=== PATIENT | female | born 1960 | race Caucasian/White ===

== ENCOUNTER 2017-11-19 11:24 | Inpatient (IN) ==
[2017-11-19 13:49] LABS: Baso # (Auto) 0.1 th/mm3 (0.0-0.2); Baso % (Auto) 1.3 % (0.0-2.0); Eos # (Auto) 0.4 th/mm3 (0.0-0.4); Hemoglobin 14.4 gm/dL (11.6-15.3); Lymph # (Auto) 2.4 th/mm3 (1.0-4.8); Lymph % (Auto) 26.4 % (9.0-44.0); Mean Corpuscular HGB Conc 32.7 % (32.0-36.0); Mean Corpuscular Hemoglobin 27.7 pg (27.0-34.0); Mean Corpuscular Volume 84.7 fL (80.0-100.0); Mean Platelet Volume 9.5 fL (7.0-11.0); Mono # (Auto) 0.7 th/mm3 (0.0-0.9); Mono % (Auto) 7.4 % (0.0-8.0); Neut # (Auto) 5.5 th/mm3 (1.8-7.7); Neut % (Auto) 60.9 % (16.0-70.0); Platelet Count 293 th/mm3 (150-450); Red Cell Distribution Width 13.9 % (11.6-17.2); White Blood Count 9.1 th/mm3 (4.0-11.0)
--- NOTE | 2017-11-19 15:54 | ED ---
HPI General Chief Complaint: Psychiatric Symptoms Stated Complaint: Ady Sternal/HHPD Time Seen by Provider: 11/19/17 13:13 Source: patient Mode of arrival: ambulatory Limitations: no limitations History of Present Illness HPI Narrative: 56-year-old female presents to the emergency department under Rodriguez act. According to the Rodriguez act report she was making statements that she was crucified on the cross last night, verbally threatening staff last night , and threatening to run away. The report also states that she has been hallucinating. On my evaluation the patient is alert and oriented 4. When I ask her questions she is answering some of them with bizarre answers. I am able to redirect her and I feel like she is answering questions appropriately with redirection. She denies suicidal or homicidal ideations. Says that she feels like she is hallucinating. Denies illicit drug use, alcohol use. Reports tobacco use. Symptoms are moderate to severe in severity. No known aggravating or relieving factors. Onset unknown. Duration chronic. Allergies as listed on the chart. Primary CARE providers Dr. Wray. Says she goes to ask for psychiatry. Denies significant past medical history. Has no other medical complaints. Denies chest pain, shortness breath, abdominal pain, nausea, vomiting, change in urine or stool. No other modifying factors or associated signs and symptoms. Related Data Home Medications Medication Instructions Recorded Confirmed Cogentin 2 mg PO BID 11/19/17 11/19/17 Colace 100 mg PO HS 11/19/17 11/19/17 Invega 234 mg IM Q4W 11/19/17 11/19/17 Seroquel 400 mg PO HS 11/19/17 11/19/17 Vesicare 10 mg PO HS 11/19/17 11/19/17 atorvastatin 20 mg PO HS 11/19/17 11/19/17 buspirone 15 mg PO TID 11/19/17 11/19/17 fenofibrate 160 mg PO DAILY 11/19/17 11/19/17 levothyroxine 88 mcg PO DAILY 11/19/17 11/19/17 metoprolol succinate 25 mg PO BID 11/19/17 11/19/17 pantoprazole 20 mg PO DAILY 11/19/17 11/19/17 ranitidine HCl 150 mg PO BID 11/19/17 11/19/17 sertraline 100 mg PO DAILY 11/19/17 11/19/17 Allergies Allergy/AdvReac Type Severity Reaction Status Date / Time chocolate flavor Allergy Severe Unverified 11/14/16 18:44 cyclosporine Allergy Severe Rash Unverified 11/14/16 18:44 lemon Allergy Mild Unverified 11/14/16 18:44 orange Allergy Mild Unverified 11/14/16 18:44 penicillin G Allergy Unknown Unverified 11/14/16 18:44 Review of Systems ROS: all other systems reviewed are negative PMFSH Medical History Medical History Hypertriglyceridemia (Acute) Hypothyroidism (Acute) Right leg injury (Acute) Patient denies medical problems (Acute) Surgical history unknown (Acute) Surgical History Surgical History Hx of appendectomy (Acute) History of cholecystectomy (Acute) No history of previous surgery (Acute) Family History Family History Mother Hypertension Social History Social History Substance History: Unable to Obtain Smoking Status: Cognitive impairment How Often Do You Have a Drink Containing Alcohol: Unable to Obtain Recent Travel in [facility] within the Last 8 Weeks: No Recent Out of Country Travel within the Last 8 Weeks: No Immunization History Tetanus Immunization: Unsure Hx Influenza Vaccine This Season: No Exam Narrative Exam Narrative: GENERAL: Well-nourished, well-developed female patient , in no acute distress SKIN: Warm and dry. HEAD: Atraumatic. Normocephalic. EYES: Pupils equal and round. ENT: Mucosa pink and moist. NECK: Supple. Trachea midline. CARDIOVASCULAR: Regular rate and rhythm. No murmur appreciated. RESPIRATORY: No accessory muscle use. Clear to auscultation. Breath sounds equal bilaterally. GASTROINTESTINAL: Abdomen soft, non-tender, nondistended. Hepatic and splenic margins not palpable. Bowel sounds are active 4 quadrants. MUSCULOSKELETAL: No obvious deformities. No clubbing. No cyanosis. No edema. NEUROLOGICAL: Awake and alert. Oriented 4. No obvious cranial nerve deficits. Motor grossly within normal limits. Normal speech. Moves all extremities. 5/5 strength to all extremities. PSYCHIATRIC: Delusional thought processes. Possible hallucinations. Course Initial Documented Vital Signs Temperature 97.8 F 11/19/17 11:43 Pulse Rate 81 11/19/17 11:43 Respiratory Rate 18 11/19/17 11:43 Blood Pressure 140/85 11/19/17 11:43 Last Documented Vital Signs Temperature 98.3 F 11/22/17 17:16 Pulse Rate 97 H 11/22/17 17:16 Respiratory Rate 16 11/22/17 17:16 Blood Pressure 152/95 H 11/22/17 17:16 Pulse Oximetry 96 11/22/17 17:16 Medical Decision Making MDM Narrative Medical decision making narrative: Patient presents under a Rodriguez act. Physical examination and vital signs are essentially unremarkable. Patient has no medical complaints to report. Psych screen has been ordered. If the laboratory results are unremarkable, the patient will be medically cleared for psychiatric evaluation and disposition. Medical Screen Exam Complete: Yes Emergency Medical Condition: Yes Differential Diagnosis Differential Diagnosis: Bipolar disorder, siddharth, acute psychosis, medical clearance for psychiatric evaluation Lab Data Result diagrams: 11/19/17 11:51 11/22/17 13:34 Lab Results 11/19/17 11/19/17 11/19/17 Range/Units 11:51 17:30 17:30 WBC 9.1 (4.0-11.0) th/mm3 RBC 5.20 (4.00-5.30) mil/mm3 Hgb 14.4 (11.6-15.3) gm/dL Hct 44.0 (35.0-46.0) % MCV 84.7 (80.0-100.0) fL MCH 27.7 (27.0-34.0) pg MCHC 32.7 (32.0-36.0) % RDW 13.9 (11.6-17.2) % Plt Count 293 (150-450) th/mm3 MPV 9.5 (7.0-11.0) fL Neut % (Auto) 60.9 (16.0-70.0) % Lymph % (Auto) 26.4 (9.0-44.0) % Clark % (Auto) 7.4 (0.0-8.0) % Eos % (Auto) 4.0 (0.0-4.0) % Baso % (Auto) 1.3 (0.0-2.0) % Neut # (Auto) 5.5 (1.8-7.7) th/mm3 Lymph # (Auto) 2.4 (1.0-4.8) th/mm3 Clark # (Auto) 0.7 (0.0-0.9) th/mm3 Eos # (Auto) 0.4 (0.0-0.4) th/mm3 Baso # (Auto) 0.1 (0.0-0.2) th/mm3 WBC Differential . Differential Comment Auto diff final Sodium 139 (136-145) meq/L Potassium 3.9 (3.5-5.1) meq/L Chloride 105 (98-107) meq/L Carbon Dioxide 22.4 (21.0-32.0) meq/L Anion Gap 12 (5-15) meq/L BUN 19 H (7-18) mg/dL Creatinine 1.68 H (0.50-1.00) mg/dL Estimated GFR 32 L (>89) mL/min Random Glucose 102 (74-106) mg/dL Hemoglobin A1c (4.3-6.0) % Calcium 9.1 (8.5-10.1) mg/dL Total Bilirubin 0.3 (0.2-1.0) mg/dL AST 31 (15-37) U/L ALT 46 (10-53) U/L Alkaline Phosphatase 73 (45-117) U/L Total Protein 7.1 (6.4-8.2) g/dL Albumin 3.8 (3.4-5.0) g/dL Triglycerides (42-150) mg/dL Cholesterol (120-200) mg/dL LDL Cholesterol, Calc (0-99) mg/dL HDL Cholesterol (40.0-60.0) mg/dL Cholesterol/HDL Ratio Ratio TSH 0.691 (0.358-3.740) uIU/mL Urine Color (Yellw/Straw) Urine Clarity (Clear) Urine pH (5.0-8.5) Ur Specific Webster (1.002-1.035) Urine Protein (Neg-Trace) mg/dL Urine Glucose (UA) (Negative) mg/dL Urine Ketones (Negative) mg/dL Urine Occult Blood (Negative) Urine Nitrate (Negative) Urine Bilirubin (Negative) Urine Urobilinogen (Less than 2) mg/dL Ur Leukocyte Esterase (Negative) Urine RBC (0-3) /hpf Urine WBC (0-5) /hpf Urine WBC Clumps (None) Ur Squamous Epith Cells (0-5) /hpf Ur Transition Epith Cell (None) /hpf Urine Bacteria (None) /hpf Micro UA Comment Urine Culture Comments Urine Eosinophils (None Seen) /HPF Ur Random Creatinine (27-300) mg/dL Ur Random Sodium meq/L Salicylates 2.3 L (2.8-20.0) mg/dL Urine Opiates Screen (Neg) Acetaminophen Less than 2.0 L (10.0-30.0) mcg/mL Ur Barbiturates Screen (Neg) Ur Amphetamines Screen (Neg) U Benzodiazepines Scrn (Neg) Urine Cocaine Screen (Neg) U Cannabinoids Screen (Neg) Serum Alcohol Less than 3 (0-5) mg/dL 11/20/17 11/20/17 11/20/17 Range/Units 09:03 09:03 14:48 WBC (4.0-11.0) th/mm3 RBC (4.00-5.30) mil/mm3 Hgb (11.6-15.3) gm/dL Hct (35.0-46.0) % MCV (80.0-100.0) fL MCH (27.0-34.0) pg MCHC (32.0-36.0) % RDW (11.6-17.2) % Plt Count (150-450) th/mm3 MPV (7.0-11.0) fL Neut % (Auto) (16.0-70.0) % Lymph % (Auto) (9.0-44.0) % Clark % (Auto) (0.0-8.0) % Eos % (Auto) (0.0-4.0) % Baso % (Auto) (0.0-2.0) % Neut # (Auto) (1.8-7.7) th/mm3 Lymph # (Auto) (1.0-4.8) th/mm3 Clark # (Auto) (0.0-0.9) th/mm3 Eos # (Auto) (0.0-0.4) th/mm3 Baso # (Auto) (0.0-0.2) th/mm3 WBC Differential Differential Comment Sodium 139 (136-145) meq/L Potassium 4.0 (3.5-5.1) meq/L Chloride 106 (98-107) meq/L Carbon Dioxide 22.8 (21.0-32.0) meq/L Anion Gap 10 (5-15) meq/L BUN 19 H (7-18) mg/dL Creatinine 1.72 H (0.50-1.00) mg/dL Estimated GFR 31 L (>89) mL/min Random Glucose 128 H (74-106) mg/dL Hemoglobin A1c 5.8 (4.3-6.0) % Calcium 9.2 (8.5-10.1) mg/dL Total Bilirubin (0.2-1.0) mg/dL AST (15-37) U/L ALT (10-53) U/L Alkaline Phosphatase (45-117) U/L Total Protein (6.4-8.2) g/dL Albumin (3.4-5.0) g/dL Triglycerides 172 H (42-150) mg/dL Cholesterol 158 (120-200) mg/dL LDL Cholesterol, Calc 61 (0-99) mg/dL HDL Cholesterol 62.9 H (40.0-60.0) mg/dL Cholesterol/HDL Ratio 2.51 Ratio TSH (0.358-3.740) uIU/mL Urine Color (Yellw/Straw) Urine Clarity (Clear) Urine pH (5.0-8.5) Ur Specific Webster (1.002-1.035) Urine Protein (Neg-Trace) mg/dL Urine Glucose (UA) (Negative) mg/dL Urine Ketones (Negative) mg/dL Urine Occult Blood (Negative) Urine Nitrate (Negative) Urine Bilirubin (Negative) Urine Urobilinogen (Less than 2) mg/dL Ur Leukocyte Esterase (Negative) Urine RBC (0-3) /hpf Urine WBC (0-5) /hpf Urine WBC Clumps (None) Ur Squamous Epith Cells (0-5) /hpf Ur Transition Epith Cell (None) /hpf Urine Bacteria (None) /hpf Micro UA Comment Urine Culture Comments Urine Eosinophils (None Seen) /HPF Ur Random Creatinine (27-300) mg/dL Ur Random Sodium meq/L Salicylates (2.8-20.0) mg/dL Urine Opiates Screen Neg (Neg) Acetaminophen (10.0-30.0) mcg/mL Ur Barbiturates Screen Neg (Neg) Ur Amphetamines Screen Neg (Neg) U Benzodiazepines Scrn Neg (Neg) Urine Cocaine Screen Neg (Neg) U Cannabinoids Screen Neg (Neg) Serum Alcohol (0-5) mg/dL 11/20/17 11/20/17 11/20/17 Range/Units 14:48 14:48 14:48 WBC (4.0-11.0) th/mm3 RBC (4.00-5.30) mil/mm3 Hgb (11.6-15.3) gm/dL Hct (35.0-46.0) % MCV (80.0-100.0) fL MCH (27.0-34.0) pg MCHC (32.0-36.0) % RDW (11.6-17.2) % Plt Count (150-450) th/mm3 MPV (7.0-11.0) fL Neut % (Auto) (16.0-70.0) % Lymph % (Auto) (9.0-44.0) % Clark % (Auto) (0.0-8.0) % Eos % (Auto) (0.0-4.0) % Baso % (Auto) (0.0-2.0) % Neut # (Auto) (1.8-7.7) th/mm3 Lymph # (Auto) (1.0-4.8) th/mm3 Clark # (Auto) (0.0-0.9) th/mm3 Eos # (Auto) (0.0-0.4) th/mm3 Baso # (Auto) (0.0-0.2) th/mm3 WBC Differential Differential Comment Sodium (136-145) meq/L Potassium (3.5-5.1) meq/L Chloride (98-107) meq/L Carbon Dioxide (21.0-32.0) meq/L Anion Gap (5-15) meq/L BUN (7-18) mg/dL Creatinine (0.50-1.00) mg/dL Estimated GFR (>89) mL/min Random Glucose (74-106) mg/dL Hemoglobin A1c (4.3-6.0) % Calcium (8.5-10.1) mg/dL Total Bilirubin (0.2-1.0) mg/dL AST (15-37) U/L ALT (10-53) U/L Alkaline Phosphatase (45-117) U/L Total Protein (6.4-8.2) g/dL Albumin (3.4-5.0) g/dL Triglycerides (42-150) mg/dL Cholesterol (120-200) mg/dL LDL Cholesterol, Calc (0-99) mg/dL HDL Cholesterol (40.0-60.0) mg/dL Cholesterol/HDL Ratio Ratio TSH (0.358-3.740) uIU/mL Urine Color Yellow (Yellw/Straw) Urine Clarity Cloudy H (Clear) Urine pH 5.0 (5.0-8.5) Ur Specific Webster 1.011 (1.002-1.035) Urine Protein Negative (Neg-Trace) mg/dL Urine Glucose (UA) Negative (Negative) mg/dL Urine Ketones Negative (Negative) mg/dL Urine Occult Blood Small H (Negative) Urine Nitrate Negative (Negative) Urine Bilirubin Negative (Negative) Urine Urobilinogen Less than 2 (Less than 2) mg/dL Ur Leukocyte Esterase Large H (Negative) Urine RBC 2 (0-3) /hpf Urine WBC 109 H (0-5) /hpf Urine WBC Clumps Few H (None) Ur Squamous Epith Cells 3 (0-5) /hpf Ur Transition Epith Cell 1 (None) /hpf Urine Bacteria Moderate H (None) /hpf Micro UA Comment Culture indicated Urine Culture Comments Culture indicated Urine Eosinophils None seen (None Seen) /HPF Ur Random Creatinine 108 (27-300) mg/dL Ur Random Sodium 35 meq/L Salicylates (2.8-20.0) mg/dL Urine Opiates Screen (Neg) Acetaminophen (10.0-30.0) mcg/mL Ur Barbiturates Screen (Neg) Ur Amphetamines Screen (Neg) U Benzodiazepines Scrn (Neg) Urine Cocaine Screen (Neg) U Cannabinoids Screen (Neg) Serum Alcohol (0-5) mg/dL 11/22/17 Range/Units 13:34 WBC (4.0-11.0) th/mm3 RBC (4.00-5.30) mil/mm3 Hgb (11.6-15.3) gm/dL Hct (35.0-46.0) % MCV (80.0-100.0) fL MCH (27.0-34.0) pg MCHC (32.0-36.0) % RDW (11.6-17.2) % Plt Count (150-450) th/mm3 MPV (7.0-11.0) fL Neut % (Auto) (16.0-70.0) % Lymph % (Auto) (9.0-44.0) % Clark % (Auto) (0.0-8.0) % Eos % (Auto) (0.0-4.0) % Baso % (Auto) (0.0-2.0) % Neut # (Auto) (1.8-7.7) th/mm3 Lymph # (Auto) (1.0-4.8) th/mm3 Clark # (Auto) (0.0-0.9) th/mm3 Eos # (Auto) (0.0-0.4) th/mm3 Baso # (Auto) (0.0-0.2) th/mm3 WBC Differential Differential Comment Sodium 141 (136-145) meq/L Potassium 3.9 (3.5-5.1) meq/L Chloride 111 H (98-107) meq/L Carbon Dioxide 20.5 L (21.0-32.0) meq/L Anion Gap 10 (5-15) meq/L BUN 13 (7-18) mg/dL Creatinine 1.26 H (0.50-1.00) mg/dL Estimated GFR 44 L (>89) mL/min Random Glucose 83 (74-106) mg/dL Hemoglobin A1c (4.3-6.0) % Calcium 8.8 (8.5-10.1) mg/dL Total Bilirubin (0.2-1.0) mg/dL AST (15-37) U/L ALT (10-53) U/L Alkaline Phosphatase (45-117) U/L Total Protein (6.4-8.2) g/dL Albumin (3.4-5.0) g/dL Triglycerides (42-150) mg/dL Cholesterol (120-200) mg/dL LDL Cholesterol, Calc (0-99) mg/dL HDL Cholesterol (40.0-60.0) mg/dL Cholesterol/HDL Ratio Ratio TSH (0.358-3.740) uIU/mL Urine Color (Yellw/Straw) Urine Clarity (Clear) Urine pH (5.0-8.5) Ur Specific Webster (1.002-1.035) Urine Protein (Neg-Trace) mg/dL Urine Glucose (UA) (Negative) mg/dL Urine Ketones (Negative) mg/dL Urine Occult Blood (Negative) Urine Nitrate (Negative) Urine Bilirubin (Negative) Urine Urobilinogen (Less than 2) mg/dL Ur Leukocyte Esterase (Negative) Urine RBC (0-3) /hpf Urine WBC (0-5) /hpf Urine WBC Clumps (None) Ur Squamous Epith Cells (0-5) /hpf Ur Transition Epith Cell (None) /hpf Urine Bacteria (None) /hpf Micro UA Comment Urine Culture Comments Urine Eosinophils (None Seen) /HPF Ur Random Creatinine (27-300) mg/dL Ur Random Sodium meq/L Salicylates (2.8-20.0) mg/dL Urine Opiates Screen (Neg) Acetaminophen (10.0-30.0) mcg/mL Ur Barbiturates Screen (Neg) Ur Amphetamines Screen (Neg) U Benzodiazepines Scrn (Neg) Urine Cocaine Screen (Neg) U Cannabinoids Screen (Neg) Serum Alcohol (0-5) mg/dL Imaging Data Radiologist's impression: Abdomen/Bladder Ultrasound 11/20/17 00:00 CONCLUSION: 1. Negative renal sonogram. Discharge Plan Discharge Disposition Patient Disposition: 01 Discharge Home Discharge Condition Condition: Stable Physicians Team ED Provider: Tab Mary ED Midlevel Provider: Francia Pickens Primary Care Provider: UNKNOWN, Attending Provider: Monico Thakur Other Providers: Jose Ar,[facility] ; Asad Judge Status ED Status: Left Department Discharge Information Discharge Date/Time: 11/19/17 18:09
[2017-11-19] MEDS ORDERED: Aluminum/Magnesium/Simethacone Susp 30 ML UDC PO PRN (16:34)
[2017-11-19] MEDS ORDERED: Benztropine Inj 2 MG/2 ML Ampul IM PRN (16:34)
[2017-11-19] MEDS ORDERED: Acetaminophen 325 MG Tablet PO PRN (16:34)
--- NOTE | 2017-11-19 16:38 | P.HPPSY ---
Provisional Diagnosis Admission Date: November 19, 2017 11:24 Ubly I.: 1. Schizoaffective disorder, unspecified type, acute exacerbation Ubly II.: Deferred Competence Certification of Person's Competence To Provide Express and Informed Consent I have personally examined Margo Gonzales, a person being served at [facility] on, November 19, 2017 1636. Express and informed consent means consent voluntarily given in writing, by a competent person, after sufficient explanation and disclosure of the subject matter involved to enable the person to make a knowing and willful decision without any element of force, fraud, deceit, duress, or other form of constraint or coercion. This person is 18 years of age or older, is not now known to be incompetent to consent to treatment with a guardian advocate, and does not have a health care surrogate or proxy currently making medical treatment decisions. I have found this person to be one of the following: [] Competent to provide express and informed consent, as defined above, for voluntary admission to this facility and is competent to provide express and informed consent for treatment. He/she has the consistent capacity to make well reasoned, willful, and knowing decisions concerning his or her medical or mental health treatment. The person fully and consistently understands the purpose of the admission for examination/placement and is fully capable of personally exercising all rights assured [place] [X] Incompetent to provide express and informed consent to voluntary admission, and this is incompetent to provide express and informed consent to treatment. The person must be transferred to involuntary status and a petition for a guardian advocate filed with the Circuit Court. [] Refusing to provide express and informed consent to voluntary admission but is competent to provide express and informed consent for treatment. The person must be discharged or transferred to involuntary status. Form shall be completed within 24 hours of a person's arrival at the receiving facility and filed in the clinical record of each person: 1. Admitted on a voluntary basis 2. Permitted to provide express and informed consent to his/her own treatment 3. Allowed to transfer from involuntary to voluntary status 4. Prior to permitting a person to consent to his or her own treatment after having been previously found incompetent to consent to treatment. History of Present Illness Capacity: Lacks capacity Chief Complaint: Psychosis History of Present Illness: Ms. Gonzales is a 56-year-old female with a history of schizoaffective disorder who presents under a Rodriguez act by law enforcement alleging that the patient made statements to her nurse that she was crucified on the cross last night. It is further alleged that the patient verbally threatened staff and threatened to run away from the facility. Accompanying the Rodriguez act as an MAR from patient's facility, which I have reviewed as well as a resident observation log spanning a period from the end of July 2017 through today, and I have examined this log as well. Reviewing the electronic medical record, I note that the patient was admitted here at [facility] most recently in [address] Gamboa. Patient seen and examined. Chart reviewed. Case discussed with nursing staff. On my examination today, the patient presents as disheveled, somewhat disorganized and psychotic. Paranoia is present. She tells me "someone is stalking me! Old-fashioned stuff." She also believes that people are taking her medications and possibly slipping her alcohol. She appears internally stimulated. She does endorse deprecatory auditory hallucinations in her own voice. She denies command auditory hallucinations to hurt self/others. No other delusional material. Affect is childlike. No mood symptoms. Psychiatric interview is limited because of patient's degree of psychiatric symptomatology at present. The patient has no acute physical complaints. Past psychiatric history: Patient is likely an unreliable historian. She carries a diagnosis of schizoaffective disorder. She reportedly gets psychiatric care through [facility] and prescriber is listed as Destini Watt. Most recent psychiatric admission here at [facility] was in 2014. Unclear if the patient has had interval psychiatric admissions. She reports a history of previous suicide attempt by overdose. Family history: The patient reports that alcoholism and schizophrenia run in her family. Chemical dependency history: The patient insists that people have been slipping her alcohol. She denies any volitional substance abuse. 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 She is reportedly high school educated. She is reportedly "somebody, I am not sure who." She also reports that she has children "somewhere." She also says that she has served in the [employer] in the past. She reports that she collects a disability income. No reported access to guns or firearms. The veracity of patient's social history as provided is unclear. Given patient's degree of psychiatric symptomatology, I have endeavored to obtain collateral information from Chyna June who is listed as a nurse in the Rodriguez act documentation. Ms. June reports that she serves as patient's primary care provider at the [facility] where the patient resides. She notes that the patient was hospitalized from 10/30 through 11/12. She notes that the patient obtains psychiatric care through [facility]. She notes that following discharge from the hospital the patient has been increasingly paranoid. Ms. June does not know of anyone who could serve as health care surrogate. She recommends calling over to the [facility]. I have instructed the nurse to do so, but unfortunately the [facility] reportedly has no contact information for anyone to serve as health care surrogate. - Inpatient Certification I certify that the inpatient services were ordered in accordance with Medicare regulations governing the order. This includes certification that hospital inpatient services are reasonable and necessary and in the case of services not specified as inpatient-only under 42 CFR 419.22(n), that they are appropriately provided as inpatient services in accordance to with the 2-midnight benchmark under 43 CFR 412.3(e) I certify that inpatient psychiatric hospital services are medically necessary. Evaluation and treatment and/or diagnostic testing are expected to improve the patient's condition. The patient needs on a daily basis, active treatment furnished directly by or requiring the supervision of inpatient psychiatric facility personnel. Estimated Total Length of Stay (Days): 7 (5-7) Plans for Post Hospital Care: Not yet determined Review of Systems unobtainable due to mental condition PMFSH - Medical History Medical History: Medical History (Last Reviewed 11/19/17 @ 15:52 by BRAULIO Loyola) Patient denies medical problems Surgical history unknown - Surgical History Surgical History: Surgical History (Last Updated 11/19/17 @ 11:52 by Deonte Locke RN) No history of previous surgery Quality Measures - Patient Strengths Patient's strengths (minimum of 2): In a monitored setting. Verbally fluent. Medications and Allergies Active Medications: Active Medications Acetaminophen (Tylenol) 650 mg PO Q4H PRN PRN Reason: Pain 1-5 or Temp >101F Al Hydrox/Mg Hydrox/Simethicone (Mag-Al Plus Susp Liq) 30 ml PO Q6H PRN PRN Reason: DYSPEPSIA Al Hydroxide/Mg Hydroxide (Milk Of Mario Parnell) 30 ml PO Q12H PRN PRN Reason: Mild Constipation Benztropine Mesylate (Cogentin) 1 mg PO Q12H PRN PRN Reason: EXTRA PYRAMIDAL SYMPTOMS Benztropine Mesylate (Cogentin Inj) 1 mg IM Q12H PRN PRN Reason: EXTRA PYRAMIDAL SYMPTOMS Nicotine (Habitrol 21 Mg Patch.24 Hr) 1 patch T-DERMAL DAILY PRN PRN Reason: Nicotine craving Non-Formulary Medication (Colace) 100 mg PO HS [facility] Non-Formulary Medication (Fenofibrate) 160 mg PO DAILY [facility] Non-Formulary Medication (Levothyroxine) 88 mcg PO DAILY@06 [facility] Non-Formulary Medication (Metoprolol Succinate) 25 mg PO BID [facility] Non-Formulary Medication (Pantoprazole) 20 mg PO DAILY [facility] Non-Formulary Medication (Ranitidine Hcl) 150 mg PO BID [facility] Non-Formulary Medication (Vesicare) 10 mg PO HS [facility] Non-Formulary Medication (Atorvastatin) 20 mg PO HS [facility] Allergies Allergy/AdvReac Type Severity Reaction Status Date / Time chocolate flavor Allergy Severe Unverified 11/14/16 18:44 cyclosporine Allergy Severe Rash Unverified 11/14/16 18:44 lemon Allergy Mild Unverified 11/14/16 18:44 orange Allergy Mild Unverified 11/14/16 18:44 penicillin G Allergy Unknown Unverified 11/14/16 18:44 Home Medications Medication Instructions Recorded Confirmed Type Cogentin 2 mg PO BID 11/19/17 11/19/17 History Colace 100 mg PO HS 11/19/17 11/19/17 History Invega 234 mg IM Q4W 11/19/17 11/19/17 History Seroquel 400 mg PO HS 11/19/17 11/19/17 History Vesicare 10 mg PO HS 11/19/17 11/19/17 History atorvastatin 20 mg PO HS 11/19/17 11/19/17 History buspirone 15 mg PO TID 11/19/17 11/19/17 History fenofibrate 160 mg PO DAILY 11/19/17 11/19/17 History levothyroxine 88 mcg PO DAILY 11/19/17 11/19/17 History metoprolol succinate 25 mg PO BID 11/19/17 11/19/17 History pantoprazole 20 mg PO DAILY 11/19/17 11/19/17 History ranitidine HCl 150 mg PO BID 11/19/17 11/19/17 History sertraline 100 mg PO DAILY 11/19/17 11/19/17 History Results - Labs CBC & Chem 7: 11/19/17 11:51 Labs: Laboratory Results - last 24 hr 11/19/17 11:51 WBC 9.1 RBC 5.20 Hgb 14.4 Hct 44.0 MCV 84.7 MCH 27.7 MCHC 32.7 RDW 13.9 Plt Count 293 MPV 9.5 Neut % (Auto) 60.9 Lymph % (Auto) 26.4 Clarke % (Auto) 7.4 Eos % (Auto) 4.0 Baso % (Auto) 1.3 Neut # (Auto) 5.5 Lymph # (Auto) 2.4 Clarke # (Auto) 0.7 Eos # (Auto) 0.4 Baso # (Auto) 0.1 WBC Differential . Differential Comment Auto diff final Laboratory reviewed. Presently, only a CBC is available for my review. According to the nurse, the patient was combative when blood was being drawn, and so only enough blood for the CBC could be drawn. I have instructed the nurse to have the laboratory return to try to draw more blood for laboratories ordered by the ED provider note that the patient is calmer. Exam Vital signs: Vital Signs 11/19/17 11:43 Temperature 97.8 F Pulse Rate 81 Respiratory Rate 18 Blood Pressure 140/85 Intake & Output 11/18/17 11/19/17 11/19/17 18:59 06:59 18:59 Weight 63.503 kg Narrative: Physical examination completed by ED provider. On my examination today, the patient appears to be in no acute physical distress. No motor abnormalities noted. Labs and vital signs reviewed. Mental Status Examination Appearance: Disheveled Consciousness: Alert Orientation: Person, Place Motor Activity: Other (No motor abnormalities noted) Speech: Hesitant Language: Other (Somewhat rambling) Fund of Knowledge: Inadequate Attention and Concentration: Easily distracted Memory: Impaired (Psychosis interferes) Mood: Anxious Affect: Anxious Thought Process & Associations: Tangential (At times disorganized) Thought Content: Hallucinations, Delusional Hallucination Type: Other (Appears internally stimulated) Delusion Type: Paranoid Suicidal Ideation: No Suicidal Plan: No Suicidal Intention: No Homicidal Ideation: No Homicidal Plan: No Homicidal Intention: No Insight: Poor Judgment: Poor Assessment and Plan - Assessment (1) Schizoaffective disorder Code(s): F25.9 - Schizoaffective disorder, unspecified Status: Acute - Plan Plan: 56-year-old female with psychiatric history as detailed above who presents under a Rodriguez act by law enforcement. On my examination today, the patient appears to be floridly psychotic, and decompensation of the patient's primary psychotic illness is suspected. Further laboratory workup will be needed to ensure that there is not an organic cause for patient's symptoms. I will plan to admit the patient to the inpatient psychiatric unit for safety, observation and stabilization. Admit inpatient. Involuntary status. I have completed first opinion. Consult for second opinion. Request healthcare surrogate and guardian advocate. Psychotropic medications are on hold until a healthcare surrogate can be identified to provide consent for these medications. Per nursing report, patient was providing consent for medications at facility but is unable to do so now secondary to psychiatric symptomatology. I will continue the patient's general medical medications as ordered at patient's facility. Follow-up laboratories ordered by the ED provider but not yet collected. Check EKG for QTc. PT/OT consultation. Vitals every shift. Counselor to see. Disposition planning. Estimated length of stay: 5-7 days, longer if a healthcare surrogate cannot be identified in short order. Justification for Continued Inpatient Stay: See above Discharge Planning: Pending psychiatric stabilization Request Healthcare Surrogate/Guardian Advocate?: Yes (1) Schizoaffective disorder Qualifiers: Schizoaffective disorder type: unspecified Qualified Code(s): F25.9 - Schizoaffective disorder, unspecified
[2017-11-19 19:04] LABS: Albumin 3.8 g/dL (3.4-5.0); Anion Gap 12 meq/L (5-15); Aspartate Aminotransferase 31 U/L (15-37); Blood Urea Nitrogen 19 mg/dL (7-18); Calcium 9.1 mg/dL (8.5-10.1); Carbon Dioxide 22.4 meq/L (21.0-32.0); Chloride 105 meq/L (98-107); Glomerular Filtration Rate 32 mL/min (>89); Glucose,Random 102 mg/dL (74-106); Potassium 3.9 meq/L (3.5-5.1); Sodium 139 meq/L (136-145)
[2017-11-19 19:05] LABS: Alanine Aminotransferase 46 U/L (10-53)
[2017-11-19 19:15] LABS: Alkaline Phosphatase 73 U/L (45-117); Thyroid Stimulating Hormone 0.691 uIU/mL (0.358-3.740); Total Protein 7.1 g/dL (6.4-8.2)
[2017-11-19] MEDS: Famotidine 20 MG Tablet PO SCH (21:47)
[2017-11-19] MEDS: Docusate Sodium 100 MG Capsule PO SCH (21:47)
[2017-11-20] MEDS ORDERED: LORazepam 1 MG Tablet PO ONE (01:30)
[2017-11-20] MEDS: Levothyroxine 88 MCG Tablet PO SCH (05:42)
[2017-11-20] MEDS: Famotidine 20 MG Tablet PO SCH ×2 (08:26→20:19)
[2017-11-20] MEDS: Pantoprazole Sodium 20 MG DR Tablet PO SCH (08:26)
[2017-11-20] MEDS ORDERED: Fenofibrate 145 MG Tablet PO SCH (09:00)
[2017-11-20] MEDS ORDERED: Tolterodine Tartrate LA 4 MG Capsule PO SCH (09:00)
--- NOTE | 2017-11-20 09:17 | P.CONPSY ---
Provisional Diagnosis Admission Date: November 19, 2017 16:31 Cordova I.: 1. Schizoaffective disorder, unspecified type, acute exacerbation Cordova II.: Deferred History of Present Illness Service: Psychiatry Consult date: 11/20/17 Requesting Physician: Monico Thakur Reason for Consult: Second opinion petition [employer] Primary Care Provider: UNKNOWN History of Present Illness: Patient admitted to Dr. Monico Thakur service under the Rodriguez act. Dr. Thakur H&P reviewed and agreed with. Dr. Thakur assigned first opinion petition supporting Rodriguez act. Patient seen by me in the ruiz with nurse Teresita. Patient alert diffusely confused disoriented disorganized and delusional. At this time patient does meet criteria for involuntary psychiatric hospitalization under the Rodriguez act thus I will cosign second opinion petition supporting Michael Review of Systems All other systems reviewed negative except as stated in HPI PMFSH - History History Provided By: Patient - Medical History Medical History: Medical History (Last Reviewed 11/20/17 @ 07:49 by Harry Boswell) Patient denies medical problems Surgical history unknown - Surgical History Surgical History: Surgical History (Last Reviewed 11/20/17 @ 07:49 by Harry Boswell) No history of previous surgery - Tobacco History Tobacco Use In Past 30 Days: No Smoking Status: Cognitive impairment - Alcohol History How Often Do You Have a Drink Containing Alcohol: Unable to Obtain - Substance Use History Substance History: Unable to Obtain - Travel History Recent Travel in the [place] Within the Last 8 Weeks: No Recent Travel Out of the Country Within the Last 8 Weeks: No - Immunization History Tetanus Immunization: Unsure Hx Influenza Vaccine This Season: No Medications and Allergies Active Medications: Active Medications Acetaminophen (Tylenol) 650 mg PO Q4H PRN PRN Reason: Pain 1-5 or Temp >101F Al Hydrox/Mg Hydrox/Simethicone (Mag-Al Plus Susp Liq) 30 ml PO Q6H PRN PRN Reason: DYSPEPSIA Al Hydroxide/Mg Hydroxide (Milk Of Magnesia Liq) 30 ml PO Q12H PRN PRN Reason: Mild Constipation Atorvastatin Calcium (Lipitor) 20 mg PO HS [facility] Last Admin: 11/19/17 21:47 Dose: 20 mg Benztropine Mesylate (Cogentin) 1 mg PO Q12H PRN PRN Reason: EXTRA PYRAMIDAL SYMPTOMS Benztropine Mesylate (Cogentin Inj) 1 mg IM Q12H PRN PRN Reason: EXTRA PYRAMIDAL SYMPTOMS Docusate Sodium (Colace) 100 mg PO HS [facility] Last Admin: 11/19/17 21:47 Dose: 100 mg Famotidine (Pepcid) 20 mg PO BID [facility] Last Admin: 11/20/17 08:26 Dose: 20 mg Fenofibrate (Tricor) 145 mg PO DAILY [facility] Last Admin: 11/20/17 08:27 Dose: 145 mg Levothyroxine Sodium (Synthroid) 88 mcg PO DAILY@0600 [facility] Last Admin: 11/20/17 05:42 Dose: 88 mcg Metoprolol Succinate (Toprol Xl) 25 mg PO BID [facility] Last Admin: 11/20/17 08:26 Dose: 25 mg Nicotine (Habitrol 21 Mg Patch.24 Hr) 1 patch T-DERMAL DAILY PRN PRN Reason: Nicotine craving Pantoprazole Sodium (Protonix) 20 mg PO DAILY [facility] Last Admin: 11/20/17 08:26 Dose: 20 mg Tolterodine Tartrate (Detrol La) 4 mg PO DAILY [facility] Last Admin: 11/20/17 08:27 Dose: 4 mg Allergies Allergy/AdvReac Type Severity Reaction Status Date / Time chocolate flavor Allergy Severe Unverified 11/14/16 18:44 cyclosporine Allergy Severe Rash Unverified 11/14/16 18:44 lemon Allergy Mild Unverified 11/14/16 18:44 orange Allergy Mild Unverified 11/14/16 18:44 penicillin G Allergy Unknown Unverified 11/14/16 18:44 Home Medications Medication Instructions Recorded Confirmed Type Cogentin 2 mg PO BID 11/19/17 11/19/17 History Colace 100 mg PO HS 11/19/17 11/19/17 History Invega 234 mg IM Q4W 11/19/17 11/19/17 History Seroquel 400 mg PO HS 11/19/17 11/19/17 History Vesicare 10 mg PO HS 11/19/17 11/19/17 History atorvastatin 20 mg PO HS 11/19/17 11/19/17 History buspirone 15 mg PO TID 11/19/17 11/19/17 History fenofibrate 160 mg PO DAILY 11/19/17 11/19/17 History levothyroxine 88 mcg PO DAILY 11/19/17 11/19/17 History metoprolol succinate 25 mg PO BID 11/19/17 11/19/17 History pantoprazole 20 mg PO DAILY 11/19/17 11/19/17 History ranitidine HCl 150 mg PO BID 11/19/17 11/19/17 History sertraline 100 mg PO DAILY 11/19/17 11/19/17 History Exam Vital signs: Vital Signs 11/19/17 11:43 11/19/17 17:00 11/19/17 18:25 Temperature 97.8 F 97.8 F 97.7 F Pulse Rate 81 80 82 Respiratory Rate 18 Blood Pressure 140/85 142/90 H 150/72 H Pulse Oximetry 98 98 11/20/17 05:54 Temperature 97.9 F Pulse Rate 83 Respiratory Rate 16 Blood Pressure 102/67 Pulse Oximetry 95 Intake & Output 11/19/17 11/20/17 11/20/17 18:59 06:59 18:59 Weight 59.6 kg Other: Weight On Admission 59.6 kg Narrative: Patient seen and ruiz with nurse patient ambulatory no complaints of pain no complaints of chest pain no respiratory difficulty no complaints of chest pain or abdominal pain patient moving all 4 extremities without difficulty Mental Status Examination Appearance: Disheveled Consciousness: Alert Orientation: Person, Place Motor Activity: Other (No motor abnormalities noted) Speech: Hesitant Language: Other (Somewhat rambling) Fund of Knowledge: Inadequate Attention and Concentration: Easily distracted Memory: Impaired (Psychosis interferes) Mood: Anxious Affect: Anxious Thought Process & Associations: Tangential (At times disorganized) Thought Content: Hallucinations, Delusional Hallucination Type: Other (Appears internally stimulated) Delusion Type: Paranoid Suicidal Ideation: No Suicidal Plan: No Suicidal Intention: No Homicidal Ideation: No Homicidal Plan: No Homicidal Intention: No Insight: Poor Judgment: Poor Assessment and Plan - Assessment (1) Schizoaffective disorder Code(s): F25.9 - Schizoaffective disorder, unspecified Status: Acute - Plan Plan: Patient meets Rodriguez criteria I will cosign second opinion petition supporting Michael act Justification for Continued Inpatient Stay: At this time patient would decompensate a place to a lower level of care Discharge Planning: To be determined Request Healthcare Surrogate/Guardian Advocate?: Yes (1) Schizoaffective disorder Qualifiers: Schizoaffective disorder type: unspecified Qualified Code(s): F25.9 - Schizoaffective disorder, unspecified
--- NOTE | 2017-11-20 09:56 | P.PNPSY ---
Subjective Chief Complaint: Psychosis Remarks: Patient seen and examined with nurse. Chart reviewed. Case discussed with nursing staff who notes patient is childlike, bizarre and tangential. Case discussed in treatment team. I have tasked the counselor with identifying potential health care surrogate to consent for medications for the patient. On my examination today, the patient remains quite paranoid and disorganized. She rambles about "horror movies," "grape wine," and other topics that are difficult to make out. She required Ativan 1 mg ETO overnight for agitation. She denies any suicidal or homicidal ideation. No physical complaints. I tried to call over to [facility] to see if they had any next of kin on file who could serve as health care surrogate. Unfortunately, their only emergency contact is the [place]. Vital Signs Temp Pulse Resp BP Pulse Ox 11/20/17 05:54 97.9 F 83 16 102/67 95 11/19/17 18:25 97.7 F 82 18 150/72 H 98 11/19/17 17:00 97.8 F 80 20 142/90 H 98 11/19/17 11:43 97.8 F 81 18 140/85 Intake and Output 11/19/17 11/20/17 11/20/17 22:59 06:59 14:59 Other: Weight 59.6 kg Weight On Admission 59.6 kg Laboratory Results - last 24 hr 11/19/17 11/19/17 11/19/17 11:51 17:30 17:30 WBC 9.1 RBC 5.20 Hgb 14.4 Hct 44.0 MCV 84.7 MCH 27.7 MCHC 32.7 RDW 13.9 Plt Count 293 MPV 9.5 Neut % (Auto) 60.9 Lymph % (Auto) 26.4 [place] % (Auto) 7.4 Eos % (Auto) 4.0 Baso % (Auto) 1.3 Neut # (Auto) 5.5 Lymph # (Auto) 2.4 [place] # (Auto) 0.7 Eos # (Auto) 0.4 Baso # (Auto) 0.1 WBC Differential . Differential Comment Auto diff final Sodium 139 Potassium 3.9 Chloride 105 Carbon Dioxide 22.4 Anion Gap 12 BUN 19 H Creatinine 1.68 H Estimated GFR 32 L Random Glucose 102 Calcium 9.1 Total Bilirubin 0.3 AST 31 ALT 46 Alkaline Phosphatase 73 Total Protein 7.1 Albumin 3.8 Triglycerides Cholesterol LDL Cholesterol, Calc HDL Cholesterol Cholesterol/HDL Ratio TSH 0.691 Salicylates 2.3 L Acetaminophen Less than 2.0 L Serum Alcohol Less than 3 11/20/17 09:03 WBC RBC Hgb Hct MCV MCH MCHC RDW Plt Count MPV Neut % (Auto) Lymph % (Auto) [place] % (Auto) Eos % (Auto) Baso % (Auto) Neut # (Auto) Lymph # (Auto) [place] # (Auto) Eos # (Auto) Baso # (Auto) WBC Differential Differential Comment Sodium 139 Potassium 4.0 Chloride 106 Carbon Dioxide 22.8 Anion Gap 10 BUN 19 H Creatinine 1.72 H Estimated GFR 31 L Random Glucose 128 H Calcium 9.2 Total Bilirubin AST ALT Alkaline Phosphatase Total Protein Albumin Triglycerides 172 H Cholesterol 158 LDL Cholesterol, Calc 61 HDL Cholesterol 62.9 H Cholesterol/HDL Ratio 2.51 TSH Salicylates Acetaminophen Serum Alcohol Labs reviewed. Decreased GFR noted. This appears to be even below her baseline decreased GFR, which has historically been in the 40-50s. Review of Systems unobtainable due to mental condition Mental Status Examination Appearance: Disheveled Consciousness: Alert Orientation: Person, Place Motor Activity: Other (No abnormal motor movements noted) Speech: Hesitant Language: Other (Somewhat rambling) Fund of Knowledge: Inadequate Attention and Concentration: Easily distracted Memory: Impaired (Psychosis interferes) Mood: Anxious Affect: Anxious Thought Process & Associations: Disorganized Thought Content: Hallucinations, Delusional Hallucination Type: Other (Remains internally stimulated) Delusion Type: Paranoid Suicidal Ideation: No Suicidal Plan: No Suicidal Intention: No Homicidal Ideation: No Homicidal Plan: No Homicidal Intention: No Insight: Poor Judgment: Poor Assessment and Plan - Assessment (1) Schizoaffective disorder Code(s): F25.9 - Schizoaffective disorder, unspecified Status: Acute - Plan Plan: Scheduled psychotropic medications remain on hold for lack of anyone to provide consent. I will consult the hospitalist regarding decreased GFR. Unclear if this represents progression of underlying CKD or DARNELL or some other factor. I have also requested that the hospitalist determine whether medical medications need to be dose adjusted for renal impairment. Continue to monitor on the inpatient unit. Continue other medications and care as ordered. Justification for Continued Inpatient Stay: Impairment in reality construction. High risk for decompensation in less restrictive environment. Discharge Planning: Pending psychiatric stabilization. Request Healthcare Surrogate/Guardian Advocate?: Yes (1) Schizoaffective disorder Qualifiers: Schizoaffective disorder type: unspecified Qualified Code(s): F25.9 - Schizoaffective disorder, unspecified
[2017-11-20 10:38] LABS: Calcium 9.2 mg/dL (8.5-10.1); Carbon Dioxide 22.8 meq/L (21.0-32.0)
[2017-11-20 10:41] LABS: Chol/HDL Ratio 2.51 Ratio; HDL Cholesterol 62.9 mg/dL (40.0-60.0)
--- NOTE | 2017-11-20 15:00 | P.CON ---
History of Present Illness Service: Hospitalist Consult date: 11/20/17 Requesting Physician: Monico Thakur Reason for Consult: Medical management Primary Care Provider: UNKNOWN History of Present Illness: This is a 56-year-old female with past medical history significant for schizoaffective disorder, hypertension, hypothyroidism and hypertriglyceridemia who presented to the ED under [place] act due to acute psychosis. Patient since been admitted to inpatient psychiatry unit and hospitalist services have been consulted for medical management specifically for assistance with elevated creatinine. Patient seen and examined. Patient is quite psychotic and therefore an accurate history is unobtainable. She tells me that she has not urinated since last night however discussed with Teresita BARNETT who states that this is not accurate. Otherwise, she has no acute medical complaints. Review of Systems All other systems reviewed negative except as stated in HPI PMFSH - History History Provided By: Patient, Medical Record - Medical History Medical History: Medical History (Last Updated 11/20/17 @ 14:47 by Carmen Carter) Hypertriglyceridemia (Acute) Hypothyroidism (Acute) Right leg injury (Acute) Patient denies medical problems Surgical history unknown - Surgical History Surgical History: Surgical History (Last Updated 11/20/17 @ 14:22 by Carmen Carter) Hx of appendectomy (Acute) History of cholecystectomy (Acute) No history of previous surgery - Family History Family History: Family History (Last Updated 11/20/17 @ 14:23 by Carmen Carter) Mother Hypertension - Tobacco History Tobacco Use In Past 30 Days: No Smoking Status: Cognitive impairment - Alcohol History How Often Do You Have a Drink Containing Alcohol: Unable to Obtain - Substance Use History Substance History: Unable to Obtain - Travel History Recent Travel in the [place] Within the Last 8 Weeks: No Recent Travel Out of the Country Within the Last 8 Weeks: No - Immunization History Tetanus Immunization: Unsure Hx Influenza Vaccine This Season: No Medications and Allergies Active Medications: Active Medications Acetaminophen (Tylenol) 650 mg PO Q4H PRN PRN Reason: Pain 1-5 or Temp >101F Al Hydrox/Mg Hydrox/Simethicone (Mag-Al Plus Susp Liq) 30 ml PO Q6H PRN PRN Reason: DYSPEPSIA Al Hydroxide/Mg Hydroxide (Milk Of Magnesia Liq) 30 ml PO Q12H PRN PRN Reason: Mild Constipation Atorvastatin Calcium (Lipitor) 20 mg PO HS [facility] Last Admin: 11/19/17 21:47 Dose: 20 mg Benztropine Mesylate (Cogentin) 1 mg PO Q12H PRN PRN Reason: EXTRA PYRAMIDAL SYMPTOMS Benztropine Mesylate (Cogentin Inj) 1 mg IM Q12H PRN PRN Reason: EXTRA PYRAMIDAL SYMPTOMS Docusate Sodium (Colace) 100 mg PO HS [facility] Last Admin: 11/19/17 21:47 Dose: 100 mg Famotidine (Pepcid) 20 mg PO BID [facility] Last Admin: 11/20/17 08:26 Dose: 20 mg Fenofibrate (Tricor) 145 mg PO DAILY [facility] Last Admin: 11/20/17 08:27 Dose: 145 mg Levothyroxine Sodium (Synthroid) 88 mcg PO DAILY@0600 [facility] Last Admin: 11/20/17 05:42 Dose: 88 mcg Metoprolol Succinate (Toprol Xl) 25 mg PO BID [facility] Last Admin: 11/20/17 08:26 Dose: 25 mg Nicotine (Habitrol 21 Mg Patch.24 Hr) 1 patch T-DERMAL DAILY PRN PRN Reason: Nicotine craving Pantoprazole Sodium (Protonix) 20 mg PO DAILY [facility] Last Admin: 11/20/17 08:26 Dose: 20 mg Tolterodine Tartrate (Detrol La) 4 mg PO DAILY [facility] Last Admin: 11/20/17 08:27 Dose: 4 mg Allergies Allergy/AdvReac Type Severity Reaction Status Date / Time chocolate flavor Allergy Severe Unverified 11/14/16 18:44 cyclosporine Allergy Severe Rash Unverified 11/14/16 18:44 lemon Allergy Mild Unverified 11/14/16 18:44 orange Allergy Mild Unverified 11/14/16 18:44 penicillin G Allergy Unknown Unverified 11/14/16 18:44 Home Medications Medication Instructions Recorded Confirmed Type Cogentin 2 mg PO BID 11/19/17 11/19/17 History Colace 100 mg PO HS 11/19/17 11/19/17 History Invega 234 mg IM Q4W 11/19/17 11/19/17 History Seroquel 400 mg PO HS 11/19/17 11/19/17 History Vesicare 10 mg PO HS 11/19/17 11/19/17 History atorvastatin 20 mg PO HS 11/19/17 11/19/17 History buspirone 15 mg PO TID 11/19/17 11/19/17 History fenofibrate 160 mg PO DAILY 11/19/17 11/19/17 History levothyroxine 88 mcg PO DAILY 11/19/17 11/19/17 History metoprolol succinate 25 mg PO BID 11/19/17 11/19/17 History pantoprazole 20 mg PO DAILY 11/19/17 11/19/17 History ranitidine HCl 150 mg PO BID 11/19/17 11/19/17 History sertraline 100 mg PO DAILY 11/19/17 11/19/17 History Physical Exam Vital signs: Vital Signs 11/19/17 17:00 11/19/17 18:25 11/20/17 05:54 Temperature 97.8 F 97.7 F 97.9 F Pulse Rate 80 82 83 Respiratory Rate 16 Blood Pressure 142/90 H 150/72 H 102/67 Pulse Oximetry 98 98 95 Intake & Output 11/19/17 11/20/17 11/20/17 18:59 06:59 18:59 Weight 59.6 kg Other: Weight On Admission 59.6 kg Narrative: GENERAL: WDWN female, INAD. Awake and alert. Psychotic. SKIN: Warm and dry. No generalized rash. HEAD: Atraumatic. Normocephalic. EYES: Pupils equal and round. No scleral icterus. No injection or drainage. ENT: No nasal bleeding or discharge. Mucous membranes pink and moist. NECK: Trachea midline. CARDIOVASCULAR: Regular rate and rhythm. RESPIRATORY: No accessory muscle use. Clear to auscultation. Breath sounds equal bilaterally. GASTROINTESTINAL: Abdomen soft, non-tender, nondistended. Hepatic and splenic margins not palpable. MUSCULOSKELETAL: Extremities without clubbing, cyanosis, or edema. No obvious deformities. NEUROLOGICAL: Awake and alert. No obvious cranial nerve deficits. Motor grossly within normal limits. No focal neurologic finding appreciated. Normal speech. PSYCHIATRIC: Psychotic, disorganized thought process. Assessment and Plan - Plan 56-year-old female with past medical history significant for schizoaffective disorder who presented to the ED under [place] act due to acute psychosis. Patient since been admitted to inpatient psychiatry unit and hospitalist services have been consulted for medical management specifically for assistance with elevated creatinine. Acute psychosis Schizoaffective disorder -Management per psychiatric team DRANELL on ?CKD, likely in part due to dehydration/poor oral intake -Encourage p.o. fluids -Hold Detrol LA -obtain UA specimen and send for C&S if indicated, urine sodium, creatinine and eosinophils -obtain Renal US -Avoid nephrotoxic agents -Monitor kidney function closely. Repeat BMP in a.m. and if creatinine continues to worsen patient will need to be transferred to [facility] for IV fluid hydration and further workup initiated. Hypertension now hypotensive -Decrease dose of Metoprolol XL to once daily Hypothyroidism TSH WNL -Continue patient on home dose of Synthroid 88 mcg daily Dyslipidemia -Hold home dose of Tricor 2/2 DARNELL -Continue patient on home dose of Lipitor DVT prophylaxis -Patient is ambulatory Discussed Condition With: patient, nursing staff, Dr. Judge
[2017-11-20 15:28] LABS: Bacteria,Urine Moderate /hpf; Bilirubin,Urine Negative (Negative); Clarity,Urine Cloudy (Clear); Color,Urine Yellow (Yellw/Straw); Glucose,Urine (UA) Negative (Negative); Leukocyte Esterase,Urine Large (Negative); Nitrite,Urine Negative (Negative); Specific Gravity,Urine 1.011 (1.002-1.035); Squamous Epithelial Cell,Urine 3 /hpf (0-5); Transitional Epi Cells,Urine 1 /hpf
[2017-11-20 15:33] LABS: Amphetamine Screen,Urine Neg (Neg); Barbiturate Screen,Urine Neg (Neg); Cannabinoid Screen,Urine Neg (Neg); Cocaine Screen,Urine Neg (Neg)
[2017-11-20 15:34] LABS: Creatinine,Urine Random 108 mg/dL (27-300)
[2017-11-20 15:35] LABS: Opiate Screen,Urine Neg (Neg)
[2017-11-20 16:15] LABS: Hemoglobin A1c 5.8 % (4.3-6.0)
--- NOTE | 2017-11-20 18:50 | US ---
EXAM DATE: 11/20/2017 6:16 PM EDT AGE/SEX: 56 years / Female INDICATIONS: Increased BUN/Creatinine. CLINICAL DATA: This is the patient's subsequent encounter. Patient reports that signs and symptoms h ave been present for 1 day and indicates a pain score of 0/10. MEDICAL/SURGICAL HISTORY: . Hypertriglyceridemia. Hypothyroidism. Right leg injury. Cholecyste ctomy. Appendectomy. COMPARISON: [facility], US KIDNEY, BILATERAL, 10/08/2017. [facility] [place], [place] KIDNEY/RENAL/BLADDER, 11/20/2011. . MEASUREMENTS: Right Kidney:__9.1 x 5.7 x 3.7 cm Left Kidney:__9.2 x 4.9 x 4.2 cm FINDINGS: Right Kidney: Normal renal cortical thickness. No evidence of mass or hydronephrosis. Left Kidney: Normal renal cortical thickness. No evidence of mass or hydronephrosis. Bladder: Within normal limits given the degree of distension. Other: None. CONCLUSION: 1. Negative renal sonogram. Electronically signed by: Eben Brandon MD 11/20/2017 6:48 PM EDT
--- NOTE | 2017-11-20 19:53 | ECG ---
Date Performed: 11/20/2017 Time Performed: 10:18:29 PTAGE: 56 years EKG: Sinus rhythm POSSIBLE LEFT ATRIAL ENLARGEMENT LOW QRS VOLTAGE IN PRECORDIAL LEADS BORDERLINE ECG PREVIOUS TRACING : 01/08/2012 11.03 Since the previous tracing, no significant change noted DOCTOR: Bianca Augustine Interpretating Date/Time 11/20/2017 19:51:00
[2017-11-20] MEDS: Docusate Sodium 100 MG Capsule PO SCH (20:19)
[2017-11-21] MEDS: Levothyroxine 88 MCG Tablet PO SCH (06:42)
[2017-11-21] MEDS: Famotidine 20 MG Tablet PO SCH ×2 (10:21→21:14)
[2017-11-21] MEDS: Pantoprazole Sodium 20 MG DR Tablet PO SCH (10:22)
--- NOTE | 2017-11-21 12:00 | P.PNPSY ---
Subjective Chief Complaint: Psychosis Remarks: Patient seen and examined with nurse. Chart reviewed. Hospitalist and occupational therapy evaluations noted. Case discussed with nursing staff who reports patient remains quite delusional. On my examination today, I find the patient returning from lunch. She is swaddled around her midsection with an absorbant pad. She tells me that this is "to hold my guts in." She tells me " I feel very sinful and horrible." She denies any SI or HI. She points to a spot on her hand and rambles about "nuclear coffee on my hand." Abruptly, she asks this provider "Are you going to kill me? You look very determined to." Reassurance provided. No acute physical complaints. Vital Signs Temp Pulse Resp BP Pulse Ox 11/20/17 20:16 132/77 11/20/17 17:00 97.1 F L 97 H 16 99/68 L 92 L Laboratory Results - last 24 hr 11/20/17 11/20/17 11/20/17 09:03 14:48 14:48 Hemoglobin A1c 5.8 Urine Color Yellow Urine Clarity Cloudy H Urine pH 5.0 Ur Specific [place] 1.011 Urine Protein Negative Urine Glucose (UA) Negative Urine Ketones Negative Urine Occult Blood Small H Urine Nitrate Negative Urine Bilirubin Negative Urine Urobilinogen Less than 2 Ur Leukocyte Esterase Large H Urine RBC 2 Urine WBC 109 H Urine WBC Clumps Few H Ur Squamous Epith Cells 3 Ur Transition Epith Cell 1 Urine Bacteria Moderate H Micro UA Comment Culture indicated Urine Culture Comments Culture indicated Urine Eosinophils Ur Random Creatinine Ur Random Sodium Urine Opiates Screen Neg Ur Barbiturates Screen Neg Ur Amphetamines Screen Neg U Benzodiazepines Scrn Neg Urine Cocaine Screen Neg U Cannabinoids Screen Neg 11/20/17 11/20/17 14:48 14:48 Hemoglobin A1c Urine Color Urine Clarity Urine pH Ur Specific [place] Urine Protein Urine Glucose (UA) Urine Ketones Urine Occult Blood Urine Nitrate Urine Bilirubin Urine Urobilinogen Ur Leukocyte Esterase Urine RBC Urine WBC Urine WBC Clumps Ur Squamous Epith Cells Ur Transition Epith Cell Urine Bacteria Micro UA Comment Urine Culture Comments Urine Eosinophils None seen Ur Random Creatinine 108 Ur Random Sodium 35 Urine Opiates Screen Ur Barbiturates Screen Ur Amphetamines Screen U Benzodiazepines Scrn Urine Cocaine Screen U Cannabinoids Screen Labs reviewed. UA concerning for UTI; in light of renal issues, I will defer selection of antibiotic if appropriate to the hospitalist. Impressions Abdomen/Bladder Ultrasound 11/20/17 00:00 CONCLUSION: 1. Negative renal sonogram. Review of Systems unobtainable due to mental condition Mental Status Examination Appearance: Disheveled Consciousness: Alert Orientation: Person, Place Motor Activity: Other (No motoric abnormalities noted) Speech: Unremarkable Language: Other (Remains rambling) Fund of Knowledge: Inadequate Attention and Concentration: Easily distracted Memory: Impaired (Psychosis interferes) Mood: Anxious Affect: Anxious Thought Process & Associations: Disorganized Thought Content: Hallucinations, Delusional Hallucination Type: Other (Internally preoccupied) Delusion Type: Paranoid Suicidal Ideation: No Homicidal Ideation: No Insight: Poor Judgment: Poor Assessment and Plan - Assessment (1) Schizoaffective disorder Code(s): F25.9 - Schizoaffective disorder, unspecified Status: Acute - Plan Plan: Psychotropic medications remain on hold for lack of anyone to provide consent. Hopefully a guardian advocate will be appointed in the [place] court tomorrow. Hospitalist input regarding renal dysfunction and appreciated. I have ordered BMP for this morning to trend renal function, and we will plan to transfer the patient to the medical psychiatric unit if this worsens or fails to improve. Continue to monitor on the inpatient psychiatric unit. Continue other medications and care as ordered. Justification for Continued Inpatient Stay: Impairment in reality construction. Complicating condition. Risk for decompensation in less restrictive environment. Discharge Planning: Pending psychiatric stabilization. Request Healthcare Surrogate/Guardian Advocate?: Yes (1) Schizoaffective disorder Qualifiers: Schizoaffective disorder type: unspecified Qualified Code(s): F25.9 - Schizoaffective disorder, unspecified
--- NOTE | 2017-11-21 13:56 | P.PN ---
Subjective Interval history: Follow-up on patient with DARNELL. Patient seen and examined. Patient is acutely psychotic and obtaining informed history is possible. She is witnessed to ambulate around the unit without any difficulty. Discussed with nursing staff, patient refused lab draw earlier and RN contacted lab who will send someone to try again. Attempted to discuss importance of lab draw with patient but to no avail. Physical Exam Vital signs: Vital Signs 11/20/17 17:00 11/20/17 20:16 Temperature 97.1 F L Pulse Rate 97 H Respiratory Rate 16 Blood Pressure 99/68 L 132/77 Pulse Oximetry 92 L Narrative: GENERAL: WDWN female, INAD. Awake and alert. Psychotic. Ambulating around the unit without any difficulty. SKIN: Warm and dry. No generalized rash. HEAD: Atraumatic. Normocephalic. EYES: Pupils equal and round. No scleral icterus. No injection or drainage. ENT: No nasal bleeding or discharge. Mucous membranes pink and moist. NECK: Trachea midline. CARDIOVASCULAR: Regular rate and rhythm. RESPIRATORY: No accessory muscle use. Clear to auscultation. Breath sounds equal bilaterally. GASTROINTESTINAL: Abdomen soft, non-tender, nondistended. MUSCULOSKELETAL: Extremities without clubbing, cyanosis, or edema. No obvious deformities. NEUROLOGICAL: Awake and alert. No obvious cranial nerve deficits. Motor grossly within normal limits. No focal neurologic finding appreciated. Normal speech. PSYCHIATRIC: Psychotic, disorganized thought process. Results - Labs CBC & Chem 7: 11/19/17 11:51 11/20/17 09:03 Laboratory Results - last 24 hr 11/20/17 11/20/17 11/20/17 09:03 14:48 14:48 Hemoglobin A1c 5.8 Urine Color Yellow Urine Clarity Cloudy H Urine pH 5.0 Ur Specific [place] 1.011 Urine Protein Negative Urine Glucose (UA) Negative Urine Ketones Negative Urine Occult Blood Small H Urine Nitrate Negative Urine Bilirubin Negative Urine Urobilinogen Less than 2 Ur Leukocyte Esterase Large H Urine RBC 2 Urine WBC 109 H Urine WBC Clumps Few H Ur Squamous Epith Cells 3 Ur Transition Epith Cell 1 Urine Bacteria Moderate H Micro UA Comment Culture indicated Urine Culture Comments Culture indicated Urine Eosinophils Ur Random Creatinine Ur Random Sodium Urine Opiates Screen Neg Ur Barbiturates Screen Neg Ur Amphetamines Screen Neg U Benzodiazepines Scrn Neg Urine Cocaine Screen Neg U Cannabinoids Screen Neg 11/20/17 11/20/17 14:48 14:48 Hemoglobin A1c Urine Color Urine Clarity Urine pH Ur Specific [place] Urine Protein Urine Glucose (UA) Urine Ketones Urine Occult Blood Urine Nitrate Urine Bilirubin Urine Urobilinogen Ur Leukocyte Esterase Urine RBC Urine WBC Urine WBC Clumps Ur Squamous Epith Cells Ur Transition Epith Cell Urine Bacteria Micro UA Comment Urine Culture Comments Urine Eosinophils None seen Ur Random Creatinine 108 Ur Random Sodium 35 Urine Opiates Screen Ur Barbiturates Screen Ur Amphetamines Screen U Benzodiazepines Scrn Urine Cocaine Screen U Cannabinoids Screen - Imaging Impressions Abdomen/Bladder Ultrasound 11/20/17 00:00 CONCLUSION: 1. Negative renal sonogram. Assessment and Plan - Plan 56-year-old female with past medical history significant for schizoaffective disorder who presented to the ED under [place] act due to acute psychosis. Patient since been admitted to inpatient psychiatry unit and hospitalist services have been consulted for medical management specifically for assistance with elevated creatinine. Acute psychosis Schizoaffective disorder -Management per psychiatric team DARNELL on ?CKD, likely in part due to dehydration/poor oral intake and UTI Renal US unremarkable -Encourage p.o. fluids -continue to hold Detrol LA and Tricor -Avoid nephrotoxic agents -Monitor kidney function closely. Patient refusing blood draw. Discussed with Dr. Thakur, recommend moving patient to med psych for IV fluid hydration and repeat BMP in a.m. UTI UCX positive for GNR -begin IV Ceftriaxone -follow up on final urine cx results Hypertension now hypotensive -continue on Metoprolol Xl with hold parameters Hypothyroidism TSH WNL -Continue patient on home dose of Synthroid 88 mcg daily Dyslipidemia -Hold home dose of Tricor 2/2 DARNELL -Continue patient on home dose of Lipitor DVT prophylaxis -Patient is ambulatory Discussed Condition With: patient, nursing staff, Dr. Judge, Dr. Thakur
[2017-11-21] MEDS: Sod Chloride 0.9% Inj 1,000 ML IV.CONT SCH (20:45)
[2017-11-21] MEDS: Docusate Sodium 100 MG Capsule PO SCH (21:13)
[2017-11-22] MEDS: Sod Chloride 0.9% Inj 1,000 ML IV.CONT SCH ×3 (05:48→12:38)
[2017-11-22] MEDS: Levothyroxine 88 MCG Tablet PO SCH (06:38)
[2017-11-22] MEDS: Pantoprazole Sodium 20 MG DR Tablet PO SCH (08:35)
[2017-11-22] MEDS: Famotidine 20 MG Tablet PO SCH ×2 (08:35→21:29)
--- NOTE | 2017-11-22 10:24 | P.PNPSY ---
Subjective Chief Complaint: Psychosis Remarks: Patient seen and case discussed with nurse. Chart reviewed. Per nurse, patient is labile and crying out. She believes that people's heads are being cut off and that her eyes are from [employer]. For me today, patient remains delusional. She remains internally stimulated. Affect remains labile. No physical complaints. Vital Signs Temp Pulse Resp BP 11/22/17 05:21 97.5 F L 80 15 164/80 H 11/22/17 05:19 97.5 F L 80 15 164/80 H Intake and Output 11/21/17 11/22/17 11/22/17 22:59 06:59 14:59 Intake Total 1999 Balance 1999 Intake: IV 1999 NS Inj 1,000 ML @ 100 mls/hr IV 1999 .CONT .Q10H [facility] Rx#:[id number] Patient refused labs. Review of Systems unobtainable due to mental condition Mental Status Examination Appearance: Disheveled Consciousness: Alert Orientation: Person (At least) Motor Activity: Other (No abnormal motor movements noted) Speech: Unremarkable Language: Other (Remains rambling) Fund of Knowledge: Inadequate Attention and Concentration: Easily distracted Memory: Impaired (Psychosis interferes) Mood: Anxious Affect: Labile, Anxious Thought Process & Associations: Disorganized Thought Content: Hallucinations, Delusional Hallucination Type: Other (Internally stimulated) Delusion Type: Paranoid Suicidal Ideation: No (No SI voiced) Homicidal Ideation: No (No HI voiced) Insight: Poor Judgment: Poor Assessment and Plan - Assessment (1) Schizoaffective disorder Code(s): F25.9 - Schizoaffective disorder, unspecified Status: Acute - Plan Plan: Patient's case was presented to the Rodriguez act court, and the patient was retained on the unit by the etymology professor with a guardian advocate from [facility]. I did leave a for [facility] [place] requesting a call back to discuss initiation of psychotropic medications for this patient. Given evidence of increasing treatment resistance of patient's psychosis (i.e. more recent antipsychotic polypharmacy where previously monotherapy was adequate), I think a trial of clozapine monotherapy is likely appropriate, albeit at reduced dose initially given patient's renal function. I will plan to discuss this with the guardian advocate. Continue to monitor on the medical psychiatric unit. Hospitalist input noted and appreciated. Continue other medications and care as ordered. Justification for Continued Inpatient Stay: Medication changes planned. Impairment in reality construction. High risk for decompensation in less restrictive environment. Discharge Planning: Pending psychiatric stabilization Request Healthcare Surrogate/Guardian Advocate?: Yes (1) Schizoaffective disorder Qualifiers: Schizoaffective disorder type: unspecified Qualified Code(s): F25.9 - Schizoaffective disorder, unspecified
--- NOTE | 2017-11-22 11:27 | P.PN ---
Subjective Interval history: Follow-up on patient with DARNELL. Patient seen and examined. Patient remains acutely psychotic. She believes we are trying to poison her with IVF. She is asking if her mother has . She is very preoccupied with her IV site. Discussed with RN, unable to get blood drawn due to patients continued refusal. Physical Exam Vital signs: Vital Signs 11/22/17 05:19 11/22/17 05:21 Temperature 97.5 F L 97.5 F L Pulse Rate 80 80 Respiratory Rate 15 15 Blood Pressure 164/80 H 164/80 H Intake & Output 11/21/17 11/22/17 11/22/17 18:59 06:59 18:59 Intake Total 1999 Balance 1999 Intake: IV 1999 NS Inj 1,000 ML @ 100 mls/hr IV 1999 .CONT .Q10H [facility] Rx#:[id number] Narrative: GENERAL: WDWN female, INAD. Awake and alert. Sitting in the day room. Psychotic. SKIN: Warm and dry. No generalized rash. HEENT: Atraumatic. Normocephalic. Pupils equal and round. No scleral icterus. No injection or drainage. No nasal bleeding or discharge. NECK: Trachea midline. Airway patent. CARDIOVASCULAR: Regular rate and rhythm. RESPIRATORY: No accessory muscle use. Clear to auscultation. Breath sounds equal bilaterally. GASTROINTESTINAL: Abdomen soft, non-tender, nondistended. MUSCULOSKELETAL: Extremities without clubbing, cyanosis, or edema. No obvious deformities. NEUROLOGICAL: Awake and alert. No obvious cranial nerve deficits. Motor grossly within normal limits. No focal neurologic finding appreciated. Disorganized speech. PSYCHIATRIC: Psychotic, disorganized thought process. Results - Labs CBC & Chem 7: 11/19/17 11:51 11/20/17 09:03 Laboratory Results - last 24 hr 11/20/17 14:48 Urine Color Yellow Urine Clarity Cloudy H Urine pH 5.0 Ur Specific [place] 1.011 Urine Protein Negative Urine Glucose (UA) Negative Urine Ketones Negative Urine Occult Blood Small H Urine Nitrate Negative Urine Bilirubin Negative Urine Urobilinogen Less than 2 Ur Leukocyte Esterase Large H Urine RBC 2 Urine WBC 109 H Urine WBC Clumps Few H Ur Squamous Epith Cells 3 Ur Transition Epith Cell 1 Urine Bacteria Moderate H Micro UA Comment Culture indicated Urine Culture Comments Culture indicated Microbiology 11/20/17 14:48 Clean Catch Urine Urine Culture - Final Escherichia coli Assessment and Plan - Plan 56-year-old female with past medical history significant for schizoaffective disorder who presented to the ED under Rodriguez act due to acute psychosis. Patient since been admitted to inpatient psychiatry unit and hospitalist services have been consulted for medical management specifically for assistance with elevated creatinine. Acute psychosis Schizoaffective disorder -Management per psychiatric team DARNELL on ?CKD, likely in part due to dehydration/poor oral intake and UTI Renal US unremarkable -Continue to encourage p.o. fluids -Continue on IVF hydration -continue to hold Detrol LA and Tricor -Avoid nephrotoxic agents -Monitor kidney function closely. Patient continues to refuse blood draws. UTI UCX positive E Coli -continue IV Ceftriaxone Hypertension, BP slightly elevated, suspect situational/increased agitation and psychoses -continue on Metoprolol Xl with hold parameters -Clonidine with parameters -continue to monitor BP and adjust treatment Hypothyroidism TSH WNL -Continue patient on home dose of Synthroid 88 mcg daily Dyslipidemia -Hold home dose of Tricor 2/2 DARNELL -Continue patient on home dose of Lipitor DVT prophylaxis -Patient is ambulatory Discussed Condition With: patient, Alida RN, Dr. Judge
[2017-11-22 15:18] LABS: Calcium 8.8 mg/dL (8.5-10.1); Carbon Dioxide 20.5 meq/L (21.0-32.0); Potassium 3.9 meq/L (3.5-5.1)
[2017-11-22] MEDS: LORazepam 0.5 MG Tablet PO PRN (21:29)
[2017-11-22] MEDS: Docusate Sodium 100 MG Capsule PO SCH (21:29)
[2017-11-22] MEDS: Melatonin 5 MG Tablet PO PRN (21:32)
[2017-11-23] MEDS: Sod Chloride 0.9% Inj 1,000 ML IV.CONT SCH ×3 (01:27→18:12)
[2017-11-23] MEDS: Levothyroxine 88 MCG Tablet PO SCH (05:51)
[2017-11-23] MEDS: Famotidine 20 MG Tablet PO SCH ×2 (09:44→22:07)
[2017-11-23] MEDS: Pantoprazole Sodium 20 MG DR Tablet PO SCH (09:45)
--- NOTE | 2017-11-23 11:01 | P.PN ---
Subjective Interval history: Patient is stable. No significant change. Patient refused blood draw this morning, lab to attempt later today. She remains psychotic. She is upset saying that someone took all her money. Discussed with nursing staff, patient has had good amount of oral fluid intake. No acute events noted. Physical Exam Vital signs: Vital Signs 11/22/17 17:16 11/23/17 05:33 Temperature 98.3 F 98.9 F Pulse Rate 97 H 92 H Respiratory Rate 16 16 Blood Pressure 152/95 H 147/69 H Pulse Oximetry 96 97 Intake & Output 11/22/17 11/23/17 11/23/17 18:59 06:59 18:59 Intake Total 1240 / 1240 Balance 1240 / 1240 Intake: IV 1000 / 1000 NS Inj 1,000 ML @ 100 mls/hr IV 1000 / 1000 .CONT .Q10H [facility] Rx#:[id number] Oral 240 / 240 Narrative: GENERAL: WDWN female. Awake and alert. Sitting in her room. Not in any acute distress. Upset, tearful. RN at the bedside. SKIN: Warm and dry. No generalized rash. HEENT: Atraumatic. Normocephalic. Pupils equal and round. No scleral icterus. No injection or drainage. No nasal bleeding or discharge. MMM. NECK: Trachea midline. Airway patent. CARDIOVASCULAR: Regular rate and rhythm. RESPIRATORY: No accessory muscle use. Clear to auscultation. Breath sounds equal bilaterally. GASTROINTESTINAL: Abdomen soft, non-tender, nondistended. MUSCULOSKELETAL: Extremities without clubbing, cyanosis, or edema. No obvious deformities. NEUROLOGICAL: Awake and alert. No obvious cranial nerve deficits. Motor grossly within normal limits. No focal neurologic finding appreciated. Disorganized speech. PSYCHIATRIC: Psychotic, disorganized thought process. Results - Labs CBC & Chem 7: 11/19/17 11:51 11/22/17 13:34 Laboratory Results - last 24 hr 11/22/17 13:34 Sodium 141 Potassium 3.9 Chloride 111 H Carbon Dioxide 20.5 L Anion Gap 10 BUN 13 Creatinine 1.26 H Estimated GFR 44 L Random Glucose 83 Calcium 8.8 Microbiology 11/20/17 14:48 Clean Catch Urine Urine Culture - Final Escherichia coli Assessment and Plan - Plan 56-year-old female with past medical history significant for schizoaffective disorder who presented to the ED under Rodriguez act due to acute psychosis. Patient since been admitted to inpatient psychiatry unit and hospitalist services have been consulted for medical management specifically for assistance with elevated creatinine. Acute psychosis Schizoaffective disorder -Management per psychiatric team DARNELL on ?CKD, likely in part due to dehydration/poor oral intake and UTI Renal US unremarkable -Creatinine improving. Repeat BMP for today pending, patient refused lab draw earlier today. Lab will try and collect later. -Hold IV fluids -Continue to encourage p.o. fluids -continue to hold Detrol LA and Tricor -Avoid nephrotoxic agents -Monitor kidney function closely UTI UCX positive E Coli -continue IV Ceftriaxone Hypertension, BP slightly elevated, suspect situational/increased agitation and psychoses. IVF also may be contributing. -continue on Metoprolol XL with hold parameters -Clonidine with parameters -continue to monitor BP and adjust treatment Hypothyroidism TSH WNL -Continue patient on home dose of Synthroid 88 mcg daily Dyslipidemia -Hold home dose of Tricor 2/2 DARNELL -Continue patient on home dose of Lipitor DVT prophylaxis -Patient is ambulatory Discussed Condition With: Patient, Hari RN, Dr. Judge
--- NOTE | 2017-11-23 11:45 | P.PNPSY ---
Subjective Chief Complaint: Psychosis Remarks: Patient seen and examined. Chart reviewed. Nutrition data reviewed. Case discussed with nursing staff who reports patient is tearful, labile and intrusive but medication compliant. On my examination today, the patient remains tearful and labile. She denies audiovisual hallucinations but appears internally preoccupied. When I inquire as to whether she is experiencing any suicidal ideation or homicidal ideation, the patient plates back tears and asks "are you crazy, of course not!" Thought process is otherwise tangential. Denies side effects from medications. No physical complaints. Vital Signs Temp Pulse Resp BP Pulse Ox 11/23/17 05:33 98.9 F 92 H 16 147/69 H 97 11/22/17 17:16 98.3 F 97 H 16 152/95 H 96 Intake and Output 11/22/17 11/23/17 11/23/17 22:59 06:59 14:59 Intake Total 1120 / 1120 Balance 1120 / 1120 Intake: IV 1000 / 1000 NS Inj 1,000 ML @ 100 mls/hr IV 1000 / 1000 .CONT .Q10H [facility] Rx#:[id number] Oral 120 / 120 Laboratory Results - last 24 hr 11/22/17 13:34 Sodium 141 Potassium 3.9 Chloride 111 H Carbon Dioxide 20.5 L Anion Gap 10 BUN 13 Creatinine 1.26 H Estimated GFR 44 L Random Glucose 83 Calcium 8.8 Labs reviewed. GFR improving. Review of Systems unobtainable due to mental condition Mental Status Examination Appearance: Disheveled Consciousness: Alert Orientation: Person Motor Activity: Other (No motoric abnormalities noted) Speech: Unremarkable Language: Other (Rambling) Fund of Knowledge: Inadequate Attention and Concentration: Easily distracted Memory: Impaired (Psychosis interferes) Mood: Anxious Affect: Labile, Anxious, Other (Tearful) Thought Process & Associations: Tangential Thought Content: Hallucinations, Delusional Hallucination Type: Other (Internally stimulated) Delusion Type: Paranoid Suicidal Ideation: No Suicidal Plan: No Suicidal Intention: No Homicidal Ideation: No Homicidal Plan: No Homicidal Intention: No Insight: Poor Judgment: Poor Assessment and Plan - Assessment (1) Schizoaffective disorder Code(s): F25.9 - Schizoaffective disorder, unspecified Status: Acute - Plan Plan: Titrate clozapine to 25 mg twice daily. Please consider further titration of this agent over the weekend to target psychosis. Weekly CBCs. Renal function is improving, and once the patient no longer requires IV fluids and has otherwise been medically stabilized we will plan to transfer her to the 2500 unit. Hospitalist input noted and appreciated. I will request dietitian consultation as patient's oral intake is somewhat spotty. Continue other meds and care as ordered. Justification for Continued Inpatient Stay: Medication changes. Impairment in reality construction. High risk for decompensation in less restrictive environment. Discharge Planning: Pending psychiatric stabilization. Request Healthcare Surrogate/Guardian Advocate?: Yes (1) Schizoaffective disorder Qualifiers: Schizoaffective disorder type: unspecified Qualified Code(s): F25.9 - Schizoaffective disorder, unspecified
--- NOTE | 2017-11-23 15:22 | P.DIET ---
Nutritional Evaluation Type of nutrition evaluation: initial Nutrition screening: [facility] Screening comments: 11/23/17 [facility] Poor PO Intake Subjective Subjective Comments: Pt gone from the floor when visit attempted. Objective - Diagnosis Schizoaffective DO - Objective Dr[place]gs body weight: 50 kg % IBW: 119 Body Weight Used for Calculations: Actual (59.5 kg) Energy Needs - Lower Range (kCal/kg): 25 Energy Needs - Upper Range (kCal/kg): 30 Lower Limit kCal/kg (kCals): 1,488 Upper Limit kCal/kg (kCals): 1,785 Lower Limit Protein Factor (Grams per Kg): 1.0 Upper Limit Protein Factor (Grams per Kg): 1.3 Lower Protein Needs (Protein): 60 Upper Protein Needs (Protein): 78 Fluid Factor (ml/kg): 30 Estimated Fluid Needs (ml): 1,785 Dietitian Reviewed in Medical Record: Current diet, Curent medications, Intake & Output, Labs, Medical history Diet Order: Regular Objective Comments: PMH: hypertriglyceridemia, hyperthyroidism A1C 5.8, TG 172 Assessment Assessment: Pt is at nutritional risk r/t poor po intake 0% to 50% for most meals here. Send Ensure w/meals for additional nutrition(= 250 kcal and 9g Protein per serving)-monitor for pt acceptance . Labs reviewed-elev.TG noted-pt receives Lipitor and Tricor. Dietitian will follow. Recommendations: 1. Send Ensure w/meals for additional nutrition 2. Dietitian will follow Dietitian to Monitor: Lab values, Electrolytes, Supplement acceptance, Intake & Output, Diet tolerance, Weight change, PO Intake
[2017-11-23 16:09] LABS: Calcium 8.9 mg/dL (8.5-10.1); Potassium 4.3 meq/L (3.5-5.1)
[2017-11-23 18:13] LABS: CKMB Percent 2.8 % (0.0-4.0); Creatine Kinase MB 6.1 ng/mL (0.5-3.6)
[2017-11-23] MEDS: LORazepam 0.5 MG Tablet PO PRN (22:05)
[2017-11-23] MEDS: Melatonin 5 MG Tablet PO PRN (22:05)
[2017-11-23] MEDS: Docusate Sodium 100 MG Capsule PO SCH (22:06)
[2017-11-24] MEDS: Levothyroxine 88 MCG Tablet PO SCH (06:30)
[2017-11-24] MEDS: Pantoprazole Sodium 20 MG DR Tablet PO SCH (08:30)
[2017-11-24] MEDS: Famotidine 20 MG Tablet PO SCH (08:31)
--- NOTE | 2017-11-24 09:56 | P.PN ---
Subjective Interval history: Follow-up visit [place] I, UTI, HTN, psychosis. Patient seen and examined today. Reports she is doing okay. She is lying in bed eyes closed but responds to questions and commands. As per nursing, patient is calm her today. However she refused IV fluids overnight. They just restarted IV fluid this a.m. Physical Exam Vital signs: Vital Signs 11/23/17 18:00 11/23/17 22:21 11/24/17 06:08 Temperature 97.9 F 98.9 F Pulse Rate 99 H 77 Respiratory Rate 18 Blood Pressure 188/99 H 131/81 139/69 Pulse Oximetry 94 L 93 L Intake & Output 11/23/17 11/24/17 11/24/17 18:59 06:59 18:59 Intake Total 460 / 460 400 / 400 Balance 460 / 460 400 / 400 Intake: IV 100 / 100 400 / 400 NS Inj 1,000 ML @ 100 mls/hr IV 400 / 400 .CONT .Q10H [facility] Rx#:[id number] Rocephin Inj 1,000 MG In NS Inj 100 / 100 100 ML @ 200 mls/hr IV.SIG Q24H [facility] Rx#:[id number] Oral 360 / 360 Narrative: GENERAL: WDWN female. Awake and alert. Sitting in her room. Not in any acute distress. Upset, tearful. RN at the bedside. SKIN: Warm and dry. No generalized rash. HEENT: Atraumatic. Normocephalic. Pupils equal and round. No scleral icterus. No injection or drainage. No nasal bleeding or discharge. MMM. NECK: Trachea midline. Airway patent. CARDIOVASCULAR: Regular rate and rhythm. RESPIRATORY: No accessory muscle use. Clear to auscultation. Breath sounds equal bilaterally. GASTROINTESTINAL: Abdomen soft, non-tender, nondistended. MUSCULOSKELETAL: Extremities without clubbing, cyanosis, or edema. No obvious deformities. NEUROLOGICAL: Eyes closed. Responds to questions and commands. No obvious cranial nerve deficits. Motor grossly within normal limits. No focal neurologic finding appreciated. Results - Labs CBC & Chem 7: 11/19/17 11:51 11/24/17 09:40 Laboratory Results - last 24 hr 11/23/17 11/23/17 15:26 15:26 Sodium 140 Potassium 4.3 Chloride 112 H Carbon Dioxide 19.0 L Anion Gap 9 BUN 15 Creatinine 1.32 H Estimated GFR 42 L Random Glucose 103 Calcium 8.9 Total Creatine Kinase 220 H CK-MB (CK-2) 6.1 H CK-MB (CK-2) % 2.8 Assessment and Plan - Plan 56-year-old female with past medical history significant for schizoaffective disorder who presented to the ED under Rodriguez act due to acute psychosis. Patient since been admitted to inpatient psychiatry unit and hospitalist services have been consulted for medical management specifically for assistance with elevated creatinine. 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 fluids -continue to hold Detrol LA and Tricor -Avoid nephrotoxic agents -Monitor kidney function closely -Will DC IVF for now back to almost baseline UTI UCX positive E Coli -continue IV Ceftriaxone Hypertension, BP slightly elevated, suspect situational/increased agitation and psychoses. IVF also may be contributing. -continue on Metoprolol XL with hold parameters -Clonidine with parameters -continue to monitor BP and adjust treatment Hypothyroidism TSH WNL -Continue patient on home dose of Synthroid 88 mcg daily Dyslipidemia -Hold home dose of Tricor 2/2 DARNELL -Continue Lipitor DVT prophylaxis early ambulation Code Status: Full code Discussed Condition With: Patient, nursing Discharge Planning: DC disposition by primary team
[2017-11-24 11:01] LABS: Calcium 8.9 mg/dL (8.5-10.1); Carbon Dioxide 21.7 meq/L (21.0-32.0); Potassium 3.8 meq/L (3.5-5.1)
--- NOTE | 2017-11-24 15:54 | P.PNPSY ---
Subjective Chief Complaint: Psychosis Remarks: Reviewed electronic medical records and discussed case with staff. Follow-up was conducted in patient's room with nurse present. Her nurse reports that in spite of a rough night, today patient has been compliant with medications and care. She also reports that she has been sleepy. Upon my examination, the patient was extremely sleepy, woke briefly to verbal stimuli. When asked about the medication, she states "it works". She did wake up to eat her breakfast. Mental Status Examination Appearance: Disheveled Consciousness: Alert Orientation: Person Motor Activity: Other (No motoric abnormalities noted) Speech: Unremarkable Language: Other (Rambling) Fund of Knowledge: Inadequate Attention and Concentration: Easily distracted Memory: Impaired (Psychosis interferes) Mood: Anxious Affect: Labile, Anxious, Other (Tearful) Thought Process & Associations: Tangential Thought Content: Hallucinations, Delusional Hallucination Type: Other (Internally stimulated) Delusion Type: Paranoid Suicidal Ideation: No Suicidal Plan: No Suicidal Intention: No Homicidal Ideation: No Homicidal Plan: No Homicidal Intention: No Insight: Poor Judgment: Poor Assessment and Plan - Assessment (1) Schizoaffective disorder Code(s): F25.9 - Schizoaffective disorder, unspecified Status: Acute - Plan Plan: I have held off on titrating her clozapine given how sedated she seems to be this morning. However, even by her own admission she seems to be doing better. Continue with current treatment plan and monitor for stabilization. Justification for Continued Inpatient Stay: Moving this patient to a less restrictive environment would likely result in decompensation. Request Healthcare Surrogate/Guardian Advocate?: Yes (1) Schizoaffective disorder Qualifiers: Schizoaffective disorder type: unspecified Qualified Code(s): F25.9 - Schizoaffective disorder, unspecified
[2017-11-24] MEDS: Docusate Sodium 100 MG Capsule PO SCH (20:42)
[2017-11-24] MEDS: Melatonin 5 MG Tablet PO PRN (20:42)
[2017-11-25] MEDS: Famotidine 20 MG Tablet PO SCH ×3 (01:46→20:29)
[2017-11-25] MEDS: Levothyroxine 88 MCG Tablet PO SCH (05:43)
[2017-11-25] MEDS: Pantoprazole Sodium 20 MG DR Tablet PO SCH (08:16)
--- NOTE | 2017-11-25 11:28 | P.PN ---
Subjective Interval history: Follow-up visit [place] I, UTI, HTN, psychosis. Patient seen and examined today. States she is okay. When asked where she is from, patient states that she [place] houses all [place], but her problems started in [place]. Follows questions and commands but appears psychotic as she keep on reverting to people trying to attack her, men and women. She is very suspicious. Denies pain or discomfort. Denies shortness of breath or dyspnea. Denies fevers, chills, nausea, vomiting, diarrhea. Physical Exam Vital signs: Vital Signs 11/24/17 18:00 11/25/17 06:20 Temperature 98.3 F 97.7 F Pulse Rate 80 77 Respiratory Rate 18 16 Blood Pressure 150/72 H 142/72 H Pulse Oximetry 96 93 L Intake & Output 11/24/17 11/25/17 11/25/17 18:59 06:59 18:59 Intake Total 820 / 820 Balance 820 / 820 Intake: IV 100 / 100 Rocephin Inj 1,000 MG In NS Inj 100 / 100 100 ML @ 200 mls/hr IV.SIG Q24H [facility] Rx#:[id number] Oral 720 / 720 Narrative: GENERAL: This is a well-nourished, well-developed patient, in no apparent distress. SKIN: Warm and dry. No Rash. HEENT: Normocephalic. Pupils equal round and reactive. Nose without bleeding. Airway patent. NECK: Trachea midline. Supple. CARDIOVASCULAR: Regular rate and rhythm without murmurs, gallops, or rubs. RESPIRATORY: Clear to auscultation. Breath sounds equal bilaterally. No wheezes , rales, or rhonchi. GASTROINTESTINAL: Abdomen soft, non-tender, nondistended. Bowel Sounds normoactive x4. MUSCULOSKELETAL: Extremities without clubbing, cyanosis, or edema. NEUROLOGICAL: Awake and alert. Oriented to year, president, person. Paranoia noted. Moves all extremities. Normal speech. Results - Labs CBC & Chem 7: 11/19/17 11:51 11/24/17 09:40 Assessment and Plan - Plan 56-year-old female with past medical history significant for schizoaffective disorder who presented to the ED under Rodriguez act due to acute psychosis. Patient since been admitted to inpatient psychiatry unit and hospitalist services have been consulted for medical management specifically for assistance with elevated creatinine. 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 fluids -continue to hold Detrol LA -Avoid nephrotoxic agents -Monitor kidney function closely -DC IVF for now back to almost baseline UTI UCX positive E Coli -On IV Ceftriaxone, switch to PO Ceftin Hypertension, BP slightly elevated, suspect situational/increased agitation and psychoses. IVF also may be contributing. -continue on Metoprolol XL with hold parameters -Clonidine with parameters -continue to monitor BP and adjust treatment Hypothyroidism TSH WNL -Continue patient on home dose of Synthroid 88 mcg daily Dyslipidemia Hypertriglyceridemia -On Tricor 160mg, held due to DARNELL, now back to baseline. -Continue Lipitor, restart TriCor at appropriate renal dose 30mg daily DVT prophylaxis early ambulation Code Status: Full Code Discussed Condition With: Patient, nursing Discharge Planning: DC disposition by primary team
--- NOTE | 2017-11-25 13:55 | P.PNPSY ---
Subjective Chief Complaint: Psychosis Remarks: Patient was seen today for psychiatric reevaluation. The patient is found in her room, laying in her back in her bed, she seems to be a little bit confused and internally preoccupied, but calm and cooperative. The patient reports feeling okay, she reports okay mood, reports good appetite, good level of energy , good sleep. She has been taking her medications, no significant side effects at the moment. She has been described as acting bizarre at times, being confused, but usually redirectable. Mental Status Examination Appearance: Disheveled Consciousness: Alert Orientation: Person Motor Activity: Other (No motoric abnormalities noted) Speech: Unremarkable Language: Other (Rambling) Fund of Knowledge: Inadequate Attention and Concentration: Adequate Memory: Impaired (Psychosis interferes) Mood: Anxious Affect: Labile, Anxious, Other (Tearful) Thought Process & Associations: Tangential Thought Content: Hallucinations, Delusional Hallucination Type: Other (Internally stimulated) Delusion Type: Paranoid Suicidal Ideation: No Suicidal Plan: No Suicidal Intention: No Homicidal Ideation: No Homicidal Plan: No Homicidal Intention: No Insight: Poor Judgment: Poor Assessment and Plan - Assessment (1) Schizoaffective disorder Code(s): F25.9 - Schizoaffective disorder, unspecified Status: Acute - Plan Plan: Continue current psychotropic regimen. Justification for Continued Inpatient Stay: She continues to be acutely psychotic. Request Healthcare Surrogate/Guardian Advocate?: Yes (1) Schizoaffective disorder Qualifiers: Schizoaffective disorder type: unspecified Qualified Code(s): F25.9 - Schizoaffective disorder, unspecified
[2017-11-25] MEDS: Docusate Sodium 100 MG Capsule PO SCH (20:31)
[2017-11-26] MEDS: Levothyroxine 88 MCG Tablet PO SCH (06:23)
[2017-11-26 07:53] LABS: Baso # (Auto) 0.1 th/mm3 (0.0-0.2); Baso % (Auto) 0.9 % (0.0-2.0); Eos # (Auto) 0.2 th/mm3 (0.0-0.4); Eos % (Auto) 2.2 % (0.0-4.0); Hematocrit 45.4 % (35.0-46.0); Hemoglobin 15.2 gm/dL (11.6-15.3); Lymph # (Auto) 1.9 th/mm3 (1.0-4.8); Mean Corpuscular HGB Conc 33.6 % (32.0-36.0); Mean Corpuscular Hemoglobin 28.1 pg (27.0-34.0); Mean Corpuscular Volume 83.6 fL (80.0-100.0); Mean Platelet Volume 9.6 fL (7.0-11.0); Mono # (Auto) 0.9 th/mm3 (0.0-0.9); Neut # (Auto) 6.2 th/mm3 (1.8-7.7); Neut % (Auto) 66.9 % (16.0-70.0); Platelet Count 252 th/mm3 (150-450); Red Blood Count 5.43 mil/mm3 (4.00-5.30); Red Cell Distribution Width 13.7 % (11.6-17.2); White Blood Count 9.3 th/mm3 (4.0-11.0)
[2017-11-26] MEDS: Famotidine 20 MG Tablet PO SCH ×2 (08:38→20:03)
[2017-11-26] MEDS: Pantoprazole Sodium 20 MG DR Tablet PO SCH (08:38)
[2017-11-26] MEDS: Fenofibrate 48 MG Tablet PO SCH (08:39)
--- NOTE | 2017-11-26 09:50 | P.PNPSY ---
Subjective Chief Complaint: Psychosis Remarks: Patient seen and examined with nurse. Chart reviewed. Case discussed with nursing staff who reports the patient is bizarre at times. She reportedly complained of some abdominal discomfort this morning, and when the nurse tried to ask follow-up questions the patient answered nonsensically by saying "sex, drugs, and rock and roll." On my examination today, the patient is less affectively labile. She remains a little bit internally stimulated and paranoid. She denies any suicidal or homicidal ideation saying "that's silly, come up for air." Denies side effects from medications and says that they are causing her to be "better feeling." No physical complaints for me. Vital Signs Temp Pulse Resp BP Pulse Ox 11/26/17 06:07 98.3 F 111 H 16 119/75 96 11/25/17 18:09 98.5 F 98 H 16 138/87 98 Intake and Output 11/25/17 11/26/17 11/26/17 22:59 06:59 14:59 Intake Total 240 / 240 240 / 240 Balance 240 / 240 240 / 240 Intake: Oral 240 / 240 240 / 240 Other: Weight 59.2 kg Laboratory Results - last 24 hr 11/26/17 06:35 WBC 9.3 RBC 5.43 H Hgb 15.2 Hct 45.4 MCV 83.6 MCH 28.1 MCHC 33.6 RDW 13.7 Plt Count 252 MPV 9.6 Neut % (Auto) 66.9 Lymph % (Auto) 20.0 [place] % (Auto) 10.0 H Eos % (Auto) 2.2 Baso % (Auto) 0.9 Neut # (Auto) 6.2 Lymph # (Auto) 1.9 [place] # (Auto) 0.9 Eos # (Auto) 0.2 Baso # (Auto) 0.1 WBC Differential . Differential Comment Auto diff final Labs reviewed. ANC remains adequate for clozapine therapy. GFR stable in the low 40s. Review of Systems All other systems reviewed negative except as stated in HPI (Limitation: Psychosis) Mental Status Examination Appearance: Disheveled Consciousness: Alert Orientation: Person Motor Activity: Other (No abnormal motor movements noted) Speech: Unremarkable Language: Other (Remains a little rambling) Fund of Knowledge: Inadequate Attention and Concentration: Adequate Memory: Impaired (Psychosis interferes) Mood: Appropriate (Much calmer versus before the weekend) Affect: Blunt Thought Process & Associations: Circumstantial (At times tangential) Thought Content: Hallucinations, Delusional Hallucination Type: Other (Remains internally stimulated) Delusion Type: Paranoid Suicidal Ideation: No Suicidal Plan: No Suicidal Intention: No Homicidal Ideation: No Homicidal Plan: No Homicidal Intention: No Insight: Poor Judgment: Poor Assessment and Plan - Assessment (1) Schizoaffective disorder Code(s): F25.9 - Schizoaffective disorder, unspecified Status: Acute - Plan Plan: Patient does seem to be improving with clozapine therapy although ongoing psychotic symptoms persist. Titrate clozapine to 37.5 mg twice daily for residual symptoms of psychosis. Plan for ongoing titration of this medication to effect and as tolerated. Continue weekly CBCs. Hospitalist input appreciated. Continue to monitor on the medical psychiatric unit. Continue other medications and care as ordered. Justification for Continued Inpatient Stay: Medication changes. Impairment in reality construction. High risk for decompensation in less restrictive environment. Discharge Planning: Pending psychiatric stabilization Request Healthcare Surrogate/Guardian Advocate?: Yes (1) Schizoaffective disorder Qualifiers: Qualified Code(s): F25.9 - Schizoaffective disorder, unspecified
--- NOTE | 2017-11-26 10:21 | P.PN ---
Subjective Interval history: Follow-up on patient with acute kidney injury, UTI, hypertension, psychosis. Patient seen and examined. Patient remains psychotic. She denies any chest pain or shortness of breath. She denies any fever or chills. She denies any nausea, vomiting or abdominal pain. Physical Exam Vital signs: Vital Signs 11/25/17 18:09 11/26/17 06:07 Temperature 98.5 F 98.3 F Pulse Rate 98 H 111 H Respiratory Rate 16 16 Blood Pressure 138/87 119/75 Pulse Oximetry 98 96 Intake & Output 11/25/17 11/26/17 11/26/17 18:59 06:59 18:59 Intake Total 240 / 240 240 / 240 Balance 240 / 240 240 / 240 Weight 59.2 kg Intake: Oral 240 / 240 240 / 240 Narrative: GENERAL: This is a well-nourished, well-developed female patient, in no apparent distress. Awake and alert. SKIN: Warm and dry. No generalized rash. HEENT: Normocephalic. Pupils equal round and reactive. Nose without bleeding. Airway patent. NECK: Trachea midline. Supple. CARDIOVASCULAR: Regular rate and rhythm without murmurs, gallops, or rubs. RESPIRATORY: Clear to auscultation. Breath sounds equal bilaterally. No wheezes , rales, or rhonchi. GASTROINTESTINAL: Abdomen soft, non-tender, nondistended. Bowel Sounds normoactive x4. MUSCULOSKELETAL: Extremities without clubbing, cyanosis, or edema. No obvious deformities NEUROLOGICAL: Awake and alert. Oriented to year, president, person. Moves all extremities spontaneously. Nonfocal. Normal speech. PSYCHIATRIC: Anxious mood, paranoid. Poor insight and judgement. Results - Labs CBC & Chem 7: 11/26/17 06:35 11/24/17 09:40 Laboratory Results - last 24 hr 11/26/17 06:35 WBC 9.3 RBC 5.43 H Hgb 15.2 Hct 45.4 MCV 83.6 MCH 28.1 MCHC 33.6 RDW 13.7 Plt Count 252 MPV 9.6 Neut % (Auto) 66.9 Lymph % (Auto) 20.0 [place] % (Auto) 10.0 H Eos % (Auto) 2.2 Baso % (Auto) 0.9 Neut # (Auto) 6.2 Lymph # (Auto) 1.9 [place] # (Auto) 0.9 Eos # (Auto) 0.2 Baso # (Auto) 0.1 WBC Differential . Differential Comment Auto diff final Assessment and Plan - Assessment (1) Acute kidney injury Code(s): N17.9 - Acute kidney failure, unspecified Status: Acute (2) E. coli UTI Code(s): N39.0 - Urinary tract infection, site not specified; B96.20 - Unspecified Escherichia coli [E. coli] as the cause of diseases classified elsewhere Status: Acute - Plan 56-year-old female with past medical history significant for schizoaffective disorder who presented to the ED under [facility] act due to acute psychosis. Patient since been admitted to inpatient psychiatry unit and hospitalist services have been consulted for medical management specifically for assistance with elevated creatinine. Acute psychosis Schizoaffective disorder -Management per psychiatric team DARNELL on probable CKD, stage 3, likely in part due to dehydration/poor oral intake and UTI Renal US unremarkable -Creatinine improved to baseline -Continue to encourage p.o. fluids -continue to hold Detrol LA -Avoid nephrotoxic agents -Monitor kidney function as indicated UTI UCX positive E Coli -treated with IV Ceftriaxone, now on Ceftin Hypertension, BP slightly elevated, suspect situational/increased agitation and psychoses. IVF also may be contributing. -continue on Metoprolol XL with hold parameters -Clonidine with parameters -continue to monitor BP and adjust treatment Hypothyroidism TSH WNL -Continue patient on home dose of Synthroid 88 mcg daily Dyslipidemia Hypertriglyceridemia -Patient resumed on TriCor, renally dosed -Continue patient on home dose of Lipitor DVT prophylaxis -Patient is ambulatory Patient appears stable from hospitalist standpoint. [facility] will sign off. Please reconsult if needed. Discussed Condition With: patient, nursing staff Discharge Planning: Discharge plan per primary team
[2017-11-26] MEDS: LORazepam 0.5 MG Tablet PO PRN (20:03)
[2017-11-26] MEDS: Melatonin 5 MG Tablet PO PRN (20:04)
[2017-11-26] MEDS: Docusate Sodium 100 MG Capsule PO SCH (20:04)
[2017-11-27] MEDS: Levothyroxine 88 MCG Tablet PO SCH (05:59)
[2017-11-27] MEDS: Pantoprazole Sodium 20 MG DR Tablet PO SCH (08:55)
[2017-11-27] MEDS: Fenofibrate 48 MG Tablet PO SCH (08:56)
[2017-11-27] MEDS: Famotidine 20 MG Tablet PO SCH ×2 (08:56→20:54)
--- NOTE | 2017-11-27 09:08 | P.TTN ---
- Patient Problems Problems: 1. Discharge planning 2. Medication compliance 3. Knowledge deficit 4. Lack of coping skills - Progress Toward Goals Provider Present: Dr. Mihir Thakur Provider Input: Patient's medication is being adjusted; she continues to require inpatient treatment Nurse(s) Present: ANIBAL Montalvo Nurse Input: Per RN patient is sleeping ok, continues to lack insight, with blizzard thoughts, patient is taking her meds and eating meds. Psychiatric Counselors Present: Chen Tejada [facility] Psychiatric Therapist Input: Counselor will update [facility] with pt's discharge planning Group Spec/RT/OT/MANZANARES Present: GLENNA Sky Group Spec/RT/OT/MANZANARES Input: Patient has been unable to appropriately attend groups - Discharge Plan Patient is already linked with [facility] where she will return when stable - Documentation Teaching Recipient: Patient
--- NOTE | 2017-11-27 11:30 | P.PNPSY ---
Subjective Chief Complaint: Psychosis Remarks: Patient seen and examined with nurse. Chart reviewed. Case discussed with nursing staff. [employer]ing [employer] Supervisor from assisted living facility reportedly visited patient per nursing staff and found the patient remains fairly psychotic. Case discussed in treatment team. On my examination today, the patient is calm or in less labile but remains quite delusional. She tells me for example that her grandmother has recently , although she cannot say exactly when. She then rambles about cheeseburgers being made out of her grandmother and tells me that she can "remember back to the yocasta of time." No side effects from medications. No physical complaints. Patient would like to return to the general psychiatric unit. Vital Signs Temp Pulse Resp BP Pulse Ox 11/27/17 06:05 98.3 F 101 H 15 114/65 93 L 11/26/17 17:46 97.5 F L 111 H 18 149/82 H 97 Intake and Output 11/26/17 11/27/17 11/27/17 22:59 06:59 14:59 Intake Total 840 / 840 240 / 240 Balance 840 / 840 240 / 240 Intake: Oral 840 / 840 240 / 240 Labs reviewed. Review of Systems All other systems reviewed negative except as stated in HPI (Limitation: Psychosis) Mental Status Examination Appearance: Disheveled (Improved today) Consciousness: Alert Orientation: Person, Place (At least) Motor Activity: Other (No abnormal motor movements appreciated) Speech: Unremarkable Language: Other (Remains rambling) Fund of Knowledge: Inadequate Attention and Concentration: Adequate Memory: Impaired (Psychosis interferes) Mood: Other (Calm) Affect: Blunt Thought Process & Associations: Tangential Thought Content: Hallucinations, Delusional Hallucination Type: Other (Remains internally stimulated) Delusion Type: Bizarre, Paranoid Suicidal Ideation: No Suicidal Plan: No Suicidal Intention: No Homicidal Ideation: No Homicidal Plan: No Homicidal Intention: No Insight: Poor Judgment: Poor Assessment and Plan - Assessment (1) Schizoaffective disorder Code(s): F25.9 - Schizoaffective disorder, unspecified Status: Acute - Plan Plan: Continue clozapine titration to 50 mg twice daily to target psychotic symptoms. This agent does seem to be helping with patient's presenting psychiatric symptoms. Continue weekly CBCs for clozapine therapy. Hospitalist service has signed off and renal function seems to have stabilized. Transfer patient back to general psychiatric unit. Continue other medications and care as ordered. Justification for Continued Inpatient Stay: Medication changes. Impairment in reality construction. High risk for decompensation in less restrictive environment. Discharge Planning: Pending psychiatric stabilization. Plan is for return to facility with outpatient psychiatric follow-up when stable. Request Healthcare Surrogate/Guardian Advocate?: Yes (1) Schizoaffective disorder Qualifiers: Schizoaffective disorder type: unspecified Qualified Code(s): F25.9 - Schizoaffective disorder, unspecified
[2017-11-27] MEDS: Docusate Sodium 100 MG Capsule PO SCH (20:55)
[2017-11-28] MEDS: Levothyroxine 88 MCG Tablet PO SCH (05:39)
[2017-11-28] MEDS ORDERED: Acetaminophen 325 MG Tablet PO ONE (06:03)
[2017-11-28] MEDS: Fenofibrate 48 MG Tablet PO SCH (08:52)
[2017-11-28] MEDS: Pantoprazole Sodium 20 MG DR Tablet PO SCH (08:52)
[2017-11-28] MEDS: Famotidine 20 MG Tablet PO SCH ×2 (08:52→21:06)
--- NOTE | 2017-11-28 11:51 | P.PNPSY ---
Subjective Chief Complaint: Psychosis Remarks: Patient seen and examined on the geropsychiatric unit. Chart reviewed. Case discussed with nursing staff. Patient was febrile this morning to 102.4F and was given Tylenol p.o. once. Temperature subsequently normalized. Clozapine held overnight, reportedly because consent could not be found, but I found the completed consent form in the med consent book this morning. Nurse will resume clozapine as ordered this morning. 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 She is calm with no evidence of mood lability. Thought process remains a little scattered but is more organized Versus earlier in the hospital stay. No SI or HI. No reported side effects from medications. The patient does recall feeling somewhat feverish this morning but denies any associated symptoms. No physical complaints presently. Vital Signs Temp Pulse Resp BP Pulse Ox 11/28/17 09:37 98.0 F 113 H 18 119/69 97 11/28/17 07:11 16 11/28/17 06:03 102.4 F H 124 H 16 136/65 94 L Intake and Output 11/27/17 11/28/17 11/28/17 22:59 06:59 14:59 Intake Total 240 / 240 360 / 360 Balance 240 / 240 360 / 360 Intake: Oral 240 / 240 360 / 360 Other: # Voids 1 Labs reviewed. No new labs. Review of Systems All other systems reviewed negative except as stated in HPI Mental Status Examination Appearance: Other (Fair grooming) Consciousness: Alert Orientation: Person, Place (At least) Motor Activity: Other (No motor abnormalities noted) Speech: Unremarkable Language: Other (A little more focused today) Fund of Knowledge: Inadequate Attention and Concentration: Adequate Memory: Impaired (Psychosis interferes) Mood: Other (Calm) Affect: Blunt Thought Process & Associations: Circumstantial (More organized today) Thought Content: Bizarre thinking Hallucination Type: None Delusion Type: None Suicidal Ideation: No Homicidal Ideation: No Insight: Poor Judgment: Poor Assessment and Plan - Assessment (1) Schizoaffective disorder Code(s): F25.9 - Schizoaffective disorder, unspecified Status: Acute - Plan Plan: Switch to q4h vitals and monitor fever curve. Obtain CBC and CMP as well as UA to check for abnormalities that may help explain fever. Will also check sed rate, CRP, cardiac enzymes, and EKG given elevated temp and tachycardia to assess for possible myocarditis associated with clozapine therapy, although my suspicion for this entity is lower. I will continue clozapine as ordered for now but will not titrate the dose until evaluation is complete and reassuring. Continue to monitor on the inpatient unit. Continue other medications and care as ordered. Justification for Continued Inpatient Stay: Possible complicating condition. Impairment in reality construction. Risk for decompensation in less restrictive environment. Discharge Planning: Pending psychiatric stabilization. Request Healthcare Surrogate/Guardian Advocate?: Yes (1) Schizoaffective disorder Qualifiers: Schizoaffective disorder type: unspecified Qualified Code(s): F25.9 - Schizoaffective disorder, unspecified
[2017-11-28 17:25] LABS: Baso % (Auto) 0.5 % (0.0-2.0); Eos # (Auto) 0.3 th/mm3 (0.0-0.4); Eos % (Auto) 2.9 % (0.0-4.0); Hematocrit 42.3 % (35.0-46.0); Hemoglobin 14.7 gm/dL (11.6-15.3); Lymph # (Auto) 0.9 th/mm3 (1.0-4.8); Mean Corpuscular HGB Conc 34.8 % (32.0-36.0); Mean Corpuscular Hemoglobin 28.5 pg (27.0-34.0); Mean Platelet Volume 9.6 fL (7.0-11.0); Mono # (Auto) 0.6 th/mm3 (0.0-0.9); Mono % (Auto) 7.3 % (0.0-8.0); Neut % (Auto) 79.3 % (16.0-70.0); Platelet Count 205 th/mm3 (150-450); Red Blood Count 5.16 mil/mm3 (4.00-5.30); Red Cell Distribution Width 13.5 % (11.6-17.2); White Blood Count 8.8 th/mm3 (4.0-11.0)
[2017-11-28 17:35] LABS: Alanine Aminotransferase 46 U/L (10-53); Albumin 3.5 g/dL (3.4-5.0); Anion Gap 13 meq/L (5-15); Aspartate Aminotransferase 32 U/L (15-37); Blood Urea Nitrogen 19 mg/dL (7-18); Calcium 8.9 mg/dL (8.5-10.1); Chloride 105 meq/L (98-107); Glomerular Filtration Rate 39 mL/min (>89); Glucose,Random 98 mg/dL (74-106); Potassium 3.6 meq/L (3.5-5.1); Sodium 138 meq/L (136-145)
[2017-11-28 17:39] LABS: Alkaline Phosphatase 77 U/L (45-117); Total Protein 7.6 g/dL (6.4-8.2)
[2017-11-28 17:45] LABS: Creatine Kinase 69 U/L (26-192)
[2017-11-28] MEDS: Docusate Sodium 100 MG Capsule PO SCH (21:01)
[2017-11-28 21:28] LABS: Bacteria,Urine Occasional /hpf; Bilirubin,Urine Negative (Negative); Clarity,Urine Hazy (Clear); Color,Urine Yellow (Yellw/Straw); Glucose,Urine (UA) Negative (Negative); Leukocyte Esterase,Urine Small (Negative); Nitrite,Urine Negative (Negative); Specific Gravity,Urine 1.015 (1.002-1.035); Squamous Epithelial Cell,Urine 6 /hpf (0-5); Transitional Epi Cells,Urine 1 /hpf
[2017-11-29] MEDS: Levothyroxine 88 MCG Tablet PO SCH (05:58)
[2017-11-29] MEDS: Fenofibrate 48 MG Tablet PO SCH (09:22)
[2017-11-29] MEDS: Pantoprazole Sodium 20 MG DR Tablet PO SCH (09:24)
[2017-11-29] MEDS: Famotidine 20 MG Tablet PO SCH ×2 (09:25→21:20)
--- NOTE | 2017-11-29 11:49 | ECG ---
Date Performed: 11/28/2017 Time Performed: 14:03:38 PTAGE: 56 years EKG: Sinus Tachycardia Low Limb lead voltage Nondiagnostic Q-waves in inferior leads ABNORMAL EC G PREVIOUS TRACING : 11/20/2017 10.18 Compared to previous tracing, voltage is reduced DOCTOR: Chris Gaspar Interpretating Date/Time 11/29/2017 11:48:40
--- NOTE | 2017-11-29 12:02 | P.PNPSY ---
Subjective Chief Complaint: Psychosis Remarks: Reviewed electronic medical records and discussed case with staff. Patient's labs are within normal limits and her UTI shows improvement. Staff reported they had just witnessed a controlled "fall" to the floor. There was no injuries. Follow-up was conducted in patient's room. Patient seems to be attention seeking and mentions multiple times, "I just fell down trying to get my room". She does state that she slept most of the night and that her appetite has been good. She denies any side effects from medications. Mental Status Examination Appearance: Other (Fair grooming) Consciousness: Alert Orientation: Person, Place (At least) Motor Activity: Other (No motor abnormalities noted) Speech: Unremarkable Language: Other (A little more focused today) Fund of Knowledge: Inadequate Attention and Concentration: Adequate Memory: Impaired (Psychosis interferes) Mood: Other (Calm) Affect: Blunt Thought Process & Associations: Circumstantial (More organized today) Thought Content: Bizarre thinking Hallucination Type: None Delusion Type: None Suicidal Ideation: No Suicidal Plan: No Suicidal Intention: No Homicidal Ideation: No Homicidal Plan: No Homicidal Intention: No Insight: Poor Judgment: Poor Assessment and Plan - Assessment (1) Schizoaffective disorder Code(s): F25.9 - Schizoaffective disorder, unspecified Status: Acute - Plan Plan: Continue with current treatment and close monitoring of temperatures. Will reevaluate tomorrow and if patient remains afebrile will consider increasing her Clozaril dosage. Justification for Continued Inpatient Stay: Moving this patient to a less restrictive environment would likely result in decompensation. Request Healthcare Surrogate/Guardian Advocate?: Yes (1) Schizoaffective disorder Qualifiers: Schizoaffective disorder type: unspecified Qualified Code(s): F25.9 - Schizoaffective disorder, unspecified
[2017-11-29] MEDS: Docusate Sodium 100 MG Capsule PO SCH (21:20)
[2017-11-30] MEDS: Levothyroxine 88 MCG Tablet PO SCH (05:49)
[2017-11-30] MEDS: Pantoprazole Sodium 20 MG DR Tablet PO SCH (09:13)
[2017-11-30] MEDS: Famotidine 20 MG Tablet PO SCH (09:13)
[2017-11-30] MEDS: Fenofibrate 48 MG Tablet PO SCH (09:13)
--- NOTE | 2017-11-30 11:22 | P.PNPSY ---
Subjective Chief Complaint: Psychosis Remarks: Reviewed electronic medical records and discussed case with staff. Follow-up was conducted in the outside Courtyard. Patient was found and during fresh air. She reports that she "woke up scared" as result of nightmares. States that she did sleep a little better. She reports that her appetite is good. She still has some disorganization and is somewhat tangential. I advised her to try to drink more fluids today. Mental Status Examination Appearance: Other (Fair grooming) Consciousness: Alert Orientation: Person, Place (At least) Motor Activity: Other (No motor abnormalities noted) Speech: Unremarkable Language: Other (A little more focused today) Fund of Knowledge: Inadequate Attention and Concentration: Adequate Memory: Impaired (Psychosis interferes) Mood: Other (Calm) Affect: Blunt Thought Process & Associations: Circumstantial (More organized today) Thought Content: Bizarre thinking Hallucination Type: None Delusion Type: None Suicidal Ideation: No Suicidal Plan: No Suicidal Intention: No Homicidal Ideation: No Homicidal Plan: No Homicidal Intention: No Insight: Poor Judgment: Poor Assessment and Plan - Assessment (1) Schizoaffective disorder Code(s): F25.9 - Schizoaffective disorder, unspecified Status: Acute - Plan Plan: Continue with current treatment plan. Patient's renal function seems to be acutely infected at this time. Medical will be consulting once again with her. She continues to be slightly disorganized and tangential. We will increase her Clozaril dose and monitor for stabilization. Justification for Continued Inpatient Stay: Moving this patient to a less restrictive environment would likely result in decompensation. Request Healthcare Surrogate/Guardian Advocate?: Yes (1) Schizoaffective disorder Qualifiers: Schizoaffective disorder type: unspecified Qualified Code(s): F25.9 - Schizoaffective disorder, unspecified
[2017-11-30] MEDS ORDERED: Aspirin 325 MG Tablet PO ONE (12:34)
--- NOTE | 2017-11-30 12:55 | P.DSPSY ---
Psychiatry Discharge Summary Inpatient Psychiatric care?: Yes Advance Directives: No Mental Health Advance Directive: Unknown Health Care Proxy: No - Admission Admission Date: November 19, 2017 16:31 - Admission Diagnosis (1) Schizoaffective disorder Code(s): F25.9 - Schizoaffective disorder, unspecified Brief History: Ms. Gonzales is a 56-year-old female with a history of schizoaffective disorder who presents under a Rodriguez act by law enforcement alleging that the patient made statements to her nurse that she was crucified on the cross last night. It is further alleged that the patient verbally threatened staff and threatened to run away from the facility. Accompanying the Rodriguez act as an MAR from patient's facility, which I have reviewed as well as a resident observation log spanning a period from the end of July 2017 through today, and I have examined this log as well. Reviewing the electronic medical record, I note that the patient was admitted here at [facility] most recently in [address] Gamboa. Patient seen and examined. Chart reviewed. Case discussed with nursing staff. On my examination today, the patient presents as disheveled, somewhat disorganized and psychotic. Paranoia is present. She tells me "someone is stalking me! Old-fashioned stuff." She also believes that people are taking her medications and possibly slipping her alcohol. She appears internally stimulated. She does endorse deprecatory auditory hallucinations in her own voice. She denies command auditory hallucinations to hurt self/others. No other delusional material. Affect is childlike. No mood symptoms. Psychiatric interview is limited because of patient's degree of psychiatric symptomatology at present. The patient has no acute physical complaints. Past psychiatric history: Patient is likely an unreliable historian. She carries a diagnosis of schizoaffective disorder. She reportedly gets psychiatric care through [facility] and prescriber is listed as Destini Watt. Most recent psychiatric admission here at [facility] was in 2014. Unclear if the patient has had interval psychiatric admissions. She reports a history of previous suicide attempt by overdose. Family history: The patient reports that alcoholism and schizophrenia run in her family. Chemical dependency history: The patient insists that people have been slipping her alcohol. She denies any volitional substance abuse. 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 She is reportedly high school educated. She is reportedly "somebody, I am not sure who." She also reports that she has children "somewhere." She also says that she has served in the [employer] in the past. She reports that she collects a disability income. No reported access to guns or firearms. The veracity of patient's social history as provided is unclear. Given patient's degree of psychiatric symptomatology, I have endeavored to obtain collateral information from Chyna June who is listed as a nurse in the Rodriguez act documentation. Ms. June reports that she serves as patient's primary care provider at the [facility] where the patient resides. She notes that the patient was hospitalized from 10/30 through 11/12. She notes that the patient obtains psychiatric care through [facility]. She notes that following discharge from the hospital the patient has been increasingly paranoid. Ms. June does not know of anyone who could serve as health care surrogate. She recommends calling over to the [facility]. I have instructed the nurse to do so, but unfortunately the [facility] reportedly has no contact information for anyone to serve as health care surrogate. - Inpatient Certification I certify that the inpatient services were ordered in accordance with Medicare regulations governing the order. This includes certification that hospital inpatient services are reasonable and necessary and in the case of services not specified as inpatient-only under 42 CFR 419.22(n), that they are appropriately provided as inpatient services in accordance to with the 2-midnight benchmark under 43 CFR 412.3(e) I certify that inpatient psychiatric hospital services are medically necessary. Evaluation and treatment and/or diagnostic testing are expected to improve the patient's condition. The patient needs on a daily basis, active treatment furnished directly by or requiring the supervision of inpatient psychiatric facility personnel. Estimated Total Length of Stay (Days): 7 (5-7) Plans for Post Hospital Care: Not yet determined Tobacco Use In Past 30 Days: No How Often Do You Have a Drink Containing Alcohol: Unable to Obtain Hospital Course: Patient is currently being discharged to the medical service of this facility for hypotension, tachycardia, and acute kidney injury. She has not been psychiatrically stabilized at this time. - Discharge Discharge Date: 11/30/17 - Discharge Diagnosis (1) Schizoaffective disorder Code(s): F25.9 - Schizoaffective disorder, unspecified Status: Acute Discharge Disposition: Medical service at this facility - Discharge Instructions Discharge Diet: Regular Diet Activities You Can Perform: See Additionl Instruction - Discharge Time <= 30 minutes Mental Status Examination Appearance: Other (Fair grooming) Consciousness: Alert Orientation: Person, Place (At least) Motor Activity: Other (No motor abnormalities noted) Speech: Unremarkable Language: Other (A little more focused today) Fund of Knowledge: Inadequate Attention and Concentration: Adequate Memory: Impaired (Psychosis interferes) Mood: Other (Calm) Affect: Blunt Thought Process & Associations: Circumstantial (More organized today) Thought Content: Bizarre thinking Hallucination Type: None Delusion Type: None Suicidal Ideation: No Suicidal Plan: No Suicidal Intention: No Homicidal Ideation: No Homicidal Plan: No Homicidal Intention: No Insight: Poor Judgment: Poor Discharge/Advance Care Plan - Results Vital Signs: Last Vital Signs Temp 98.7 F 11/30/17 12:19 Pulse 115 H 11/30/17 12:31 Resp 16 11/30/17 12:31 BP 108/65 11/30/17 12:31 Pulse Ox 96 11/30/17 12:31 Lab Results: Laboratory Results Hemoglobin A1c 5.8 % (4.3-6.0) 11/20/17 09:03 Triglycerides 172 mg/dL (42-150) H 11/20/17 09:03 Cholesterol 158 mg/dL (120-200) 11/20/17 09:03 LDL Cholesterol, Calc 61 mg/dL (0-99) 11/20/17 09:03 HDL Cholesterol 62.9 mg/dL (40.0-60.0) H 11/20/17 09:03 TSH 0.691 uIU/mL (0.358-3.740) 11/19/17 17:30 Urine Culture Comments Culture indicated 11/28/17 20:10 Summary of Procedures: n/a Imaging: ITS Impressions Abdomen/Bladder Ultrasound 11/20/17 00:00 CONCLUSION: 1. Negative renal sonogram. Pending Results: None - Medications Number of antipsychotic medications at discharge: 1 - Discharge Care Plan Goals to Promote Your Health: * To prevent worsening of your condition and complications * To maintain your health at the optimal level Directions to Meet Your Goals: Take your medications as prescribed Follow your dietary instruction Follow activity as directed Keep your appointments as scheduled Take your immunizations and boosters as scheduled If your symptoms worsen call your PCP, if no PCP go to Urgent Care Center or Emergency Room For 23/10 questions related to your inpatient stay or results of tests pending at discharge, please contact BRAULIO Mckinney at Smoking is Dangerous to Your Health. Avoid second hand smoking (1) Schizoaffective disorder Qualifiers: Schizoaffective disorder type: unspecified Qualified Code(s): F25.9 - Schizoaffective disorder, unspecified (1) Schizoaffective disorder Qualifiers: Schizoaffective disorder type: unspecified Qualified Code(s): F25.9 - Schizoaffective disorder, unspecified
[2017-11-30] MEDS ORDERED: Sod Chloride 0.9% Inj 1,000 ML IV.CONT SCH (13:00)
--- NOTE | 2017-11-30 13:01 | XR ---
EXAM DATE: 11/30/2017 12:54 PM EDT AGE/SEX: 56 years / Female INDICATIONS: Chest pain began suddenly today CLINICAL DATA: This is the patient's initial encounter. Patient reports that signs and symptoms have been present for 1 day and indicates a pain score of Nonresponsive. MEDICAL/SURGICAL HISTORY: . schizoaffective disorder None. COMPARISON: [facility] [place], CHEST SINGLE AP, 10/04/2011. . FINDINGS: Stable linear parenchymal opacity in the left lateral midlung. No new focal pleural or parenchymal op acities. The cardiomediastinal contours are unremarkable. Osseous structures are intact. CONCLUSION: 1. No acute abnormality or significant interval change. Electronically signed by: Heriberto Mccray MD 11/30/2017 12:59 PM EDT
[2017-11-30] MEDS ORDERED: Digoxin 125 MCG Tablet PO ONE (13:09)
[2017-11-30 13:16] LABS: Baso % (Auto) 0.4 % (0.0-2.0); Eos # (Auto) 0.2 th/mm3 (0.0-0.4); Eos % (Auto) 1.5 % (0.0-4.0); Hemoglobin 12.4 gm/dL (11.6-15.3); Lymph # (Auto) 1.2 th/mm3 (1.0-4.8); Lymph % (Auto) 11.6 % (9.0-44.0); Mean Corpuscular HGB Conc 34.5 % (32.0-36.0); Mean Corpuscular Hemoglobin 28.2 pg (27.0-34.0); Mean Corpuscular Volume 81.5 fL (80.0-100.0); Mean Platelet Volume 9.9 fL (7.0-11.0); Mono # (Auto) 1.1 th/mm3 (0.0-0.9); Mono % (Auto) 10.2 % (0.0-8.0); Neut # (Auto) 8.1 th/mm3 (1.8-7.7); Neut % (Auto) 76.3 % (16.0-70.0); Platelet Count 188 th/mm3 (150-450); Red Blood Count 4.41 mil/mm3 (4.00-5.30); Red Cell Distribution Width 13.2 % (11.6-17.2); White Blood Count 10.6 th/mm3 (4.0-11.0)
[2017-11-30 13:50] LABS: Alanine Aminotransferase 49 U/L (10-53); Albumin 2.8 g/dL (3.4-5.0); Alkaline Phosphatase 51 U/L (45-117); Anion Gap 9 meq/L (5-15); Aspartate Aminotransferase 30 U/L (15-37); Blood Urea Nitrogen 18 mg/dL (7-18); Calcium 8.9 mg/dL (8.5-10.1); Carbon Dioxide 24.4 meq/L (21.0-32.0); Chloride 105 meq/L (98-107); Glomerular Filtration Rate 43 mL/min (>89); Glucose,Random 94 mg/dL (74-106); Sodium 138 meq/L (136-145); Total Protein 6.3 g/dL (6.4-8.2)
[2017-11-30 13:52] LABS: Creatine Kinase 72 U/L (26-192)
[2017-11-30 16:58] LABS: Activated Partial Thrombo Time 29.2 sec (24.3-30.1); Prothrombin Time 10.5 sec (9.8-11.6)
[2017-11-30 17:20] LABS: Troponin I 0.03 ng/mL (0.02-0.05)
[2017-11-30] MEDS ORDERED: Famotidine 20 MG Tablet PO SCH (21:00)
--- NOTE | 2017-12-01 16:35 | ECG ---
Date Performed: 11/30/2017 Time Performed: 11:30:09 PTAGE: 56 years EKG: Sinus tachycardia Low voltage overall Indeterminate axis Poor R-wave progression across the precordium, cannot exclude previous anterior MT, but this may be normal variant Since previous brigette ng, no significant change noted ABNORMAL ECG PREVIOUS TRACING : 11/28/2017 14.03 DOCTOR: Emery Kumar Interpretating Date/Time 12/01/2017 16:34:00
--- NOTE | 2017-12-01 16:35 | ECG ---
Date Performed: 11/30/2017 Time Performed: 13:43:10 PTAGE: 56 years EKG: Sinus tachycardia Poor R wave progression across the precordium which may be normal variant Generalized low voltage Since previous tracing, no significant change noted Borderline ECG PREVIOUS TRACING : 11/30/2017 11.30.09 DOCTOR: Emery Kumar Interpretating Date/Time 12/01/2017 16:34:51
== END 2017-11-30 13:58 | disposition short-term general hospital (02) ==
LOC: NEDAMB 11:24 → NEDA 16:31 → H260 18:17 → H4EA 11-21 19:33 → H250 11-27 17:18 → HCIS 11-30 13:40 → H250 11-30 13:55
PROVIDERS: ADMIT Psychiatry & Neurology Psychiatry; ATTEND Psychiatry & Neurology Psychiatry

== ENCOUNTER 2017-11-30 15:18 | Inpatient (IN) ==
[2017-11-30] MEDS ORDERED: Bisacodyl 10 MG Supp RECTAL PRN (15:49)
--- NOTE | 2017-11-30 16:06 | P.HP ---
History of Present Illness Service: Hospitalist Primary Care Physician: No Primary Care Physician Chief Complaint: chest pain, dyspnea History of Present Illness: This is a 56-year-old female with a past medical history significant for schizoaffective disorder, hypertension, hypothyroidism and hypertriglyceridemia who was admitted to inpatient psychiatry under Rodriguez act due to acute psychosis. Due to patient's psychosis and disorganized thought process, she is a poor historian and it is difficult to elicit accurate information. Today while in the psychiatric unit, patient complained of left-sided chest pressure with associated shortness of breath. She complained that she did not feel well and wanted to go lay down. At that time vitals were obtained, patient was found to be tachycardic with a heart rate of 115 and hypotensive with blood pressure of 86/52. A Halicat was called and patient was transferred to inpatient status for treatment and further evaluation. Initial troponin is negative. CXR shows no acute abnormality. CBC and chemistry panel are essentially unremarkable. Inpatient Certification: I certify that the inpatient services were ordered in accordance with Medicare regulations governing the order. This includes certification that hospital inpatient services are reasonable and necessary and in the case of services not specified as inpatient-only under 42 CFR 419.22(n), that they are appropriately provided as inpatient services in accordance to with the 2-midnight benchmark under 43 CFR 412.3(e) Review of Systems All other systems reviewed negative except as stated in HPI PMFSH - History History Provided By: Patient, Medical Record - Medical History Medical History: Medical History (Last Reviewed 11/30/17 @ 16:12 by Carmen Carter) Hypertriglyceridemia (Acute) Hypothyroidism (Acute) Right leg injury (Acute) Patient denies medical problems Surgical history unknown - Surgical History Surgical History: Surgical History (Last Reviewed 11/30/17 @ 16:12 by Carmen Carter) Hx of appendectomy (Acute) History of cholecystectomy (Acute) No history of previous surgery - Family History Family History: Family History (Last Reviewed 11/30/17 @ 16:13 by Carmen Carter) Mother Hypertension - Tobacco History Smoking Status: Cognitive impairment - Alcohol History How Often Do You Have a Drink Containing Alcohol: Unable to Obtain - Substance Use History Substance History: Unable to Obtain Medications and Allergies Active Medications: Active Medications Acetaminophen (Tylenol) 650 mg PO Q4H PRN PRN Reason: Temp > 100.4 Al Hydroxide/Mg Hydroxide (Milk Of Magnesia Liq) 30 ml PO Q12H PRN PRN Reason: Mild Constipation Aspirin (Ecotrin) 81 mg PO DAILY KAMERON Atorvastatin Calcium (Lipitor) 20 mg PO HS ON LICENSE OF [facility] Bisacodyl (Dulcolax Supp) 10 mg RECTAL DAILY PRN PRN Reason: SEVERE CONSITIPATION Clozapine (Clozaril) 50 mg PO BID KAMERON Famotidine (Pepcid) 20 mg PO BID ON LICENSE OF [facility] Sodium Chloride (Ns Inj) 1,000 mls @ 100 mls/hr IV.CONT .Q10H KAMERON Lactulose (Lactulose Liq) 30 ml PO DAILY PRN PRN Reason: SEVERE CONSITIPATION Levothyroxine Sodium (Synthroid) 88 mcg PO DAILY@0600 KAMERON Metoprolol Succinate (Toprol Xl) 25 mg PO DAILY ON LICENSE OF [facility] Ondansetron HCl (Zofran Inj) 4 mg IV.PUSH Q6H PRN PRN Reason: NAUSEA OR VOMITING Senna/Docusate Sodium (Marva-Colace) 1 tab PO BID ON LICENSE OF [facility] Sennosides (Senokot) 17.2 mg PO Q12H PRN PRN Reason: Moderate Constipation Allergies Allergy/AdvReac Type Severity Reaction Status Date / Time chocolate flavor Allergy Severe Unverified 11/14/16 18:44 cyclosporine Allergy Severe Rash Unverified 11/14/16 18:44 lemon Allergy Mild Unverified 11/14/16 18:44 orange Allergy Mild Unverified 11/14/16 18:44 penicillin G Allergy Unknown Unverified 11/14/16 18:44 Home Medications Medication Instructions Recorded Confirmed Type Cogentin 2 mg PO BID 11/19/17 11/19/17 History Colace 100 mg PO HS 11/19/17 11/19/17 History Invega 234 mg IM Q4W 11/19/17 11/19/17 History Seroquel 400 mg PO HS 11/19/17 11/19/17 History Vesicare 10 mg PO HS 11/19/17 11/19/17 History atorvastatin 20 mg PO HS 11/19/17 11/19/17 History buspirone 15 mg PO TID 11/19/17 11/19/17 History fenofibrate 160 mg PO DAILY 11/19/17 11/19/17 History levothyroxine 88 mcg PO DAILY 11/19/17 11/19/17 History metoprolol succinate 25 mg PO BID 11/19/17 11/19/17 History pantoprazole 20 mg PO DAILY 11/19/17 11/19/17 History ranitidine HCl 150 mg PO BID 11/19/17 11/19/17 History sertraline 100 mg PO DAILY 11/19/17 11/19/17 History Exam Vital signs: Vital Signs 11/30/17 15:43 Temperature 98.3 F Pulse Rate 111 H Respiratory Rate 18 Blood Pressure 123/70 Pulse Oximetry 100 Intake & Output 11/29/17 11/30/17 11/30/17 18:59 06:59 18:59 Other: Date of Last Bowel Movement 11/30/17 Narrative: GENERAL: WDWN female, in no acute distress. Awake and alert. Disorganized thought process. SKIN: Warm and dry. HEAD: Atraumatic. Normocephalic. EYES: Pupils equal and round. No scleral icterus. No injection or drainage. ENT: No nasal bleeding or discharge. Mucous membranes pink and moist. NECK: Trachea midline. CARDIOVASCULAR: Tachycardic. No murmur appreciated. RESPIRATORY: No accessory muscle use. Clear to auscultation. Breath sounds equal bilaterally. GASTROINTESTINAL: Abdomen soft, non-tender, nondistended. Hepatic and splenic margins not palpable. MUSCULOSKELETAL: Extremities without clubbing, cyanosis, or edema. No obvious deformities. NEUROLOGICAL: Awake and alert. No obvious cranial nerve deficits. Motor grossly within normal limits. Able to move all extremities spontaneously. Normal speech. PSYCHIATRIC: Disorganized. Insight and judgment poor. Results - Labs CBC & Chem 7: 12/01/17 05:15 Caprini VTE Risk Assessment Caprini VTE Risk Assessment: No/Low Risk (score <= 1) Caprini Risk Assessment Model: Point Value = 1 Point Value = 2 Point Value = 3 Point Value = 5 Age 41-60 Minor surgery BMI > 25 kg/m2 Swollen legs Varicose veins or History of unexplained or recurrent spontaneous Oral contraceptives or hormone replacement Sepsis (< 1 month) Serious lung disease, including pneumonia (< 1 month) Abnormal pulmonary function Acute myocardial infarction Congestive heart failure (< 1 month) History of inflammatory bowel disease Medical patient at bed rest Age 61-74 Arthroscopic surgery Major open surgery (> 45 min) Laparoscopic surgery (> 45 min) Malignancy Confined to bed (> 72 hours) Immobilizing plaster cast Central venous access Age >= 75 History of VTE Family history of VTE Factor V Leiden Prothrombin [id number] Lupus anticoagulant Anticardiolipin antibodies Elevated serum homocysteine Heparin-induced thrombocytopenia Other congenital or acquired thrombophilia Stroke (< 1 month) Elective arthroplasty Hip, pelvis, or leg fracture Acute spinal cord injury (< 1 month) Prophylaxis Regimen: Total Risk Factor Score Risk Level Prophylaxis Regimen 0-1 Low Early ambulation 2 Moderate Order ONE of the following: *Sequential Compression Device (SCD) *Heparin 5000 units SQ BID 3-4 Higher Order ONE of the following medications: *Heparin 5000 units SQ TID *Enoxaparin/Lovenox 40 mg SQ daily (WT < 150 kg, CrCl > 30 mL/min) *Enoxaparin/Lovenox 30 mg SQ daily (WT < 150 kg, CrCl > 10-29 mL/min) *Enoxaparin/Lovenox 30 mg SQ BID (WT < 150 kg, CrCl > 30 mL/min) AND/OR *Sequential Compression Device (SCD) 5 or more Highest Order ONE of the following medications: *Heparin 5000 units SQ TID (Preferred with Epidurals) *Enoxaparin/Lovenox 40 mg SQ daily (WT < 150 kg, CrCl > 30 mL/min) *Enoxaparin/Lovenox 30 mg SQ daily (WT < 150 kg, CrCl > 10-29 mL/min) *Enoxaparin/Lovenox 30 mg SQ BID (WT < 150 kg, CrCl > 30 mL/min) AND *Sequential Compression Device (SCD) Assessment and Plan - Plan 56-year-old female with a past medical history significant for schizoaffective disorder, hypertension, hypothyroidism and hypertriglyceridemia who was previously admitted to inpatient psychiatry under Rodriguez act due to acute psychosis and developed complaints of chest pain and shortness of breath with hypotension and tachycardia. 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 fluids -Avoid nephrotoxic agents -Monitor kidney function as indicated Acute psychosis Schizoaffective disorder -Consult psychiatry UTI UCX positive E Coli -completed antibiotic course Hypothyroidism TSH WNL -Continue patient on home dose of Synthroid 88 mcg daily Dyslipidemia Hypertriglyceridemia -Patient resumed on TriCor, renally dosed -Continue patient on home dose of Lipitor DVT prophylaxis -bilateral SCD/AMY hose Code Status: FULL Discussed Condition With: patient, nursing staff, Dr. Cisneros
[2017-11-30] MEDS: Sod Chloride 0.9% Inj 1,000 ML IV.CONT SCH (16:13)
--- NOTE | 2017-11-30 19:25 | MB ---
cc: Reinier See DO DATE: 11/30/2017 REASON FOR CONSULTATION: Tachycardia. HISTORY OF PRESENT ILLNESS: Margo Gonzales is a 56-year-old female who originally presented and was in inpatient psychiatry under a Rodriguez Act due to acute psychosis. Apparently while in inpatient psych today, she started complaining of left-sided chest pain with shortness of breath. She says she did not feel well and wanted to go lie down. She was found to be tachycardic and mildly hypotensive. EKG was done with one reading sinus tachycardia and another reading atrial fibrillation, and so she was transferred to the cardiac floor. I was asked to see her for further considerations of her tachycardia. In seeing her, she is overall a very poor historian and unable to give me much information. She states that she feels better and then she starts heading off tangentially into other stories. PAST MEDICAL HISTORY: 1. Schizoaffective disorder. 2. Hypertension. 3. Hypothyroidism. 4. Hypertriglyceridemia. PAST SURGICAL HISTORY: 1. Appendectomy. 2. Cholecystectomy. ALLERGIES: 1. CHOCOLATE FLAVOR. 2. CYCLOSPORINE. 3. LEMON. 4. ORANGE. 5. PENICILLIN. MEDICATIONS: 1. Tylenol 650 mg every 4 hours as needed. 2. NovoLog 10 mg daily as needed. 3. Lipitor 20 mg every night. 4. Clozapine 50 mg b.i.d. 5. Pepcid 20 mg b.i.d. 6. Synthroid 88 mcg daily. 7. Aspirin 81 mg daily. 8. Toprol-XL 25 mg daily. 9. Fenofibrate 48 mg daily. FAMILY HISTORY: Denies sudden cardiac within the family. SOCIAL HISTORY: Does not appear to have a current history of tobacco, alcohol, or drug abuse. REVIEW OF SYSTEMS: Fourteen systems were reviewed including osteopathic. Pertinent positives and negatives above, otherwise negative. PHYSICAL EXAMINATION: VITAL SIGNS: Temperature 98.3, heart rate 111, blood pressure 123/70, respirations 18, pulse oximetry 100% on room air. GENERAL: The patient appears well, in no acute distress. Alert and awake. HEENT: Extraocular muscles intact. Mucous membranes moist. NECK: Supple. No JVD at 45 degrees. No carotid bruits heard bilaterally. Carotid upstroke is brisk in nature. HEART: Tachycardic. Positive first and second heart sounds without any murmurs, gallops or rubs. LUNGS: Clear to auscultation bilaterally. No wheezes, rales or rhonchi. ABDOMEN: Soft, nontender, nondistended. No organomegaly noted. EXTREMITIES: Show no clubbing, cyanosis or edema. Femoral and distal pulses intact bilaterally. NEUROLOGIC: No focal deficits. SKIN: Warm, dry and intact. OSTEOPATHIC: No kyphoscoliosis, lordosis, or paraspinal tender points. LABORATORY DATA: Hemoglobin 12.4, hematocrit 36.0, platelets 188, potassium 4.0, BUN 18, creatinine 1.28, troponin 0.03. Electrocardiogram (11/30/2017 at 1616): Sinus tachycardia, poor R-wave progression, generalized low QRS voltage. IMPRESSION: 1. Tachycardia, which appears to be sinus tachycardia. 2. No episodes of atrial fibrillation. 3. Mild hypotension. 4. Chest pain. 5. History of hypertension. 6. Acute kidney injury on chronic kidney disease. 7. Schizoaffective disorder. RECOMMENDATIONS: 1. Ms. Gonzales appears to have new onset sinus tachycardia. There are no episodes of atrial fibrillation noted. 2. Underlying illness should be treated. 3. My overall concern is with chest pain, shortness of breath, tachycardia and hypotension would be a pulmonary embolus. This was discussed with the primary team and they will order imaging to rule out pulmonary embolism. 4. Otherwise, no further workup from myself at this time. Thank you for allowing me to see Margo Gonzales. If there are any questions, please do not hesitate to call. DO ANKIT Shepard/stephon , 05:50 PM , 06:01 PM ALEKSANDR
[2017-11-30] MEDS ORDERED: Sod Chloride 0.9% Inj 1,000 ML IV.SIG ONE (20:10)
[2017-11-30] MEDS: Acetaminophen 325 MG Tablet PO PRN (21:45)
[2017-11-30] MEDS: Famotidine 20 MG Tablet PO SCH (21:46)
[2017-11-30 21:48] LABS: Bilirubin,Urine Negative (Negative); Clarity,Urine Hazy (Clear); Color,Urine Yellow (Yellw/Straw); Glucose,Urine (UA) Negative (Negative); Leukocyte Esterase,Urine Trace (Negative); Nitrite,Urine Negative (Negative); Specific Gravity,Urine 1.005 (1.002-1.035); Squamous Epithelial Cell,Urine 2 /hpf (0-5); Transitional Epi Cells,Urine 1 /hpf
[2017-11-30] MEDS: Senna/Docusate Sodium 8.6/50 MG Tablet PO SCH (21:53)
[2017-11-30] MEDS ORDERED: Metoprolol Inj 5 MG/5 ML Vial IV.PUSH ONE (22:16)
[2017-11-30 23:47] LABS: Troponin I 0.09 ng/mL (0.02-0.05)
[2017-12-01] MEDS: Sod Chloride 0.9% Inj 1,000 ML IV.CONT SCH ×3 (05:35→23:48)
[2017-12-01] MEDS: Levothyroxine 88 MCG Tablet PO SCH (05:50)
[2017-12-01 06:47] LABS: Calcium 8.2 mg/dL (8.5-10.1); Carbon Dioxide 23.2 meq/L (21.0-32.0); Potassium 4.1 meq/L (3.5-5.1)
[2017-12-01] MEDS: Famotidine 20 MG Tablet PO SCH ×2 (08:52→20:49)
[2017-12-01] MEDS: Fenofibrate 48 MG Tablet PO SCH (08:52)
[2017-12-01] MEDS: Senna/Docusate Sodium 8.6/50 MG Tablet PO SCH ×2 (08:53→20:49)
--- NOTE | 2017-12-01 10:33 | P.CONPSY ---
Provisional Diagnosis Admission Date: November 30, 2017 15:18 [place] I.: Schizoaffective disorder, unspecified History of Present Illness Service: Psychiatry Consult date: 12/01/17 Requesting Physician: Carmen Carter Reason for Consult: Assessment Primary Care Provider: No Primary Care Physician Chief Complaint: chest pain, dyspnea History of Present Illness: Patient is a 56-year-old white female was admitted a few days prior to Dr. Monico Thakur service on the psychiatric unit for treatment of her schizoaffective disorder with increased psychotic behaviors. She did demonstrate cardiac abnormalities to the point where a elderly Was call the patient transferred to the second floor telemetry. Patient sitting there. At the present time patient resting quietly in her bed nurse present throughout session. Patient did recognize me from a psychiatric side. She was alert though somewhat confused and delusional but no behavioral problems and she is compliant with her medications. She denies suicidality she denies voices but at times she appears to be responding to internal stimuli. She has been no behavioral problem. At this time I recommend continuing her psychotropic medications. When she is medically cleared and stable the treatment team can contact psychiatry Dr. Thakur for consideration of return to the psychiatric unit thanks for consult will continue to follow Review of Systems All other systems reviewed negative except as stated in HPI PMFSH - History History Provided By: Patient, Medical Record - Medical History Medical History: Medical History (Last Reviewed 11/30/17 @ 16:12 by Carmen Carter) Hypertriglyceridemia (Acute) Hypothyroidism (Acute) Right leg injury (Acute) Patient denies medical problems Surgical history unknown - Surgical History Surgical History: Surgical History (Last Reviewed 11/30/17 @ 16:12 by Carmen Carter) Hx of appendectomy (Acute) History of cholecystectomy (Acute) No history of previous surgery - Family History Family History: Family History (Last Reviewed 11/30/17 @ 16:13 by Carmen Carter) Mother Hypertension - Tobacco History Smoking Status: Cognitive impairment - Alcohol History How Often Do You Have a Drink Containing Alcohol: Unable to Obtain - Substance Use History Substance History: Unable to Obtain Medications and Allergies Active Medications: Active Medications Acetaminophen (Tylenol) 650 mg PO Q4H PRN PRN Reason: Temp > 100.4 Last Admin: 11/30/17 21:45 Dose: 650 mg Al Hydroxide/Mg Hydroxide (Milk Of Magnesia Liq) 30 ml PO Q12H PRN PRN Reason: Mild Constipation Aspirin (Ecotrin) 81 mg PO DAILY [facility] Last Admin: 12/01/17 08:52 Dose: 81 mg Atorvastatin Calcium (Lipitor) 20 mg PO HS [facility] Last Admin: 11/30/17 21:46 Dose: 20 mg Bisacodyl (Dulcolax Supp) 10 mg RECTAL DAILY PRN PRN Reason: SEVERE CONSITIPATION Clozapine (Clozaril) 50 mg PO BID [facility] Last Admin: 12/01/17 08:53 Dose: 50 mg Famotidine (Pepcid) 20 mg PO BID [facility] Last Admin: 12/01/17 08:52 Dose: 20 mg Fenofibrate (Tricor) 48 mg PO DAILY [facility] Last Admin: 12/01/17 08:52 Dose: 48 mg Sodium Chloride (Ns Inj) 1,000 mls @ 100 mls/hr IV.CONT .Q10H [facility] Last Admin: 12/01/17 05:35 Dose: 100 mls/hr Lactulose (Lactulose Liq) 30 ml PO DAILY PRN PRN Reason: SEVERE CONSITIPATION Levothyroxine Sodium (Synthroid) 88 mcg PO DAILY@0600 [facility] Last Admin: 12/01/17 05:50 Dose: 88 mcg Metoprolol Succinate (Toprol Xl) 25 mg PO DAILY [facility] Ondansetron HCl (Zofran Inj) 4 mg IV.PUSH Q6H PRN PRN Reason: NAUSEA OR VOMITING Senna/Docusate Sodium (Marva-Colace) 1 tab PO BID [facility] Last Admin: 12/01/17 08:53 Dose: Not Given Sennosides (Senokot) 17.2 mg PO Q12H PRN PRN Reason: Moderate Constipation Allergies Allergy/AdvReac Type Severity Reaction Status Date / Time chocolate flavor Allergy Severe Unverified 11/14/16 18:44 cyclosporine Allergy Severe Rash Unverified 11/14/16 18:44 lemon Allergy Mild Unverified 11/14/16 18:44 orange Allergy Mild Unverified 11/14/16 18:44 penicillin G Allergy Unknown Unverified 11/14/16 18:44 Home Medications Medication Instructions Recorded Confirmed Type Cogentin 2 mg PO BID 11/19/17 11/19/17 History Colace 100 mg PO HS 11/19/17 11/19/17 History Invega 234 mg IM Q4W 11/19/17 11/19/17 History Seroquel 400 mg PO HS 11/19/17 11/19/17 History Vesicare 10 mg PO HS 11/19/17 11/19/17 History atorvastatin 20 mg PO HS 11/19/17 11/19/17 History buspirone 15 mg PO TID 11/19/17 11/19/17 History fenofibrate 160 mg PO DAILY 11/19/17 11/19/17 History levothyroxine 88 mcg PO DAILY 11/19/17 11/19/17 History metoprolol succinate 25 mg PO BID 11/19/17 11/19/17 History pantoprazole 20 mg PO DAILY 11/19/17 11/19/17 History ranitidine HCl 150 mg PO BID 11/19/17 11/19/17 History sertraline 100 mg PO DAILY 11/19/17 11/19/17 History Exam Vital signs: Vital Signs 11/30/17 15:43 11/30/17 15:49 11/30/17 16:00 Temperature 98.3 F 97.9 F Pulse Rate 111 H 109 H 115 H Respiratory Rate 18 18 Blood Pressure 123/70 92/64 L Pulse Oximetry 100 100 11/30/17 17:00 11/30/17 18:00 11/30/17 19:00 Temperature Pulse Rate 124 H 111 H 128 H Respiratory Rate Blood Pressure Pulse Oximetry 11/30/17 20:00 11/30/17 21:00 11/30/17 22:00 Temperature 99.1 F Pulse Rate 133 H 129 H 122 H Respiratory Rate 20 Blood Pressure 95/53 L Pulse Oximetry 98 11/30/17 23:00 12/01/17 00:00 12/01/17 01:00 Temperature 99.4 F Pulse Rate 106 H 116 H 105 H Respiratory Rate Blood Pressure 82/54 L Pulse Oximetry 12/01/17 02:00 12/01/17 03:00 12/01/17 04:00 Temperature Pulse Rate 99 H 109 H 109 H Respiratory Rate Blood Pressure 93/63 L Pulse Oximetry 12/01/17 05:00 12/01/17 06:00 12/01/17 07:00 Temperature Pulse Rate 112 H 102 H 110 H Respiratory Rate Blood Pressure Pulse Oximetry 12/01/17 08:00 12/01/17 08:55 12/01/17 09:00 Temperature 97.8 F Pulse Rate 122 H 114 H Respiratory Rate 18 Blood Pressure 98/60 L 109/72 Pulse Oximetry 96 Intake & Output 11/30/17 12/01/17 12/01/17 18:59 06:59 18:59 Intake Total 480 / 480 1700 / 1700 1000 / 1000 Output Total 1999 Balance 480 / 480 -300 / -300 1000 / 1000 Weight 60.1 kg Intake: IV 1000 / 1000 1000 / 1000 NS Inj 1,000 ML @ 100 mls/hr IV 1000 / 1000 .CONT .Q10H [facility] Rx#:[id number] NS Inj 1,000 ML @ Wide Open IV. 1000 / 1000 SIG BOLUS ONE Rx#:[id number] Oral 480 / 480 700 / 700 Output: Urine 1999 Other: # Incontinent Voids 3 Date of Last Bowel Movement 11/30/17 11/30/17 # Bowel Movements 1 Narrative: Patient resting quietly in bed in no acute distress Mental Status Examination Appearance: Appropriate, Disheveled Consciousness: Alert (Mildly) Orientation: Person, Place, Date/Time Motor Activity: Other Speech: Unremarkable Language: Adequate Fund of Knowledge: Adequate Attention and Concentration: Easily distracted Memory: Unremarkable (Fair) Mood: Other (Euthymic to somewhat restricted) Affect: Other (Slight decreased range and intensity) Thought Process & Associations: Intact, Disorganized Thought Content: Appropriate (Mildly) Hallucination Type: None Delusion Type: Paranoid Suicidal Ideation: No (Mildly) Suicidal Plan: No Suicidal Intention: No Homicidal Ideation: No Homicidal Plan: No Homicidal Intention: No Insight: Poor Judgment: Poor Assessment and Plan - Assessment (1) Schizoaffective disorder Code(s): F25.9 - Schizoaffective disorder, unspecified Status: Acute - Plan Plan: Estimated LOS: [] days Patient remained somewhat psychotic behaviors and control and she is compliant with medications. For now continue medical treatment Justification for Continued Inpatient Stay: At this time patient would decompensate a place to a lower level of care Discharge Planning: Once patient medically stable will consider return to psychiatric unit for further care and disposition (1) Schizoaffective disorder Qualifiers: Schizoaffective disorder type: unspecified Qualified Code(s): F25.9 - Schizoaffective disorder, unspecified
--- NOTE | 2017-12-01 11:19 | P.PN ---
Subjective Interval history: Follow-up sinus tachycardia December 01, 2017-patient seen and examined, denies any chest pain, still in sinus tach without any complaint of shortness of breath. Soft BP. Physical Exam Vital signs: Vital Signs 11/30/17 15:43 11/30/17 15:49 11/30/17 16:00 Temperature 98.3 F 97.9 F Pulse Rate 111 H 109 H 115 H Respiratory Rate 18 18 Blood Pressure 123/70 92/64 L Pulse Oximetry 100 100 11/30/17 17:00 11/30/17 18:00 11/30/17 19:00 Temperature Pulse Rate 124 H 111 H 128 H Respiratory Rate Blood Pressure Pulse Oximetry 11/30/17 20:00 11/30/17 21:00 11/30/17 22:00 Temperature 99.1 F Pulse Rate 133 H 129 H 122 H Respiratory Rate 20 Blood Pressure 95/53 L Pulse Oximetry 98 11/30/17 23:00 12/01/17 00:00 12/01/17 01:00 Temperature 99.4 F Pulse Rate 106 H 116 H 105 H Respiratory Rate Blood Pressure 82/54 L Pulse Oximetry 12/01/17 02:00 12/01/17 03:00 12/01/17 04:00 Temperature Pulse Rate 99 H 109 H 109 H Respiratory Rate Blood Pressure 93/63 L Pulse Oximetry 12/01/17 05:00 12/01/17 06:00 12/01/17 07:00 Temperature Pulse Rate 112 H 102 H 110 H Respiratory Rate Blood Pressure Pulse Oximetry 12/01/17 08:00 12/01/17 08:55 12/01/17 09:00 Temperature 97.8 F Pulse Rate 122 H 114 H Respiratory Rate 18 Blood Pressure 98/60 L 109/72 Pulse Oximetry 96 Intake & Output 11/30/17 12/01/17 12/01/17 18:59 06:59 18:59 Intake Total 480 / 480 1700 / 1700 1000 / 1000 Output Total 2000 / 1999 Balance 480 / 480 -300 / -300 1000 / 1000 Weight 60.1 kg Intake: IV 1000 / 1000 1000 / 1000 NS Inj 1,000 ML @ 100 mls/hr IV 1000 / 1000 .CONT .Q10H [facility] Rx#:[id number] NS Inj 1,000 ML @ Wide Open IV. 1000 / 1000 SIG BOLUS ONE Rx#:[id number] Oral 480 / 480 700 / 700 Output: Urine 1999 Other: # Incontinent Voids 3 Date of Last Bowel Movement 11/30/17 11/30/17 # Bowel Movements 1 Narrative: GENERAL: NAD SKIN: Warm and dry. HEAD: Normocephalic. EYES: No scleral icterus. No injection or drainage. NECK: Supple, trachea midline. No JVD or lymphadenopathy. CARDIOVASCULAR: Regular rate and rhythm without murmurs, gallops, or rubs. RESPIRATORY: Breath sounds equal bilaterally. No accessory muscle use. GASTROINTESTINAL: Abdomen soft, non-tender, nondistended. MUSCULOSKELETAL: No cyanosis, or edema. BACK: Nontender without obvious deformity. No CVA tenderness. Results - Labs CBC & Chem 7: 12/01/17 05:15 Laboratory Results - last 24 hr 11/30/17 11/30/17 12/01/17 20:38 22:28 05:15 Sodium 144 Potassium 4.1 Chloride 112 H Carbon Dioxide 23.2 Anion Gap 9 BUN 12 Creatinine 1.15 H Estimated GFR 49 L Random Glucose 86 Calcium 8.2 L Total Creatine Kinase 49 Troponin I 0.09 H Urine Color Yellow Urine Clarity Hazy H Urine pH 6.0 Ur Specific [place] 1.005 Urine Protein Negative Urine Glucose (UA) Negative Urine Ketones Negative Urine Occult Blood Small H Urine Nitrate Negative Urine Bilirubin Negative Urine Urobilinogen Less than 2 Ur Leukocyte Esterase Trace H Urine RBC 1 Urine WBC 1 Ur Squamous Epith Cells 2 Ur Transition Epith Cell 1 Micro UA Comment Culture not ind Ur Microscopic Review Not Reportable Urine Culture Comments Culture not ind Assessment and Plan - Plan 56-year-old female with Chest pain, dyspnea, hypotension and tachycardia R/O ACS -Patient in sinus tachycardia without any evidence of atrial fibrillation. 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 fluids -Avoid nephrotoxic agents -Monitor kidney function as indicated Acute psychosis Schizoaffective disorder -Appreciate input from psychiatry, discharge back to psych when medically stable UTI UCX positive E Coli -completed antibiotic course Hypothyroidism TSH WNL -Continue Synthroid 88 mcg daily Dyslipidemia Hypertriglyceridemia -Continue TriCor and Lipitor DVT prophylaxis -bilateral SCD/AMY crispine
--- NOTE | 2017-12-01 11:33 | NM ---
EXAM DATE: 12/01/2017 11:29 AM EDT AGE/SEX: 56 years / Female INDICATIONS: Shortness of breath, tachycardia, and chest pain. CLINICAL DATA: This is the patient's initial encounter. Patient reports that signs and symptoms have been present for 2 days and indicates a pain score of 2/10. MEDICAL/SURGICAL HISTORY: Hypothyroidism. Hypertriglyceridemia and right leg injury. Cholecyst ectomy. Appendectomy. COMPARISON: [facility], CHEST 1V SINGLE AP, 11/30/2017. . DOSE: 0.88 mCi Tc99m DTPA aerosol 8.8 mCi Tc99m MAA IV TECHNIQUE: Following five minutes of tidal breathing of DTPA aerosol, planar images of the lungs wer e performed in eight projections. The patient was then injected with MAA, and eight-view perfusion s can was performed. FINDINGS: There is a homogeneous pattern of aerosol delivery to the periphery of both lungs. No focal ventilat ory defects are seen. The perfusion lung scan demonstrates a homogenous pattern of uptake in both lungs. No segmental or s ubsegmental defects are seen. CONCLUSION: 1. Negative examination. Electronically signed by: Yandel Hogan MD 12/01/2017 11:32 AM EDT
--- NOTE | 2017-12-01 12:25 | P.PNCA ---
Subjective Interval history: Continues in sinus tachycardia V/Q negative for PE Asymptomatic Physical Exam Vital signs: Vital Signs 11/30/17 15:43 11/30/17 15:49 11/30/17 16:00 Temperature 98.3 F 97.9 F Pulse Rate 111 H 109 H 115 H Respiratory Rate 18 18 Blood Pressure 123/70 92/64 L Pulse Oximetry 100 100 11/30/17 17:00 11/30/17 18:00 11/30/17 19:00 Temperature Pulse Rate 124 H 111 H 128 H Respiratory Rate Blood Pressure Pulse Oximetry 11/30/17 20:00 11/30/17 21:00 11/30/17 22:00 Temperature 99.1 F Pulse Rate 133 H 129 H 122 H Respiratory Rate 20 Blood Pressure 95/53 L Pulse Oximetry 98 11/30/17 23:00 12/01/17 00:00 12/01/17 01:00 Temperature 99.4 F Pulse Rate 106 H 116 H 105 H Respiratory Rate Blood Pressure 82/54 L Pulse Oximetry 12/01/17 02:00 12/01/17 03:00 12/01/17 04:00 Temperature Pulse Rate 99 H 109 H 109 H Respiratory Rate Blood Pressure 93/63 L Pulse Oximetry 12/01/17 05:00 12/01/17 06:00 12/01/17 07:00 Temperature Pulse Rate 112 H 102 H 110 H Respiratory Rate Blood Pressure Pulse Oximetry 12/01/17 08:00 12/01/17 08:55 12/01/17 09:00 Temperature 97.8 F Pulse Rate 122 H 114 H Respiratory Rate 18 Blood Pressure 98/60 L 109/72 Pulse Oximetry 96 12/01/17 12:00 Temperature 97.6 F Pulse Rate 124 H Respiratory Rate 18 Blood Pressure 108/69 Pulse Oximetry 97 Intake & Output 11/30/17 12/01/17 12/01/17 18:59 06:59 18:59 Intake Total 480 / 480 1700 / 1700 1000 / 1000 Output Total 1999 / 1999 Balance 480 / 480 -300 / -300 1000 / 1000 Weight 60.1 kg Intake: IV 1000 / 1000 1000 / 1000 NS Inj 1,000 ML @ 100 mls/hr IV 1000 / 1000 .CONT .Q10H [facility] Rx#:[id number] NS Inj 1,000 ML @ Wide Open IV. 1000 / 1000 SIG BOLUS ONE Rx#:[id number] Oral 480 / 480 700 / 700 Output: Urine 1999 Other: # Incontinent Voids 3 Date of Last Bowel Movement 11/30/17 11/30/17 # Bowel Movements 1 Narrative: GENERAL: NAD SKIN: Warm and dry. HEAD: Normocephalic. EYES: No scleral icterus. No injection or drainage. NECK: Supple, trachea midline. No JVD or lymphadenopathy. CARDIOVASCULAR: Regular rhythm, tachy, no murmurs, gallops, or rubs. RESPIRATORY: Breath sounds equal bilaterally. No accessory muscle use. GASTROINTESTINAL: Abdomen soft, non-tender, nondistended. MUSCULOSKELETAL: No cyanosis, or edema. BACK: Nontender without obvious deformity. No CVA tenderness. Assessment and Plan - Assessment (1) Sinus tachycardia Code(s): R00.0 - Tachycardia, unspecified Status: Acute (2) Schizoaffective disorder Code(s): F25.9 - Schizoaffective disorder, unspecified Status: Acute (3) Hypertriglyceridemia Code(s): E78.1 - Pure hyperglyceridemia Status: Acute - Plan 1) Sinus tachycardia Unknown cause Mild hypotension so will attempt to give small bolus of fluid to see if this helps 2) Non-specific troponin Asymptomatic No further work up 3) Schizophrenia Per psych (2) Schizoaffective disorder Qualifiers: Schizoaffective disorder type: unspecified Qualified Code(s): F25.9 - Schizoaffective disorder, unspecified
--- NOTE | 2017-12-01 16:33 | ECHRPT ---
Indication: CHEST PAIN CONCLUSIONS Normal left ventricular size. Wall thickness is normal. The left ventricular systolic function is normal with an estimated ejection fraction in the range of 55-60%. Mitral annular calcification is present. Trace mitral valve regurgitation. Aortic valve sclerosis is present. Trace aortic valve regurgitation. The pulmonary valve is not well visualized. A small pleural effusion is noted. BP: / HR: Rhythm: Technical Quality: FINDINGS LEFT VENTRICLE Normal left ventricular size. Wall thickness is normal. The left ventricular systolic function is normal with an estimated ejection fraction in the range of 55-60%. RIGHT VENTRICLE Normal right ventricular size and systolic function. LEFT ATRIUM The left atrial size is normal. RIGHT ATRIUM The right atrial size is normal. ATRIAL SEPTUM Normal atrial septal thickness without atrial level shunting by limited color doppler interrogation. AORTA The aortic root and proximal ascending aorta are normal in size on limited imaging. MITRAL VALVE Mitral annular calcification is present. Trace mitral valve regurgitation. AORTIC VALVE Aortic valve sclerosis is present. Trace aortic valve regurgitation. TRICUSPID VALVE Structurally normal tricuspid valve. No tricuspid valve stenosis or regurgitation. PULMONARY VALVE The pulmonary valve is not well visualized. VESSELS The inferior vena cava is normal in size. PERICARDIUM A small pleural effusion is noted. Black More MD, FACC, FSCAI (Electronically Signed) Final Date:01 December 2017 16:32
--- NOTE | 2017-12-01 16:37 | ECG ---
Date Performed: 11/30/2017 Time Performed: 16:16:08 PTAGE: 56 years EKG: Sinus tachycardia Poor R-wave progression across the precordium, which may be normal varian t Generalized low voltage Since previous tracing, no significant change noted Abnormal ECG PREVIOUS TRACING : 11/30/2017 13.43 DOCTOR: Emery Kumar Interpretating Date/Time 12/01/2017 16:35:28
--- NOTE | 2017-12-01 16:37 | ECG ---
Date Performed: 11/30/2017 Time Performed: 22:26:38 PTAGE: 56 years EKG: Sinus tachycardia Poor R wave progression across the precordium which may be normal variant Generalized low voltage Since previous tracing, no significant change noted Abnormal ECG PREVIOUS TRACING : 11/30/2017 16.16 DOCTOR: Emery Kumar Interpretating Date/Time 12/01/2017 16:36:07
[2017-12-01] MEDS ORDERED: Sodium Chlor 0.9% Inj 500 ML IV.SIG ONE (19:00)
[2017-12-01] MEDS: Acetaminophen 325 MG Tablet PO PRN (20:48)
--- NOTE | 2017-12-01 21:25 | XR ---
EXAM DATE: 12/01/2017 9:13 PM EDT AGE/SEX: 56 years / Female INDICATIONS: Shortness of breath. CLINICAL DATA: This is the patient's subsequent encounter. Patient reports that signs and symptoms h ave been present for 2 days and indicates a pain score of 0/10. MEDICAL/SURGICAL HISTORY: . Schizoaffective disorder. None. [place] [facility] [place]. . FINDINGS: The lungs are clear without infiltrate, nodule, or mass. There is no appreciable pleural effusion for technique. Heart and mediastinum are unremarkable. CONCLUSION: No acute cardiopulmonary disease. Electronically signed by: Todd Reyes MD 12/01/2017 9:23 PM EDT
[2017-12-01 21:41] LABS: Baso % (Auto) 0.4 % (0.0-2.0); Eos # (Auto) 0.2 th/mm3 (0.0-0.4); Eos % (Auto) 2.6 % (0.0-4.0); Hematocrit 29.6 % (35.0-46.0); Hemoglobin 10.2 gm/dL (11.6-15.3); Lymph # (Auto) 1.3 th/mm3 (1.0-4.8); Mean Corpuscular HGB Conc 34.4 % (32.0-36.0); Mean Corpuscular Hemoglobin 27.8 pg (27.0-34.0); Mean Corpuscular Volume 80.9 fL (80.0-100.0); Mean Platelet Volume 9.8 fL (7.0-11.0); Mono # (Auto) 0.5 th/mm3 (0.0-0.9); Mono % (Auto) 6.2 % (0.0-8.0); Neut # (Auto) 6.6 th/mm3 (1.8-7.7); Neut % (Auto) 75.8 % (16.0-70.0); Platelet Count 184 th/mm3 (150-450); Red Blood Count 3.66 mil/mm3 (4.00-5.30); Red Cell Distribution Width 13.6 % (11.6-17.2); White Blood Count 8.7 th/mm3 (4.0-11.0)
[2017-12-02] MEDS: Levothyroxine 88 MCG Tablet PO SCH (07:16)
[2017-12-02] MEDS: Sod Chloride 0.9% Inj 1,000 ML IV.CONT SCH ×2 (09:13→17:05)
[2017-12-02] MEDS: Fenofibrate 48 MG Tablet PO SCH (09:14)
[2017-12-02] MEDS: Senna/Docusate Sodium 8.6/50 MG Tablet PO SCH ×2 (09:14→20:00)
[2017-12-02] MEDS: Famotidine 20 MG Tablet PO SCH ×2 (09:14→20:00)
--- NOTE | 2017-12-02 11:22 | P.PN ---
Subjective Interval history: Follow-up sinus tachycardia December 01, 2017-patient seen and examined, denies any chest pain, still in sinus tach without any complaint of shortness of breath. Soft BP. December 02, 2017-patient seen and examined, no acute event overnight no chest pain or shortness of breath. BP improving. Heart rate improving. Physical Exam Vital signs: Vital Signs 12/01/17 12:00 12/01/17 13:00 12/01/17 14:00 Temperature 97.6 F Pulse Rate 114 H 122 H 120 H Respiratory Rate 18 Blood Pressure 108/69 Pulse Oximetry 97 12/01/17 15:00 12/01/17 16:00 12/01/17 17:00 Temperature 97.6 F Pulse Rate 133 H 134 H 132 H Respiratory Rate 18 Blood Pressure 100/65 Pulse Oximetry 97 12/01/17 17:08 12/01/17 18:00 12/01/17 19:00 Temperature Pulse Rate 130 H 126 H Respiratory Rate Blood Pressure Pulse Oximetry 97 12/01/17 20:00 12/01/17 20:25 12/01/17 21:00 Temperature 101.2 F H Pulse Rate 132 H 126 H 122 H Respiratory Rate 18 Blood Pressure 97/53 L Pulse Oximetry 98 12/01/17 22:00 12/01/17 23:00 12/02/17 00:00 Temperature Pulse Rate 118 H 108 H 106 H Respiratory Rate Blood Pressure Pulse Oximetry 12/02/17 00:18 12/02/17 01:00 12/02/17 02:00 Temperature 99.3 F Pulse Rate 112 H 110 H 106 H Respiratory Rate 17 Blood Pressure 95/60 L Pulse Oximetry 97 12/02/17 03:00 12/02/17 04:00 12/02/17 05:00 Temperature 98.8 F Pulse Rate 107 H 110 H 110 H Respiratory Rate 18 Blood Pressure 112/67 Pulse Oximetry 97 12/02/17 06:00 12/02/17 07:00 12/02/17 07:43 Temperature 97.6 F Pulse Rate 103 H 109 H 112 H Respiratory Rate 18 Blood Pressure 116/78 Pulse Oximetry 98 12/02/17 08:00 12/02/17 08:25 12/02/17 09:00 Temperature Pulse Rate 108 H 112 H Respiratory Rate Blood Pressure Pulse Oximetry 98 12/02/17 11:07 Temperature 98.6 F Pulse Rate 108 H Respiratory Rate 18 Blood Pressure 120/78 Pulse Oximetry 96 Intake & Output 12/01/17 12/02/17 12/02/17 18:59 06:59 18:59 Intake Total 1999 1840 / 1840 900 / 900 Output Total 400 / 400 Balance 1999 1440 / 1440 900 / 900 Weight 60.9 kg Intake: IV 1999 1500 / 1500 900 / 900 NS Inj 1,000 ML @ 100 mls/hr IV 1000 / 1000 1000 / 1000 900 / 900 .CONT .Q10H [facility] Rx#:[id number] NS Inj 1,000 ML @ Wide Open IV. 1000 / 1000 SIG BOLUS ONE Rx#:[id number] NS Inj 500 ML @ 1000 mls/hr IV. 500 / 500 SIG .Q30M ONE Rx#:[id number] Oral 340 / 340 Output: Urine 400 / 400 Other: Date of Last Bowel Movement 11/30/17 11/30/17 Narrative: GENERAL: NAD SKIN: Warm and dry. HEAD: Normocephalic. EYES: No scleral icterus. No injection or drainage. NECK: Supple, trachea midline. No JVD or lymphadenopathy. CARDIOVASCULAR: Regular rhythm, tachy, no murmurs, gallops, or rubs. RESPIRATORY: Breath sounds equal bilaterally. No accessory muscle use. GASTROINTESTINAL: Abdomen soft, non-tender, nondistended. MUSCULOSKELETAL: No cyanosis, or edema. BACK: Nontender without obvious deformity. No CVA tenderness. Results - Labs CBC & Chem 7: 12/01/17 21:34 12/01/17 05:15 Laboratory Results - last 24 hr 12/01/17 12/01/17 21:34 21:34 WBC 8.7 RBC 3.66 L Hgb 10.2 L D Hct 29.6 L MCV 80.9 MCH 27.8 MCHC 34.4 RDW 13.6 Plt Count 184 MPV 9.8 Neut % (Auto) 75.8 H Lymph % (Auto) 15.0 [place] % (Auto) 6.2 Eos % (Auto) 2.6 Baso % (Auto) 0.4 Neut # (Auto) 6.6 Lymph # (Auto) 1.3 [place] # (Auto) 0.5 Eos # (Auto) 0.2 Baso # (Auto) 0.0 WBC Differential . Differential Comment Auto diff final Lactic Acid 1.1 - Imaging Impressions Chest X-Ray 12/01/17 00:00 CONCLUSION: No acute cardiopulmonary disease. Pulmonary Perfusion Imaging 12/01/17 00:00 CONCLUSION: 1. Negative examination. Assessment and Plan - Plan 56-year-old female with Chest pain, dyspnea, hypotension and tachycardia R/O ACS -Patient in sinus tachycardia without any evidence of atrial fibrillation. 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 fluids -Avoid nephrotoxic agents -Monitor kidney function as indicated Acute psychosis Schizoaffective disorder -Appreciate input from psychiatry, discharge back to psych when medically stable UTI UCX positive E Coli -completed antibiotic course Hypothyroidism TSH WNL -Continue Synthroid 88 mcg daily Dyslipidemia Hypertriglyceridemia -Continue TriCor and Lipitor DVT prophylaxis -bilateral SCD/AMY wright
--- NOTE | 2017-12-02 13:14 | P.PNCA ---
Subjective Interval history: Fever overnight, asymptomatic Heart rates still elevated, sometime better down to 100 Physical Exam Vital signs: Vital Signs 12/01/17 14:00 12/01/17 15:00 12/01/17 16:00 Temperature 97.6 F Pulse Rate 120 H 133 H 134 H Respiratory Rate 18 Blood Pressure 100/65 Pulse Oximetry 97 12/01/17 17:00 12/01/17 17:08 12/01/17 18:00 Temperature Pulse Rate 132 H 130 H Respiratory Rate Blood Pressure Pulse Oximetry 97 12/01/17 19:00 12/01/17 20:00 12/01/17 20:25 Temperature 101.2 F H Pulse Rate 126 H 132 H 126 H Respiratory Rate 18 Blood Pressure 97/53 L Pulse Oximetry 98 12/01/17 21:00 12/01/17 22:00 12/01/17 23:00 Temperature Pulse Rate 122 H 118 H 108 H Respiratory Rate Blood Pressure Pulse Oximetry 12/02/17 00:00 12/02/17 00:18 12/02/17 01:00 Temperature 99.3 F Pulse Rate 106 H 112 H 110 H Respiratory Rate 17 Blood Pressure 95/60 L Pulse Oximetry 97 12/02/17 02:00 12/02/17 03:00 12/02/17 04:00 Temperature 98.8 F Pulse Rate 106 H 107 H 110 H Respiratory Rate 18 Blood Pressure 112/67 Pulse Oximetry 97 12/02/17 05:00 12/02/17 06:00 12/02/17 07:00 Temperature Pulse Rate 110 H 103 H 109 H Respiratory Rate Blood Pressure Pulse Oximetry 12/02/17 07:43 12/02/17 08:00 12/02/17 08:25 Temperature 97.6 F Pulse Rate 112 H 108 H Respiratory Rate 18 Blood Pressure 116/78 Pulse Oximetry 98 98 12/02/17 09:00 12/02/17 10:00 12/02/17 11:00 Temperature Pulse Rate 112 H 118 H 109 H Respiratory Rate Blood Pressure Pulse Oximetry 12/02/17 11:07 12/02/17 12:00 Temperature 98.6 F Pulse Rate 108 H 100 H Respiratory Rate 18 Blood Pressure 120/78 Pulse Oximetry 96 Intake & Output 12/01/17 12/02/17 12/02/17 18:59 06:59 18:59 Intake Total 1999 1840 / 1840 900 / 900 Output Total 400 / 400 Balance 1999 1440 / 1440 900 / 900 Weight 60.9 kg Intake: IV 1999 1500 / 1500 900 / 900 NS Inj 1,000 ML @ 100 mls/hr IV 1000 / 1000 1000 / 1000 900 / 900 .CONT .Q10H [facility] Rx#:[id number] NS Inj 1,000 ML @ Wide Open IV. 1000 / 1000 SIG BOLUS ONE Rx#:[id number] NS Inj 500 ML @ 1000 mls/hr IV. 500 / 500 SIG .Q30M ONE Rx#:[id number] Oral 340 / 340 Output: Urine 400 / 400 Other: Date of Last Bowel Movement 11/30/17 11/30/17 Narrative: GENERAL: NAD SKIN: Warm and dry. HEAD: Normocephalic. EYES: No scleral icterus. No injection or drainage. NECK: Supple, trachea midline. No JVD or lymphadenopathy. CARDIOVASCULAR: Regular rhythm, tachy, no murmurs, gallops, or rubs. RESPIRATORY: Breath sounds equal bilaterally. No accessory muscle use. GASTROINTESTINAL: Abdomen soft, non-tender, nondistended. MUSCULOSKELETAL: No cyanosis, or edema. BACK: Nontender without obvious deformity. No CVA tenderness. Assessment and Plan - Assessment (1) Sinus tachycardia Code(s): R00.0 - Tachycardia, unspecified Status: Acute (2) Schizoaffective disorder Code(s): F25.9 - Schizoaffective disorder, unspecified Status: Acute (3) Hypertriglyceridemia Code(s): E78.1 - Pure hyperglyceridemia Status: Acute - Plan 1) Sinus tachycardia No Afib, doubt Atach Unknown cause ? Fever as a possible cause, but no real infection substrate noted PE negative EF 55-60% 2) Non-specific troponin Asymptomatic No further work up 3) Schizophrenia Per psych (2) Schizoaffective disorder Qualifiers: Schizoaffective disorder type: unspecified Qualified Code(s): F25.9 - Schizoaffective disorder, unspecified
[2017-12-02] MEDS ORDERED: Metoprolol Inj 5 MG/5 ML Vial IV.PUSH ONE ×2 (20:59→23:36)
[2017-12-02] MEDS: Acetaminophen 325 MG Tablet PO PRN (23:01)
[2017-12-03] MEDS: Sod Chloride 0.9% Inj 1,000 ML IV.SIG SCH
[2017-12-03] MEDS: Sod Chloride 0.9% Inj 1,000 ML IV.CONT SCH ×2 (05:20→16:29)
[2017-12-03] MEDS: Levothyroxine 88 MCG Tablet PO SCH (05:25)
[2017-12-03] MEDS: Famotidine 20 MG Tablet PO SCH ×2 (08:28→20:00)
[2017-12-03] MEDS: Fenofibrate 48 MG Tablet PO SCH (08:29)
[2017-12-03] MEDS: Senna/Docusate Sodium 8.6/50 MG Tablet PO SCH (08:29)
--- NOTE | 2017-12-03 11:37 | P.PNCA ---
Subjective Interval history: Heart rates better in the low 100s Asymptomatic Physical Exam Vital signs: Vital Signs 12/02/17 12:00 12/02/17 13:13 12/02/17 14:00 Temperature Pulse Rate 100 H 115 H 114 H Respiratory Rate Blood Pressure Pulse Oximetry 12/02/17 15:00 12/02/17 16:00 12/02/17 17:00 Temperature 97.7 F Pulse Rate 131 H 128 H 136 H Respiratory Rate 18 Blood Pressure 139/76 Pulse Oximetry 98 12/02/17 18:00 12/02/17 19:00 12/02/17 20:00 Temperature 98.2 F Pulse Rate 145 H 141 H 142 H Respiratory Rate 16 Blood Pressure 132/83 Pulse Oximetry 98 12/02/17 21:00 12/02/17 22:00 12/02/17 23:00 Temperature 102.9 F H Pulse Rate 136 H 128 H 137 H Respiratory Rate 16 Blood Pressure 137/77 Pulse Oximetry 91 L 12/02/17 23:30 12/03/17 00:00 12/03/17 01:00 Temperature 99.9 F H Pulse Rate 114 H 115 H Respiratory Rate Blood Pressure Pulse Oximetry 12/03/17 02:00 12/03/17 03:00 12/03/17 04:00 Temperature 98.8 F Pulse Rate 110 H 106 H 102 H Respiratory Rate 16 Blood Pressure 111/71 Pulse Oximetry 95 12/03/17 05:00 12/03/17 06:00 12/03/17 07:00 Temperature 97.7 F Pulse Rate 102 H 101 H 103 H Respiratory Rate 18 Blood Pressure 119/77 Pulse Oximetry 96 12/03/17 08:00 12/03/17 09:00 12/03/17 09:02 Temperature Pulse Rate 102 H 110 H Respiratory Rate Blood Pressure Pulse Oximetry 95 12/03/17 10:00 12/03/17 11:00 Temperature 97.7 F Pulse Rate 106 H 104 H Respiratory Rate 18 Blood Pressure 134/81 Pulse Oximetry 98 Intake & Output 12/02/17 12/03/17 12/03/17 18:59 06:59 18:59 Intake Total 2733 / 2733 1720 / 1720 Output Total 1100 / 1100 1000 / 1000 Balance 1633 / 1633 720 / 720 Weight 61.2 kg Intake: IV 1773 / 1773 1000 / 1000 NS Inj 1,000 ML @ 100 mls/hr IV 1773 / 1773 .CONT .Q10H [facility] Rx#:[id number] NS Inj 1,000 ML @ Wide Open IV. 1000 / 1000 SIG BOLUS [facility] Rx#:[id number] Oral 960 / 960 720 / 720 Output: Urine 1100 / 1100 1000 / 1000 Other: Date of Last Bowel Movement 12/02/17 12/02/17 # Bowel Movements 1 Narrative: GENERAL: NAD SKIN: Warm and dry. HEAD: Normocephalic. EYES: No scleral icterus. No injection or drainage. NECK: Supple, trachea midline. No JVD or lymphadenopathy. CARDIOVASCULAR: Regular rhythm, tachy, no murmurs, gallops, or rubs. RESPIRATORY: Breath sounds equal bilaterally. No accessory muscle use. GASTROINTESTINAL: Abdomen soft, non-tender, nondistended. MUSCULOSKELETAL: No cyanosis, or edema. BACK: Nontender without obvious deformity. No CVA tenderness. Assessment and Plan - Assessment (1) Sinus tachycardia Code(s): R00.0 - Tachycardia, unspecified Status: Acute (2) Schizoaffective disorder Code(s): F25.9 - Schizoaffective disorder, unspecified Status: Acute (3) Hypertriglyceridemia Code(s): E78.1 - Pure hyperglyceridemia Status: Acute - Plan 1) Sinus tachycardia No Afib, doubt Atach Unknown cause ? Fever as a possible cause, but no real infection substrate noted PE negative EF 55-60% Possible dehydration as with fluids she's gotten better? 2) Non-specific troponin Asymptomatic No further work up 3) Schizophrenia Per psych (2) Schizoaffective disorder Qualifiers: Schizoaffective disorder type: unspecified Qualified Code(s): F25.9 - Schizoaffective disorder, unspecified
--- NOTE | 2017-12-03 11:39 | P.PN ---
Subjective Interval history: Follow-up sinus tachycardia December 01, 2017-patient seen and examined, denies any chest pain, still in sinus tach without any complaint of shortness of breath. Soft BP. December 02, 2017-patient seen and examined, no acute event overnight no chest pain or shortness of breath. BP improving. Heart rate improving. December 03, 2017-patient seen and examined, patient is still spiking fever with T-max 102.9 at 11 PM. HR improving however still Physical Exam Vital signs: Vital Signs 12/02/17 12:00 12/02/17 13:13 12/02/17 14:00 Temperature Pulse Rate 100 H 115 H 114 H Respiratory Rate Blood Pressure Pulse Oximetry 12/02/17 15:00 12/02/17 16:00 12/02/17 17:00 Temperature 97.7 F Pulse Rate 131 H 128 H 136 H Respiratory Rate 18 Blood Pressure 139/76 Pulse Oximetry 98 12/02/17 18:00 12/02/17 19:00 12/02/17 20:00 Temperature 98.2 F Pulse Rate 145 H 141 H 142 H Respiratory Rate 16 Blood Pressure 132/83 Pulse Oximetry 98 12/02/17 21:00 12/02/17 22:00 12/02/17 23:00 Temperature 102.9 F H Pulse Rate 136 H 128 H 137 H Respiratory Rate 16 Blood Pressure 137/77 Pulse Oximetry 91 L 12/02/17 23:30 12/03/17 00:00 12/03/17 01:00 Temperature 99.9 F H Pulse Rate 114 H 115 H Respiratory Rate Blood Pressure Pulse Oximetry 12/03/17 02:00 12/03/17 03:00 12/03/17 04:00 Temperature 98.8 F Pulse Rate 110 H 106 H 102 H Respiratory Rate 16 Blood Pressure 111/71 Pulse Oximetry 95 12/03/17 05:00 12/03/17 06:00 12/03/17 07:00 Temperature 97.7 F Pulse Rate 102 H 101 H 103 H Respiratory Rate 18 Blood Pressure 119/77 Pulse Oximetry 96 12/03/17 08:00 12/03/17 09:00 12/03/17 09:02 Temperature Pulse Rate 102 H 110 H Respiratory Rate Blood Pressure Pulse Oximetry 95 12/03/17 10:00 12/03/17 11:00 Temperature 97.7 F Pulse Rate 106 H 104 H Respiratory Rate 18 Blood Pressure 134/81 Pulse Oximetry 98 Intake & Output 12/02/17 12/03/17 12/03/17 18:59 06:59 18:59 Intake Total 2733 / 2733 1720 / 1720 Output Total 1100 / 1100 1000 / 1000 Balance 1633 / 1633 720 / 720 Weight 61.2 kg Intake: IV 1773 / 1773 1000 / 1000 NS Inj 1,000 ML @ 100 mls/hr IV 1773 / 1773 .CONT .Q10H [facility] Rx#:[id number] NS Inj 1,000 ML @ Wide Open IV. 1000 / 1000 SIG BOLUS [facility] Rx#:[id number] Oral 960 / 960 720 / 720 Output: Urine 1100 / 1100 1000 / 1000 Other: Date of Last Bowel Movement 12/02/17 12/02/17 # Bowel Movements 1 Results - Labs CBC & Chem 7: 12/01/17 21:34 12/01/17 05:15 Assessment and Plan - Plan 56-year-old female with Chest pain, dyspnea, hypotension and tachycardia R/O ACS -Patient in sinus tachycardia without any evidence of atrial fibrillation. -Appreciate input from cardiology. 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 fluids -Avoid nephrotoxic agents -Monitor kidney function as indicated Acute psychosis Schizoaffective disorder -Appreciate input from psychiatry, discharge back to psych when medically stable UTI UCX positive E Coli -completed antibiotic course Hypothyroidism TSH WNL -Continue Synthroid 88 mcg daily Dyslipidemia Hypertriglyceridemia -Continue TriCor and Lipitor DVT prophylaxis -bilateral SCD/AMY hose
[2017-12-03] MEDS ORDERED: Metoprolol Inj 5 MG/5 ML Vial IV.PUSH ONE (18:00)
[2017-12-03] MEDS: Acetaminophen 325 MG Tablet PO PRN (19:06)
[2017-12-04] MEDS: Sod Chloride 0.9% Inj 1,000 ML IV.CONT SCH ×3 (01:08→20:44)
[2017-12-04] MEDS: Levothyroxine 88 MCG Tablet PO SCH (05:07)
--- NOTE | 2017-12-04 10:22 | P.PN ---
Subjective Interval history: Follow-up sinus tachycardia December 01, 2017-patient seen and examined, denies any chest pain, still in sinus tach without any complaint of shortness of breath. Soft BP. December 02, 2017-patient seen and examined, no acute event overnight no chest pain or shortness of breath. BP improving. Heart rate improving. December 03, 2017-patient seen and examined, patient is still spiking fever with T-max 102.9 at 11 PM. HR improving however still December 04, 2017-patient seen and examined, T-max 102.7 at 7 PM, patient still tacky. Denies any shortness of breath. Case discussed with cardiology this morning. Physical Exam Vital signs: Vital Signs 12/03/17 11:00 12/03/17 12:00 12/03/17 13:00 Temperature 97.7 F Pulse Rate 104 H 106 H 110 H Respiratory Rate 18 Blood Pressure 134/81 Pulse Oximetry 98 12/03/17 14:00 12/03/17 15:00 12/03/17 16:00 Temperature 99.8 F H Pulse Rate 116 H 122 H 127 H Respiratory Rate 18 Blood Pressure 135/88 Pulse Oximetry 97 12/03/17 17:00 12/03/17 18:00 12/03/17 19:00 Temperature 102.7 F H Pulse Rate 130 H 133 H 132 H Respiratory Rate 16 Blood Pressure 126/57 L Pulse Oximetry 95 12/03/17 19:30 12/03/17 20:00 12/03/17 21:00 Temperature 100.9 F H Pulse Rate 120 H 116 H Respiratory Rate Blood Pressure Pulse Oximetry 95 12/03/17 22:00 12/03/17 23:00 12/04/17 00:00 Temperature 99.3 F Pulse Rate 112 H 109 H 104 H Respiratory Rate 20 Blood Pressure 93/60 L Pulse Oximetry 94 L 12/04/17 01:00 12/04/17 02:00 12/04/17 03:00 Temperature 98.0 F Pulse Rate 100 H 109 H 112 H Respiratory Rate 16 Blood Pressure 138/88 Pulse Oximetry 95 12/04/17 04:00 12/04/17 05:00 12/04/17 06:00 Temperature Pulse Rate 107 H 113 H 106 H Respiratory Rate Blood Pressure Pulse Oximetry Intake & Output 12/03/17 12/04/17 12/04/17 18:59 06:59 18:59 Intake Total 1959 / 1959 1920 / 1920 Output Total 1690 / 1690 1750 / 1750 Balance 270 / 270 170 / 170 Weight 61.3 kg Intake: IV 1000 / 1000 1000 / 1000 NS Inj 1,000 ML @ 100 mls/hr IV 1000 / 1000 1000 / 1000 .CONT .Q10H [facility] Rx#:[id number] Oral 960 / 960 920 / 920 Output: Urine 1690 / 1690 1750 / 1750 Other: # Incontinent Voids 2 # Urine Diapers 1 Date of Last Bowel Movement 12/02/17 Narrative: GENERAL: NAD SKIN: Warm and dry. HEAD: Normocephalic. EYES: No scleral icterus. No injection or drainage. NECK: Supple, trachea midline. No JVD or lymphadenopathy. CARDIOVASCULAR: Regular rhythm, tachy, no murmurs, gallops, or rubs. RESPIRATORY: Breath sounds equal bilaterally. No accessory muscle use. GASTROINTESTINAL: Abdomen soft, non-tender, nondistended. MUSCULOSKELETAL: No cyanosis, or edema. BACK: Nontender without obvious deformity. No CVA tenderness. Results - Labs CBC & Chem 7: 12/01/17 21:34 12/01/17 05:15 Assessment and Plan - Plan 56-year-old female with Chest pain, dyspnea, hypotension and tachycardia R/O ACS -Patient in sinus tachycardia without any evidence of atrial fibrillation. -Appreciate input from cardiology. 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 fluids -Avoid nephrotoxic agents -Monitor kidney function as indicated Acute psychosis Schizoaffective disorder -Appreciate input from psychiatry, discharge back to psych when medically stable UTI UCX positive E Coli -completed antibiotic course Hypothyroidism TSH WNL -Continue Synthroid 88 mcg daily Dyslipidemia Hypertriglyceridemia -Continue TriCor and Lipitor DVT prophylaxis -bilateral SCD/AMY hose
[2017-12-04] MEDS: Famotidine 20 MG Tablet PO SCH ×2 (10:34→21:10)
--- NOTE | 2017-12-04 13:05 | MB ---
cc: Maged Ventura MD DATE: 12/04/2017 REASON FOR CONSULTATION: Supraventricular tachyarrhythmia. HISTORY OF PRESENT ILLNESS: Mrs. Gonzales is a 56-year-old female with history of diabetes mellitus, high blood pressure, hyperlipidemia, hypothyroidism, was admitted due to acute psychosis. She was Rodriguez Acted. Due to hospitalization she was found to be having a supraventricular tachyarrhythmia. She was seen by Dr. See and I was consulted for evaluation and management. The chart was reviewed. The patient was evaluated. ALLERGIES: LEMON, ORANGE, AND PENICILLIN, CYCLOSPORINE, AND CHOCOLATE. SOCIAL HISTORY: The patient used to smoke cigars, stopped smoking on to move ago. Negative for drinking. FAMILY HISTORY: Noncontributory to her current medical condition. CURRENT MEDICATIONS: 1. Acetaminophen. 2. Aspirin 81 mg a day. 3. Lipitor 20 mg a day. 4. Clozapine 50 mg twice a day. 5. Famotidine 20 mg twice a day. 6. Fenofibrate 40 mg a day. 7. Levoxyl 88 mcg a day. 8. Magnesium. 9. Metoprolol 25 mg twice a day. 10. Zofran IV p.r.n. 11. Senokot. REVIEW OF SYSTEMS: The patient referred no chest pain, no chest discomfort, no palpitation. No fever. PHYSICAL EXAMINATION: GENERAL: Alert, fully oriented. VITAL SIGNS: Blood pressure currently is 138/88, pulse 112, respiratory rate 18. LUNGS: Ventilated. CARDIOVASCULAR: S1, S2. Regular. ABDOMEN: Soft. No masses. EXTREMITIES: No edema. Telemetry shows sinus rhythm with a rate of around 104 beats per minute. The electrocardiograms are sinus tachycardia. No acute ST and T-wave changes. LABORATORY DATA: Hemoglobin is 10.2, white blood cell 8.7. Potassium 4.1, creatinine 1.15. Troponin 0.09. ASSESSMENT AND RECOMMENDATIONS: Mrs. Gonzales has what appeared to be a sinus tachycardia. I am not ready to qualify that as inappropriate sinus tachycardia. She has hypothyroidism. She is on Levoxyl. TSH is necessary. Also, her blood pressure is adequate. Metoprolol can be up titrated. She has a normal ejection fraction. At that point, my recommendation option before, we did a TSH. Based on the result in further, decision will be taken. Medication be up titrated. Case discussed with the patient. I will follow her during hospitalization. MD FAYE Harmon/sergey/epifanio , 12:06 PM , 12:14 PM
--- NOTE | 2017-12-04 14:55 | P.CONID ---
History of Present Illness Service: Infectious disease Consult date: 12/04/17 Requesting Physician: Lucio Rodriguez Reason for Consult: Evaluate patient with fevers Primary Care Provider: No Primary Care Physician Chief Complaint: chest pain, dyspnea History of Present Illness: Patient seen and examined. Records reviewed. Patient is a very poor historian Patient is a 56-year-old female, initially admitted in the inpatient psychiatry unit last November 19 under Rodriguez act. She had acute psychosis at that time, and she carries a diagnosis of schizoaffective disorder. She was being managed, and on the day of admission here in the medical floor she apparently started complaining of left-sided chest pain with shortness of breath. She was found to be tachycardic, and was admitted to the hospital for further evaluation and treatment. Her cardiac workup did not show any GA. Chest x-ray did not show any acute abnormality. And her laboratory tests were within normal limits. Starting December 01 she started having intermittent fevers usually at least once a day. She had blood cultures done and they are negative. She is not on any antibiotics. Getting review of system is quite difficult because she is very unreliable and a very poor historian. Patient does not have any Munoz catheter in place. It has been recorded that she is incontinent. She has no central line. She continues to have tachycardia. Her him other hemodynamics are stable. Infectious disease consultation has been requested to evaluate the patient with intermittent fevers. Review of Systems other (unreliable, unable to get good reviewe due to her psychiatric illness) PMFSH - History History Provided By: Patient, Medical Record - Medical History Medical History: Medical History (Last Reviewed 12/04/17 @ 14:48 by Jennifer Randhawa MD) Hypertriglyceridemia (Acute) Hypothyroidism (Acute) Right leg injury (Acute) Patient denies medical problems Surgical history unknown - Surgical History Surgical History: Surgical History (Last Reviewed 12/04/17 @ 14:48 by Jennifer Randhawa MD) Hx of appendectomy (Acute) History of cholecystectomy (Acute) No history of previous surgery - Family History Family History: Family History (Last Reviewed 11/30/17 @ 16:13 by Carmen Carter) Mother Hypertension - Tobacco History Smoking Status: Cognitive impairment - Alcohol History How Often Do You Have a Drink Containing Alcohol: Unable to Obtain - Substance Use History Substance History: Unable to Obtain Medications and Allergies Active Medications: Active Medications Acetaminophen (Tylenol) 650 mg PO Q4H PRN PRN Reason: Temp > 100.4 Last Admin: 12/03/17 19:06 Dose: 650 mg Al Hydroxide/Mg Hydroxide (Milk Of Magnesia Liq) 30 ml PO Q12H PRN PRN Reason: Mild Constipation Aspirin (Ecotrin) 81 mg PO DAILY [facility] Last Admin: 12/04/17 10:34 Dose: 81 mg Atorvastatin Calcium (Lipitor) 20 mg PO HS [facility] Last Admin: 12/03/17 20:00 Dose: 20 mg Bisacodyl (Dulcolax Supp) 10 mg RECTAL DAILY PRN PRN Reason: SEVERE CONSITIPATION Clozapine (Clozaril) 50 mg PO BID [facility] Last Admin: 12/04/17 10:36 Dose: 12.5 mg Famotidine (Pepcid) 20 mg PO BID [facility] Last Admin: 12/04/17 10:34 Dose: 20 mg Fenofibrate (Tricor) 48 mg PO DAILY [facility] Last Admin: 12/03/17 08:29 Dose: 48 mg Sodium Chloride (Ns Inj) 1,000 mls @ 100 mls/hr IV.CONT .Q10H [facility] Last Admin: 12/04/17 01:08 Dose: 100 mls/hr Sodium Chloride (Ns Inj) 1,000 mls @ 0 mls/hr IV.SIG BOLUS [facility] Last Infusion: 12/03/17 02:00 Dose: Infused Lactulose (Lactulose Liq) 30 ml PO DAILY PRN PRN Reason: SEVERE CONSITIPATION Levofloxacin (Levaquin) 500 mg PO DAILY [facility] Levothyroxine Sodium (Synthroid) 88 mcg PO DAILY@0600 [facility] Last Admin: 12/04/17 05:07 Dose: 88 mcg Metoprolol Tartrate (Lopressor) 50 mg PO BID [facility] Miscellaneous (Pill Splitter) 1 each OTHER UNSCH PRN PRN Reason: SEE LABEL COMMENTS Ondansetron HCl (Zofran Inj) 4 mg IV.PUSH Q6H PRN PRN Reason: NAUSEA OR VOMITING Sennosides (Senokot) 17.2 mg PO Q12H PRN PRN Reason: Moderate Constipation Allergies Allergy/AdvReac Type Severity Reaction Status Date / Time chocolate flavor Allergy Severe Unverified 11/14/16 18:44 cyclosporine Allergy Severe Rash Unverified 11/14/16 18:44 lemon Allergy Mild Unverified 11/14/16 18:44 orange Allergy Mild Unverified 11/14/16 18:44 penicillin G Allergy Unknown Unverified 11/14/16 18:44 Home Medications Medication Instructions Recorded Confirmed Type Cogentin 2 mg PO BID 11/19/17 11/19/17 History Colace 100 mg PO HS 11/19/17 11/19/17 History Invega 234 mg IM Q4W 11/19/17 11/19/17 History Seroquel 400 mg PO HS 11/19/17 11/19/17 History Vesicare 10 mg PO HS 11/19/17 11/19/17 History atorvastatin 20 mg PO HS 11/19/17 11/19/17 History buspirone 15 mg PO TID 11/19/17 11/19/17 History fenofibrate 160 mg PO DAILY 11/19/17 11/19/17 History levothyroxine 88 mcg PO DAILY 11/19/17 11/19/17 History metoprolol succinate 25 mg PO BID 11/19/17 11/19/17 History pantoprazole 20 mg PO DAILY 11/19/17 11/19/17 History ranitidine HCl 150 mg PO BID 11/19/17 11/19/17 History sertraline 100 mg PO DAILY 11/19/17 11/19/17 History Exam Vital signs: Vital Signs 12/03/17 15:00 12/03/17 16:00 12/03/17 17:00 Temperature 99.8 F H Pulse Rate 122 H 127 H 130 H Respiratory Rate 18 Blood Pressure 135/88 Pulse Oximetry 97 12/03/17 18:00 12/03/17 19:00 12/03/17 19:30 Temperature 102.7 F H 100.9 F H Pulse Rate 133 H 132 H Respiratory Rate 16 Blood Pressure 126/57 L Pulse Oximetry 95 12/03/17 20:00 12/03/17 21:00 12/03/17 22:00 Temperature Pulse Rate 120 H 116 H 112 H Respiratory Rate Blood Pressure Pulse Oximetry 95 12/03/17 23:00 12/04/17 00:00 12/04/17 01:00 Temperature 99.3 F Pulse Rate 109 H 104 H 100 H Respiratory Rate 20 Blood Pressure 93/60 L Pulse Oximetry 94 L 12/04/17 02:00 12/04/17 03:00 12/04/17 04:00 Temperature 98.0 F Pulse Rate 109 H 112 H 107 H Respiratory Rate 16 Blood Pressure 138/88 Pulse Oximetry 95 12/04/17 05:00 12/04/17 06:00 12/04/17 11:34 Temperature Pulse Rate 113 H 106 H Respiratory Rate Blood Pressure Pulse Oximetry 95 Intake & Output 12/03/17 12/04/17 12/04/17 18:59 06:59 18:59 Intake Total 1960 / 1960 1920 / 1920 Output Total 1690 / 1690 1750 / 1750 Balance 270 / 270 170 / 170 Weight 61.3 kg Intake: IV 1000 / 1000 1000 / 1000 NS Inj 1,000 ML @ 100 mls/hr IV 1000 / 1000 1000 / 1000 .CONT .Q10H [facility] Rx#:[id number] Oral 960 / 960 920 / 920 Output: Urine 1690 / 1690 1750 / 1750 Other: # Incontinent Voids 2 # Urine Diapers 1 Date of Last Bowel Movement 12/02/17 Narrative: Physical Examination GENERAL: Patient is a well-nourished, well-developed female, awake and alert , not in respiratory distress. Confused SKIN: Cool and dry. No generalized rash, no ecchymoses and no evidence of embolic lesions. HEAD: Atraumatic. Normocephalic. No temporal wasting, or tenderness. EYES: [place] conjunctiva. No petechia or hemorrhage. Pupils equal, round and reactive to light. Extraocular movements full and intact. No scleral icterus. No injection or drainage. EARS, NOSE AND THROAT: Nose without bleeding or purulent nasal discharge. No sinus tenderness. Mucous membranes pink and moist. No oral lesions noted. No exudate. No oral thrush. NECK: Trachea midline. Supple and not tender, no meningeal signs CARDIOVASCULAR: Regular rate and rhythm. Tachycardic. No murmurs, rubs or gallops heard RESPIRATORY: Clear to auscultation. Breath sounds equal bilaterally. No rales , wheezing or rhonchi ABDOMEN: Soft, nondistended, complained of tenderness on palpation of lower abdomen juan manuel in suprapubic region. Has suprapubic fullness on exam. Bowel sounds present and normoactive. No guarding. No rebound. No organomegaly. EXTREMITIES: No clubbing, cyanosis, or edema. No joint effusion, has good ROM. No calf tenderness. Well perfused and warm. NEUROLOGICAL: Awake and alert. Cranial nerves grossly intact. Motor grossly within normal limits. PSYCHIATRIC: Flat affect, calm and cooperative. LINE: PIV with no evidence of infection Results - Labs CBC & Chem 7: 12/01/17 21:34 12/01/17 05:15 Labs: Laboratory Results - last 24 hr 12/04/17 13:04 TSH 1.240 Assessment and Plan - Plan Impression Intermittent fevers, ?having intermittent urinary retention - ?UTI; initial UA ok - no respiratory symptoms, CXR ok - IV sites look ok Schizoaffective disorder Recommendation Straight cath to get urine specimen and also to get volume of urine UA and C/S Empiric Levaquin after urine specimen obtained Follow C/S Follow temps Monitor progress I will follow along with you Thank you for this consultation
--- NOTE | 2017-12-04 17:41 | P.PNCA ---
Subjective Interval history: No events overnight Mild fever but resolved Heart rates still elevated Physical Exam Vital signs: Vital Signs 12/03/17 18:00 12/03/17 19:00 12/03/17 19:30 Temperature 102.7 F H 100.9 F H Pulse Rate 133 H 132 H Respiratory Rate 16 Blood Pressure 126/57 L Pulse Oximetry 95 12/03/17 20:00 12/03/17 21:00 12/03/17 22:00 Temperature Pulse Rate 120 H 116 H 112 H Respiratory Rate Blood Pressure Pulse Oximetry 95 12/03/17 23:00 12/04/17 00:00 12/04/17 01:00 Temperature 99.3 F Pulse Rate 109 H 104 H 100 H Respiratory Rate 20 Blood Pressure 93/60 L Pulse Oximetry 94 L 12/04/17 02:00 12/04/17 03:00 12/04/17 04:00 Temperature 98.0 F Pulse Rate 109 H 112 H 107 H Respiratory Rate 16 Blood Pressure 138/88 Pulse Oximetry 95 12/04/17 05:00 12/04/17 06:00 12/04/17 11:34 Temperature Pulse Rate 113 H 106 H Respiratory Rate Blood Pressure Pulse Oximetry 95 Intake & Output 12/03/17 12/04/17 12/04/17 18:59 06:59 18:59 Intake Total 1960 / 1960 1920 / 1920 Output Total 1690 / 1690 1750 / 1750 Balance 270 / 270 170 / 170 Weight 61.3 kg Intake: IV 1000 / 1000 1000 / 1000 NS Inj 1,000 ML @ 100 mls/hr IV 1000 / 1000 1000 / 1000 .CONT .Q10H [facility] Rx#:[id number] Oral 960 / 960 920 / 920 Output: Urine 1690 / 1690 1750 / 1750 Other: # Incontinent Voids 2 # Urine Diapers 1 Date of Last Bowel Movement 12/02/17 Narrative: GENERAL: NAD SKIN: Warm and dry. HEAD: Normocephalic. EYES: No scleral icterus. No injection or drainage. NECK: Supple, trachea midline. No JVD or lymphadenopathy. CARDIOVASCULAR: Regular rhythm, tachy, no murmurs, gallops, or rubs. RESPIRATORY: Breath sounds equal bilaterally. No accessory muscle use. GASTROINTESTINAL: Abdomen soft, non-tender, nondistended. MUSCULOSKELETAL: No cyanosis, or edema. BACK: Nontender without obvious deformity. No CVA tenderness. Assessment and Plan - Assessment (1) Sinus tachycardia Code(s): R00.0 - Tachycardia, unspecified Status: Acute (2) Schizoaffective disorder Code(s): F25.9 - Schizoaffective disorder, unspecified Status: Acute (3) Hypertriglyceridemia Code(s): E78.1 - Pure hyperglyceridemia Status: Acute - Plan 1) Sinus tachycardia No Afib, doubt Atach Unknown cause ? Fever as a possible cause, but no real infection substrate noted and heart rates elevated even when no feverish PE negative EF 55-60% Will consult Dr. Ventura to evaluate from EP standpoint 2) Non-specific troponin Asymptomatic No further work up 3) Schizophrenia Per psych (2) Schizoaffective disorder Qualifiers: Schizoaffective disorder type: unspecified Qualified Code(s): F25.9 - Schizoaffective disorder, unspecified
[2017-12-04] MEDS: levoFLOXacin 500 MG Tablet PO SCH (19:59)
[2017-12-04] MEDS: Acetaminophen 325 MG Tablet PO PRN (21:09)
[2017-12-04] MEDS: Metoprolol Tartrate 50 MG Tablet PO SCH (21:09)
[2017-12-04] MEDS: Fenofibrate 48 MG Tablet PO SCH (22:32)
[2017-12-04 22:41] LABS: Bilirubin,Urine Negative (Negative); Clarity,Urine Clear (Clear); Color,Urine Yellow (Yellw/Straw); Glucose,Urine (UA) Negative (Negative); Leukocyte Esterase,Urine Negative (Negative); Mucus,Urine Few /lpf (Occasional); Nitrite,Urine Negative (Negative); Specific Gravity,Urine 1.009 (1.002-1.035); Squamous Epithelial Cell,Urine <1 /hpf (0-5)
[2017-12-05] MEDS: Sod Chloride 0.9% Inj 1,000 ML IV.CONT SCH ×2 (05:28→15:01)
[2017-12-05] MEDS: Levothyroxine 88 MCG Tablet PO SCH (05:33)
[2017-12-05 06:15] LABS: Baso % (Auto) 0.5 % (0.0-2.0); Eos # (Auto) 0.5 th/mm3 (0.0-0.4); Eos % (Auto) 4.7 % (0.0-4.0); Hematocrit 27.5 % (35.0-46.0); Hemoglobin 9.5 gm/dL (11.6-15.3); Lymph # (Auto) 1.4 th/mm3 (1.0-4.8); Lymph % (Auto) 13.7 % (9.0-44.0); Mean Corpuscular HGB Conc 34.4 % (32.0-36.0); Mean Corpuscular Hemoglobin 27.6 pg (27.0-34.0); Mean Corpuscular Volume 80.2 fL (80.0-100.0); Mean Platelet Volume 8.9 fL (7.0-11.0); Mono # (Auto) 0.5 th/mm3 (0.0-0.9); Mono % (Auto) 5.4 % (0.0-8.0); Neut # (Auto) 7.5 th/mm3 (1.8-7.7); Neut % (Auto) 75.7 % (16.0-70.0); Platelet Count 278 th/mm3 (150-450); Red Blood Count 3.43 mil/mm3 (4.00-5.30); Red Cell Distribution Width 13.8 % (11.6-17.2); White Blood Count 9.9 th/mm3 (4.0-11.0)
[2017-12-05 06:39] LABS: Alanine Aminotransferase 34 U/L (10-53); Albumin 1.7 g/dL (3.4-5.0); Anion Gap 10 meq/L (5-15); Aspartate Aminotransferase 18 U/L (15-37); Blood Urea Nitrogen 9 mg/dL (7-18); Calcium 7.5 mg/dL (8.5-10.1); Carbon Dioxide 22.1 meq/L (21.0-32.0); Chloride 115 meq/L (98-107); Glomerular Filtration Rate 75 mL/min (>89); Glucose,Random 90 mg/dL (74-106); Potassium 3.4 meq/L (3.5-5.1); Sodium 147 meq/L (136-145)
[2017-12-05 06:41] LABS: Alkaline Phosphatase 54 U/L (45-117); Total Protein 4.7 g/dL (6.4-8.2)
--- NOTE | 2017-12-05 07:54 | P.PNCA ---
Subjective Interval history: Feeling ok today. Remains tachycardic. Physical Exam Vital signs: Vital Signs 12/04/17 08:00 12/04/17 09:00 12/04/17 10:00 Temperature Pulse Rate 116 H 108 H 108 H Respiratory Rate Blood Pressure Pulse Oximetry 12/04/17 11:00 12/04/17 11:34 12/04/17 12:00 Temperature Pulse Rate 107 H 125 H Respiratory Rate Blood Pressure Pulse Oximetry 95 12/04/17 13:00 12/04/17 14:00 12/04/17 15:00 Temperature Pulse Rate 125 H 125 H 111 H Respiratory Rate Blood Pressure Pulse Oximetry 12/04/17 16:00 12/04/17 17:00 12/04/17 19:00 Temperature 100.2 F H Pulse Rate 125 H 125 H 129 H Respiratory Rate 16 Blood Pressure 137/74 Pulse Oximetry 95 12/04/17 20:00 12/04/17 21:00 12/04/17 21:20 Temperature Pulse Rate 125 H 125 H Respiratory Rate Blood Pressure Pulse Oximetry 96 95 12/04/17 22:00 12/04/17 23:00 12/05/17 00:00 Temperature 98.4 F Pulse Rate 125 H 103 H 93 H Respiratory Rate 20 Blood Pressure 121/75 Pulse Oximetry 95 12/05/17 01:00 12/05/17 02:00 12/05/17 03:00 Temperature 98.4 F Pulse Rate 97 H 90 103 H Respiratory Rate 20 Blood Pressure 121/75 Pulse Oximetry 95 12/05/17 04:00 12/05/17 05:00 12/05/17 05:59 Temperature Pulse Rate 106 H 111 H 90 Respiratory Rate Blood Pressure Pulse Oximetry 12/05/17 07:00 Temperature Pulse Rate 91 H Respiratory Rate Blood Pressure Pulse Oximetry Intake & Output 12/04/17 12/05/17 12/05/17 18:59 06:59 18:59 Intake Total 960 / 960 2240 / 2240 Output Total 700 / 700 200 / 200 Balance 260 / 260 2040 / 2040 Weight 137 lb 2.04 oz Intake: IV 1999 NS Inj 1,000 ML @ 100 mls/hr IV 1999 .CONT .Q10H [facility] Rx#:[id number] Oral 960 / 960 240 / 240 Output: Urine 700 / 700 200 / 200 Other: # Voids 3 # Incontinent Voids 1 # Urine Diapers 2 Narrative: GENERAL: NAD SKIN: Warm and dry. HEAD: Normocephalic. EYES: No scleral icterus. No injection or drainage. NECK: Supple, trachea midline. No JVD or lymphadenopathy. CARDIOVASCULAR: Regular rhythm, tachy, no murmurs, gallops, or rubs. RESPIRATORY: Breath sounds equal bilaterally. No accessory muscle use. GASTROINTESTINAL: Abdomen soft, non-tender, nondistended. MUSCULOSKELETAL: No cyanosis, or edema. BACK: Nontender without obvious deformity. No CVA tenderness. Assessment and Plan - Assessment (1) Sinus tachycardia Code(s): R00.0 - Tachycardia, unspecified Status: Acute Plan: Continue current therapy. Tachycardia mild, <120, ID workup in progress. TSH 1.240.
[2017-12-05] MEDS: Metoprolol Tartrate 50 MG Tablet PO SCH ×2 (09:20→21:34)
[2017-12-05] MEDS: Fenofibrate 48 MG Tablet PO SCH (09:20)
[2017-12-05] MEDS: Famotidine 20 MG Tablet PO SCH ×2 (09:20→21:34)
--- NOTE | 2017-12-05 09:31 | P.PN ---
Subjective Interval history: telemetry- sinus rhythm- HR 98- low 100s awake and alert oriented x 3 denies any pain denies any auditory hallucinations but last night states she states there were snakes in her bed \T down Physical Exam Vital signs: Vital Signs 12/04/17 10:00 12/04/17 11:00 12/04/17 11:34 Temperature Pulse Rate 108 H 107 H Respiratory Rate Blood Pressure Pulse Oximetry 95 12/04/17 12:00 12/04/17 13:00 12/04/17 14:00 Temperature Pulse Rate 125 H 125 H 125 H Respiratory Rate Blood Pressure Pulse Oximetry 12/04/17 15:00 12/04/17 16:00 12/04/17 17:00 Temperature Pulse Rate 111 H 125 H 125 H Respiratory Rate Blood Pressure Pulse Oximetry 12/04/17 19:00 12/04/17 20:00 12/04/17 21:00 Temperature 100.2 F H Pulse Rate 129 H 125 H 125 H Respiratory Rate 16 Blood Pressure 137/74 Pulse Oximetry 95 96 12/04/17 21:20 12/04/17 22:00 12/04/17 23:00 Temperature 98.4 F Pulse Rate 125 H 103 H Respiratory Rate 20 Blood Pressure 121/75 Pulse Oximetry 95 95 12/05/17 00:00 12/05/17 01:00 12/05/17 02:00 Temperature Pulse Rate 93 H 97 H 90 Respiratory Rate Blood Pressure Pulse Oximetry 12/05/17 03:00 12/05/17 04:00 12/05/17 05:00 Temperature 98.4 F Pulse Rate 103 H 106 H 111 H Respiratory Rate 20 Blood Pressure 121/75 Pulse Oximetry 95 12/05/17 05:59 12/05/17 07:00 Temperature Pulse Rate 90 91 H Respiratory Rate Blood Pressure Pulse Oximetry Intake & Output 12/04/17 12/05/17 12/05/17 18:59 06:59 18:59 Intake Total 960 / 960 2240 / 2240 Output Total 700 / 700 200 / 200 Balance 260 / 260 2040 / 2040 Weight 62.2 kg Intake: IV 1999 NS Inj 1,000 ML @ 100 mls/hr IV 1999 .CONT .Q10H [facility] Rx#:[id number] Oral 960 / 960 240 / 240 Output: Urine 700 / 700 200 / 200 Other: # Voids 3 # Incontinent Voids 1 # Urine Diapers 2 Narrative: GENERAL: NAD, oriented to place and person and year, smiling , ff all commands HEAD: Normocephalic. EYES: No scleral icterus. No injection or drainage. NECK: Supple, trachea midline. No JVD or lymphadenopathy. CARDIOVASCULAR: Regular rhythm, tachy- HR 90s- low 100s, no murmurs, gallops, or rubs. RESPIRATORY: Breath sounds equal bilaterally. No accessory muscle use. GASTROINTESTINAL: Abdomen soft, non-tender, nondistended. MUSCULOSKELETAL: No cyanosis, or edema. BACK: Nontender without obvious deformity. No CVA tenderness.moves all extremities spontaenously, noc marlin tenderness Results - Labs CBC & Chem 7: 12/05/17 05:43 12/05/17 05:43 Laboratory Results - last 24 hr 12/04/17 12/04/17 12/05/17 13:04 18:30 05:43 WBC 9.9 RBC 3.43 L Hgb 9.5 L Hct 27.5 L MCV 80.2 MCH 27.6 MCHC 34.4 RDW 13.8 Plt Count 278 D MPV 8.9 Neut % (Auto) 75.7 H Lymph % (Auto) 13.7 [place] % (Auto) 5.4 Eos % (Auto) 4.7 H Baso % (Auto) 0.5 Neut # (Auto) 7.5 Lymph # (Auto) 1.4 [place] # (Auto) 0.5 Eos # (Auto) 0.5 H Baso # (Auto) 0.0 WBC Differential . Differential Comment Auto diff final Sodium Potassium Chloride Carbon Dioxide Anion Gap BUN Creatinine Estimated GFR Random Glucose Calcium Total Bilirubin AST ALT Alkaline Phosphatase Total Protein Albumin TSH 1.240 Urine Color Yellow Urine Clarity Clear Urine pH 6.0 Ur Specific [place] 1.009 Urine Protein Negative Urine Glucose (UA) Negative Urine Ketones Negative Urine Occult Blood Negative Urine Nitrate Negative Urine Bilirubin Negative Urine Urobilinogen Less than 2 Ur Leukocyte Esterase Negative Urine RBC Less than 1 Urine WBC 2 Ur Squamous Epith Cells <1 Urine Mucus Few H Micro UA Comment Cath-culture not ind Ur Microscopic Review Not Reportable Urine Culture Comments Cath-cult not ind 12/05/17 05:43 WBC RBC Hgb Hct MCV MCH MCHC RDW Plt Count MPV Neut % (Auto) Lymph % (Auto) [place] % (Auto) Eos % (Auto) Baso % (Auto) Neut # (Auto) Lymph # (Auto) [place] # (Auto) Eos # (Auto) Baso # (Auto) WBC Differential Differential Comment Sodium 147 H Potassium 3.4 L Chloride 115 H Carbon Dioxide 22.1 Anion Gap 10 BUN 9 Creatinine 0.79 Estimated GFR 75 L Random Glucose 90 Calcium 7.5 L Total Bilirubin 0.4 AST 18 ALT 34 Alkaline Phosphatase 54 Total Protein 4.7 L D Albumin 1.7 L TSH Urine Color Urine Clarity Urine pH Ur Specific [place] Urine Protein Urine Glucose (UA) Urine Ketones Urine Occult Blood Urine Nitrate Urine Bilirubin Urine Urobilinogen Ur Leukocyte Esterase Urine RBC Urine WBC Ur Squamous Epith Cells Urine Mucus Micro UA Comment Ur Microscopic Review Urine Culture Comments Microbiology 12/03/17 13:55 Blood - Peripheral Aerobic Blood Culture - Preliminary No growth in 1 day 12/03/17 13:55 Blood - Peripheral Anaerobic Blood Culture - Preliminary No growth in 1 day 12/03/17 13:50 Blood - Peripheral Aerobic Blood Culture - Preliminary No growth in 1 day 12/03/17 13:50 Blood - Peripheral Anaerobic Blood Culture - Preliminary No growth in 1 day Assessment and Plan - Plan 56-year-old female with Chest pain, dyspnea, hypotension and tachycardia- HR better R/O ACS -Patient in sinus tachycardia without any evidence of atrial fibrillation. -Appreciate input from cardiology. Currently on Lopressor 50 mg bid -TSH within normal limits -ASA and statin daily -V/Q scan negative for PE -Dr. Ventura ff -get PT- to up and ambulate and monitor HR Hypertension -above BB- monitor and adjust Fever of unknown origin- T down Chest x-ray and UA unremarkable However patient is still spiking nightly fevers Continue of IV fluid hydration Blood culture NTD x 2 ID ff- on Levaquin ? 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 fluids -Avoid nephrotoxic agents -Monitor kidney function as indicated Acute psychosis Schizoaffective disorder -Appreciate input from psychiatry, discharge back to psych when medically stable Hypothyroidism TSH WNL -Continue Synthroid 88 mcg daily Dyslipidemia Hypertriglyceridemia -Continue TriCor and Lipitor DVT prophylaxis -bilateral SCD/AMY hose Up and ambulate- out of bed to chair PT consult
--- NOTE | 2017-12-05 13:37 | P.PNID ---
Subjective Remarks: Patient is a 56-year-old female, initially admitted in the inpatient psychiatry unit last November 19 under Rodriguez act. She had acute psychosis at that time, and she carries a diagnosis of schizoaffective disorder. She was being managed, and on the day of admission here in the medical floor she apparently started complaining of left-sided chest pain with shortness of breath. She was found to be tachycardic, and was admitted to the hospital for further evaluation and treatment. Her cardiac workup did not show any ME. Chest x-ray did not show any acute abnormality. And her laboratory tests were within normal limits. Starting December 01 she started having intermittent fevers usually at least once a day. She had blood cultures done and they are negative. She is not on any antibiotics. Getting review of system is quite difficult because she is very unreliable and a very poor historian. Patient does not have any Munoz catheter in place. It has been recorded that she is incontinent. She has no central line. She continues to have tachycardia. Her him other hemodynamics are stable. Infectious disease consultation has been requested to evaluate the patient with intermittent fevers. Notes reviewed Temps ok Could not find documentation about her straight cath UA ok Still with confusion Creatinine better Antibiotics: Levaquin Past Medical History: Hypertriglyceridemia (Acute) Hypothyroidism (Acute) Right leg injury (Acute) Patient denies medical problems Surgical history unknown Hx of appendectomy (Acute) History of cholecystectomy (Acute) No history of previous surgery Allergies/Adverse Reactions: Allergies chocolate flavor Allergy (Severe, Unverified 11/14/16 18:44) cyclosporine Allergy (Severe, Unverified 11/14/16 18:44) Rash lemon Allergy (Mild, Unverified 11/14/16 18:44) orange Allergy (Mild, Unverified 11/14/16 18:44) penicillin G Allergy (Unknown, Unverified 11/14/16 18:44) Objective Vital Signs 12/04/17 14:00 12/04/17 15:00 12/04/17 16:00 Temperature Pulse Rate 125 H 111 H 125 H Respiratory Rate Blood Pressure Pulse Oximetry 12/04/17 17:00 12/04/17 19:00 12/04/17 20:00 Temperature 100.2 F H Pulse Rate 125 H 129 H 125 H Respiratory Rate 16 Blood Pressure 137/74 Pulse Oximetry 95 96 12/04/17 21:00 12/04/17 21:20 12/04/17 22:00 Temperature Pulse Rate 125 H 125 H Respiratory Rate Blood Pressure Pulse Oximetry 95 12/04/17 23:00 12/05/17 00:00 12/05/17 01:00 Temperature 98.4 F Pulse Rate 103 H 93 H 97 H Respiratory Rate 20 Blood Pressure 121/75 Pulse Oximetry 95 12/05/17 02:00 12/05/17 03:00 12/05/17 04:00 Temperature 98.4 F Pulse Rate 90 103 H 106 H Respiratory Rate 20 Blood Pressure 121/75 Pulse Oximetry 95 12/05/17 05:00 12/05/17 05:59 12/05/17 07:00 Temperature Pulse Rate 111 H 90 91 H Respiratory Rate Blood Pressure Pulse Oximetry 12/05/17 08:00 12/05/17 09:00 12/05/17 09:57 Temperature 97.8 F Pulse Rate 93 H 93 H 93 H Respiratory Rate 18 Blood Pressure 137/73 Pulse Oximetry 97 12/05/17 10:16 12/05/17 11:00 12/05/17 12:00 Temperature 98.0 F Pulse Rate 84 82 Respiratory Rate 18 Blood Pressure 139/85 Pulse Oximetry 97 97 12/05/17 12:49 Temperature Pulse Rate 90 Respiratory Rate Blood Pressure Pulse Oximetry Intake & Output 12/04/17 12/05/17 12/05/17 18:59 06:59 18:59 Intake Total 960 / 960 2240 / 2240 Output Total 700 / 700 200 / 200 Balance 260 / 260 2040 / 2040 Weight 62.2 kg Intake: IV 1999 NS Inj 1,000 ML @ 100 mls/hr IV 1999 .CONT .Q10H [facility] Rx#:[id number] Oral 960 / 960 240 / 240 Output: Urine 700 / 700 200 / 200 Other: # Voids 3 # Incontinent Voids 1 # Urine Diapers 2 12/03/17 13:55 Blood - Peripheral Aerobic Blood Culture - Preliminary No growth in 2 days 12/03/17 13:55 Blood - Peripheral Anaerobic Blood Culture - Preliminary No growth in 2 days 12/03/17 13:50 Blood - Peripheral Aerobic Blood Culture - Preliminary No growth in 2 days 12/03/17 13:50 Blood - Peripheral Anaerobic Blood Culture - Preliminary No growth in 2 days Lab - Hematology Results 12/05/17 05:43 WBC 9.9 RBC 3.43 L Hgb 9.5 L Hct 27.5 L MCV 80.2 MCH 27.6 MCHC 34.4 RDW 13.8 Plt Count 278 D MPV 8.9 Neut % (Auto) 75.7 H Lymph % (Auto) 13.7 Burnett % (Auto) 5.4 Eos % (Auto) 4.7 H Baso % (Auto) 0.5 Neut # (Auto) 7.5 Lymph # (Auto) 1.4 Burnett # (Auto) 0.5 Eos # (Auto) 0.5 H Baso # (Auto) 0.0 WBC Differential . Differential Comment Auto diff final Lab - Chemistry Results 12/04/17 12/05/17 13:04 05:43 Sodium 147 H Potassium 3.4 L Chloride 115 H Carbon Dioxide 22.1 Anion Gap 10 BUN 9 Creatinine 0.79 Estimated GFR 75 L Random Glucose 90 Calcium 7.5 L Total Bilirubin 0.4 AST 18 ALT 34 Alkaline Phosphatase 54 Total Protein 4.7 L D Albumin 1.7 L TSH 1.240 Imaging: ITS Impressions Chest X-Ray 12/01/17 00:00 CONCLUSION: No acute cardiopulmonary disease. Pulmonary Perfusion Imaging 12/01/17 00:00 CONCLUSION: 1. Negative examination. Physical Exam: GENERAL: awake and alert, not in respiratory distress. Confused SKIN: Cool and dry. No generalized rash HEAD: Atraumatic. Normocephalic. No temporal wasting, or tenderness. EYES: [place] conjunctiva. No petechia or hemorrhage. Pupils equal, round and reactive to light. Extraocular movements full and intact. No scleral icterus. No injection or drainage. EARS, NOSE AND THROAT: Nose without bleeding or purulent nasal discharge. No sinus tenderness. Mucous membranes pink and moist. No oral lesions noted. No exudate. No oral thrush. NECK: Trachea midline. Supple and not tender, no meningeal signs CARDIOVASCULAR: Regular rate and rhythm. Tachycardic. No murmurs, rubs or gallops heard RESPIRATORY: Clear to auscultation. Breath sounds equal bilaterally. No rales , wheezing or rhonchi ABDOMEN: Soft, nondistended, complained of tenderness on palpation of lower abdomen juan manuel in suprapubic region. Bowel sounds present and normoactive. No guarding. No rebound. No organomegaly. EXTREMITIES: No clubbing, cyanosis, or edema. No joint effusion, has good ROM. No calf tenderness. Well perfused and warm. NEUROLOGICAL: Awake and alert. Cranial nerves grossly intact. Motor grossly within normal limits. PSYCHIATRIC: Flat affect, calm and cooperative. LINE: PIV with no evidence of infection Assessment and Plan - Plan Impression Intermittent fevers, ?having intermittent urinary retention - ?UTI; initial UA ok - no respiratory symptoms, CXR ok - IV sites look ok Schizoaffective disorder Recommendation Follow temps Bladder scan Continue Levaquin - if nothing on C/S, stop Follow C/S Monitor progress I will be off Dec 6-16 Other ID MD covering in my absence
[2017-12-05] MEDS: levoFLOXacin 500 MG Tablet PO SCH (17:08)
--- NOTE | 2017-12-05 17:34 | P.PNCA ---
Subjective Interval history: No events overnight Heart rates mildly better Physical Exam Vital signs: Vital Signs 12/04/17 19:00 12/04/17 20:00 12/04/17 21:00 Temperature 100.2 F H Pulse Rate 129 H 125 H 125 H Respiratory Rate 16 Blood Pressure 137/74 Pulse Oximetry 95 96 12/04/17 21:20 12/04/17 22:00 12/04/17 23:00 Temperature 98.4 F Pulse Rate 125 H 103 H Respiratory Rate 20 Blood Pressure 121/75 Pulse Oximetry 95 95 12/05/17 00:00 12/05/17 01:00 12/05/17 02:00 Temperature Pulse Rate 93 H 97 H 90 Respiratory Rate Blood Pressure Pulse Oximetry 12/05/17 03:00 12/05/17 04:00 12/05/17 05:00 Temperature 98.4 F Pulse Rate 103 H 106 H 111 H Respiratory Rate 20 Blood Pressure 121/75 Pulse Oximetry 95 12/05/17 05:59 12/05/17 07:00 12/05/17 08:00 Temperature 97.8 F Pulse Rate 90 91 H 93 H Respiratory Rate 18 Blood Pressure 137/73 Pulse Oximetry 97 12/05/17 09:00 12/05/17 09:57 12/05/17 10:16 Temperature Pulse Rate 93 H 93 H Respiratory Rate Blood Pressure Pulse Oximetry 97 12/05/17 11:00 12/05/17 12:00 12/05/17 12:49 Temperature 98.0 F Pulse Rate 84 82 90 Respiratory Rate 18 Blood Pressure 139/85 Pulse Oximetry 97 12/05/17 14:00 12/05/17 14:34 12/05/17 16:00 Temperature 98.8 F Pulse Rate 95 H 100 H 100 H Respiratory Rate 16 Blood Pressure 156/89 H Pulse Oximetry 97 12/05/17 16:45 12/05/17 17:17 Temperature Pulse Rate 112 H Respiratory Rate Blood Pressure Pulse Oximetry 97 Intake & Output 12/04/17 12/05/17 12/05/17 18:59 06:59 18:59 Intake Total 960 / 960 2240 / 2240 1620 / 1620 Output Total 700 / 700 200 / 200 Balance 260 / 260 2040 / 2040 1620 / 1620 Weight 62.2 kg Intake: IV 1999 / 1999 1000 / 1000 NS Inj 1,000 ML @ 100 mls/hr IV 1999 / 1999 1000 / 1000 .CONT .Q10H [facility] Rx#:[id number] Oral 960 / 960 240 / 240 620 / 620 Output: Urine 700 / 700 200 / 200 Other: Post Void Residual 0 # Voids 3 # Incontinent Voids 1 6 # Urine Diapers 2 Narrative: GENERAL: NAD, oriented to place and person and year, smiling , ff all commands HEAD: Normocephalic. EYES: No scleral icterus. No injection or drainage. NECK: Supple, trachea midline. No JVD or lymphadenopathy. CARDIOVASCULAR: Regular rhythm, tachy- HR 90s- low 100s, no murmurs, gallops, or rubs. RESPIRATORY: Breath sounds equal bilaterally. No accessory muscle use. GASTROINTESTINAL: Abdomen soft, non-tender, nondistended. MUSCULOSKELETAL: No cyanosis, or edema. BACK: Nontender without obvious deformity. No CVA tenderness.moves all extremities spontaenously, noc correction tenderness Assessment and Plan - Assessment (1) Sinus tachycardia Code(s): R00.0 - Tachycardia, unspecified Status: Acute (2) Schizoaffective disorder Code(s): F25.9 - Schizoaffective disorder, unspecified Status: Acute (3) Hypertriglyceridemia Code(s): E78.1 - Pure hyperglyceridemia Status: Acute - Plan 1) Sinus tachycardia No Afib, appears to be sinus tachycardia Unknown cause ? Fever as a possible cause, but no real infection substrate noted and heart rates elevated even when not feverish PE negative EF 55-60% Dr. Ventura evaluated, agrees on sinus tachycardia BB increased, heart rates mildly better 2) Non-specific troponin Asymptomatic No further work up 3) Schizophrenia Per psych (2) Schizoaffective disorder Qualifiers: Schizoaffective disorder type: unspecified Qualified Code(s): F25.9 - Schizoaffective disorder, unspecified
[2017-12-06] MEDS: Sod Chloride 0.9% Inj 1,000 ML IV.CONT SCH ×3 (04:36→23:31)
[2017-12-06] MEDS: Levothyroxine 88 MCG Tablet PO SCH (06:30)
[2017-12-06] MEDS: Famotidine 20 MG Tablet PO SCH ×2 (08:11→23:30)
[2017-12-06] MEDS: Fenofibrate 48 MG Tablet PO SCH (08:11)
[2017-12-06] MEDS: Metoprolol Tartrate 50 MG Tablet PO SCH ×2 (08:12→23:29)
--- NOTE | 2017-12-06 11:41 | P.PN ---
Subjective Interval history: up on the chair earlier no complains, pleasant and cooperative, lovable patient states she sees snakes - now in the corner of the room no headaches Physical Exam Vital signs: Vital Signs 12/05/17 12:00 12/05/17 12:49 12/05/17 14:00 Temperature 98.0 F Pulse Rate 82 90 95 H Respiratory Rate 18 Blood Pressure 139/85 Pulse Oximetry 97 12/05/17 14:34 12/05/17 16:00 12/05/17 16:45 Temperature 98.8 F Pulse Rate 100 H 100 H 112 H Respiratory Rate 16 Blood Pressure 156/89 H Pulse Oximetry 97 12/05/17 17:17 12/05/17 17:51 12/05/17 19:00 Temperature Pulse Rate 114 H 112 H Respiratory Rate Blood Pressure Pulse Oximetry 97 12/05/17 20:00 12/05/17 21:00 12/05/17 22:00 Temperature 98.8 F Pulse Rate 113 H 116 H 112 H Respiratory Rate 20 Blood Pressure 160/85 H Pulse Oximetry 95 12/05/17 23:00 12/06/17 00:00 12/06/17 01:00 Temperature 100.7 F H Pulse Rate 102 H 107 H 122 H Respiratory Rate 20 Blood Pressure 144/67 H Pulse Oximetry 95 12/06/17 02:00 12/06/17 03:00 12/06/17 04:00 Temperature Pulse Rate 108 H 110 H 109 H Respiratory Rate 16 Blood Pressure 115/60 Pulse Oximetry 94 L 12/06/17 05:00 12/06/17 06:00 12/06/17 07:00 Temperature Pulse Rate 110 H 107 H 99 H Respiratory Rate Blood Pressure Pulse Oximetry 12/06/17 08:00 12/06/17 09:00 12/06/17 10:00 Temperature 98.9 F Pulse Rate 104 H 88 88 Respiratory Rate 18 Blood Pressure 146/82 H Pulse Oximetry 94 L 12/06/17 10:47 Temperature Pulse Rate Respiratory Rate Blood Pressure Pulse Oximetry 94 L Intake & Output 12/05/17 12/06/17 12/06/17 18:59 06:59 18:59 Intake Total 1620 / 1620 1000 / 1000 Balance 1620 / 1620 1000 / 1000 Weight 62 kg Intake: IV 1000 / 1000 1000 / 1000 NS Inj 1,000 ML @ 100 mls/hr IV 1000 / 1000 1000 / 1000 .CONT .Q10H [facility] Rx#:[id number] Oral 620 / 620 Other: Post Void Residual 0 # Incontinent Voids 6 # Urine Diapers 1 Date of Last Bowel Movement 12/02/17 12/02/17 Narrative: GENERAL: NAD, oriented to place and person and year, smiling , ff all commands, slightly sleepy- received Ativan last evening- per staff- HEAD: Normocephalic. EYES: No scleral icterus. No injection or drainage. NECK: Supple, trachea midline. No JVD or lymphadenopathy. CARDIOVASCULAR: Regular rhythm, rate 90 no murmurs, gallops, or rubs. RESPIRATORY: Breath sounds equal bilaterally. No accessory muscle use. GASTROINTESTINAL: Abdomen soft, non-tender, nondistended. MUSCULOSKELETAL: No cyanosis, or edema. BACK: Nontender without obvious deformity. No CVA tenderness.moves all extremities spontaneously, no calf tenderness Results - Labs CBC & Chem 7: 12/05/17 05:43 12/05/17 05:43 Microbiology 12/03/17 13:55 Blood - Peripheral Aerobic Blood Culture - Preliminary No growth in 3 days 12/03/17 13:55 Blood - Peripheral Anaerobic Blood Culture - Preliminary No growth in 3 days 12/03/17 13:50 Blood - Peripheral Aerobic Blood Culture - Preliminary No growth in 3 days 12/03/17 13:50 Blood - Peripheral Anaerobic Blood Culture - Preliminary No growth in 3 days Assessment and Plan - Plan 56-year-old female with Chest pain, dyspnea, hypotension and tachycardia- HR improved -Patient in sinus tachycardia without any evidence of atrial fibrillation. -Appreciate input from cardiology. Currently on Lopressor 50 mg bid -TSH within normal limits -ASA and statin daily -V/Q scan negative for PE -Dr. Ventura ff - daily PT- to up and ambulate and monitor HR Hypertension -above BB- monitor and adjust Fever of unknown origin- T down UTI- repeat UA negative Chest x-ray and UA unremarkable Continue of IV fluid hydration Blood culture NTD x 3 ID ff- on Levaquin ? 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 fluids -Avoid nephrotoxic agents -Monitor kidney function as indicated Acute psychosis- seeing snakes in the room Schizoaffective disorder -Appreciate input from psychiatry- reconsult transfer back to psych when medically stable Hypothyroidism TSH WNL -Continue Synthroid 88 mcg daily Dyslipidemia Hypertriglyceridemia -Continue TriCor and Lipitor DVT prophylaxis -bilateral SCD/AMY hose Up and ambulate- out of bed to chair PT consult
--- NOTE | 2017-12-06 13:11 | P.PNPSY ---
Subjective Remarks: The patient was seen today for psychiatric reevaluation. The case was discussed with primary medical team and nursing charge. On my psychiatric evaluation the patient is sleepy, she was previously sedated with Ativan due to agitation and distress given by internal stimulation, the patient has being having visual hallucinations, she has being quite anxious and scare of seeing snakes in the room. She reports to me that she is doing better, even though she points to the floor on the table stating that there are snakes there. Is fully oriented 3, does not seem to have twitching of consciousness or gross attention deficit. Compliant medications, no significant side effects reported. Mental Status Examination Appearance: Appropriate, Disheveled Consciousness: Alert (Mildly) Orientation: Person, Place, Date/Time Motor Activity: Other Speech: Unremarkable Language: Adequate Fund of Knowledge: Adequate Attention and Concentration: Easily distracted Memory: Unremarkable (Fair) Mood: Other (Euthymic to somewhat restricted) Affect: Other (Slight decreased range and intensity) Thought Process & Associations: Intact, Disorganized Thought Content: Appropriate (Mildly) Hallucination Type: None Delusion Type: Paranoid Suicidal Ideation: No (Mildly) Suicidal Plan: No Suicidal Intention: No Homicidal Ideation: No Homicidal Plan: No Homicidal Intention: No Insight: Poor Judgment: Poor Assessment and Plan - Assessment (1) Schizoaffective disorder Code(s): F25.9 - Schizoaffective disorder, unspecified Status: Acute - Plan Plan: I will increase Clozaril to 50 mg in the morning and 100 mg at bedtime for psychosis. Transferred the patient back to psychiatry was medically stable. Justification for Continued Inpatient Stay: Patient needs to continue psychiatric hospitalization for stabilization (1) Schizoaffective disorder Qualifiers: Schizoaffective disorder type: unspecified Qualified Code(s): F25.9 - Schizoaffective disorder, unspecified
--- NOTE | 2017-12-06 13:47 | P.PNCA ---
Subjective Interval history: No events overnight Hallucinations Heart rates better Physical Exam Vital signs: Vital Signs 12/05/17 14:00 12/05/17 14:34 12/05/17 16:00 Temperature 98.8 F Pulse Rate 95 H 100 H 100 H Respiratory Rate 16 Blood Pressure 156/89 H Pulse Oximetry 97 12/05/17 16:45 12/05/17 17:17 12/05/17 17:51 Temperature Pulse Rate 112 H 114 H Respiratory Rate Blood Pressure Pulse Oximetry 97 12/05/17 19:00 12/05/17 20:00 12/05/17 21:00 Temperature 98.8 F Pulse Rate 112 H 113 H 116 H Respiratory Rate 20 Blood Pressure 160/85 H Pulse Oximetry 95 12/05/17 22:00 12/05/17 23:00 12/06/17 00:00 Temperature 100.7 F H Pulse Rate 112 H 102 H 107 H Respiratory Rate 20 Blood Pressure 144/67 H Pulse Oximetry 95 12/06/17 01:00 12/06/17 02:00 12/06/17 03:00 Temperature Pulse Rate 122 H 108 H 110 H Respiratory Rate Blood Pressure Pulse Oximetry 12/06/17 04:00 12/06/17 05:00 12/06/17 06:00 Temperature Pulse Rate 109 H 110 H 107 H Respiratory Rate 16 Blood Pressure 115/60 Pulse Oximetry 94 L 12/06/17 07:00 12/06/17 08:00 12/06/17 09:00 Temperature 98.9 F Pulse Rate 99 H 104 H 88 Respiratory Rate 18 Blood Pressure 146/82 H Pulse Oximetry 94 L 12/06/17 10:00 12/06/17 10:47 12/06/17 11:00 Temperature Pulse Rate 88 94 H Respiratory Rate Blood Pressure Pulse Oximetry 94 L 12/06/17 12:00 Temperature 97.9 F Pulse Rate 91 H Respiratory Rate 18 Blood Pressure 133/80 Pulse Oximetry 94 L Intake & Output 12/05/17 12/06/17 12/06/17 18:59 06:59 18:59 Intake Total 1620 / 1620 1000 / 1000 Balance 1620 / 1620 1000 / 1000 Weight 62 kg Intake: IV 1000 / 1000 1000 / 1000 NS Inj 1,000 ML @ 100 mls/hr IV 1000 / 1000 1000 / 1000 .CONT .Q10H [facility] Rx#:[id number] Oral 620 / 620 Other: Post Void Residual 0 # Incontinent Voids 6 # Urine Diapers 1 Date of Last Bowel Movement 12/02/17 12/02/17 Narrative: GENERAL: NAD, oriented to place and person and year, smiling , ff all commands HEAD: Normocephalic. EYES: No scleral icterus. No injection or drainage. NECK: Supple, trachea midline. No JVD or lymphadenopathy. CARDIOVASCULAR: Regular rhythm, tachy- HR 90s- low 100s, no murmurs, gallops, or rubs. RESPIRATORY: Breath sounds equal bilaterally. No accessory muscle use. GASTROINTESTINAL: Abdomen soft, non-tender, nondistended. MUSCULOSKELETAL: No cyanosis, or edema. BACK: Nontender without obvious deformity. No CVA tenderness.moves all extremities spontaenously, noc half-way tenderness Assessment and Plan - Assessment (1) Sinus tachycardia Code(s): R00.0 - Tachycardia, unspecified Status: Acute (2) Schizoaffective disorder Code(s): F25.9 - Schizoaffective disorder, unspecified Status: Acute (3) Hypertriglyceridemia Code(s): E78.1 - Pure hyperglyceridemia Status: Acute - Plan 1) Sinus tachycardia No Afib, appears to be sinus tachycardia Unknown cause ? Fever as a possible cause, but no real infection substrate noted and heart rates elevated even when not feverish PE negative EF 55-60% Dr. Ventura evaluated, agrees on sinus tachycardia BB increased, heart rates better No further work up from cardiology perspective 2) Non-specific troponin Asymptomatic No further work up 3) Schizophrenia Per psych (2) Schizoaffective disorder Qualifiers: Schizoaffective disorder type: unspecified Qualified Code(s): F25.9 - Schizoaffective disorder, unspecified
[2017-12-06] MEDS: levoFLOXacin 500 MG Tablet PO SCH (17:04)
[2017-12-06] MEDS: Acetaminophen 325 MG Tablet PO PRN (18:34)
[2017-12-07] MEDS: Levothyroxine 88 MCG Tablet PO SCH (07:02)
[2017-12-07] MEDS: Sod Chloride 0.9% Inj 1,000 ML IV.SIG SCH (07:03)
[2017-12-07] MEDS: Famotidine 20 MG Tablet PO SCH ×2 (08:21→21:06)
[2017-12-07] MEDS: Metoprolol Tartrate 50 MG Tablet PO SCH ×2 (08:22→21:06)
[2017-12-07] MEDS: Fenofibrate 48 MG Tablet PO SCH (08:22)
--- NOTE | 2017-12-07 11:10 | P.PN ---
Subjective Interval history: feels fine, had a shower denies any headaches, nausea, vomiting or cough,no urinary symptoms states had UTI recetn;yousuf was treated with sulfas Physical Exam Vital signs: Vital Signs 12/06/17 12:00 12/06/17 13:00 12/06/17 14:00 Temperature 97.9 F Pulse Rate 91 H 96 H 102 H Respiratory Rate 18 Blood Pressure 133/80 Pulse Oximetry 94 L 12/06/17 15:00 12/06/17 16:00 12/06/17 17:00 Temperature 98.4 F Pulse Rate 109 H 105 H 110 H Respiratory Rate 18 Blood Pressure 134/80 Pulse Oximetry 94 L 12/06/17 18:00 12/06/17 18:32 12/06/17 20:00 Temperature 101.0 F H Pulse Rate 116 H 96 H Respiratory Rate 20 Blood Pressure 146/84 H Pulse Oximetry 94 L 12/06/17 21:00 12/06/17 22:00 12/06/17 23:00 Temperature Pulse Rate 104 H 100 H 96 H Respiratory Rate Blood Pressure Pulse Oximetry 12/07/17 00:00 12/07/17 01:00 12/07/17 02:00 Temperature Pulse Rate 93 H 92 H 98 H Respiratory Rate 16 Blood Pressure Pulse Oximetry 95 12/07/17 03:00 12/07/17 04:00 12/07/17 05:00 Temperature Pulse Rate 104 H 96 H 114 H Respiratory Rate 20 Blood Pressure 146/84 H Pulse Oximetry 94 L 12/07/17 06:00 12/07/17 07:00 12/07/17 08:00 Temperature 99.4 F Pulse Rate 96 H 110 H 108 H Respiratory Rate 18 Blood Pressure 153/91 H Pulse Oximetry 93 L 12/07/17 09:00 12/07/17 10:00 Temperature Pulse Rate 106 H 95 H Respiratory Rate Blood Pressure Pulse Oximetry Intake & Output 12/06/17 12/07/17 12/07/17 18:59 06:59 18:59 Intake Total 1200 / 1200 1480 / 1480 Output Total 400 / 400 200 / 200 Balance 800 / 800 1280 / 1280 Weight 61.5 kg Intake: IV 1000 / 1000 NS Inj 1,000 ML @ 100 mls/hr IV 1000 / 1000 .CONT .Q10H [facility] [place] Rx#:[id number] Oral 1200 / 1200 480 / 480 Output: Urine 400 / 400 200 / 200 Other: # Voids 3 # Incontinent Voids 5 Date of Last Bowel Movement 12/02/17 12/07/17 12/06/17 Narrative: GENERAL: NAD, oriented to place and person and year, smiling , ff all commands, up o chair- druying her hair HEAD: Normocephalic. EYES: No scleral icterus. No injection or drainage. NECK: Supple, trachea midline. No JVD or lymphadenopathy. CARDIOVASCULAR: Regular rhythm, rate 90 no murmurs, gallops, or rubs. RESPIRATORY: Breath sounds equal bilaterally. No accessory muscle use. GASTROINTESTINAL: Abdomen soft, non-tender, nondistended. MUSCULOSKELETAL: No cyanosis, or edema. BACK: Nontender without obvious deformity. No CVA tenderness.moves all extremities spontaneously, no calf tenderness Results - Labs CBC & Chem 7: 12/05/17 05:43 12/05/17 05:43 Microbiology 12/03/17 13:55 Blood - Peripheral Aerobic Blood Culture - Preliminary No growth in 4 days 12/03/17 13:55 Blood - Peripheral Anaerobic Blood Culture - Preliminary No growth in 4 days 12/03/17 13:50 Blood - Peripheral Aerobic Blood Culture - Preliminary No growth in 4 days 12/03/17 13:50 Blood - Peripheral Anaerobic Blood Culture - Preliminary No growth in 4 days Assessment and Plan - Plan 56-year-old female with Chest pain, dyspnea, hypotension and tachycardia- HR improved -Patient in sinus tachycardia without any evidence of atrial fibrillation. -Appreciate input from cardiology. Currently on Lopressor 50 mg bid -TSH within normal limits -ASA and statin daily -V/Q scan negative for PE - daily PT- to up and ambulate and monitor HR Hypertension -above BB- monitor and adjust Fever of unknown origin- T max 101 = clnically looks well UTI- repeat UA negative Chest x-ray and UA unremarkable Blood culture NTD x 3. et another set ID ff- on Levaquin ? 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 fluids -Avoid nephrotoxic agents -Monitor kidney function as indicated Acute psychosis- seeing snakes in the room- resolved Schizoaffective disorder -Appreciate input from psychiatry- reconsult transfer back to psych - if accepted nd we will ff Hypothyroidism TSH WNL -Continue Synthroid 88 mcg daily Dyslipidemia Hypertriglyceridemia -Continue TriCor and Lipitor DVT prophylaxis -bilateral SCD/AMY hose Up and ambulate- out of bed to chair PT consult
[2017-12-07 11:26] LABS: Baso # (Auto) 0.1 th/mm3 (0.0-0.2); Baso % (Auto) 0.4 % (0.0-2.0); Eos # (Auto) 0.6 th/mm3 (0.0-0.4); Eos % (Auto) 4.8 % (0.0-4.0); Hematocrit 33.6 % (35.0-46.0); Hemoglobin 11.1 gm/dL (11.6-15.3); Lymph # (Auto) 1.1 th/mm3 (1.0-4.8); Lymph % (Auto) 8.7 % (9.0-44.0); Mean Corpuscular HGB Conc 33.2 % (32.0-36.0); Mean Corpuscular Hemoglobin 26.7 pg (27.0-34.0); Mean Corpuscular Volume 80.4 fL (80.0-100.0); Mean Platelet Volume 8.1 fL (7.0-11.0); Mono # (Auto) 0.4 th/mm3 (0.0-0.9); Mono % (Auto) 3.1 % (0.0-8.0); Neut # (Auto) 10.8 th/mm3 (1.8-7.7); Platelet Count 476 th/mm3 (150-450); Red Blood Count 4.17 mil/mm3 (4.00-5.30); Red Cell Distribution Width 13.8 % (11.6-17.2)
--- NOTE | 2017-12-07 11:41 | P.PNPSY ---
Subjective Remarks: Patient was seen today for psychiatric reevaluation. The patient was widely discussed with primary medical doctor,Dr Chau. On my psychiatric evaluation I find a patient that is calm, cooperative, very pleasant. The patient reports that she feels much better, denies distress, denies pain, she reports to be in a good mood. The patient reports that she has been taking her medications, no significant reported side effects. She denies suicidal and homicidal ideations, denies visual and auditory hallucinations. The patient seems to be quite logical, coherent and relevant, oriented 3, with little episodes of disorganization, but redirectable. She has been presented peaks of fever, especially at nighttime, the medical team have a concern that this could be caused by Clozaril. Mental Status Examination Appearance: Appropriate, Disheveled Consciousness: Alert (Mildly) Orientation: Person, Place, Date/Time Motor Activity: Other Speech: Unremarkable Language: Adequate Fund of Knowledge: Adequate Attention and Concentration: Easily distracted Memory: Unremarkable (Fair) Mood: Other (Euthymic to somewhat restricted) Affect: Other (Slight decreased range and intensity) Thought Process & Associations: Intact, Disorganized Thought Content: Appropriate (Mildly) Hallucination Type: None Delusion Type: None Suicidal Ideation: No (Mildly) Suicidal Plan: No Suicidal Intention: No Homicidal Ideation: No Homicidal Plan: No Homicidal Intention: No Insight: Poor Judgment: Poor Assessment and Plan - Assessment (1) Schizoaffective disorder Code(s): F25.9 - Schizoaffective disorder, unspecified Status: Acute - Plan Plan: Continue Clozapine 50/100. Monitor closely CBC, vital signs. Patient will be transferred to psychiatry once medically stable. Justification for Continued Inpatient Stay: Transferred to psychiatry once medically stable. (1) Schizoaffective disorder Qualifiers: Schizoaffective disorder type: unspecified Qualified Code(s): F25.9 - Schizoaffective disorder, unspecified
[2017-12-07 11:46] LABS: Calcium 8.3 mg/dL (8.5-10.1); Carbon Dioxide 22.9 meq/L (21.0-32.0); Potassium 3.5 meq/L (3.5-5.1)
--- NOTE | 2017-12-07 12:34 | P.PNCA ---
Subjective Interval history: No events overnight Mild fever, more tachycardic when feverish Physical Exam Vital signs: Vital Signs 12/06/17 13:00 12/06/17 14:00 12/06/17 15:00 Temperature Pulse Rate 96 H 102 H 109 H Respiratory Rate Blood Pressure Pulse Oximetry 12/06/17 16:00 12/06/17 17:00 12/06/17 18:00 Temperature 98.4 F Pulse Rate 105 H 110 H 116 H Respiratory Rate 18 Blood Pressure 134/80 Pulse Oximetry 94 L 12/06/17 18:32 12/06/17 20:00 12/06/17 21:00 Temperature 101.0 F H Pulse Rate 96 H 104 H Respiratory Rate 20 Blood Pressure 146/84 H Pulse Oximetry 94 L 12/06/17 22:00 12/06/17 23:00 12/07/17 00:00 Temperature Pulse Rate 100 H 96 H 93 H Respiratory Rate 16 Blood Pressure Pulse Oximetry 95 12/07/17 01:00 12/07/17 02:00 12/07/17 03:00 Temperature Pulse Rate 92 H 98 H 104 H Respiratory Rate Blood Pressure Pulse Oximetry 12/07/17 04:00 12/07/17 05:00 12/07/17 06:00 Temperature Pulse Rate 96 H 114 H 96 H Respiratory Rate 20 Blood Pressure 146/84 H Pulse Oximetry 94 L 12/07/17 07:00 12/07/17 08:00 12/07/17 09:00 Temperature 99.4 F Pulse Rate 110 H 108 H 106 H Respiratory Rate 18 Blood Pressure 153/91 H Pulse Oximetry 93 L 12/07/17 10:00 12/07/17 11:00 12/07/17 12:00 Temperature 97.5 F L Pulse Rate 95 H 99 H 95 H Respiratory Rate 18 Blood Pressure 116/84 Pulse Oximetry 97 Intake & Output 12/06/17 12/07/17 12/07/17 18:59 06:59 18:59 Intake Total 1200 / 1200 1480 / 1480 Output Total 400 / 400 200 / 200 Balance 800 / 800 1280 / 1280 Weight 61.5 kg Intake: IV 1000 / 1000 NS Inj 1,000 ML @ 100 mls/hr IV 1000 / 1000 .CONT .Q10H [facility] Rx#:[id number] Oral 1200 / 1200 480 / 480 Output: Urine 400 / 400 200 / 200 Other: # Voids 3 # Incontinent Voids 5 Date of Last Bowel Movement 12/02/17 12/07/17 12/06/17 Narrative: GENERAL: NAD, oriented to place and person and year, smiling , ff all commands, up o chair- druying her hair HEAD: Normocephalic. EYES: No scleral icterus. No injection or drainage. NECK: Supple, trachea midline. No JVD or lymphadenopathy. CARDIOVASCULAR: Regular rhythm, rate 90 no murmurs, gallops, or rubs. RESPIRATORY: Breath sounds equal bilaterally. No accessory muscle use. GASTROINTESTINAL: Abdomen soft, non-tender, nondistended. MUSCULOSKELETAL: No cyanosis, or edema. BACK: Nontender without obvious deformity. No CVA tenderness.moves all extremities spontaneously, no calf tenderness Assessment and Plan - Assessment (1) Sinus tachycardia Code(s): R00.0 - Tachycardia, unspecified Status: Acute (2) Schizoaffective disorder Code(s): F25.9 - Schizoaffective disorder, unspecified Status: Acute (3) Hypertriglyceridemia Code(s): E78.1 - Pure hyperglyceridemia Status: Acute - Plan 1) Sinus tachycardia No Afib, appears to be sinus tachycardia Unknown cause ? Fever as a possible cause, but no real infection substrate noted and heart rates elevated even when not feverish PE negative EF 55-60% Dr. Ventura evaluated, agrees on sinus tachycardia BB increased, heart rates better No further work up from cardiology perspective 2) Non-specific troponin Asymptomatic No further work up 3) Schizophrenia Per psych 4) Will see PRN, call with questions (2) Schizoaffective disorder Qualifiers: Schizoaffective disorder type: unspecified Qualified Code(s): F25.9 - Schizoaffective disorder, unspecified
[2017-12-07] MEDS: Sod Chloride 0.9% Inj 1,000 ML IV.CONT SCH (13:39)
[2017-12-07] MEDS: levoFLOXacin 500 MG Tablet PO SCH (18:42)
--- NOTE | 2017-12-07 19:58 | P.PNID ---
Subjective Remarks: X cover for Dr Randhawa chart was reviewed Patient is a 56-year-old female, initially admitted in the inpatient psychiatry unit last November 19 under [facility] act. She had acute psychosis at that time, and she carries a diagnosis of schizoaffective disorder. She was being managed, and on the day of admission here in the medical floor she apparently started complaining of left-sided chest pain with shortness of breath. She was found to be tachycardic, and was admitted to the hospital for further evaluation and treatment. Her cardiac workup did not show any NH. Chest x-ray did not show any acute abnormality. And her laboratory tests were within normal limits. Starting December 01 she started having intermittent fevers usually at least once a day. She had blood cultures done and they are negative. She is not on any antibiotics. Getting review of system is quite difficult because she is very unreliable and a very poor historian. Patient does not have any Munoz catheter in place. It has been recorded that she is incontinent. She has no central line. She continues to have tachycardia. Her him other hemodynamics are stable. Infectious disease consultation has been requested to evaluate the patient with intermittent fevers. UA ok and clx negative Still with confusion Creatinine 0.92 WBC went up to 13 K Antibiotics: Levaquin Past Medical History: Hypertriglyceridemia (Acute) Hypothyroidism (Acute) Right leg injury (Acute) Patient denies medical problems Surgical history unknown Hx of appendectomy (Acute) History of cholecystectomy (Acute) No history of previous surgery Allergies/Adverse Reactions: Allergies chocolate flavor Allergy (Severe, Unverified 11/14/16 18:44) cyclosporine Allergy (Severe, Unverified 11/14/16 18:44) Rash lemon Allergy (Mild, Unverified 11/14/16 18:44) orange Allergy (Mild, Unverified 11/14/16 18:44) penicillin G Allergy (Unknown, Unverified 11/14/16 18:44) Objective Vital Signs 12/06/17 20:00 12/06/17 21:00 12/06/17 22:00 Temperature Pulse Rate 96 H 104 H 100 H Respiratory Rate 20 Blood Pressure 146/84 H Pulse Oximetry 94 L 12/06/17 23:00 12/07/17 00:00 12/07/17 01:00 Temperature Pulse Rate 96 H 93 H 92 H Respiratory Rate 16 Blood Pressure Pulse Oximetry 95 09/07/18 02:00 12/07/17 03:00 12/07/17 04:00 Temperature Pulse Rate 98 H 104 H 96 H Respiratory Rate 20 Blood Pressure 146/84 H Pulse Oximetry 94 L 12/07/17 05:00 12/07/17 06:00 12/07/17 07:00 Temperature Pulse Rate 114 H 96 H 110 H Respiratory Rate Blood Pressure Pulse Oximetry 12/07/17 08:00 12/07/17 09:00 12/07/17 10:00 Temperature 99.4 F Pulse Rate 108 H 106 H 95 H Respiratory Rate 18 Blood Pressure 153/91 H Pulse Oximetry 93 L 12/07/17 11:00 12/07/17 12:00 12/07/17 13:00 Temperature 97.5 F L Pulse Rate 99 H 95 H 103 H Respiratory Rate 18 Blood Pressure 116/84 Pulse Oximetry 97 12/07/17 14:00 12/07/17 15:00 12/07/17 16:00 Temperature 98.8 F Pulse Rate 99 H 98 H 107 H Respiratory Rate 18 Blood Pressure 153/93 H Pulse Oximetry 97 12/07/17 17:00 12/07/17 18:00 Temperature Pulse Rate 102 H 100 H Respiratory Rate Blood Pressure Pulse Oximetry Intake & Output 12/07/17 12/07/17 12/08/17 06:59 18:59 06:59 Intake Total 1480 / 1480 1120 / 1120 Output Total 200 / 200 500 / 500 Balance 1280 / 1280 620 / 620 Weight 61.5 kg Intake: IV 1000 / 1000 400 / 400 NS Inj 1,000 ML @ 100 mls/hr IV 1000 / 1000 .CONT .Q10H [facility] Rx#:[id number] NS Inj 1,000 ML @ Wide Open IV. 400 / 400 SIG BOLUS [facility] Rx#:[id number] Oral 480 / 480 720 / 720 Output: Urine 200 / 200 500 / 500 Other: # Voids 3 # Incontinent Voids 1 Date of Last Bowel Movement 12/07/17 12/06/17 12/03/17 13:55 Blood - Peripheral Aerobic Blood Culture - Preliminary No growth in 4 days 12/03/17 13:55 Blood - Peripheral Anaerobic Blood Culture - Preliminary No growth in 4 days 12/03/17 13:50 Blood - Peripheral Aerobic Blood Culture - Preliminary No growth in 4 days 12/03/17 13:50 Blood - Peripheral Anaerobic Blood Culture - Preliminary No growth in 4 days Lab - Hematology Results 12/07/17 11:17 WBC 13.0 H RBC 4.17 Hgb 11.1 L Hct 33.6 L MCV 80.4 MCH 26.7 L MCHC 33.2 RDW 13.8 Plt Count 476 H D MPV 8.1 Neut % (Auto) 83.0 H Lymph % (Auto) 8.7 L [place] % (Auto) 3.1 Eos % (Auto) 4.8 H Baso % (Auto) 0.4 Neut # (Auto) 10.8 H Lymph # (Auto) 1.1 [place] # (Auto) 0.4 Eos # (Auto) 0.6 H Baso # (Auto) 0.1 WBC Differential . Differential Comment Auto diff final Lab - Chemistry Results 12/07/17 11:17 Sodium 144 Potassium 3.5 Chloride 109 H Carbon Dioxide 22.9 Anion Gap 12 BUN 9 Creatinine 0.92 Estimated GFR 63 L Random Glucose 137 H Calcium 8.3 L Imaging: ITS Impressions Chest X-Ray 12/01/17 00:00 CONCLUSION: No acute cardiopulmonary disease. Pulmonary Perfusion Imaging 12/01/17 00:00 CONCLUSION: 1. Negative examination. Physical Exam: GENERAL: awake and alert, not in respiratory distress. Confused SKIN: Cool and dry. No generalized rash HEAD: Atraumatic. Normocephalic. No temporal wasting, or tenderness. EYES: Christoval conjunctiva. No petechia or hemorrhage. Pupils equal, round and reactive to light. Extraocular movements full and intact. No scleral icterus. No injection or drainage. EARS, NOSE AND THROAT: Nose without bleeding or purulent nasal discharge. No sinus tenderness. Mucous membranes pink and moist. No oral lesions noted. No exudate. No oral thrush. CARDIOVASCULAR: Regular rate and rhythm. Tachycardic. No murmurs, rubs or gallops heard RESPIRATORY: Clear to auscultation. Breath sounds equal bilaterally. No rales , wheezing or rhonchi ABDOMEN: Soft, nondistended, complained of tenderness on palpation of lower abdomen juan manuel in suprapubic region. Bowel sounds present and normoactive. No guarding. No rebound. No organomegaly. EXTREMITIES: No clubbing, cyanosis, or edema. Well perfused and warm. NEUROLOGICAL: Awake and alert. Confused. Speech is somewhat incoherent Cranial nerves grossly intact. Motor grossly within normal limits. PSYCHIATRIC: Flat affect, calm and cooperative. LINE: PIV with no evidence of infection Assessment and Plan - Plan Impression Intermittent fevers, ?having intermittent urinary retention - ?UTI; initial UA ok - no respiratory symptoms, CXR ok - IV sites look ok - Bladder scan from 12/05 neg Schizoaffective disorder Leukocytosis - new Recommendation Follow temps follwo WBC fartun Engle
[2017-12-08] MEDS: Levothyroxine 88 MCG Tablet PO SCH (05:08)
--- NOTE | 2017-12-08 07:34 | P.PN ---
Subjective Interval history: smiling and interactive no complains "restful night" staff "did their job perfectly" no urinary symptoms but states there were snakes in her bed Physical Exam Vital signs: Vital Signs 12/07/17 08:00 12/07/17 09:00 12/07/17 10:00 Temperature 99.4 F Pulse Rate 108 H 106 H 95 H Respiratory Rate 18 Blood Pressure 153/91 H Pulse Oximetry 93 L 12/07/17 11:00 12/07/17 12:00 12/07/17 13:00 Temperature 97.5 F L Pulse Rate 99 H 95 H 103 H Respiratory Rate 18 Blood Pressure 116/84 Pulse Oximetry 97 12/07/17 14:00 12/07/17 15:00 12/07/17 16:00 Temperature 98.8 F Pulse Rate 99 H 98 H 107 H Respiratory Rate 18 Blood Pressure 153/93 H Pulse Oximetry 97 12/07/17 17:00 12/07/17 18:00 12/07/17 19:00 Temperature Pulse Rate 102 H 100 H 118 H Respiratory Rate Blood Pressure Pulse Oximetry 12/07/17 20:00 12/07/17 21:00 12/07/17 22:00 Temperature 98.6 F Pulse Rate 120 H 112 H 113 H Respiratory Rate 18 Blood Pressure 158/83 H Pulse Oximetry 93 L 12/07/17 23:00 12/08/17 00:00 12/08/17 01:00 Temperature 98.3 F Pulse Rate 100 H 100 H 107 H Respiratory Rate 17 Blood Pressure 149/88 H Pulse Oximetry 93 L 12/08/17 02:00 12/08/17 03:00 12/08/17 04:00 Temperature 98.7 F Pulse Rate 106 H 109 H 106 H Respiratory Rate 18 Blood Pressure 123/69 Pulse Oximetry 94 L 12/08/17 05:00 12/08/17 06:00 Temperature Pulse Rate 104 H 107 H Respiratory Rate Blood Pressure Pulse Oximetry Intake & Output 12/07/17 12/08/17 12/08/17 18:59 06:59 18:59 Intake Total 1120 / 1120 240 / 240 Output Total 500 / 500 1000 / 1000 Balance 620 / 620 -760 / -760 Weight 61.5 kg Intake: IV 400 / 400 NS Inj 1,000 ML @ Wide Open IV. 400 / 400 SIG BOLUS [facility] Rx#:[id number] Oral 720 / 720 240 / 240 Output: Urine 500 / 500 1000 / 1000 Other: # Incontinent Voids 1 1 Date of Last Bowel Movement 12/06/17 12/06/17 Narrative: GENERAL: NAD, oriented to place and person and year, smiling , ff all commands, afebrile HEAD: Normocephalic. EYES: No scleral icterus. No injection or drainage. NECK: Supple, trachea midline. No JVD or lymphadenopathy. CARDIOVASCULAR: Regular rhythm, rate 96 RESPIRATORY: Breath sounds equal bilaterally. No accessory muscle use. GASTROINTESTINAL: Abdomen soft, non-tender, nondistended. MUSCULOSKELETAL: No cyanosis, or edema. BACK: Nontender without obvious deformity. No CVA tenderness.moves all extremities spontaneously, no calf tenderness Results - Labs CBC & Chem 7: 12/07/17 11:17 12/07/17 11:17 Laboratory Results - last 24 hr 12/07/17 12/07/17 11:17 11:17 WBC 13.0 H RBC 4.17 Hgb 11.1 L Hct 33.6 L MCV 80.4 MCH 26.7 L MCHC 33.2 RDW 13.8 Plt Count 476 H D MPV 8.1 Neut % (Auto) 83.0 H Lymph % (Auto) 8.7 L [place] % (Auto) 3.1 Eos % (Auto) 4.8 H Baso % (Auto) 0.4 Neut # (Auto) 10.8 H Lymph # (Auto) 1.1 [place] # (Auto) 0.4 Eos # (Auto) 0.6 H Baso # (Auto) 0.1 WBC Differential . Differential Comment Auto diff final Sodium 144 Potassium 3.5 Chloride 109 H Carbon Dioxide 22.9 Anion Gap 12 BUN 9 Creatinine 0.92 Estimated GFR 63 L Random Glucose 137 H Calcium 8.3 L Microbiology 12/03/17 13:55 Blood - Peripheral Aerobic Blood Culture - Preliminary No growth in 4 days 12/03/17 13:55 Blood - Peripheral Anaerobic Blood Culture - Preliminary No growth in 4 days 12/03/17 13:50 Blood - Peripheral Aerobic Blood Culture - Preliminary No growth in 4 days 12/03/17 13:50 Blood - Peripheral Anaerobic Blood Culture - Preliminary No growth in 4 days Assessment and Plan - Plan 56-year-old female with Chest pain- rsolved -Patient in sinus tachycardia without any evidence of atrial fibrillation. -Appreciate input from cardiology. Currently on Lopressor 50 mg bid -TSH within normal limits -ASA and statin daily -V/Q scan negative for PE - daily PT- to up and ambulate and monitor HR Hypertension- controlled -above BB- monitor and adjust Fever of unknown origin- T down- clinically looks well UTI- repeat UA negative Chest x-ray and UA unremarkable Blood culture NTD x 3. et another set ID ff- on Levaquin ? can be from- Clozaril- d/w Dr crawford- this was the only meds that worked for her and she is coing very well with this DARNELL on probable CKD, stage 3- non oliguric baseline [employer] reviewed from previous admission 1.16-1.3 Renal US unremarkable -Creatinine improved to baseline -Continue to encourage p.o. fluids -Avoid nephrotoxic agents - good po- encouraged Acute psychosis- -ccasionaly seeing snakes Schizoaffective disorder -Appreciate input from psychiatry- reconsult transfer back to psych today Hypothyroidism TSH WNL -Continue Synthroid 88 mcg daily Dyslipidemia Hypertriglyceridemia -Continue TriCor and Lipitor DVT prophylaxis -bilateral SCD/AMY hose Up and ambulate- out of bed to chair discharge and transfer to med phsyciatry unit [facility] will continue to ff if requested
--- NOTE | 2017-12-08 07:38 | P.DS ---
Date of admission: 11/30/17 15:18 Primary care physician: No Primary Care Physician Anticipated date of discharge: 12/08/17 Brief History from admission: This is a 56-year-old female with a past medical history significant for schizoaffective disorder, hypertension, hypothyroidism and hypertriglyceridemia who was admitted to inpatient psychiatry under Rodriguez act due to acute psychosis. Due to patient's psychosis and disorganized thought process, she is a poor historian and it is difficult to elicit accurate information. Today while in the psychiatric unit, patient complained of left-sided chest pressure with associated shortness of breath. She complained that she did not feel well and wanted to go lay down. At that time vitals were obtained, patient was found to be tachycardic with a heart rate of 115 and hypotensive with blood pressure of 86/52. A Halicat was called and patient was transferred to inpatient status for treatment and further evaluation. Initial troponin is negative. CXR shows no acute abnormality. CBC and chemistry panel are essentially unremarkable. Patient update on day of discharge: awake and alert, pleasant and cooperative vital signs stable DS: Summary Hospital Course: 56-year-old female with Chest pain- resolved -Patient in sinus tachycardia without any evidence of atrial fibrillation. -Appreciate input from cardiology. continue Lopressor 50 mg bid -TSH within normal limits -ASA and statin daily -V/Q scan negative for PE - daily PT- to up and ambulate and monitor HR Hypertension- controlled -above BB- monitor and adjust Fever of unknown origin- T down- clinically looks well UTI- repeat UA negative Chest x-ray and UA unremarkable Blood culture NTD x 3. et another set ID [id number]- on Levaquin-completed course ? 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 fluids -Avoid nephrotoxic agents - good po- encouraged Acute psychosis- -occasionally seeing snakes Schizoaffective disorder -Appreciate input from psychiatry- transfer back to psych today- for further psychiatric management - Time Spent with Patient Total time spent providing and/or coordinating discharge services: Greater than 30 minutes - Quality: VTE Deep Vein Thrombosis/Pulmonary Embolism Present on Admission: No Exam Vital signs: Vital Signs 12/07/17 08:00 12/07/17 09:00 12/07/17 10:00 Temperature 99.4 F Pulse Rate 108 H 106 H 95 H Respiratory Rate 18 Blood Pressure 153/91 H Pulse Oximetry 93 L 12/07/17 11:00 12/07/17 12:00 12/07/17 13:00 Temperature 97.5 F L Pulse Rate 99 H 95 H 103 H Respiratory Rate 18 Blood Pressure 116/84 Pulse Oximetry 97 12/07/17 14:00 12/07/17 15:00 12/07/17 16:00 Temperature 98.8 F Pulse Rate 99 H 98 H 107 H Respiratory Rate 18 Blood Pressure 153/93 H Pulse Oximetry 97 12/07/17 17:00 12/07/17 18:00 12/07/17 19:00 Temperature Pulse Rate 102 H 100 H 118 H Respiratory Rate Blood Pressure Pulse Oximetry 12/07/17 20:00 12/07/17 21:00 12/07/17 22:00 Temperature 98.6 F Pulse Rate 120 H 112 H 113 H Respiratory Rate 18 Blood Pressure 158/83 H Pulse Oximetry 93 L 12/07/17 23:00 12/08/17 00:00 12/08/17 01:00 Temperature 98.3 F Pulse Rate 100 H 100 H 107 H Respiratory Rate 17 Blood Pressure 149/88 H Pulse Oximetry 93 L 12/08/17 02:00 12/08/17 03:00 12/08/17 04:00 Temperature 98.7 F Pulse Rate 106 H 109 H 106 H Respiratory Rate 18 Blood Pressure 123/69 Pulse Oximetry 94 L 12/08/17 05:00 12/08/17 06:00 12/08/17 07:00 Temperature Pulse Rate 104 H 107 H 110 H Respiratory Rate Blood Pressure Pulse Oximetry Intake & Output 12/07/17 12/08/17 12/08/17 18:59 06:59 18:59 Intake Total 1120 / 1120 240 / 240 Output Total 500 / 500 1000 / 1000 Balance 620 / 620 -760 / -760 Weight 61.5 kg Intake: IV 400 / 400 NS Inj 1,000 ML @ Wide Open IV. 400 / 400 SIG BOLUS KAMERON Rx#:[id number] Oral 720 / 720 240 / 240 Output: Urine 500 / 500 1000 / 1000 Other: # Incontinent Voids 1 1 Date of Last Bowel Movement 12/06/17 12/06/17 Narrative: GENERAL: NAD, oriented to place and person and year, smiling , ff all commands, afebrile HEAD: Normocephalic. EYES: No scleral icterus. No injection or drainage. NECK: Supple, trachea midline. No JVD or lymphadenopathy. CARDIOVASCULAR: Regular rhythm, rate 96 RESPIRATORY: Breath sounds equal bilaterally. No accessory muscle use. GASTROINTESTINAL: Abdomen soft, non-tender, nondistended. MUSCULOSKELETAL: No cyanosis, or edema. BACK: Nontender without obvious deformity. No CVA tenderness.moves all extremities spontaneously, no calf tenderness Results Procedures completed during hospitalization: none Labs on day of discharge: Labs from last 24 hours 12/07/17 12/07/17 11:17 11:17 WBC 13.0 H RBC 4.17 Hgb 11.1 L Hct 33.6 L MCV 80.4 MCH 26.7 L MCHC 33.2 RDW 13.8 Plt Count 476 H D MPV 8.1 Neut % (Auto) 83.0 H Lymph % (Auto) 8.7 L [place] % (Auto) 3.1 Eos % (Auto) 4.8 H Baso % (Auto) 0.4 Neut # (Auto) 10.8 H Lymph # (Auto) 1.1 [place] # (Auto) 0.4 Eos # (Auto) 0.6 H Baso # (Auto) 0.1 WBC Differential . Differential Comment Auto diff final Sodium 144 Potassium 3.5 Chloride 109 H Carbon Dioxide 22.9 Anion Gap 12 BUN 9 Creatinine 0.92 Estimated GFR 63 L Random Glucose 137 H Calcium 8.3 L Preliminary micro results at discharge 12/03/17 13:55 Aerobic Blood Culture - Preliminary Blood - Peripheral No growth in 4 days Anaerobic Blood Culture - Preliminary No growth in 4 days 12/03/17 13:50 Aerobic Blood Culture - Preliminary Blood - Peripheral No growth in 4 days Anaerobic Blood Culture - Preliminary No growth in 4 days - Impressions ITS Impressions Chest X-Ray 12/01/17 00:00 CONCLUSION: No acute cardiopulmonary disease. Pulmonary Perfusion Imaging 12/01/17 00:00 CONCLUSION: 1. Negative examination. Discharge Plan - Discharge Disposition Patient Disposition: 65 Disc To [facility] - Discharge Order Discharge Orders: Discharge Order (Routine); Ordered 12/08/17 Ordered By: Sea Chau - Discharge Details Anticipated Discharge Date: 12/08/17 - Physicians Team Primary Care Provider: Primary Care Delfina Leonard Attending Provider: Sea Chau Other Providers: Reinier See DO ; Maged Ventura MD ; Jennifer Randhawa MD ; Shon Allan MD - Rxs /Orders / Referrals /Forms Prescriptions: New acetaminophen 325 mg Tablet 650 mg PO Q4H PRN (Reason: Temp > 100.4) RF: 0 aspirin 81 mg Tablet,Delayed Release (Dr/Ec) 81 mg PO DAILY RF: 0 atorvastatin 20 mg Tablet 20 mg PO HS RF: 0 clozapine [Clozaril] 25 mg Tablet 50 mg PO DAILY RF: 0 clozapine [Clozaril] 100 mg Tablet 100 mg PO HS RF: 0 famotidine 20 mg Tablet 20 mg PO BID RF: 0 fenofibrate nanocrystallized 48 mg Tablet 48 mg PO DAILY RF: 0 levothyroxine [Synthroid] 88 mcg Tablet 88 mcg PO DAILY@0600 RF: 0 metoprolol tartrate 50 mg Tablet 50 mg PO BID RF: 0 Discontinued atorvastatin 20 mg PO HS buspirone 15 mg PO TID Cogentin 2 mg PO BID Colace 100 mg PO HS fenofibrate 160 mg PO DAILY Invega 234 mg IM Q4W levothyroxine 88 mcg PO DAILY metoprolol succinate 25 mg PO BID pantoprazole 20 mg PO DAILY ranitidine HCl 150 mg PO BID Seroquel 400 mg PO HS sertraline 100 mg PO DAILY Vesicare 10 mg PO HS Referrals: Primary Care Delfina Leonard [Primary Care Provider] - See Instructions - Discharge Instructions Patient Printed Instructions: Metoprolol (By mouth), Levothyroxine (By mouth), Clozapine (By mouth), Atorvastatin (By mouth), Acute Kidney Injury (DC), Urinary Tract Infection in Men (DC)
[2017-12-08] MEDS: Famotidine 20 MG Tablet PO SCH (08:46)
[2017-12-08] MEDS: Metoprolol Tartrate 50 MG Tablet PO SCH (08:46)
[2017-12-08] MEDS: Fenofibrate 48 MG Tablet PO SCH (08:46)
[2017-12-08 14:16] LABS: Baso # (Auto) 0.1 th/mm3 (0.0-0.2); Baso % (Auto) 0.4 % (0.0-2.0); Eos # (Auto) 0.8 th/mm3 (0.0-0.4); Eos % (Auto) 6.1 % (0.0-4.0); Hematocrit 33.8 % (35.0-46.0); Hemoglobin 11.2 gm/dL (11.6-15.3); Lymph # (Auto) 1.5 th/mm3 (1.0-4.8); Lymph % (Auto) 11.6 % (9.0-44.0); Mean Corpuscular Volume 81.6 fL (80.0-100.0); Mono # (Auto) 0.5 th/mm3 (0.0-0.9); Mono % (Auto) 3.9 % (0.0-8.0); Neut # (Auto) 9.9 th/mm3 (1.8-7.7); Platelet Count 495 th/mm3 (150-450); Red Blood Count 4.14 mil/mm3 (4.00-5.30); Red Cell Distribution Width 13.8 % (11.6-17.2); White Blood Count 12.6 th/mm3 (4.0-11.0)
== END 2017-12-08 17:54 ==
LOC: HCIS 15:18
PROVIDERS: ADMIT Internal Medicine; ATTEND Internal Medicine

== ENCOUNTER 2017-12-08 16:56 | Inpatient (IN) ==
[2017-12-08] MEDS ORDERED: Acetaminophen 325 MG Tablet PO PRN (21:34)
[2017-12-08] MEDS ORDERED: LORazepam 1 MG Tablet PO PRN (21:35)
[2017-12-08] MEDS ORDERED: Aluminum/Magnesium/Simethacone Susp 30 ML UDC PO PRN (21:35)
[2017-12-08] MEDS ORDERED: Bisacodyl 10 MG Supp RECTAL PRN (21:35)
[2017-12-09] MEDS: Levothyroxine 88 MCG Tablet PO SCH (05:33)
[2017-12-09] MEDS: Famotidine 20 MG Tablet PO SCH ×2 (09:40→20:24)
[2017-12-09] MEDS: Fenofibrate 48 MG Tablet PO SCH (09:40)
[2017-12-09] MEDS: Metoprolol Tartrate 50 MG Tablet PO SCH ×2 (09:40→20:24)
--- NOTE | 2017-12-09 16:21 | P.PNPSY ---
Subjective Remarks: Patient was initially admitted to psychiatry on 11/19/17, please see H&P on that date. Patient was transferred to the medical floor after presenting with tachycardia and hypotension and recently medically cleared and transferred back to the inpatient psychiatry unit. Patient seen for follow-up, chart reviewed. Discussion with nursing staff reported the patient noted to have episodes of yelling at times, received clozapine last evening noted to be talking to self. Patient was found lying hospital bed noted B, cooperative. Patient noted to be talking to self at times making nonsensical statements patient states that she is "and asked her not, I was up there too long" and laughing appropriately. Patient states not having a difficulty sleep, appetite, reports having some nausea but no other physical complaints at this time. Patient reports his mood is being "alright" reporting auditory hallucinations but not able to elaborate. They are to be talking to self during interview denying any suicidal homicidal ideations at this time. Review of Systems All other systems reviewed negative except as stated in HPI Mental Status Examination Appearance: Disheveled Consciousness: Alert Orientation: Person, Place Speech: Other (Laughing inappropriately at times) Language: Adequate Fund of Knowledge: Inadequate Attention and Concentration: Easily distracted Memory: Impaired Mood: Other ("Alright") Affect: Labile Thought Process & Associations: Disorganized, Tangential Thought Content: Bizarre thinking, Hallucinations Hallucination Type: Auditory Delusion Type: None Suicidal Ideation: No Suicidal Plan: No Suicidal Intention: No Homicidal Ideation: No Homicidal Plan: No Homicidal Intention: No Insight: Poor Judgment: Poor Assessment and Plan - Assessment (1) Schizoaffective disorder Code(s): F25.9 - Schizoaffective disorder, unspecified Status: Acute - Plan Plan: Estimated LOS: [] days Patient this time noted to have disorganization continues with auditory hallucinations and talking to self and responding to stimuli during interview and laughing appropriately at times. Patient able to maintain adequate hygiene with encouragement, eating and drinking well. We will continue clozapine as scheduled we will continue to monitor mood and behavior. Discharge planning in progress. Justification for Continued Inpatient Stay: At risk of further decompensation a lower level of care. (1) Schizoaffective disorder Qualifiers: Schizoaffective disorder type: unspecified Qualified Code(s): F25.9 - Schizoaffective disorder, unspecified
[2017-12-10] MEDS: Levothyroxine 88 MCG Tablet PO SCH (05:41)
[2017-12-10] MEDS: Fenofibrate 48 MG Tablet PO SCH (08:59)
[2017-12-10] MEDS: Famotidine 20 MG Tablet PO SCH ×2 (08:59→21:08)
[2017-12-10] MEDS: Metoprolol Tartrate 50 MG Tablet PO SCH ×2 (08:59→21:09)
--- NOTE | 2017-12-10 15:47 | P.TTN ---
- Patient Problems Problems: 1. Discharge planning 2. Medication compliance 3. Knowledge deficit 4. Lack of coping skills - Progress Toward Goals Provider Present: Dr. Dasha Garcia Provider Input: Recent Halicat, pt continues to exhibit symptoms warranting further treatment with goal of pt to discharge to home when stable. Psychiatric Counselors Present: Karley Daniels LCSW Group Spec/RT/OT/MANZANARES Present: Franklin Jara OT Group Spec/RT/OT/MANZANARES Input: Pt has not attended group activities. - Discharge Plan Pt to discharge to home, when pt is stable. - Documentation Scribe: Franklin Jara MS, OTR Teaching Recipient: Patient
--- NOTE | 2017-12-10 16:26 | P.PNPSY ---
Subjective Remarks: Patient seen for follow, chart reviewed. Discussion nursing staff reported the patient continues to be disorganized making nonsensical statements. Patient was found lying hospital bed noted B, cooperative. Patient states that she did shower earlier today, stating that her mood has been "good" stating that she has been feeling upbeat denying any auditory hallucinations but is noted to be talking to self and responding to external stimuli during interview and continues with disorganization and nonsensical statements at times. Patient goes on to state that she had a "break down and feeling used by the guys, they are attacking me". Patient noted to have some paranoia as well. Review of Systems All other systems reviewed negative except as stated in HPI Mental Status Examination Appearance: Disheveled Consciousness: Alert Orientation: Person, Place Speech: Other (Laughing inappropriately at times) Language: Adequate Fund of Knowledge: Inadequate Attention and Concentration: Easily distracted Memory: Impaired Mood: Other ("Alright") Affect: Labile Thought Process & Associations: Disorganized, Tangential Thought Content: Bizarre thinking, Hallucinations Hallucination Type: Auditory Delusion Type: Paranoid Suicidal Ideation: No Suicidal Plan: No Suicidal Intention: No Homicidal Ideation: No Homicidal Plan: No Homicidal Intention: No Insight: Poor Judgment: Poor Assessment and Plan - Assessment (1) Schizoaffective disorder Code(s): F25.9 - Schizoaffective disorder, unspecified Status: Acute - Plan Plan: Patient continues with perceptual disturbances and disorganization responding to internal stimuli. We will continue to increase clozapine to 50 mg a.m./150 mg at bedtime for psychosis. We will continue to monitor mood and behavior. We will repeat CBC has recent white count was noted to be elevated recently. We will continue to monitor mood and behavior. Discharge planning in progress. Justification for Continued Inpatient Stay: At risk of further decompensation a lower level of care. (1) Schizoaffective disorder Qualifiers: Schizoaffective disorder type: unspecified Qualified Code(s): F25.9 - Schizoaffective disorder, unspecified
[2017-12-11 04:20] LABS: Baso # (Auto) 0.1 th/mm3 (0.0-0.2); Baso % (Auto) 0.6 % (0.0-2.0); Eos # (Auto) 0.9 th/mm3 (0.0-0.4); Eos % (Auto) 6.1 % (0.0-4.0); Hematocrit 32.6 % (35.0-46.0); Lymph # (Auto) 1.8 th/mm3 (1.0-4.8); Lymph % (Auto) 11.5 % (9.0-44.0); Mean Corpuscular HGB Conc 33.8 % (32.0-36.0); Mean Corpuscular Volume 79.7 fL (80.0-100.0); Mean Platelet Volume 8.4 fL (7.0-11.0); Mono # (Auto) 0.7 th/mm3 (0.0-0.9); Mono % (Auto) 4.7 % (0.0-8.0); Neut # (Auto) 11.9 th/mm3 (1.8-7.7); Neut % (Auto) 77.1 % (16.0-70.0); Platelet Count 579 th/mm3 (150-450); Red Blood Count 4.09 mil/mm3 (4.00-5.30); Red Cell Distribution Width 14.4 % (11.6-17.2); White Blood Count 15.5 th/mm3 (4.0-11.0)
[2017-12-11] MEDS: Levothyroxine 88 MCG Tablet PO SCH (05:42)
--- NOTE | 2017-12-11 10:31 | P.PNPSY ---
Subjective Remarks: Patient seen for follow up; chart reviewed. Discussion with nursing staff reported that patient with increased internal stimulation and talking to self. Patient was found lying on hospital bed, calm and cooperative. Patient states that is feeling "not too bad", continues to be noted to be internally preoccupied but less today. She is also noted to be responding to internal stimuli less today as well. Patient reports having noticed AH last night but not this morning, continues to be disorganized at times. Patient reports adequate appetite and bowel movement. Review of Systems All other systems reviewed negative except as stated in HPI Mental Status Examination Appearance: Appropriate Consciousness: Alert Orientation: Person, Place Speech: Other (Laughing inappropriately at times) Language: Adequate Fund of Knowledge: Inadequate Attention and Concentration: Easily distracted Memory: Impaired Mood: Other ("Alright") Affect: Labile (less today) Thought Process & Associations: Disorganized, Tangential Thought Content: Bizarre thinking, Hallucinations Hallucination Type: Auditory Delusion Type: Paranoid Suicidal Ideation: No Suicidal Plan: No Suicidal Intention: No Homicidal Ideation: No Homicidal Plan: No Homicidal Intention: No Insight: Poor Judgment: Poor Assessment and Plan - Assessment (1) Schizoaffective disorder Code(s): F25.9 - Schizoaffective disorder, unspecified Status: Acute - Plan Plan: Patient noted with continued disorganization and responding to internal stimuli but less today. Patient labs showed elevated cell counts which hospitalist consult was placed for further evaluation. Continue current treatment for now, continue to monitor mood and behavior. Discharge planning in progress. Justification for Continued Inpatient Stay: At risk of further decompensation a lower level of care. (1) Schizoaffective disorder Qualifiers: Schizoaffective disorder type: unspecified Qualified Code(s): F25.9 - Schizoaffective disorder, unspecified
[2017-12-11] MEDS: Metoprolol Tartrate 50 MG Tablet PO SCH ×2 (11:01→20:43)
[2017-12-11] MEDS: Famotidine 20 MG Tablet PO SCH ×2 (11:02→20:42)
[2017-12-11] MEDS: Fenofibrate 48 MG Tablet PO SCH (11:02)
--- NOTE | 2017-12-11 11:34 | P.CON ---
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 During her admission patient decompensated complaining of left- sided chest pressure with shortness of breath, tachycardia at 115 and was hypotensive. Patient was admitted to inpatient medicine treated for possible sepsis secondary to UTI. Clinically improved and now admitted back to medical psychiatry and for further evaluation. Consulted for assistance with medical management. Patient seen and examined today. She is laying in bed complaining of "sore neck." When patient was asked what happened to her neck and why it was sore she replied "it is from having sex." Very poor historian. She knows she has hypertension and hypothyroidism but unsure of what her family medical history, surgeries in the past, other medical problems. Otherwise, denies SOB/ dyspnea. Denies chest pain, palpitations, headaches, dizziness. Denies fevers, chills, n/v/d. Denies dysuria. Review of Systems All other systems reviewed negative except as stated in HPI PMFSH - History History Provided By: Patient - Medical History Medical History: Medical History (Last Reviewed 12/11/17 @ 12:53 by BRAULIO Holcomb) Hypertriglyceridemia (Acute) Hypothyroidism (Acute) Right leg injury (Acute) Patient denies medical problems Surgical history unknown - Surgical History Surgical History: Surgical History (Last Reviewed 12/11/17 @ 12:53 by BRAULIO Holcomb) Hx of appendectomy (Acute) History of cholecystectomy (Acute) No history of previous surgery - Family History Family History: Family History (Last Reviewed 12/11/17 @ 12:53 by BRAULIO Holcomb) Mother Hypertension - Social History I have reviewed the patient's Social History: Yes - Tobacco History Second Hand Smoke Exposure: Yes Smoking Status: Never smoker - Alcohol History How Often Do You Have a Drink Containing Alcohol: Never - Substance Use History Substance History: No History of Abuse Medications and Allergies Active Medications: Active Medications Acetaminophen (Tylenol) 650 mg PO Q4H PRN PRN Reason: Temp > 100.4 Last Admin: 12/09/17 05:33 Dose: 650 mg Al Hydrox/Mg Hydrox/Simethicone (Mag-Al Plus Susp Liq) 30 ml PO Q6H PRN PRN Reason: DYSPEPSIA Al Hydroxide/Mg Hydroxide (Milk Of Magnesia Liq) 30 ml PO Q12H PRN PRN Reason: Mild Constipation Aspirin (Ecotrin) 81 mg PO DAILY [facility] Last Admin: 12/11/17 11:02 Dose: 81 mg Atorvastatin Calcium (Lipitor) 20 mg PO HS [facility] Last Admin: 12/10/17 21:09 Dose: 20 mg Bisacodyl (Dulcolax Supp) 10 mg RECTAL DAILY PRN PRN Reason: SEVERE CONSITIPATION Clozapine (Clozaril) 50 mg PO DAILY [facility] Last Admin: 12/11/17 11:02 Dose: 50 mg Clozapine (Clozaril) 150 mg PO HS [facility] Last Admin: 12/10/17 21:10 Dose: 150 mg Diphenhydramine HCl (Benadryl) 50 mg PO HS PRN PRN Reason: INSOMNIA Famotidine (Pepcid) 20 mg PO BID [facility] Last Admin: 12/11/17 11:02 Dose: 20 mg Fenofibrate (Tricor) 48 mg PO DAILY [facility] Last Admin: 12/11/17 11:02 Dose: 48 mg Lactulose (Lactulose Liq) 30 ml PO DAILY PRN PRN Reason: SEVERE CONSITIPATION Levothyroxine Sodium (Synthroid) 88 mcg PO DAILY@0600 [facility] Last Admin: 12/11/17 05:42 Dose: 88 mcg Lorazepam (Ativan) 1 mg PO Q6H PRN PRN Reason: MODERATE TO SEVERE ANXIETY Metoprolol Tartrate (Lopressor) 50 mg PO BID [facility] Last Admin: 12/11/17 11:01 Dose: 50 mg Miscellaneous (Pill Splitter) 1 each [facility] Sennosides (Senokot) 17.2 mg PO Q12H PRN PRN Reason: Moderate Constipation Sodium Chloride (Ns Flush) 2 ml IV.FLUSH BID [facility] Last Admin: 12/11/17 11:09 Dose: Not Given Sodium Chloride (Ns Flush) 2 ml IV.FLUSH PRN PRN PRN Reason: FLUSH AFTER USING IV ACCESS Allergies Allergy/AdvReac Type Severity Reaction Status Date / Time chocolate flavor Allergy Severe Unverified 11/14/16 18:44 cyclosporine Allergy Severe Rash Unverified 11/14/16 18:44 lemon Allergy Mild Unverified 11/14/16 18:44 orange Allergy Mild Unverified 11/14/16 18:44 penicillin G Allergy Unknown Unverified 11/14/16 18:44 Physical Exam Vital signs: Vital Signs 12/10/17 18:43 12/11/17 06:00 Temperature 97.6 F 98.4 F Pulse Rate 101 H 92 H Respiratory Rate 18 18 Blood Pressure 125/75 113/59 L Pulse Oximetry 94 L 94 L Intake & Output 12/10/17 12/11/17 12/11/17 18:59 06:59 18:59 Intake Total 1680 / 1680 240 / 240 Balance 1680 / 1680 240 / 240 Intake: Oral 1680 / 1680 240 / 240 Narrative: GENERAL: This is a well-nourished, well-developed patient, in no apparent distress. SKIN: Warm and dry. HEENT: Normocephalic. Pupils equal round and reactive. Nose without bleeding. Airway patent. NECK: Trachea midline. CARDIOVASCULAR: Regular rate and rhythm without murmurs, gallops, or rubs. RESPIRATORY: Diminished bases. No wheezes, rales, or rhonchi. GASTROINTESTINAL: Abdomen soft, non-tender, nondistended. Bowel Sounds normoactive x4. MUSCULOSKELETAL: Extremities without clubbing, cyanosis, or edema. NEUROLOGICAL: Awake and alert. Moves all extremities. Normal speech. Assessment and Plan - Plan Patient is a 56-year-old female with past medical history of hypothyroidism, hyperlipidemia, hypertension, schizoaffective disorder who was initially admitted to inpatient psychiatry unit under [place] act secondary to acute psychosis. During her admission patient decompensated complaining of left- sided chest pressure with shortness of breath, tachycardia at 115 and was hypotensive. Patient was admitted to inpatient medicine treated for possible sepsis secondary to UTI. Clinically improved and now admitted back to medical psychiatry and for further evaluation. Consulted for assistance with medical management. Psychosis, schizoaffective disorder -Managed by psychiatry team SIRS Leukocytosis 12.6 -->15.5 Tachycardia 106-120 -Patient was worked up by infectious disease prior to transfer to medical psychiatry unit. Blood cultures with no growth 5 days. -Suspicion before was urinary tract infection patient was placed on Levaquin but was discontinued prior to transfer -Repeat UA, repeat blood cultures -Check pro calcitonin, check lactic acid -We will not started antibiotics for now, continue to monitor HTN HLD -Continue aspirin, statin, Lopressor twice daily -Monitor BP trend -Prior complaints of chest pain with VQ scan negative for PE Hypothyroidism -Continue with levothyroxine Poss Chronic kidney disease -Monitor renal indicis intermittently -Avoid nephrotoxins DVT prop early ambulation Code Status: Full Code Discussed Condition With: Patient, nursing Discharge Planning: DC disposition by primary team
[2017-12-12] MEDS: Levothyroxine 88 MCG Tablet PO SCH (06:06)
[2017-12-12 08:25] LABS: Baso # (Auto) 0.1 th/mm3 (0.0-0.2); Baso % (Auto) 0.7 % (0.0-2.0); Eos # (Auto) 0.6 th/mm3 (0.0-0.4); Eos % (Auto) 4.2 % (0.0-4.0); Hematocrit 35.4 % (35.0-46.0); Hemoglobin 11.6 gm/dL (11.6-15.3); Lymph # (Auto) 1.2 th/mm3 (1.0-4.8); Lymph % (Auto) 8.1 % (9.0-44.0); Mean Corpuscular HGB Conc 32.7 % (32.0-36.0); Mean Corpuscular Hemoglobin 26.6 pg (27.0-34.0); Mean Corpuscular Volume 81.3 fL (80.0-100.0); Mean Platelet Volume 7.9 fL (7.0-11.0); Mono # (Auto) 0.6 th/mm3 (0.0-0.9); Neut # (Auto) 12.7 th/mm3 (1.8-7.7); Platelet Count 600 th/mm3 (150-450); Red Blood Count 4.36 mil/mm3 (4.00-5.30); Red Cell Distribution Width 14.1 % (11.6-17.2); White Blood Count 15.3 th/mm3 (4.0-11.0)
[2017-12-12 08:46] LABS: Albumin 2.6 g/dL (3.4-5.0); Anion Gap 11 meq/L (5-15); Aspartate Aminotransferase 18 U/L (15-37); Blood Urea Nitrogen 17 mg/dL (7-18); Calcium 9.2 mg/dL (8.5-10.1); Carbon Dioxide 22.8 meq/L (21.0-32.0); Chloride 107 meq/L (98-107); Glomerular Filtration Rate 55 mL/min (>89); Glucose,Random 102 mg/dL (74-106); Sodium 141 meq/L (136-145)
[2017-12-12 08:47] LABS: Alanine Aminotransferase 26 U/L (10-53)
[2017-12-12 08:49] LABS: Alkaline Phosphatase 69 U/L (45-117)
[2017-12-12] MEDS: Famotidine 20 MG Tablet PO SCH ×2 (09:51→20:41)
[2017-12-12] MEDS: Fenofibrate 48 MG Tablet PO SCH (09:51)
[2017-12-12] MEDS: Metoprolol Tartrate 50 MG Tablet PO SCH (09:51)
--- NOTE | 2017-12-12 11:13 | P.PN ---
Subjective Interval history: Follow-up visit leukocytosis, HTN, HLD, hypothyroidism. Patient seen and examined today. Reports she is doing well. States she is tired and weak. But able to get out of bed without assistance. Needs encouragement with performance of activities. Denies pain and discomfort. Denies SOB/ dyspnea. Denies chest pain, palpitations, headaches, dizziness. Denies fevers, chills, n/ v/d. Denies dysuria Physical Exam Vital signs: Vital Signs 12/11/17 17:44 12/12/17 06:46 Temperature 98.1 F 98.3 F Pulse Rate 108 H 105 H Respiratory Rate Blood Pressure 137/76 127/96 H Pulse Oximetry 94 L 95 Intake & Output 12/11/17 12/12/17 12/12/17 18:59 06:59 18:59 Intake Total 1440 / 1440 340 / 340 240 / 240 Balance 1440 / 1440 340 / 340 240 / 240 Weight 58.1 kg Intake: Oral 1440 / 1440 240 / 240 240 / 240 Oral Supplement 100 / 100 Other: # Voids 3 1 Narrative: GENERAL: This is a well-nourished, well-developed patient, in no apparent distress. SKIN: Warm and dry. HEENT: Normocephalic. Pupils equal round and reactive. Nose without bleeding. Airway patent. NECK: Trachea midline. CARDIOVASCULAR: Regular rate and rhythm without murmurs, gallops, or rubs. RESPIRATORY: Diminished bases. No wheezes, rales, or rhonchi. GASTROINTESTINAL: Abdomen soft, non-tender, nondistended. Bowel Sounds normoactive x4. MUSCULOSKELETAL: Extremities without clubbing, cyanosis, or edema. NEUROLOGICAL: Awake and alert. Moves all extremities. Normal speech. Results - Labs CBC & Chem 7: 12/12/17 07:54 12/12/17 07:54 Laboratory Results - last 24 hr 12/11/17 12/11/17 12/12/17 13:20 13:20 07:54 WBC 15.3 H RBC 4.36 Hgb 11.6 Hct 35.4 MCV 81.3 MCH 26.6 L MCHC 32.7 RDW 14.1 Plt Count 600 H MPV 7.9 Neut % (Auto) 83.0 H Lymph % (Auto) 8.1 L [place] % (Auto) 4.0 Eos % (Auto) 4.2 H Baso % (Auto) 0.7 Neut # (Auto) 12.7 H Lymph # (Auto) 1.2 [place] # (Auto) 0.6 Eos # (Auto) 0.6 H Baso # (Auto) 0.1 WBC Differential . Differential Comment Auto diff final Sodium Potassium Chloride Carbon Dioxide Anion Gap BUN Creatinine Estimated GFR Random Glucose Lactic Acid 1.8 Calcium Total Bilirubin AST ALT Alkaline Phosphatase Total Protein Albumin Procalcitonin 0.24 H 12/12/17 07:54 WBC RBC Hgb Hct MCV MCH MCHC RDW Plt Count MPV Neut % (Auto) Lymph % (Auto) [place] % (Auto) Eos % (Auto) Baso % (Auto) Neut # (Auto) Lymph # (Auto) [place] # (Auto) Eos # (Auto) Baso # (Auto) WBC Differential Differential Comment Sodium 141 Potassium 4.0 Chloride 107 Carbon Dioxide 22.8 Anion Gap 11 BUN 17 Creatinine 1.03 H Estimated GFR 55 L Random Glucose 102 Lactic Acid Calcium 9.2 Total Bilirubin 0.5 AST 18 ALT 26 Alkaline Phosphatase 69 Total Protein 6.0 L Albumin 2.6 L Procalcitonin Microbiology 12/11/17 13:20 Blood - Peripheral Aerobic Blood Culture - Preliminary No growth in 1 day 12/11/17 13:20 Blood - Peripheral Anaerobic Blood Culture - Preliminary No growth in 1 day 12/11/17 13:15 Blood - Peripheral Aerobic Blood Culture - Preliminary No growth in 1 day 12/11/17 13:15 Blood - Peripheral Anaerobic Blood Culture - Preliminary No growth in 1 day Assessment and Plan - Plan Patient is a 56-year-old female with past medical history of hypothyroidism, hyperlipidemia, hypertension, schizoaffective disorder who was initially admitted to inpatient psychiatry unit under Rodriguez act secondary to acute psychosis. During her admission patient decompensated complaining of left- sided chest pressure with shortness of breath, tachycardia at 115 and was hypotensive. Patient was admitted to inpatient medicine treated for possible sepsis secondary to UTI. Clinically improved and now admitted back to medical psychiatry and for further evaluation. Consulted for assistance with medical management. Psychosis, schizoaffective disorder -Managed by psychiatry team Leukocytosis 12.6 -->15.5 -->15.3 -Patient was worked up by infectious disease prior to transfer to medical psychiatry unit. Blood cultures with no growth 5 days. -Suspicion before was urinary tract infection patient was placed on Levaquin but was discontinued prior to transfer -Repeat UA -repeat blood cultures NGTD -pro calcitonin low, lactic acid 1.8 -We will not started antibiotics. Leukocytosis is most probably related to use of Clozaril. Hematologic abnormalities are noted for Clozaril use. -Recommend qweekly labs while on clozaril x1 month, then every other week, then monthly. HTN HLD Tachycardia -Continue aspirin, statin, Lopressor 50mg twice daily will increase to 75mg BID -Monitor BP trend -Prior complaints of chest pain with VQ scan negative for PE Hypothyroidism -Continue with levothyroxine Poss Chronic kidney disease -Monitor renal indicis intermittently -Avoid nephrotoxins DVT prop early ambulation Code Status: Full Code Discussed Condition With: Patient, nursing Discharge Planning: DC disposition by primary team
--- NOTE | 2017-12-12 16:58 | P.PNPSY ---
Subjective Remarks: Patient seen and examined. Chart reviewed. Case discussed with nursing staff. On my examination today, the patient presents as fairly disorganized and rambling. She is able to give the date as 2018. She is not able to answer whether she is experiencing hallucinations but does deny any suicidal or homicidal ideation. She complains of some sialorrhea but otherwise denies side effects from medications. No physical complaints. Vital Signs Temp Pulse Resp BP Pulse Ox 12/12/17 06:46 98.3 F 105 H 18 127/96 H 95 12/11/17 17:44 98.1 F 108 H 17 137/76 94 L Intake and Output 12/12/17 12/12/17 12/12/17 06:59 14:59 22:59 Intake Total 240 / 240 Balance 240 / 240 Intake: Oral 240 / 240 Other: # Voids 1 Weight 58.1 kg Laboratory Results - last 24 hr 12/12/17 12/12/17 07:54 07:54 WBC 15.3 H RBC 4.36 Hgb 11.6 Hct 35.4 MCV 81.3 MCH 26.6 L MCHC 32.7 RDW 14.1 Plt Count 600 H MPV 7.9 Neut % (Auto) 83.0 H Lymph % (Auto) 8.1 L [place] % (Auto) 4.0 Eos % (Auto) 4.2 H Baso % (Auto) 0.7 Neut # (Auto) 12.7 H Lymph # (Auto) 1.2 [place] # (Auto) 0.6 Eos # (Auto) 0.6 H Baso # (Auto) 0.1 WBC Differential . Differential Comment Auto diff final Sodium 141 Potassium 4.0 Chloride 107 Carbon Dioxide 22.8 Anion Gap 11 BUN 17 Creatinine 1.03 H Estimated GFR 55 L Random Glucose 102 Calcium 9.2 Total Bilirubin 0.5 AST 18 ALT 26 Alkaline Phosphatase 69 Total Protein 6.0 L Albumin 2.6 L Labs reviewed. Thrombophilia noted, leukocytosis noted. Review of Systems unobtainable due to mental condition Mental Status Examination Appearance: Disheveled Consciousness: Alert Orientation: Person, Date/Time (2017) Motor Activity: Other (No motor abnormalities noted) Speech: Unremarkable Language: Other (Rambling) Fund of Knowledge: Inadequate Attention and Concentration: Easily distracted Memory: Impaired Mood: Other (Calm) Affect: Blunt Thought Process & Associations: Disorganized Thought Content: Bizarre thinking Hallucination Type: Other (Unclear) Delusion Type: None Suicidal Ideation: No Suicidal Plan: No Suicidal Intention: No Homicidal Ideation: No Homicidal Plan: No Homicidal Intention: No Insight: Poor Judgment: Poor Assessment and Plan - Assessment (1) Schizoaffective disorder Code(s): F25.9 - Schizoaffective disorder, unspecified Status: Acute - Plan Plan: Continue current psychotropic medications as ordered. As per hospitalist note, CBC abnormalities are suspected to be related to clozapine therapy. I will request a hematology consultation to see if these abnormalities pose any risk to the patient and whether further titration of the clozapine is advisable in the setting of these abnormalities. Continue to monitor on the medical psychiatric unit. Continue other medications and care as ordered. Justification for Continued Inpatient Stay: Complicating condition. Risk for decompensation and less restrictive environment. Impairment in reality construction. Discharge Planning: Per Dr. Garcia. (1) Schizoaffective disorder Qualifiers: Schizoaffective disorder type: unspecified Qualified Code(s): F25.9 - Schizoaffective disorder, unspecified
[2017-12-12] MEDS: Metoprolol Tartrate 25 MG Tablet PO SCH ×2 (19:00→20:41)
--- NOTE | 2017-12-12 23:28 | MB ---
cc: Nichelle Gupta MD DATE: 12/12/2017 DATE OF SERVICE: 12/12/2017 REFERRING PHYSICIAN: Dr. Thakur. CHIEF COMPLAINT: Dr. Thakur requests a consultation for Ms. Gonzales regarding leukocytosis and thrombocytosis associated with Clozaril. HISTORY OF PRESENT ILLNESS: Ms. Gonzales is a 56-year-old woman. She was initially admitted with psychiatric symptoms on 11/19/2017. She was admitted under Rodriguez Act. She was disorganized, giving bizarre answers. She was hallucinating. The medical team was consulted for elevated creatinine. On admission, her creatinine is 1.6. It improved to most recent creatinine of 1.03. Her albumin is low. Laboratory evaluation showed a normal white count on admission. On the most recent days, her white count has increased to 15,000. It is predominantly neutrophils. There is also eosinophilia noted. Absolute eosinophil count is elevated. Hemoglobin is slightly decreased, at this point was normal at the time of the consultation. MCV was normal and noted to be in the lower limits of normal. Her eosinophilia developed around 12/05/2017. Her thrombocytosis developed around 12/07/2017, as documented by the elevated eosinophil count and platelet count respectively. The patient is an unreliable historian. She is awake, alert, and conversant. She offers no complaints at present. She denies any headache. She had some paranoid thoughts about not wanting to be taken over by people at the door. She denies any headaches. She has some neck pain. No vision changes. She feels that the right hip is getting better. Denies any cough. No abdominal discomfort. No rash. From psychiatry standpoint, she has ongoing psychotic symptoms that persist. Her clozapine seems to be improving her psychosis symptoms. She was started on current dose, Clozapine 150 mg on 12/10/2017. Her Clozaril or clozapine was started on 11/22/2017 at 12.5 mg p.o. b.i.d. and appears to have been gradually titrated up. She was at a dose of 100 mg p.o. at bedtime on 12/06/2017. At one point on 12/26/2017. She was also given 100 mg p.o. at bedtime scheduled. PAST MEDICAL HISTORY: 1. Hypertension. 2. Acute renal insufficiency on chronic renal insufficiency. 3. Acute psychosis/schizoaffective disorder. 4. Hypoalbuminemia. 5. Eosinophilia. 6. Thrombocytosis. 7. Hypertriglyceridemia. 8. Hypothyroidism. 9. Right leg injury. PAST SURGICAL HISTORY: 1. Appendectomy. 2. Cholecystectomy. FAMILY HISTORY: Mother had hypertension. No significant family history of cancer. SOCIAL HISTORY: [facility] was [facility] in a [facility] facility. No alcohol, tobacco or illicit drug use at present. PHYSICAL EXAMINATION: VITAL SIGNS: Temperature 97.0, heart rate 120, respiratory rate 18, blood pressure 157/83, saturation 95%. GENERAL: Ms. Gonzales is a 56-year-old woman, who looks older than stated age. She appears to have pallor. HEENT: Her pupils are round, reactive to light and accommodation. Oropharynx is clear. NECK: Supple. LUNGS: Clear. CARDIOVASCULAR: Reveals tachycardia. ABDOMEN: Benign. EXTREMITIES: Lower extremities, no edema. She is awake, verbally responsive, cooperative. There is no obvious rash. She has some pain in the right hip with no lesion. LABORATORY DATA: As described above. ASSESSMENT AND PLAN: Ms. Gonzales is a 56-year-old woman with multiple medical problems including hypothyroidism, hypertriglyceridemia, schizoaffective disorder and hypertension. She is admitted for hypertension. She was admitted under the Rodriguez Act. She was treated in the psychiatry unit. She was started on Clozaril with some improvement in her psychosis. Her course is complicated by chest pain and shortness of breath. [facility] She is being managed by medical team. Hematology/oncology is consulted for laboratory abnormality. Noted that there has been an increase in her white blood cell count predominantly eosinophil. There is no neutrophilia as well. She has had a mild anemia, which has improved, appears to be microcytic in nature and her platelet counts are elevated. I discussed with Ms. Gonzales plan to evaluate her blood by reviewing peripheral smear with pathology. I suspect she has underlying iron deficiency would reconsult and reactive thrombocytosis. Iron studies will be obtained. Her MCV is in the lower limits of normal. She had mild anemia during a short course during her long admission. This would explain the thrombocytosis which is unlikely to be related to the clonazepam. Clonazepam and is usually associated with agranulocytosis. Retic count will be obtained. We will check a sedimentation rate, which on admission was normal. I am unable to explain the eosinophilia. She has no rash. We can consider that this may be associated with new medication that was recently started. It does not appear to correlate with the clonazepam, which was started from the very beginning and titrated throughout her admission. Other etiology for the eosinophilia will be evaluated. No specific therapy is required at present. She is mildly tachycardic. Last imaging of the chest was from 12/01/2017 that shows no acute pulmonary disease. May consider a repeat chest x-ray. Her last urinalysis was completely negative. Drug effect is suspected, may not necessarily be the Clozaril. No obvious rash. Medication effect is considered. For example, Levaquin was started on 12/04/2017 before the eosinophilia began. Metoprolol was likewise started around then and probably related to the eosinophilia. Likewise, metoprolol and Tricor as well as aspirin was started on 12/01/2017. MD SANTOS Collazo/ronni/ , 08:14 PM , 08:31 PM MTDCt
[2017-12-13] MEDS: Levothyroxine 88 MCG Tablet PO SCH (05:31)
[2017-12-13 05:45] LABS: Baso # (Auto) 0.1 th/mm3 (0.0-0.2); Baso % (Auto) 0.4 % (0.0-2.0); Eos # (Auto) 0.8 th/mm3 (0.0-0.4); Eos % (Auto) 4.1 % (0.0-4.0); Hematocrit 35.8 % (35.0-46.0); Hemoglobin 11.8 gm/dL (11.6-15.3); Lymph % (Auto) 10.7 % (9.0-44.0); Mean Corpuscular HGB Conc 33.1 % (32.0-36.0); Mean Corpuscular Hemoglobin 26.8 pg (27.0-34.0); Mean Corpuscular Volume 81.1 fL (80.0-100.0); Mean Platelet Volume 8.1 fL (7.0-11.0); Mono # (Auto) 0.7 th/mm3 (0.0-0.9); Mono % (Auto) 3.9 % (0.0-8.0); Neut # (Auto) 15.1 th/mm3 (1.8-7.7); Neut % (Auto) 80.9 % (16.0-70.0); Platelet Count 620 th/mm3 (150-450); Red Blood Count 4.42 mil/mm3 (4.00-5.30); Red Cell Distribution Width 14.1 % (11.6-17.2); Reticulocyte Percent 2.2 % (0.4-3.0); White Blood Count 18.6 th/mm3 (4.0-11.0)
[2017-12-13 06:13] LABS: % Iron Saturation 12.4 % (20-50)
[2017-12-13 06:29] LABS: Erythrocyte Sedimentation Rate 15 mm/hr (0-30)
--- NOTE | 2017-12-13 08:42 | P.PN ---
Subjective Interval history: Follow-up visit leukocytosis, HTN, HLD, hypothyroidism. Patient seen and examined today. Reports she is doing well. Occasionally mumbles words incomprehensible most of the time. Denies pain and discomfort. Denies SOB/ dyspnea. Denies chest pain, palpitations, headaches, dizziness. Denies fevers, chills, n/v/d. Denies dysuria. Physical Exam Vital signs: Vital Signs 12/13/17 06:16 Temperature 97.6 F Respiratory Rate 16 Pulse Oximetry 92 L Intake & Output 12/12/17 12/13/17 12/13/17 18:59 06:59 18:59 Intake Total 240 / 240 240 / 240 Balance 240 / 240 240 / 240 Weight 55.9 kg Intake: Oral 240 / 240 240 / 240 Other: # Voids 1 Narrative: GENERAL: This is a well-nourished, well-developed patient, in no apparent distress. SKIN: Warm and dry. HEENT: Normocephalic. Pupils equal round and reactive. Nose without bleeding. Airway patent. NECK: Trachea midline. CARDIOVASCULAR: Regular rate and rhythm without murmurs, gallops, or rubs. RESPIRATORY: Diminished bases. No wheezes, rales, or rhonchi. GASTROINTESTINAL: Abdomen soft, non-tender, nondistended. Bowel Sounds normoactive x4. MUSCULOSKELETAL: Extremities without clubbing, cyanosis, or edema. NEUROLOGICAL: Awake and alert. Moves all extremities. Normal speech. Results - Labs CBC & Chem 7: 12/13/17 05:05 12/12/17 07:54 Laboratory Results - last 24 hr 12/12/17 12/13/17 12/13/17 07:54 05:05 05:05 WBC 18.6 H RBC 4.42 Hgb 11.8 Hct 35.8 MCV 81.1 MCH 26.8 L MCHC 33.1 RDW 14.1 Plt Count 620 H MPV 8.1 Neut % (Auto) 80.9 H Lymph % (Auto) 10.7 [place] % (Auto) 3.9 Eos % (Auto) 4.1 H Baso % (Auto) 0.4 Neut # (Auto) 15.1 H Lymph # (Auto) 2.0 [place] # (Auto) 0.7 Eos # (Auto) 0.8 H Baso # (Auto) 0.1 WBC Differential . Differential Comment Auto diff final Smear Path Review ESR 15 Retic Count 2.2 Absolute Retic 97.9 Sodium 141 Potassium 4.0 Chloride 107 Carbon Dioxide 22.8 Anion Gap 11 BUN 17 Creatinine 1.03 H Estimated GFR 55 L Random Glucose 102 Calcium 9.2 Iron 32 L TIBC 259 % Saturation 12.4 L Ferritin 266 H Total Bilirubin 0.5 AST 18 ALT 26 Alkaline Phosphatase 69 Lactate Dehydrogenase 118 Total Protein 6.0 L Albumin 2.6 L Microbiology 12/11/17 13:20 Blood - Peripheral Aerobic Blood Culture - Preliminary No growth in 1 day 12/11/17 13:20 Blood - Peripheral Anaerobic Blood Culture - Preliminary No growth in 1 day 12/11/17 13:15 Blood - Peripheral Aerobic Blood Culture - Preliminary No growth in 1 day 12/11/17 13:15 Blood - Peripheral Anaerobic Blood Culture - Preliminary No growth in 1 day Assessment and Plan - Plan Patient is a 56-year-old female with past medical history of hypothyroidism, hyperlipidemia, hypertension, schizoaffective disorder who was initially admitted to inpatient psychiatry unit under [place] act secondary to acute psychosis. During her admission patient decompensated complaining of left- sided chest pressure with shortness of breath, tachycardia at 115 and was hypotensive. Patient was admitted to inpatient medicine treated for possible sepsis secondary to UTI. Clinically improved and now admitted back to medical psychiatry and for further evaluation. Consulted for assistance with medical management. Psychosis, schizoaffective disorder -Managed by psychiatry team Leukocytosis 12.6 -->15.5 -->15.3 -->18 Thrombocytosis -Patient was worked up by infectious disease prior to transfer to medical psychiatry unit. Blood cultures with no growth 5 days. -Suspicion before was urinary tract infection patient was placed on Levaquin but was discontinued prior to transfer -Repeat UA -repeat blood cultures NGTD -pro calcitonin low, lactic acid 1.8 -We will not started antibiotics. Leukocytosis is most probably related to use of Clozaril. Hematologic abnormalities are noted for Clozaril use. -Recommend qweekly labs while on clozaril x1 month, then every other week, then monthly. -Hematology consult by primary team, concern about stopping clozaril HTN HLD Tachycardia -Continue aspirin, statin, Lopressor 50mg twice daily will increase to 75mg BID -Monitor BP trend -Prior complaints of chest pain with VQ scan negative for PE Hypothyroidism -Continue with levothyroxine Poss Chronic kidney disease -Monitor renal indicis intermittently -Avoid nephrotoxins DVT prop early ambulation Code Status: Full code Discussed Condition With: Patient, nursing, Dr. Garcia Discharge Planning: DC disposition by primary team
[2017-12-13] MEDS: Metoprolol Tartrate 25 MG Tablet PO SCH ×2 (09:31→21:21)
[2017-12-13] MEDS: Famotidine 20 MG Tablet PO SCH ×2 (09:32→21:20)
[2017-12-13] MEDS: Fenofibrate 48 MG Tablet PO SCH (09:32)
--- NOTE | 2017-12-13 11:44 | P.PNONC ---
Subjective Interval history: Afebrile. Patient lying in bed, in no acute distress. She is alert, at times mumbles incomprehensible words. She denies any shortness of breath, stating "it's much better". She does report some pain in her suprapubic area. She denies any blood in her urine or pain with urination. Objective Vital Signs/Intake & Output: Vital Signs 12/13/17 06:16 Temperature 97.6 F Respiratory Rate 16 Pulse Oximetry 92 L Intake & Output 12/12/17 12/13/17 12/13/17 18:59 06:59 18:59 Intake Total 240 / 240 240 / 240 Balance 240 / 240 240 / 240 Weight 55.9 kg Intake: Oral 240 / 240 240 / 240 Other: # Voids 1 Result Diagrams: 12/13/17 05:05 12/12/17 07:54 Laboratory Results: Laboratory Results - last 24 hr 12/13/17 12/13/17 05:05 05:05 WBC 18.6 H RBC 4.42 Hgb 11.8 Hct 35.8 MCV 81.1 MCH 26.8 L MCHC 33.1 RDW 14.1 Plt Count 620 H MPV 8.1 Neut % (Auto) 80.9 H Lymph % (Auto) 10.7 [place] % (Auto) 3.9 Eos % (Auto) 4.1 H Baso % (Auto) 0.4 Neut # (Auto) 15.1 H Lymph # (Auto) 2.0 [place] # (Auto) 0.7 Eos # (Auto) 0.8 H Baso # (Auto) 0.1 WBC Differential . Differential Comment Auto diff final Smear Path Review ESR 15 Retic Count 2.2 Absolute Retic 97.9 Iron 32 L TIBC 259 % Saturation 12.4 L Ferritin 266 H Lactate Dehydrogenase 118 Culture Results: Microbiology 12/11/17 13:20 Aerobic Blood Culture - Preliminary Blood - Peripheral No growth in 2 days Anaerobic Blood Culture - Preliminary No growth in 2 days 12/11/17 13:15 Aerobic Blood Culture - Preliminary Blood - Peripheral No growth in 2 days Anaerobic Blood Culture - Preliminary No growth in 2 days Medications: Active Medications Generic Name Dose Route Start Last Admin Trade Name Freq PRN Reason Stop Dose Admin Acetaminophen 650 mg 12/08/17 21:34 12/09/17 05:33 Tylenol PO 650 mg Q4H PRN Administration Temp > 100.4 Aspirin 81 mg 12/09/17 09:00 12/13/17 09:32 Ecotrin PO 81 mg DAILY KAMERON Administration Atorvastatin Calcium 20 mg 12/09/17 21:00 12/12/17 20:42 Lipitor PO 20 mg HS KAMERON Administration Clozapine 50 mg 12/09/17 09:00 12/13/17 09:32 Clozaril PO 50 mg DAILY KAMERON Administration Clozapine 150 mg 12/10/17 21:00 12/12/17 20:42 Clozaril PO 150 mg HS KAMERON Administration Famotidine 20 mg 12/09/17 09:00 12/13/17 09:32 Pepcid PO 20 mg BID KAMERON Administration Fenofibrate 48 mg 12/09/17 09:00 12/13/17 09:32 Tricor PO 48 mg DAILY KAMERON Administration Levothyroxine Sodium 88 mcg 12/09/17 06:00 12/13/17 05:31 Synthroid PO 88 mcg DAILY@0600 KAMERON Administration Metoprolol Tartrate 75 mg 12/12/17 12:15 12/13/17 09:31 Lopressor PO 75 mg BID KAMERON Administration Sodium Chloride 2 ml 12/09/17 09:00 12/13/17 09:32 Ns Flush IV.FLUSH Not Given BID KAMERON Objective Remarks: GENERAL: Chronically ill-appearing female patient, in no acute distress. SKIN: Warm and dry. HEAD: Normocephalic. EYES: No scleral icterus. No injection or drainage. NECK: Supple, trachea midline. CARDIOVASCULAR: Regular rate and rhythm without murmurs. RESPIRATORY: Anterior breath sounds clear, equal bilaterally. No accessory muscle use. GASTROINTESTINAL: Abdomen soft, suprapubic area tender, nondistended. EXTREMITIES: No cyanosis, or edema. MUSCULOSKELETAL: Adequate muscle tone. NEUROLOGICAL: No obvious focal deficit. Awake, alert. Speech mumbled at times. PSYCHIATRIC: Answers some questions appropriately. At times, speech is mumbled and incomprehensible. Assessment/Plan - Plan Ms. Gonzales is a 56-year-old woman, with a history of schizoaffective disorder, hypertension, hypothyroidism and hypertrophic glycerides. She was admitted to the hospital under the Rodriguez act. She is currently being treated in the medical psychiatric unit. Patient was started on Clozaril for psychosis. Hematology was consulted for increased white blood cell count, mild anemia and thrombocytosis. Plan: 1. Schizoaffective disorder, now on Clozaril for psychosis. Management per psychiatry. 2. Leukocytosis. WBC is 18.6 today, which is increased from 15.3 yesterday. ANC 15.1, absolute eosinophil count 0.8. Peripheral blood smear is pending. Pro-calcitonin elevated at 0.24. Blood cultures are negative 2 days. Patient with some suprapubic tenderness. I will order a repeat UA with culture. 3. Thrombocytosis, platelets have increased to 620,000 today. Peripheral blood smear is pending. ESR 15, reticulocyte count 2.2 and absolute reticulocyte 97.9. 4. Microcytic anemia, currently resolved. Hemoglobin today 11.8. Iron 32, TIBC 259 ferritin 266. 5. We will await results of peripheral blood smear and UA. Continue to monitor CBC trends. - Attending Statement The exam, history, and the medical decision-making described in the above note were completed with the assistance of the mid-level provider. I reviewed and agree with the findings presented. I attest that I had a [id number] encounter with the patient on the same day, and personally performed and documented my assessment and findings in the medical record. Iron studies reviewed. I am unable to exclude completely iron deficiency. She has no anemia. She has a reactive process. Peripheral smear reviewed with neutrophilia. No overt evidence of infection. We will check urinalysis. Chest x-rays pending. She has no rash to explain the eosinophilia. If no response to empiric parenteral iron therapy I suspect more more that the neutrophilia/eosinophilia is likely due to the Clozaril. Despite the thrombocytosis and leukocytosis she is asymptomatic. She has improved from her psychosis with the Clozaril. I defer to psychiatry if there are any other options. There appears to be dose threshold which is the neutrophilia and thrombocytosis occurred.
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
[2017-12-13] MEDS ORDERED: Iron Sucrose Inj 100 MG in Sodium Chlor 0.9% Inj 100 ML IV.SIG ONE (20:00)
[2017-12-14] MEDS: Levothyroxine 88 MCG Tablet PO SCH (05:25)
[2017-12-14] MEDS: Metoprolol Tartrate 25 MG Tablet PO SCH ×2 (08:35→21:58)
[2017-12-14] MEDS: Famotidine 20 MG Tablet PO SCH ×2 (08:35→21:58)
[2017-12-14] MEDS: Fenofibrate 48 MG Tablet PO SCH (08:35)
--- NOTE | 2017-12-14 09:30 | XR ---
EXAM DATE: 12/14/2017 9:27 AM EDT AGE/SEX: 56 years / Female INDICATIONS: . Shortness of breath. CLINICAL DATA: This is the patient's subsequent encounter. Patient reports that signs and symptoms h ave been present for 3 days and indicates a pain score of 0/10. MEDICAL/SURGICAL HISTORY: None. Cholecystectomy. Appendectomy. COMPARISON: [facility] [place]ST 1V SINGLE AP, 12/01/2017. . FINDINGS: A small right pleural effusion has developed. There is persistent airspace disease characteristic of atelectasis in the left midlung. There are no other acute findings. Heart and mediastinal structures are unremarkable. CONCLUSION: New trace pleural effusion in the right lung base Stable left midlung airspace disease characteristic of atelectasis. Otherwise stable chest Electronically signed by: Grant Gibbs MD 12/14/2017 9:29 AM EDT
--- NOTE | 2017-12-14 13:00 | P.PN ---
Subjective Interval history: Follow-up visit leukocytosis, HTN, HLD, hypothyroidism. Patient seen and examined today. Reports she is doing okay. States that they did a chest x-ray on her. Denies shortness of breath or dyspnea. Denies fevers, chills, nausea, vomiting. Denies dysuria. Physical Exam Vital signs: Vital Signs 12/13/17 18:00 12/14/17 05:47 Temperature 97.2 F L 96.9 F L Pulse Rate 95 H 99 H Respiratory Rate 18 16 Blood Pressure 131/68 95/54 L Pulse Oximetry 94 L 94 L Intake & Output 12/13/17 12/14/17 12/14/17 18:59 06:59 18:59 Intake Total 720 / 720 1440 / 1440 Balance 720 / 720 1440 / 1440 Intake: Oral 720 / 720 1440 / 1440 Other: # Voids 1 Narrative: GENERAL: This is a well-nourished, well-developed patient, in no apparent distress. SKIN: Warm and dry. HEENT: Normocephalic. Pupils equal round and reactive. Nose without bleeding. Airway patent. NECK: Trachea midline. CARDIOVASCULAR: Regular rate and rhythm without murmurs, gallops, or rubs. RESPIRATORY: Diminished bases. No wheezes, rales, or rhonchi. GASTROINTESTINAL: Abdomen soft, non-tender, nondistended. Bowel Sounds normoactive x4. MUSCULOSKELETAL: Extremities without clubbing, cyanosis, or edema. NEUROLOGICAL: Awake and alert. Moves all extremities. Garbled to normal speech. Results - Labs CBC & Chem 7: 12/13/17 05:05 12/12/17 07:54 Microbiology 12/11/17 13:20 Blood - Peripheral Aerobic Blood Culture - Preliminary No growth in 3 days 12/11/17 13:20 Blood - Peripheral Anaerobic Blood Culture - Preliminary No growth in 3 days 12/11/17 13:15 Blood - Peripheral Aerobic Blood Culture - Preliminary No growth in 3 days 12/11/17 13:15 Blood - Peripheral Anaerobic Blood Culture - Preliminary No growth in 3 days - Imaging Impressions Chest X-Ray 12/14/17 00:00 CONCLUSION: New trace pleural effusion in the right lung base Stable left midlung airspace disease characteristic of atelectasis. Otherwise stable chest Assessment and Plan - Plan Patient is a 56-year-old female with past medical history of hypothyroidism, hyperlipidemia, hypertension, schizoaffective disorder who was initially admitted to inpatient psychiatry unit under [place] act secondary to acute psychosis. During her admission patient decompensated complaining of left- sided chest pressure with shortness of breath, tachycardia at 115 and was hypotensive. Patient was admitted to inpatient medicine treated for possible sepsis secondary to UTI. Clinically improved and now admitted back to medical psychiatry and for further evaluation. Consulted for assistance with medical management. Psychosis, schizoaffective disorder -Managed by psychiatry team Leukocytosis 12.6 -->15.5 -->15.3 -->18 Thrombocytosis -Patient was worked up by infectious disease prior to transfer to medical psychiatry unit. Blood cultures with no growth 5 days. -Suspicion before was urinary tract infection patient was placed on Levaquin but was discontinued prior to transfer -Repeat UA -repeat blood cultures NGTD -pro calcitonin low, lactic acid 1.8 -Not started on antibiotics. Leukocytosis may be related to use of Clozaril. Hematologic abnormalities are noted for Clozaril use. -Recommend qweekly labs while on clozaril x1 month, then every other week, then monthly. -Hematology consult, hematological studies ordered -Repeat chest x-ray showed new trace pleural effusion right lung base, stable left midlung airspace disease characteristic of atelectasis. Otherwise stable chest. HTN HLD Tachycardia -Continue aspirin, statin, Lopressor 75mg BID -Monitor BP trend -Prior complaints of chest pain with VQ scan negative for PE Hypothyroidism -Continue with levothyroxine Poss Chronic kidney disease -Monitor renal indicis intermittently -Avoid nephrotoxins DVT prop early ambulation Code Status: Full code Discussed Condition With: Patient, nurse Discharge Planning: DC disposition by primary team
--- NOTE | 2017-12-14 18:48 | P.PNPSY ---
Subjective Remarks: Patient seen for follow up; chart review. Discussion with nursing staff reported that patient continues with disorganization, rambling at times, cooperative, med compliant. Patient returned from having chest xray, noted to be calm and cooperative. She has occasional rambling, also with some speech impediment due to being edentulous. Patient states that she is sleeping well, states feeling groggy but in good spirits. She states continued AH but "at a distance". She describes feeling week and having difficulty with eating due to not having her dentures. Review of Systems All other systems reviewed negative except as stated in HPI Mental Status Examination Appearance: Appropriate Consciousness: Alert Orientation: Person, Date/Time (2017) Motor Activity: Other (No motor abnormalities noted) Speech: Unremarkable Language: Other (Rambling) Fund of Knowledge: Inadequate Attention and Concentration: Easily distracted Memory: Impaired Mood: Other (Calm) Affect: Blunt Thought Process & Associations: Disorganized Thought Content: Bizarre thinking, Hallucinations Hallucination Type: Auditory Delusion Type: None Suicidal Ideation: No Suicidal Plan: No Suicidal Intention: No Homicidal Ideation: No Homicidal Plan: No Homicidal Intention: No Insight: Poor Judgment: Poor Assessment and Plan - Assessment (1) Schizoaffective disorder Code(s): F25.9 - Schizoaffective disorder, unspecified Status: Acute - Plan Plan: Patient continues with disorganization at times, would benefit from increase of antipsychotic dose but will await completed evaluation/work up and ongoing recommendations from hematology consult. Will continue current dose for now, continue to monitor mood and behavior. Discharge planning in progress. Justification for Continued Inpatient Stay: At risk for further decompensation at lower level of care. (1) Schizoaffective disorder Qualifiers: Qualified Code(s): F25.9 - Schizoaffective disorder, unspecified
--- NOTE | 2017-12-14 19:45 | P.PNONC ---
Subjective Interval history: Describes she was out to get her chest x-ray. She is showing off her new IV site. She denies any significant increase in energy. However she is noted to be more active around the unit by our nursing staff. She denies any adverse reaction associated with the iron treatment. Objective Vital Signs/Intake & Output: Vital Signs 12/14/17 05:47 12/14/17 18:26 Temperature 96.9 F L 97.5 F L Pulse Rate 99 H 90 Respiratory Rate 16 15 Blood Pressure 95/54 L 104/53 L Pulse Oximetry 94 L 95 Intake & Output 12/14/17 12/14/17 12/15/17 06:59 18:59 06:59 Intake Total 2400 / 2400 Balance 2400 / 2400 Intake: Oral 2400 / 2400 Other: # Voids 1 Result Diagrams: 12/13/17 05:05 12/12/17 07:54 Culture Results: Microbiology 12/11/17 13:20 Aerobic Blood Culture - Preliminary Blood - Peripheral No growth in 3 days Anaerobic Blood Culture - Preliminary No growth in 3 days 12/11/17 13:15 Aerobic Blood Culture - Preliminary Blood - Peripheral No growth in 3 days Anaerobic Blood Culture - Preliminary No growth in 3 days Imaging Studies: Impressions Chest X-Ray 12/14/17 00:00 CONCLUSION: New trace pleural effusion in the right lung base Stable left midlung airspace disease characteristic of atelectasis. Otherwise stable chest Medications: Active Medications Generic Name Dose Route Start Last Admin Trade Name Freq PRN Reason Stop Dose Admin Acetaminophen 650 mg 12/08/17 21:34 12/09/17 05:33 Tylenol PO 650 mg Q4H PRN Administration Temp > 100.4 Aspirin 81 mg 12/09/17 09:00 12/14/17 08:35 Ecotrin PO 81 mg DAILY KAMERON Administration Atorvastatin Calcium 20 mg 12/09/17 21:00 12/13/17 21:21 Lipitor PO 20 mg HS KAMERON Administration Clozapine 50 mg 12/09/17 09:00 12/14/17 08:35 Clozaril PO 50 mg DAILY KAMERON Administration Clozapine 150 mg 12/10/17 21:00 12/13/17 21:20 Clozaril PO 150 mg HS KAMERON Administration Famotidine 20 mg 12/09/17 09:00 12/14/17 08:35 Pepcid PO 20 mg BID KAMERON Administration Fenofibrate 48 mg 12/09/17 09:00 12/14/17 08:35 Tricor PO 48 mg DAILY KAMERON Administration Levothyroxine Sodium 88 mcg 12/09/17 06:00 12/14/17 05:25 Synthroid PO 88 mcg DAILY@0600 KAMERON Administration Metoprolol Tartrate 75 mg 12/12/17 12:15 12/14/17 08:35 Lopressor PO 75 mg BID KAMERON Administration Sodium Chloride 2 ml 12/09/17 09:00 12/14/17 08:36 Ns Flush IV.FLUSH 2 ml BID KAMERON Administration Sodium Chloride 2 ml 12/08/17 21:52 12/13/17 21:22 Ns Flush IV.FLUSH 2 ml PRN PRN Administration FLUSH AFTER USING IV ACCESS Objective Remarks: GENERAL: Bitemporal wasting, in no acute distress. SKIN: Warm and dry. Left forearm IV site in place looks clear. HEAD: Normocephalic. EYES: No scleral icterus. No injection or drainage. NECK: Supple, trachea midline. CARDIOVASCULAR: Regular rate and rhythm without murmurs. RESPIRATORY: Anterior breath sounds clear, equal bilaterally. No accessory muscle use. GASTROINTESTINAL: Abdomen soft, suprapubic area tender, nondistended. EXTREMITIES: No cyanosis, or edema. MUSCULOSKELETAL: Adequate muscle tone. NEUROLOGICAL: No obvious focal deficit. Awake, alert. Speech mumbled at times. PSYCHIATRIC: Anxious appearing. Assessment/Plan (1) Acquired neutrophilia Code(s): D72.828 - Other elevated white blood cell count Status: Acute (2) Reactive thrombocytosis Code(s): R79.89 - Other specified abnormal findings of blood chemistry Status : Acute - Plan Ms. Gonzales is a 56-year-old woman, with a history of schizoaffective disorder, hypertension, hypothyroidism and hypertrophic glycerides. She was admitted to the hospital under the Rodriguez act. She is currently being treated in the medical psychiatric unit. Patient was started on Clozaril for psychosis. Patient is seen for neutrophilia, mild anemia, and thrombocytosis. Patient with schizoaffective disorder improved on Clozaril. Noted hematologic toxicity attributed to the Clozaril. She has neutrophilia, mild eosinophilia, and thrombocytosis. Parenteral iron therapy is offered to rule out iron deficiency causing the reactive thrombocytosis and mild microcytic anemia. Patient tolerated iron treatment well. There is observation of increased energy and activity during the day. Repeat CBC as planned. Infectious etiology is being evaluated for the neutrophilia. No fevers. Chest x-ray shows no infiltrate or infectious etiology. Noted is a small pleural effusion. Blood cultures are negative so far. No localizing sign of infection. Defer to psychiatry for weighing risk and benefit of keeping patient on Clozaril. The neutrophilia and thrombocytosis are persistent. Despite the laboratory abnormality she is asymptomatic from the neutrophilia and the thrombocytosis. Response to the iron treatment is being evaluated.
[2017-12-14] MEDS ORDERED: Iron Sucrose Inj 100 MG in Sodium Chlor 0.9% Inj 100 ML IV.SIG ONE (21:00)
[2017-12-15] MEDS: Levothyroxine 88 MCG Tablet PO SCH (05:17)
[2017-12-15 08:32] LABS: Baso # (Auto) 0.2 th/mm3 (0.0-0.2); Baso % (Auto) 1.2 % (0.0-2.0); Eos # (Auto) 0.7 th/mm3 (0.0-0.4); Eos % (Auto) 4.5 % (0.0-4.0); Hematocrit 37.5 % (35.0-46.0); Hemoglobin 12.3 gm/dL (11.6-15.3); Lymph # (Auto) 2.2 th/mm3 (1.0-4.8); Lymph % (Auto) 13.9 % (9.0-44.0); Mean Corpuscular HGB Conc 32.8 % (32.0-36.0); Mean Corpuscular Hemoglobin 26.4 pg (27.0-34.0); Mean Corpuscular Volume 80.6 fL (80.0-100.0); Mean Platelet Volume 8.3 fL (7.0-11.0); Mono # (Auto) 0.8 th/mm3 (0.0-0.9); Mono % (Auto) 5.1 % (0.0-8.0); Neut # (Auto) 12.1 th/mm3 (1.8-7.7); Neut % (Auto) 75.3 % (16.0-70.0); Platelet Count 645 th/mm3 (150-450); Red Blood Count 4.64 mil/mm3 (4.00-5.30); Red Cell Distribution Width 14.1 % (11.6-17.2); White Blood Count 16.1 th/mm3 (4.0-11.0)
[2017-12-15] MEDS: Metoprolol Tartrate 25 MG Tablet PO SCH ×2 (09:08→21:44)
[2017-12-15] MEDS: Fenofibrate 48 MG Tablet PO SCH (09:08)
[2017-12-15] MEDS: Famotidine 20 MG Tablet PO SCH ×2 (09:09→21:44)
[2017-12-15 09:24] LABS: Eosinophils 3 % (0-4); Lymphocytes 11 % (9-44); Metamyelocytes 2 % (0-1); Monocytes 5 % (0-8); Myelocytes 2 % (0-0)
[2017-12-15 09:25] LABS: Platelet Morphology Normal (Normal); RBC Morphology Normal (Normal)
--- NOTE | 2017-12-15 11:00 | P.PN ---
Subjective Interval history: Follow-up visit leukocytosis, HTN, HLD, hypothyroidism. Patient seen and examined today. Reports she is doing fine. States she is walking around her room. Denies shortness of breath or dyspnea. Denies fevers, chills, nausea, vomiting. Denies dysuria. Physical Exam Vital signs: Vital Signs 12/14/17 18:26 12/15/17 05:53 12/15/17 08:52 Temperature 97.5 F L 97.7 F Pulse Rate 90 87 101 H Respiratory Rate 15 17 Blood Pressure 104/53 L 102/59 L 113/73 Pulse Oximetry 95 94 L Intake & Output 12/14/17 12/15/17 12/15/17 18:59 06:59 18:59 Intake Total 2400 / 2400 340 / 340 240 / 240 Balance 2400 / 2400 340 / 340 240 / 240 Intake: Oral 2400 / 2400 240 / 240 240 / 240 Oral Supplement 100 / 100 Other: # Voids 2 # Bowel Movements 0 Narrative: GENERAL: This is a well-nourished, well-developed patient, in no apparent distress. SKIN: Warm and dry. HEENT: Normocephalic. Pupils equal round and reactive. Nose without bleeding. Airway patent. NECK: Trachea midline. CARDIOVASCULAR: Regular rate and rhythm without murmurs, gallops, or rubs. RESPIRATORY: Diminished bases. No wheezes, rales, or rhonchi. GASTROINTESTINAL: Abdomen soft, non-tender, nondistended. Bowel Sounds normoactive x4. MUSCULOSKELETAL: Extremities without clubbing, cyanosis, or edema. NEUROLOGICAL: Awake and alert. Moves all extremities. Garbled to normal speech. Results - Labs CBC & Chem 7: 12/15/17 08:04 12/12/17 07:54 Laboratory Results - last 24 hr 12/15/17 08:04 WBC 16.1 H RBC 4.64 Hgb 12.3 Hct 37.5 MCV 80.6 MCH 26.4 L MCHC 32.8 RDW 14.1 Plt Count 645 H MPV 8.3 Prelim Diff (Auto) Slide review pending Neut % (Auto) 75.3 H Lymph % (Auto) 13.9 [place] % (Auto) 5.1 Eos % (Auto) 4.5 H Baso % (Auto) 1.2 Neut # (Auto) 12.1 H Lymph # (Auto) 2.2 [place] # (Auto) 0.8 Eos # (Auto) 0.7 H Baso # (Auto) 0.2 WBC Differential Manual diff final Seg Neuts % (Manual) 77 H Lymphocytes % (Manual) 11 Monocytes % (Manual) 5 Eosinophils % (Manual) 3 Metamyelocytes % (Man) 2 H Myelocytes % (Man) 2 H Abs Neuts (Manual) 13.0 H Differential Comment . Platelet Estimate High H Platelet Morphology Normal RBC Morphology Normal Microbiology 12/11/17 13:20 Blood - Peripheral Aerobic Blood Culture - Preliminary No growth in 3 days 12/11/17 13:20 Blood - Peripheral Anaerobic Blood Culture - Preliminary No growth in 3 days 12/11/17 13:15 Blood - Peripheral Aerobic Blood Culture - Preliminary No growth in 3 days 12/11/17 13:15 Blood - Peripheral Anaerobic Blood Culture - Preliminary No growth in 3 days Assessment and Plan - Plan Patient is a 56-year-old female with past medical history of hypothyroidism, hyperlipidemia, hypertension, schizoaffective disorder who was initially admitted to inpatient psychiatry unit under [place] act secondary to acute psychosis. During her admission patient decompensated complaining of left- sided chest pressure with shortness of breath, tachycardia at 115 and was hypotensive. Patient was admitted to inpatient medicine treated for possible sepsis secondary to UTI. Clinically improved and now admitted back to medical psychiatry and for further evaluation. Consulted for assistance with medical management. Psychosis, schizoaffective disorder -Managed by psychiatry team Leukocytosis 12.6 -->15.5 -->15.3 -->18 -->16.1 Thrombocytosis -Patient was worked up by infectious disease prior to transfer to medical psychiatry unit. Blood cultures with no growth 5 days. -Suspicion before was urinary tract infection patient was placed on Levaquin but was discontinued prior to transfer -Repeat UA -repeat blood cultures NGTD -pro calcitonin low, lactic acid 1.8 -Not started on antibiotics. Leukocytosis may be related to use of Clozaril. Hematologic abnormalities are noted for Clozaril use. -Recommend qweekly labs while on clozaril x1 month, then every other week, then monthly. -Hematology consult, hematological studies ordered -Repeat chest x-ray showed new trace pleural effusion right lung base, stable left midlung airspace disease characteristic of atelectasis. Otherwise stable chest. -IV Iron infusion per hematology R/O iron deficiency anemia HTN HLD Tachycardia -Continue aspirin, statin, Lopressor 75mg BID -Monitor BP trend -Prior complaints of chest pain with VQ scan negative for PE Hypothyroidism -Continue with levothyroxine Poss Chronic kidney disease -Monitor renal indicis intermittently -Avoid nephrotoxins DVT prop early ambulation Code Status: Full code Discussed Condition With: Patient, nursing Discharge Planning: DC disposition by primary team
--- NOTE | 2017-12-15 11:24 | P.PNONC ---
Subjective Interval history: Afebrile. Patient lying in bed in no acute distress. She is alert, at times her speech is incomprehensible. She continues to complain of a right lower quadrant abdominal pain. On exam there was no tenderness to palpation. She denies any urinary symptoms. UA and culture are ordered awaiting collection. I have spoken to the RN and she will try to obtain specimen today. Objective Vital Signs/Intake & Output: Vital Signs 12/14/17 18:26 12/15/17 05:53 12/15/17 08:52 Temperature 97.5 F L 97.7 F Pulse Rate 90 87 101 H Respiratory Rate 15 17 Blood Pressure 104/53 L 102/59 L 113/73 Pulse Oximetry 95 94 L Intake & Output 12/14/17 12/15/17 12/15/17 18:59 06:59 18:59 Intake Total 2400 / 2400 340 / 340 240 / 240 Balance 2400 / 2400 340 / 340 240 / 240 Intake: Oral 2400 / 2400 240 / 240 240 / 240 Oral Supplement 100 / 100 Other: # Voids 2 # Bowel Movements 0 Result Diagrams: 12/15/17 08:04 12/12/17 07:54 Laboratory Results: Laboratory Results - last 24 hr 12/15/17 08:04 WBC 16.1 H RBC 4.64 Hgb 12.3 Hct 37.5 MCV 80.6 MCH 26.4 L MCHC 32.8 RDW 14.1 Plt Count 645 H MPV 8.3 Prelim Diff (Auto) Slide review pending Neut % (Auto) 75.3 H Lymph % (Auto) 13.9 [place] % (Auto) 5.1 Eos % (Auto) 4.5 H Baso % (Auto) 1.2 Neut # (Auto) 12.1 H Lymph # (Auto) 2.2 [place] # (Auto) 0.8 Eos # (Auto) 0.7 H Baso # (Auto) 0.2 WBC Differential Manual diff final Seg Neuts % (Manual) 77 H Lymphocytes % (Manual) 11 Monocytes % (Manual) 5 Eosinophils % (Manual) 3 Metamyelocytes % (Man) 2 H Myelocytes % (Man) 2 H Abs Neuts (Manual) 13.0 H Differential Comment . Platelet Estimate High H Platelet Morphology Normal RBC Morphology Normal Culture Results: Microbiology 12/11/17 13:20 Aerobic Blood Culture - Preliminary Blood - Peripheral No growth in 4 days Anaerobic Blood Culture - Preliminary No growth in 4 days 12/11/17 13:15 Aerobic Blood Culture - Preliminary Blood - Peripheral No growth in 4 days Anaerobic Blood Culture - Preliminary No growth in 4 days Medications: Active Medications Generic Name Dose Route Start Last Admin Trade Name Freq PRN Reason Stop Dose Admin Acetaminophen 650 mg 12/08/17 21:34 12/09/17 05:33 Tylenol PO 650 mg Q4H PRN Administration Temp > 100.4 Aspirin 81 mg 12/09/17 09:00 12/15/17 09:08 Ecotrin PO 81 mg DAILY KAMERON Administration Atorvastatin Calcium 20 mg 12/09/17 21:00 12/14/17 21:57 Lipitor PO 20 mg HS KAMERON Administration Clozapine 50 mg 12/09/17 09:00 12/15/17 09:09 Clozaril PO 50 mg DAILY KAMERON Administration Clozapine 150 mg 12/10/17 21:00 12/14/17 21:58 Clozaril PO 150 mg HS KAMERON Administration Famotidine 20 mg 12/09/17 09:00 12/15/17 09:09 Pepcid PO 20 mg BID KAMERON Administration Fenofibrate 48 mg 12/09/17 09:00 12/15/17 09:08 Tricor PO 48 mg DAILY KAMERON Administration Levothyroxine Sodium 88 mcg 12/09/17 06:00 12/15/17 05:17 Synthroid PO Not Given DAILY@0600 [facility] Metoprolol Tartrate 75 mg 12/12/17 12:15 12/15/17 09:08 Lopressor PO 75 mg BID KAMERON Administration Sodium Chloride 2 ml 12/09/17 09:00 12/15/17 09:09 Ns Flush IV.FLUSH 2 ml BID KAMERON Administration Sodium Chloride 2 ml 12/08/17 21:52 12/14/17 21:58 Ns Flush IV.FLUSH 2 ml PRN PRN Administration FLUSH AFTER USING IV ACCESS Objective Remarks: GENERAL: Chronically ill-appearing female patient, in no acute distress. SKIN: Warm and dry. HEAD: Normocephalic. EYES: No scleral icterus. No injection or drainage. NECK: Supple, trachea midline. CARDIOVASCULAR: Regular rate and rhythm without murmurs. RESPIRATORY: Anterior breath sounds clear, equal bilaterally. No accessory muscle use. GASTROINTESTINAL: Abdomen soft, non-tender, no distended. EXTREMITIES: No cyanosis, or edema. MUSCULOSKELETAL: Adequate muscle tone. NEUROLOGICAL: No obvious focal deficit. Awake, alert. Speech mumbled at times. PSYCHIATRIC: Answers questions appropriately at times. Intermittently speech is mumbled and incomprehensible. Assessment/Plan (1) Acquired neutrophilia Code(s): D72.828 - Other elevated white blood cell count Status: Acute (2) Reactive thrombocytosis Code(s): R79.89 - Other specified abnormal findings of blood chemistry Status : Acute - Plan Ms. Gonzales is a 56-year-old woman, with a history of schizoaffective disorder, hypertension, hypothyroidism and hypertrophic glycerides. She was admitted to the hospital under the [place] act. She is currently being treated in the medical psychiatric unit. Patient was started on Clozaril for psychosis. Patient is seen for neutrophilia, mild anemia, and thrombocytosis. Plan: 1. Schizoaffective disorder improved on Clozaril. Noted hematologic toxicity attributed to the Clozaril. She has neutrophilia, mild eosinophilia, and thrombocytosis. 2. Microcytic anemia, status post parenteral iron therapy. Patient reports increased energy. 3. Neutrophilia. Chest x-ray was negative for infectious etiology. Blood cultures negative for 4 days. Awaiting UA and urine culture, as the patient describes some right lower quadrant pain. No tenderness noted on exam. Discussed with RN, she will obtain specimen today. 4. Psychiatry for weighing risk and benefit of keeping patient on Clozaril. The neutrophilia and thrombocytosis are persistent. Despite the laboratory abnormality she is asymptomatic from the neutrophilia and the thrombocytosis.
--- NOTE | 2017-12-15 19:18 | P.PNPSY ---
Subjective Remarks: Patient was seen and case discussed with nursing. Patient is complaining of hearing female voices. She is nonsensical, rambling with loose associations. Spending the day talking to herself. She is compliant with medications and has not had any outbursts Mental Status Examination Appearance: Appropriate Consciousness: Alert Orientation: Person Motor Activity: Other (No motor abnormalities noted) Speech: Unremarkable Language: Other (Rambling) Fund of Knowledge: Inadequate Attention and Concentration: Easily distracted Memory: Impaired Mood: Other (Calm) Affect: Blunt Thought Process & Associations: Loose associations Thought Content: Bizarre thinking, Hallucinations Hallucination Type: Auditory Delusion Type: None Suicidal Ideation: No Suicidal Plan: No Suicidal Intention: No Homicidal Ideation: No Homicidal Plan: No Homicidal Intention: No Insight: Poor Judgment: Poor Assessment and Plan - Assessment (1) Schizoaffective disorder Code(s): F25.9 - Schizoaffective disorder, unspecified Status: Acute - Plan Plan: Continue current treatment plan Justification for Continued Inpatient Stay: Patient would decompensate in a less restrictive setting (1) Schizoaffective disorder Qualifiers: Schizoaffective disorder type: unspecified Qualified Code(s): F25.9 - Schizoaffective disorder, unspecified
[2017-12-15 19:46] LABS: Bilirubin,Urine Negative (Negative); Clarity,Urine Hazy (Clear); Color,Urine Yellow (Yellw/Straw); Glucose,Urine (UA) Negative (Negative); Leukocyte Esterase,Urine Negative (Negative); Mucus,Urine Few /lpf (Occasional); Nitrite,Urine Negative (Negative); Specific Gravity,Urine 1.011 (1.002-1.035); Squamous Epithelial Cell,Urine 2 /hpf (0-5)
[2017-12-16] MEDS: Levothyroxine 88 MCG Tablet PO SCH (05:52)
[2017-12-16] MEDS: Metoprolol Tartrate 25 MG Tablet PO SCH ×2 (09:05→20:48)
[2017-12-16] MEDS: Famotidine 20 MG Tablet PO SCH ×2 (09:05→20:48)
[2017-12-16] MEDS: Fenofibrate 48 MG Tablet PO SCH (09:05)
--- NOTE | 2017-12-16 13:29 | P.PN ---
Subjective Interval history: Follow-up visit leukocytosis, HTN, HLD, hypothyroidism. Patient seen and examined today. Reports she is doing okay. No acute issues overnight. Denies shortness of breath or dyspnea. Denies fevers, chills, nausea, vomiting. Denies dysuria. Physical Exam Vital signs: Vital Signs 12/15/17 17:51 12/16/17 06:00 Temperature 97.4 F L 97.4 F L Pulse Rate 100 H 83 Respiratory Rate 16 14 Blood Pressure 117/59 L 119/71 Pulse Oximetry 95 95 Intake & Output 12/15/17 12/16/17 12/16/17 18:59 06:59 18:59 Intake Total 360 / 360 340 / 340 360 / 360 Balance 360 / 360 340 / 340 360 / 360 Intake: Oral 360 / 360 240 / 240 360 / 360 Oral Supplement 100 / 100 Other: # Voids 2 2 Narrative: GENERAL: This is a well-nourished, well-developed patient, in no apparent distress. SKIN: Warm and dry. HEENT: Normocephalic. Pupils equal round and reactive. Nose without bleeding. Airway patent. NECK: Trachea midline. CARDIOVASCULAR: Regular rate and rhythm without murmurs, gallops, or rubs. RESPIRATORY: Diminished bases. No wheezes, rales, or rhonchi. GASTROINTESTINAL: Abdomen soft, non-tender, nondistended. Bowel Sounds normoactive x4. MUSCULOSKELETAL: Extremities without clubbing, cyanosis, or edema. NEUROLOGICAL: Awake and alert. Moves all extremities. Garbled to normal speech. Results - Labs CBC & Chem 7: 12/17/17 06:38 12/17/17 06:38 Laboratory Results - last 24 hr 12/15/17 Unknown Urine Color Yellow Urine Clarity Hazy H Urine pH 5.0 Ur Specific [place] 1.011 Urine Protein Negative Urine Glucose (UA) Negative Urine Ketones Negative Urine Occult Blood Negative Urine Nitrate Negative Urine Bilirubin Negative Urine Urobilinogen Less than 2 Ur Leukocyte Esterase Negative Urine RBC Less than 1 Urine WBC 3 Ur Squamous Epith Cells 2 Urine Mucus Few H Micro UA Comment Culture not ind Ur Microscopic Review Not Reportable Urine Culture Comments Culture not ind Microbiology 12/11/17 13:20 Blood - Peripheral Aerobic Blood Culture - Final No growth in 5 days 12/11/17 13:20 Blood - Peripheral Anaerobic Blood Culture - Final No growth in 5 days 12/11/17 13:15 Blood - Peripheral Aerobic Blood Culture - Final No growth in 5 days 12/11/17 13:15 Blood - Peripheral Anaerobic Blood Culture - Final No growth in 5 days Assessment and Plan - Plan Patient is a 56-year-old female with past medical history of hypothyroidism, hyperlipidemia, hypertension, schizoaffective disorder who was initially admitted to inpatient psychiatry unit under [place] act secondary to acute psychosis. During her admission patient decompensated complaining of left- sided chest pressure with shortness of breath, tachycardia at 115 and was hypotensive. Patient was admitted to inpatient medicine treated for possible sepsis secondary to UTI. Clinically improved and now admitted back to medical psychiatry and for further evaluation. Consulted for assistance with medical management. Psychosis, schizoaffective disorder -Managed by psychiatry team Leukocytosis 12.6 -->15.5 -->15.3 -->18 -->16.1 Thrombocytosis -Patient was worked up by infectious disease prior to transfer to medical psychiatry unit. Blood cultures with no growth 5 days. -Suspicion before was urinary tract infection patient was placed on Levaquin but was discontinued prior to transfer -repeat blood cultures NGTD -pro calcitonin low, lactic acid 1.8 -Not started on antibiotics. Leukocytosis may be related to use of Clozaril. Hematologic abnormalities are noted for Clozaril use. -Recommend qweekly labs while on clozaril x1 month, then every other week, then monthly. -Hematology consult, hematological studies ordered -Repeat chest x-ray showed new trace pleural effusion right lung base, stable left midlung airspace disease characteristic of atelectasis. Otherwise stable chest. -IV Iron infusion per hematology R/O iron deficiency anemia -UA negative -Repeat labs in a.m. HTN HLD Tachycardia -Continue aspirin, statin, Lopressor 75mg BID -Monitor BP trend -Prior complaints of chest pain with VQ scan negative for PE -Improving tachycardia Hypothyroidism -Continue with levothyroxine Poss Chronic kidney disease -Monitor renal indicis intermittently -Avoid nephrotoxins DVT prop early ambulation Code Status: Full Code Discussed Condition With: Patient, nursing Discharge Planning: DC disposition by primary team
--- NOTE | 2017-12-16 14:54 | P.PNPSY ---
Subjective Remarks: Patient was seen and case discussed with nursing. Patient remains very psychotic. She is rambling mumbling and quite loose. Internally preoccupied. She is compliant with medications. She is disheveled and sitting in the corner talking to herself Mental Status Examination Appearance: Appropriate Consciousness: Alert Orientation: Person Motor Activity: Other (No motor abnormalities noted) Speech: Unremarkable Language: Other (Rambling) Fund of Knowledge: Inadequate Attention and Concentration: Easily distracted Memory: Impaired Mood: Other (Calm) Affect: Blunt Thought Process & Associations: Loose associations Thought Content: Bizarre thinking, Hallucinations Hallucination Type: Auditory Delusion Type: None Suicidal Ideation: No Suicidal Plan: No Suicidal Intention: No Homicidal Ideation: No Homicidal Plan: No Homicidal Intention: No Insight: Poor Judgment: Poor Assessment and Plan - Assessment (1) Schizoaffective disorder Code(s): F25.9 - Schizoaffective disorder, unspecified Status: Acute - Plan Plan: Continue current treatment plan Justification for Continued Inpatient Stay: Patient would decompensate in a less restrictive setting (1) Schizoaffective disorder Qualifiers: Schizoaffective disorder type: unspecified Qualified Code(s): F25.9 - Schizoaffective disorder, unspecified
[2017-12-17] MEDS: Levothyroxine 88 MCG Tablet PO SCH (06:00)
[2017-12-17 07:25] LABS: Baso # (Auto) 0.1 th/mm3 (0.0-0.2); Baso % (Auto) 0.9 % (0.0-2.0); Eos # (Auto) 0.5 th/mm3 (0.0-0.4); Eos % (Auto) 3.6 % (0.0-4.0); Hematocrit 36.6 % (35.0-46.0); Hemoglobin 12.1 gm/dL (11.6-15.3); Lymph # (Auto) 2.5 th/mm3 (1.0-4.8); Lymph % (Auto) 17.6 % (9.0-44.0); Mean Corpuscular Hemoglobin 26.7 pg (27.0-34.0); Mean Corpuscular Volume 80.8 fL (80.0-100.0); Mean Platelet Volume 8.4 fL (7.0-11.0); Mono % (Auto) 6.7 % (0.0-8.0); Neut # (Auto) 10.2 th/mm3 (1.8-7.7); Neut % (Auto) 71.2 % (16.0-70.0); Platelet Count 621 th/mm3 (150-450); Red Blood Count 4.54 mil/mm3 (4.00-5.30); Red Cell Distribution Width 14.3 % (11.6-17.2); White Blood Count 14.3 th/mm3 (4.0-11.0)
[2017-12-17 07:43] LABS: Alanine Aminotransferase 23 U/L (10-53); Albumin 2.8 g/dL (3.4-5.0); Anion Gap 8 meq/L (5-15); Aspartate Aminotransferase 17 U/L (15-37); Calcium 9.2 mg/dL (8.5-10.1); Carbon Dioxide 25.5 meq/L (21.0-32.0); Chloride 106 meq/L (98-107); Glomerular Filtration Rate 40 mL/min (>89); Glucose,Random 88 mg/dL (74-106); Sodium 139 meq/L (136-145)
[2017-12-17 07:56] LABS: Alkaline Phosphatase 82 U/L (45-117); Blood Urea Nitrogen 26 mg/dL (7-18); Total Protein 6.2 g/dL (6.4-8.2)
[2017-12-17] MEDS ORDERED: Sodium Chloride 0.45 % Inj 1,000 ML IV.CONT SCH (08:30)
[2017-12-17] MEDS: Fenofibrate 48 MG Tablet PO SCH (09:09)
[2017-12-17] MEDS: Famotidine 20 MG Tablet PO SCH ×2 (09:09→20:44)
[2017-12-17] MEDS: Metoprolol Tartrate 25 MG Tablet PO SCH ×2 (09:10→20:44)
[2017-12-17 09:25] LABS: Eosinophils 2 % (0-4); Lymphocytes 19 % (9-44); Metamyelocytes 2 % (0-1); Monocytes 7 % (0-8); Myelocytes 2 % (0-0); Platelet Morphology Normal (Normal); RBC Morphology Normal (Normal)
--- NOTE | 2017-12-17 13:46 | P.PN ---
Subjective Interval history: Follow-up visit leukocytosis, thrombocytosis HTN, HLD, hypothyroidism. Patient seen and examined today. Reports she is doing okay. Discussed with patient results of labs with increasing creatinine. Discussed p.o. fluid hydration. States that she has not been drinking water because "they dont not give me water , I can drink." Denies shortness of breath or dyspnea. Denies fevers, chills, nausea, vomiting. Denies dysuria. Physical Exam Vital signs: Vital Signs 12/16/17 18:00 12/17/17 06:00 Temperature 97.3 F L 97.6 F Pulse Rate 91 H 86 Respiratory Rate 16 16 Blood Pressure 122/72 106/57 L Pulse Oximetry 95 94 L Intake & Output 12/16/17 12/17/17 12/17/17 18:59 06:59 18:59 Intake Total 360 / 360 820 / 820 Balance 360 / 360 820 / 820 Weight 56.5 kg Intake: Oral 360 / 360 720 / 720 Oral Supplement 100 / 100 Other: # Voids 1 Narrative: GENERAL: This is a well-nourished, well-developed patient, in no apparent distress. SKIN: Warm and dry. HEENT: Normocephalic. Pupils equal round and reactive. Nose without bleeding. Airway patent. NECK: Trachea midline. CARDIOVASCULAR: Regular rate and rhythm without murmurs, gallops, or rubs. RESPIRATORY: Diminished bases. No wheezes, rales, or rhonchi. GASTROINTESTINAL: Abdomen soft, non-tender, nondistended. Bowel Sounds normoactive x4. MUSCULOSKELETAL: Extremities without clubbing, cyanosis, or edema. NEUROLOGICAL: Awake and alert. Moves all extremities. Garbled to normal speech. Results - Labs CBC & Chem 7: 12/17/17 06:38 12/17/17 06:38 Laboratory Results - last 24 hr 12/17/17 12/17/17 06:38 06:38 WBC 14.3 H RBC 4.54 Hgb 12.1 Hct 36.6 MCV 80.8 MCH 26.7 L MCHC 33.0 RDW 14.3 Plt Count 621 H MPV 8.4 Prelim Diff (Auto) Slide review pending Neut % (Auto) 71.2 H Lymph % (Auto) 17.6 [place] % (Auto) 6.7 Eos % (Auto) 3.6 Baso % (Auto) 0.9 Neut # (Auto) 10.2 H Lymph # (Auto) 2.5 [place] # (Auto) 1.0 H Eos # (Auto) 0.5 H Baso # (Auto) 0.1 WBC Differential Manual diff final Seg Neuts % (Manual) 66 Band Neuts % (Manual) 1 Lymphocytes % (Manual) 19 Monocytes % (Manual) 7 Eosinophils % (Manual) 2 Basophils % (Manual) 1 Metamyelocytes % (Man) 2 H Myelocytes % (Man) 2 H Abs Neuts (Manual) 10.2 H Differential Comment . Platelet Estimate High H Platelet Morphology Normal RBC Morphology Normal Sodium 139 Potassium 4.0 Chloride 106 Carbon Dioxide 25.5 Anion Gap 8 BUN 26 H Creatinine 1.38 H Estimated GFR 40 L Random Glucose 88 Calcium 9.2 Total Bilirubin 0.3 AST 17 ALT 23 Alkaline Phosphatase 82 Total Protein 6.2 L Albumin 2.8 L Microbiology 12/11/17 13:20 Blood - Peripheral Aerobic Blood Culture - Final No growth in 5 days 12/11/17 13:20 Blood - Peripheral Anaerobic Blood Culture - Final No growth in 5 days 12/11/17 13:15 Blood - Peripheral Aerobic Blood Culture - Final No growth in 5 days 12/11/17 13:15 Blood - Peripheral Anaerobic Blood Culture - Final No growth in 5 days Assessment and Plan - Plan Patient is a 56-year-old female with past medical history of hypothyroidism, hyperlipidemia, hypertension, schizoaffective disorder who was initially admitted to inpatient psychiatry unit under [place] act secondary to acute psychosis. During her admission patient decompensated complaining of left- sided chest pressure with shortness of breath, tachycardia at 115 and was hypotensive. Patient was admitted to inpatient medicine treated for possible sepsis secondary to UTI. Clinically improved and now admitted back to medical psychiatry and for further evaluation. Consulted for assistance with medical management. Psychosis, schizoaffective disorder -Managed by psychiatry team Leukocytosis 12.6 -->15.5 ...16.1--> 14. 3 Thrombocytosis 579--> 600...-->621 -Patient was worked up by infectious disease prior to transfer to medical psychiatry unit. Blood cultures with no growth 5 days. -Suspicion before was urinary tract infection patient was placed on Levaquin but was discontinued prior to transfer -repeat blood cultures NGTD -pro calcitonin low, lactic acid 1.8 -Not started on antibiotics. Leukocytosis may be related to use of Clozaril. Hematologic abnormalities are noted for Clozaril use. -Recommend qweekly labs while on clozaril x1 month, then every other week, then monthly. -Hematology consult, hematological studies ordered -Repeat chest x-ray showed new trace pleural effusion right lung base, stable left midlung airspace disease characteristic of atelectasis. Otherwise stable chest. -IV Iron infusion per hematology R/O iron deficiency anemia -UA negative -Suspicion for reactive leukocytosis. HTN HLD Tachycardia -Continue aspirin, statin, Lopressor 75mg BID -Monitor BP trend -Prior complaints of chest pain with VQ scan negative for PE -Improving tachycardia Hypothyroidism -Continue with levothyroxine Acute renal insufficiency on possibly chronic kidney disease -Avoid nephrotoxins -IV fluids for gentle hydration, encourage p.o. fluid intake. -Monitor renal indicis DVT prop early ambulation Full Code Discussed with patient, nursing Discharge Planning: DC disposition by primary team
--- NOTE | 2017-12-17 18:25 | P.PNPSY ---
Subjective Remarks: Patient seen for follow up; chart reviewed. Discussion with nursing staff reported that patient continues with episodes of rambling and disorganization. Patient was found sitting on hospital chair eating , noted to be calm and cooperative. She states that she at times has had elevated heart rate, some malaise. Patient is a poor historian due to her disorganization. She continues with paranoid ideation of people in the hospital trying to kill her "someone with guns was trying to kill me". She reports unclear auditory hallucinations, reports her mood as being "good", rambling at times, showered today. Review of Systems All other systems reviewed negative except as stated in HPI Mental Status Examination Appearance: Appropriate Consciousness: Alert Orientation: Person Motor Activity: Other (No motor abnormalities noted) Speech: Unremarkable Language: Other (Rambling) Fund of Knowledge: Inadequate Attention and Concentration: Easily distracted Memory: Impaired Mood: Other ("good") Affect: Blunt Thought Process & Associations: Loose associations, Disorganized (at times, rambling) Thought Content: Bizarre thinking, Hallucinations Hallucination Type: Auditory Delusion Type: None Suicidal Ideation: No Suicidal Plan: No Suicidal Intention: No Homicidal Ideation: No Homicidal Plan: No Homicidal Intention: No Insight: Poor Judgment: Poor Assessment and Plan - Assessment (1) Schizoaffective disorder Code(s): F25.9 - Schizoaffective disorder, unspecified Status: Acute - Plan Plan: Patient appears with some improvement but continues wtih continued disorganization at times and paranoia. Patient currently on clozapine but noted with leukocytosis, anemia and thrombocytosis, with patient recently reporting elevated heart rate although as per chart <100bpm. Patient responding to medication but would require further upward titration but due to ongoing concern of lab abnormalities secondary to clozapine use, will order EKG and cardiac echo to rule out myocarditis/cardiomyopathy induced by clozapine prior to increasing dose. As an alertnative, will consider paliperidone as an alternative. Continue to monitor mood and behavior, hospitlalist and hematology consult input appreciated. Discharge planning in progress. Justification for Continued Inpatient Stay: At risk for further decompensation at lower level of care. (1) Schizoaffective disorder Qualifiers: Schizoaffective disorder type: unspecified Qualified Code(s): F25.9 - Schizoaffective disorder, unspecified
[2017-12-18] MEDS: Levothyroxine 88 MCG Tablet PO SCH (05:18)
--- NOTE | 2017-12-18 08:24 | ECG ---
Date Performed: 12/17/2017 Time Performed: 22:33:06 PTAGE: 56 years EKG: Sinus rhythm POSSIBLE LEFT ATRIAL ENLARGEMENT BORDERLINE ECG Compared to PREVIOUS TRACING the patient is no longer tachycardic PREVIOUS TRACIN11/30/2017 22.26 DOCTOR: Donna Romeo Interpretating Date/Time 12/18/2017 08:23:53
[2017-12-18] MEDS: Famotidine 20 MG Tablet PO SCH ×2 (10:32→20:26)
[2017-12-18] MEDS: Fenofibrate 48 MG Tablet PO SCH (10:32)
[2017-12-18] MEDS: Metoprolol Tartrate 25 MG Tablet PO SCH ×2 (10:33→20:25)
--- NOTE | 2017-12-18 13:46 | P.PN ---
Subjective Interval history: Follow-up visit leukocytosis, thrombocytosis HTN, HLD, hypothyroidism. Patient seen and examined today. Awakes to voice, oriented x 2. No n/v/d, no cp, no sob. Eating okay. States someone it telling her to take off her t-shirt. No fever, no acute changes overnight Physical Exam Vital signs: Vital Signs 12/17/17 18:11 12/18/17 05:49 Temperature 97.6 F 97.3 F L Pulse Rate 85 83 Respiratory Rate 16 15 Blood Pressure 143/73 H 116/69 Pulse Oximetry 95 94 L Intake & Output 12/17/17 12/18/17 12/18/17 18:59 06:59 18:59 Intake Total 1080 / 1080 240 / 240 360 / 360 Balance 1080 / 1080 240 / 240 360 / 360 Intake: Oral 1080 / 1080 240 / 240 360 / 360 Other: # Voids 1 1 Narrative: GENERAL: This is a well-nourished, well-developed patient, in no apparent distress. SKIN: Warm and dry. HEENT: Normocephalic. Pupils equal round and reactive. Nose without bleeding. Airway patent. NECK: Trachea midline. CARDIOVASCULAR: Regular rate and rhythm without murmurs, gallops, or rubs. RESPIRATORY: Diminished bases. No wheezes, rales, or rhonchi. GASTROINTESTINAL: Abdomen soft, non-tender, nondistended. Bowel Sounds normoactive x4. MUSCULOSKELETAL: Extremities without clubbing, cyanosis, or edema. NEUROLOGICAL: Awake and alert. Moves all extremities. Garbled to normal speech. Results - Labs CBC & Chem 7: 12/17/17 06:38 12/17/17 06:38 Assessment and Plan - Plan - Plan Patient is a 56-year-old female with past medical history of hypothyroidism, hyperlipidemia, hypertension, schizoaffective disorder who was initially admitted to inpatient psychiatry unit under [place] act secondary to acute psychosis. During her admission patient decompensated complaining of left- sided chest pressure with shortness of breath, tachycardia at 115 and was hypotensive. Patient was admitted to inpatient medicine treated for possible sepsis secondary to UTI. Clinically improved and now admitted back to medical psychiatry and for further evaluation. Consulted for assistance with medical management. Psychosis, schizoaffective disorder -Managed by psychiatry team -Psychiatry considering paliperidone as an alternative if hematologic abnormalities persist Leukocytosis 12.6 -->15.5 ...16.1--> 14. 3 Thrombocytosis 579--> 600...-->621 Microcytic anemia -Patient was worked up by infectious disease prior to transfer to medical psychiatry unit. Blood cultures with no growth 5 days. -Suspicion before was urinary tract infection patient was placed on Levaquin but was discontinued prior to transfer -repeat blood cultures NGTD -pro calcitonin low, lactic acid 1.8 -Not started on antibiotics. Leukocytosis may be related to use of Clozaril. Hematologic abnormalities are noted for Clozaril use. -Recommend q weekly labs while on clozaril x1 month, then every other week, then monthly. -Hematology consult, hematological studies ordered. Smear results noted, leukocytosis with left shift neutrophilia -Repeat chest x-ray showed new trace pleural effusion right lung base, stable left midlung airspace disease characteristic of atelectasis. Otherwise stable chest. -IV Iron infusion per hematology R/O iron deficiency anemia -UA negative -Suspicion for reactive leukocytosis. HTN HLD Tachycardia-has improved, ranges around 80 -Continue aspirin, statin, Lopressor 75mg BID -Monitor BP trend -Prior complaints of chest pain with VQ scan negative for PE -Improving tachycardia -Echocardiogram has been ordered, completed results pending. Psych wants to rule out out myocarditis/cardiomyopathy induced by clozapine prior to increasing dose. Patient had previous echo December 01, no significant findings , EF 55-60% Hypothyroidism -Continue with levothyroxine Acute renal insufficiency on possibly chronic kidney disease -Avoid nephrotoxins -IV fluids for gentle hydration, encourage p.o. fluid intake. -Monitor renal indicis DVT prop early ambulation Code Status: Full code Discussed Condition With: RN, patient Discharge Planning: Per primary care team
--- NOTE | 2017-12-18 16:29 | ECHRPT ---
Indication: Cardiomyopathy CONCLUSIONS Normal left ventricular size. Mild concentric left ventricular hypertrophy. The left ventricular systolic function is normal with an estimated ejection fraction in the range of 55-60%. Aortic valve sclerosis is present. Trace aortic valve regurgitation. There is trace tricuspid valve regurgitation. The estimated pulmonary arterial pressure is 27 mmHg. There is a small pericardial effusion present. BP: / HR: Rhythm: MEASUREMENTS (Male / Female) Normal Values Technical Quality:Technically difficult study 2D ECHO LV Diastolic Diameter PLAX 3.8 cm 4.2 - 5.9 / 3.9 - 5.3 cm LV Systolic Diameter PLAX 2.4 cm IVS Diastolic Thickness 1.1 cm 0.6 - 1.0 / 0.6 - 0.9 cm LVPW Diastolic Thickness 1.1 cm 0.6 - 1.0 / 0.6 - 0.9 cm LV Relative Wall Thickness 0.6 LVOT Diameter 2.0 cm Aortic Root Diameter 2.4 cm LA Systolic Diameter LX 2.7 cm 3.0 - 4.0 / 2.7 - 3.8 cm DOPPLER AV Peak Velocity 115.0 cm/s AV Peak Gradient 5.3 mmHg LVOT Peak Velocity 98.2 cm/s LVOT Peak Gradient 3.9 mmHg AV Area Cont Eq pk 2.7 cm Mitral E Point Velocity 62.7 cm/s Mitral A Point Velocity 100.0 cm/s Mitral E to A Ratio 0.6 TR Peak Velocity 206.0 cm/s TR Peak Gradient 17.0 mmHg Right Atrial Pressure 10.0 mmHg Pulmonary Artery Systolic Pressu 27.0 mmHg Right Ventricular Systolic Press 27.0 mmHg PV Peak Velocity 86.9 cm/s PV Peak Gradient 3.0 mmHg FINDINGS LEFT VENTRICLE Normal left ventricular size. Mild concentric left ventricular hypertrophy. The left ventricular systolic function is normal with an estimated ejection fraction in the range of 55-60%. RIGHT VENTRICLE Normal right ventricular size and systolic function. LEFT ATRIUM The left atrial size is normal. RIGHT ATRIUM The right atrial size is normal. ATRIAL SEPTUM Normal atrial septal thickness without atrial level shunting by limited color doppler interrogation. AORTA The aortic root and proximal ascending aorta are normal in size on limited imaging. MITRAL VALVE Structurally normal mitral valve. No mitral valve stenosis or regurgitation. AORTIC VALVE Trileaflet aortic valve. Aortic valve sclerosis is present. Trace aortic valve regurgitation. TRICUSPID VALVE There is trace tricuspid valve regurgitation. The estimated pulmonary arterial pressure is 27 mmHg. PULMONARY VALVE No pulmonary valve regurgitation or stenosis. VESSELS The inferior vena cava is normal in size. PERICARDIUM There is a small pericardial effusion present. Esther Evans MD, FACC (Electronically Signed) Final Date:18 December 2017 16:28
[2017-12-18 18:02] VITALS: O2SAT 95
--- NOTE | 2017-12-18 21:49 | P.PNPSY ---
Subjective Remarks: Patient seen for follow up; chart reviewed. Discussion with nursing staff reported that patient initially refused cardiac echo but complied with encouragement, continues with paranoid delusions. Patient was found sitting on hospital bed, calm and cooperative. She states feeling "upbeat", denies any physical complaints, denies any shortness of breath, denies any chest pain. She states that the medicine did not work today but could not elaborate as she continues with some disorganization at times. Patient also continues with paranoid delusions, asking nurse if she was going to kill her. She denies any perceptual disturbances but staff reports patient talking to self at times. Review of Systems All other systems reviewed negative except as stated in HPI Mental Status Examination Appearance: Appropriate Consciousness: Alert Orientation: Person Motor Activity: Other (No motor abnormalities noted) Speech: Unremarkable Language: Other (Rambling) Fund of Knowledge: Inadequate Attention and Concentration: Easily distracted Memory: Impaired Mood: Other ("good") Affect: Blunt Thought Process & Associations: Loose associations, Disorganized (at times, rambling) Thought Content: Bizarre thinking, Hallucinations Hallucination Type: Auditory Delusion Type: None Suicidal Ideation: No Suicidal Plan: No Suicidal Intention: No Homicidal Ideation: No Homicidal Plan: No Homicidal Intention: No Insight: Poor Judgment: Poor Assessment and Plan - Assessment (1) Schizoaffective disorder Code(s): F25.9 - Schizoaffective disorder, unspecified Status: Acute - Plan Plan: Patient denying any physical complaints, no SOB or chest pain. Will wait for final cardiac echo report and if no abnormalities noted, will attempt slow upward titration. Paliperidone as an alternative is unlikely at this time as patient creatinine clearance is low and would require low dose and would likely be enough to address patient's symtpoms. Patient currently without physical complaints. Will slowly titrate clozapine 25-50mg every four days. Will continue to monitor mood and behavior. Discharge planning in progress. Justification for Continued Inpatient Stay: At risk for further decompensation at lower level of care. (1) Schizoaffective disorder Qualifiers: Schizoaffective disorder type: unspecified Qualified Code(s): F25.9 - Schizoaffective disorder, unspecified
[2017-12-19 05:54] VITALS: RESP 16
[2017-12-19] MEDS: Levothyroxine 88 MCG Tablet PO SCH (06:00)
--- NOTE | 2017-12-19 09:40 | P.PN ---
Subjective Interval history: Follow-up visit leukocytosis, thrombocytosis HTN, HLD, hypothyroidism. Patient seen and examined today. Awakes to voice, oriented x 2. No n/v/d, no cp, no sob. Eating okay. Stable overnight, no fever. Physical Exam Vital signs: Vital Signs 12/18/17 18:00 12/19/17 05:53 Temperature 97.4 F L 96.1 F L Pulse Rate 92 H 91 H Respiratory Rate 18 16 Blood Pressure 121/74 102/56 L Pulse Oximetry 95 Intake & Output 12/18/17 12/19/17 12/19/17 18:59 06:59 18:59 Intake Total 1440 / 1440 480 / 480 Balance 1440 / 1440 480 / 480 Intake: Oral 1440 / 1440 480 / 480 Other: # Voids 3 1 Narrative: GENERAL: This is a well-nourished, well-developed patient, in no apparent distress. SKIN: Warm and dry. HEENT: Normocephalic. Pupils equal round and reactive. Nose without bleeding. Airway patent. NECK: Trachea midline. CARDIOVASCULAR: Regular rate and rhythm without murmurs, gallops, or rubs. RESPIRATORY: Diminished bases. No wheezes, rales, or rhonchi. GASTROINTESTINAL: Abdomen soft, non-tender, nondistended. Bowel Sounds normoactive x4. MUSCULOSKELETAL: Extremities without clubbing, cyanosis, or edema. NEUROLOGICAL: Awake and alert. Moves all extremities. Garbled to normal speech. Results - Labs CBC & Chem 7: 12/17/17 06:38 12/17/17 06:38 Assessment and Plan - Plan - Plan Patient is a 56-year-old female with past medical history of hypothyroidism, hyperlipidemia, hypertension, schizoaffective disorder who was initially admitted to inpatient psychiatry unit under Rodriguez act secondary to acute psychosis. During her admission patient decompensated complaining of left- sided chest pressure with shortness of breath, tachycardia at 115 and was hypotensive. Patient was admitted to inpatient medicine treated for possible sepsis secondary to UTI. Clinically improved and now admitted back to medical psychiatry and for further evaluation. Consulted for assistance with medical management. Psychosis, schizoaffective disorder -Managed by psychiatry team -Psychiatry considering paliperidone as an alternative if hematologic abnormalities persist Leukocytosis 12.6 -->15.5 ...16.1--> 14. 3 Thrombocytosis 579--> 600...-->621 Microcytic anemia -Patient was worked up by infectious disease prior to transfer to medical psychiatry unit. Blood cultures with no growth 5 days. -Suspicion before was urinary tract infection patient was placed on Levaquin but was discontinued prior to transfer -repeat blood cultures NGTD -pro calcitonin low, lactic acid 1.8 -Not started on antibiotics. Leukocytosis may be related to use of Clozaril. Hematologic abnormalities are noted for Clozaril use. -Recommend q weekly labs while on clozaril x1 month, then every other week, then monthly. -Hematology consult, hematological studies ordered. Smear results noted, leukocytosis with left shift neutrophilia -Repeat chest x-ray showed new trace pleural effusion right lung base, stable left midlung airspace disease characteristic of atelectasis. Otherwise stable chest. -IV Iron infusion per hematology R/O iron deficiency anemia -UA negative -Suspicion for reactive leukocytosis. HTN HLD Tachycardia-has improved, ranges around 80 -Continue aspirin, statin, Lopressor 75mg BID -Monitor BP trend -Prior complaints of chest pain with VQ scan negative for PE -Improving tachycardia - Psych wants to rule out out myocarditis/cardiomyopathy induced by clozapine prior to increasing dose. Patient had previous echo December 01, no significant findings, EF 55-60% -Repeat echo done, unchanged from previous. EF 55-60. Hypothyroidism -Continue with levothyroxine Acute renal insufficiency on possibly chronic kidney disease -Avoid nephrotoxins -IV fluids for gentle hydration, encourage p.o. fluid intake. -Monitor renal indicis DVT prop early ambulation CBC in am Discharge Planning: Per primary care team
[2017-12-19] MEDS: Metoprolol Tartrate 25 MG Tablet PO SCH ×2 (10:59→20:55)
[2017-12-19] MEDS: Famotidine 20 MG Tablet PO SCH ×2 (11:06→20:56)
[2017-12-19] MEDS: Fenofibrate 48 MG Tablet PO SCH (11:06)
--- NOTE | 2017-12-19 11:46 | P.PNONC ---
Subjective Interval history: Patient lying in bed, awake and alert. She has no complaints at this time. She states she has had an increase in energy since the iron transfusions. Objective Vital Signs/Intake & Output: Vital Signs 12/18/17 18:00 12/19/17 05:53 Temperature 97.4 F L 96.1 F L Pulse Rate 92 H 91 H Respiratory Rate 18 16 Blood Pressure 121/74 102/56 L Pulse Oximetry 95 Intake & Output 12/18/17 12/19/17 12/19/17 18:59 06:59 18:59 Intake Total 1440 / 1440 480 / 480 Balance 1440 / 1440 480 / 480 Intake: Oral 1440 / 1440 480 / 480 Other: # Voids 3 1 Result Diagrams: 12/17/17 06:38 12/17/17 06:38 Culture Results: Microbiology 12/11/17 13:20 Aerobic Blood Culture - Final Blood - Peripheral No growth in 5 days Anaerobic Blood Culture - Final No growth in 5 days 12/11/17 13:15 Aerobic Blood Culture - Final Blood - Peripheral No growth in 5 days Anaerobic Blood Culture - Final No growth in 5 days Medications: Active Medications Generic Name Dose Route Start Last Admin Trade Name Freq PRN Reason Stop Dose Admin Acetaminophen 650 mg 12/08/17 21:34 12/09/17 05:33 Tylenol PO 650 mg Q4H PRN Administration Temp > 100.4 Aspirin 81 mg 12/09/17 09:00 12/19/17 11:00 Ecotrin PO 81 mg DAILY KAMERON Administration Atorvastatin Calcium 20 mg 12/09/17 21:00 12/18/17 20:25 Lipitor PO 20 mg HS KAMERON Administration Clozapine 50 mg 12/09/17 09:00 12/18/17 10:32 Clozaril PO 50 mg DAILY KAMERON Administration Clozapine 150 mg 12/10/17 21:00 12/18/17 20:26 Clozaril PO 150 mg HS KAMERON Administration Famotidine 20 mg 12/09/17 09:00 12/19/17 11:06 Pepcid PO 20 mg BID KAMERON Administration Fenofibrate 48 mg 12/09/17 09:00 12/19/17 11:06 Tricor PO 48 mg DAILY KAMERON Administration Levothyroxine Sodium 88 mcg 12/09/17 06:00 12/18/17 05:18 Synthroid PO 88 mcg DAILY@0600 KAMERON Administration Metoprolol Tartrate 75 mg 12/12/17 12:15 12/19/17 10:59 Lopressor PO 75 mg BID KAMERON Administration Sodium Chloride 2 ml 12/09/17 09:00 12/19/17 11:06 Ns Flush IV.FLUSH Not Given BID KAMERON Sodium Chloride 2 ml 12/08/17 21:52 12/14/17 21:58 Ns Flush IV.FLUSH 2 ml PRN PRN Administration FLUSH AFTER USING IV ACCESS Objective Remarks: GENERAL: Chronically ill-appearing female patient, lying in bed, in no acute distress. SKIN: Warm and dry. HEAD: Normocephalic. EYES: No scleral icterus. No injection or drainage. NECK: Supple, trachea midline. CARDIOVASCULAR: Regular rate and rhythm without murmurs. RESPIRATORY: Anterior breath sounds clear, equal bilaterally. No accessory muscle use. GASTROINTESTINAL: Abdomen soft, non-tender, no distended. EXTREMITIES: No cyanosis, or edema. MUSCULOSKELETAL: Adequate muscle tone. NEUROLOGICAL: No obvious focal deficit. Awake, alert. Speech mumbled at times. PSYCHIATRIC: Answers questions appropriately at times. Intermittently speech is low and mumbled. Assessment/Plan (1) Acquired neutrophilia Code(s): D72.828 - Other elevated white blood cell count Status: Acute (2) Reactive thrombocytosis Code(s): R79.89 - Other specified abnormal findings of blood chemistry Status : Acute - Plan Ms. Gonzales is a 56-year-old woman, with a history of schizoaffective disorder, hypertension, hypothyroidism and hypertrophic glycerides. She was admitted to the hospital under the Rodriguez act. She is currently being treated in the medical psychiatric unit. Patient was started on Clozaril for psychosis. Patient is seen for neutrophilia, mild anemia, and thrombocytosis. Plan: 1. Schizoaffective disorder improved on Clozaril. Noted hematologic toxicity attributed to the Clozaril. She has had neutrophilia, mild eosinophilia, and thrombocytosis. 2. Microcytic anemia, status post parenteral iron therapy. Patient reports increased energy. CBC on 12/17/2017 did not show any more microcytic anemia. 3. Neutrophilia, mild eosinophilia, improving. Chest x-ray was negative for infectious etiology. Blood cultures negative for 5 days. UA was negative and urine culture was not indicated. 4. Thrombocytopenia, persist, however with some improvement. 5. Patient is asymptomatic from the neutrophilia and the thrombocytosis. - Attending Statement The exam, history, and the medical decision-making described in the above note were completed with the assistance of the mid-level provider. I reviewed and agree with the findings presented. I attest that I had a [id number] encounter with the patient on the same day, and personally performed and documented my assessment and findings in the medical record. Showed me her writing. Appears more organized on clozaril. Able to tell story. She went to see [employer]. She likes [employer]. Inquire about having an apartment which I defer to her team and DC equipment planner. Denies any pain. Appetite good. Denies any bleeding. Tolerated iron therapy well last week. Concern about leukocytosis and thrombocytosis. Unable to rule out underlying chronic myeloproliferative disorder from peripheral smear. Check REHANA 2 and flow cytometry. CBC tomorrow ordered. We will review peripheral smear.
--- NOTE | 2017-12-19 18:07 | P.PNPSY ---
Subjective Remarks: Patient seen for follow up; chart reviewed. Discussion with nursing staff reported that patient continued with some paranoid ideations and delusional. Patient was found lying hospital bed noted B, cooperative. Patient states sleeping well, mood has been "not too bad" continues to have unclear auditory hallucinations and continues to make bizarre statements such as "the joint and trying to go back to the mother". Patient continues with paranoid ideation stating that the peer who wants to kill her". Patient denies any physical complaints at this time denies any chest pain or shortness of breath. Review of Systems All other systems reviewed negative except as stated in HPI Mental Status Examination Appearance: Appropriate ( history) Consciousness: Alert Orientation: Person Motor Activity: Other (No motor abnormalities noted) Speech: Unremarkable Language: Other (Rambling) Fund of Knowledge: Inadequate Attention and Concentration: Easily distracted Memory: Impaired Mood: Other ("good") Affect: Blunt Thought Process & Associations: Loose associations, Disorganized (at times, rambling) Thought Content: Bizarre thinking, Hallucinations Hallucination Type: Auditory Delusion Type: None Suicidal Ideation: No Suicidal Plan: No Suicidal Intention: No Homicidal Ideation: No Homicidal Plan: No Homicidal Intention: No Insight: Poor Judgment: Poor Assessment and Plan - Assessment (1) Schizoaffective disorder Code(s): F25.9 - Schizoaffective disorder, unspecified Status: Acute - Plan Plan: Patient continues with paranoid delusions and bizarre statements and disorganized at times. He will start to slowly increase clozapine by 25 mg every 4 days with slow titration with continue hematological monitoring. We will increase clozapine to 75 mg a.m./150 mg at bedtime psychosis. We will continue rest of medications to continue to monitor mood and behavior. Discharge planning a progress. Justification for Continued Inpatient Stay: At risk of further decompensation a lower level care (1) Schizoaffective disorder Qualifiers: Schizoaffective disorder type: unspecified Qualified Code(s): F25.9 - Schizoaffective disorder, unspecified
[2017-12-20 05:55] VITALS: BP 129/60; PULSE 83; TEMP 97.9
[2017-12-20] MEDS: Levothyroxine 88 MCG Tablet PO SCH (06:17)
[2017-12-20 07:10] LABS: Hematocrit 35.2 % (35.0-46.0); Hemoglobin 11.6 gm/dL (11.6-15.3); Mean Corpuscular HGB Conc 32.9 % (32.0-36.0); Mean Corpuscular Hemoglobin 26.7 pg (27.0-34.0); Mean Corpuscular Volume 81.3 fL (80.0-100.0); Mean Platelet Volume 8.6 fL (7.0-11.0); Platelet Count 541 th/mm3 (150-450); Red Blood Count 4.33 mil/mm3 (4.00-5.30); Red Cell Distribution Width 14.7 % (11.6-17.2); White Blood Count 13.9 th/mm3 (4.0-11.0)
[2017-12-20] MEDS: Metoprolol Tartrate 25 MG Tablet PO SCH (09:17)
[2017-12-20] MEDS: Famotidine 20 MG Tablet PO SCH (09:17)
[2017-12-20] MEDS: Fenofibrate 48 MG Tablet PO SCH (09:18)
--- NOTE | 2017-12-20 10:09 | P.PN ---
Subjective Interval history: Follow-up visit leukocytosis, thrombocytosis HTN, HLD, hypothyroidism. Patient seen and examined today. Awake, sitting up, oriented x 2. No n/v/d, no cp, no sob. Eating okay. Stable overnight, no fever. Denies visual and auditory hallucinations today. Physical Exam Vital signs: Vital Signs 12/20/17 05:55 Temperature 97.9 F Pulse Rate 83 Respiratory Rate 16 Blood Pressure 129/60 Pulse Oximetry 95 Intake & Output 12/19/17 12/20/17 12/20/17 18:59 06:59 18:59 Intake Total 840 / 840 240 / 240 Balance 840 / 840 240 / 240 Weight 56.2 kg Intake: Oral 840 / 840 240 / 240 Other: # Voids 1 Narrative: GENERAL: This is a well-nourished, well-developed patient, in no apparent distress. SKIN: Warm and dry. HEENT: Normocephalic. Pupils equal round and reactive. Nose without bleeding. Airway patent. NECK: Trachea midline. CARDIOVASCULAR: Regular rate and rhythm without murmurs, gallops, or rubs. RESPIRATORY: Diminished bases. No wheezes, rales, or rhonchi. GASTROINTESTINAL: Abdomen soft, non-tender, nondistended. Bowel Sounds normoactive x4. MUSCULOSKELETAL: Extremities without clubbing, cyanosis, or edema. NEUROLOGICAL: Awake and alert. Moves all extremities. Garbled to normal speech. Results - Labs CBC & Chem 7: 12/20/17 06:10 12/17/17 06:38 Laboratory Results - last 24 hr 12/20/17 06:10 WBC 13.9 H RBC 4.33 Hgb 11.6 Hct 35.2 MCV 81.3 MCH 26.7 L MCHC 32.9 RDW 14.7 Plt Count 541 H MPV 8.6 Assessment and Plan - Plan - Plan Patient is a 56-year-old female with past medical history of hypothyroidism, hyperlipidemia, hypertension, schizoaffective disorder who was initially admitted to inpatient psychiatry unit under Rodriguez act secondary to acute psychosis. During her admission patient decompensated complaining of left- sided chest pressure with shortness of breath, tachycardia at 115 and was hypotensive. Patient was admitted to inpatient medicine treated for possible sepsis secondary to UTI. Clinically improved and now admitted back to medical psychiatry and for further evaluation. Consulted for assistance with medical management. Psychosis, schizoaffective disorder -Managed by psychiatry team -Psychiatry considering paliperidone as an alternative if hematologic abnormalities persist -Clozaril titrated up per Dr. Garcia Leukocytosis 12.6 -->15.5 ...16.1--> 14. 3 Thrombocytosis 579--> 600...-->621 Microcytic anemia -Patient was worked up by infectious disease prior to transfer to medical psychiatry unit. Blood cultures with no growth 5 days. -Suspicion before was urinary tract infection patient was placed on Levaquin but was discontinued prior to transfer -repeat blood cultures NGTD -pro calcitonin low, lactic acid 1.8 -Not started on antibiotics. Leukocytosis may be related to use of Clozaril. Hematologic abnormalities are noted for Clozaril use. -Recommend q weekly labs while on clozaril x1 month, then every other week, then monthly. -Repeat chest x-ray showed new trace pleural effusion right lung base, stable left midlung airspace disease characteristic of atelectasis. Otherwise stable chest. -IV Iron infusion per hematology R/O iron deficiency anemia. Improved -UA negative -Suspicion for reactive leukocytosis. per review of hematology noted, Unable to rule out underlying chronic myeloproliferative disorder from peripheral smear. Ordered REHANA 2 and flow cytometry. CBC tomorrow ordered and will review peripheral smear. HTN HLD Tachycardia-has improved, ranges around 80 -Continue aspirin, statin, Lopressor 75mg BID -Monitor BP trend -Prior complaints of chest pain with VQ scan negative for PE -Improving tachycardia - Psych wants to rule out out myocarditis/cardiomyopathy induced by clozapine prior to increasing dose. Patient had previous echo December 01, no significant findings, EF 55-60% -Repeat echo done, unchanged from previous. EF 55-60. Hypothyroidism -Continue with levothyroxine Acute renal insufficiency on possibly chronic kidney disease -Avoid nephrotoxins -IV fluids for gentle hydration, encourage p.o. fluid intake. -Monitor renal indicis DVT prop early ambulation D/W Dr. Garcia, poss dc in the next couple of days. Will titrate Clozaril slowly and recommends OP follow up for CBC Will sign off for now, reconsult if needed. Code Status: Full code Discussed Condition With: Pt, RN, Dr. Garcia Discharge Planning: Per primary care team
--- NOTE | 2017-12-21 08:00 | P.DSPSY ---
Psychiatry Discharge Summary Inpatient Psychiatric care?: Yes Advance Directives: No Mental Health Advance Directive: Unknown Health Care Proxy: No - Admission Admission Date: December 08, 2017 18:05 - Admission Diagnosis (1) Schizoaffective disorder Code(s): F25.9 - Schizoaffective disorder, unspecified Brief History: Patient was initially admitted to psychiatry on 11/19/17, please see H&P on that date. Patient was transferred to the medical floor after presenting with tachycardia and hypotension and recently medically cleared and transferred back to the inpatient psychiatry unit. Tobacco Use In Past 30 Days: No How Often Do You Have a Drink Containing Alcohol: Never Hospital Course: Ms. Gonzales is a 56-year-old female with a history of schizoaffective disorder who presents under a Rodriguez act by law enforcement alleging that the patient made statements to her nurse that she was crucified on the cross last night. It is further alleged that the patient verbally threatened staff and threatened to run away from the facility which patient was admitted to the inpatient psychiatry unit for further observation and management. Patient during admission had been transferred to the medical floor due to tachycardia and hypotension which upon stabilization was transferred back to the inpatient psychiatry unit. Patient was remained on clozapine and was noted to have had neutrophilia, thrombocytosis and leukocytosis which primary medical team and hematology consult team continued to evaluate patient and monitor blood counts. Work up did not reveal any acute pathology related to the elevated cell counts and suspected secondary to clozapine. Patient was noted with decrease in cell count and was maintained on medication regimen with close monitoring of cell counts. Patient tolerated well medication well despite lab abnormalities with no notable adverse drug reactions. Patient had work up with normal cardiac echo. She was observed by staff not to have had any behavioral disturbances, nor made any suicidal or homicidal ideation and able to reach and maintain stable mood during admission and was noted to participate with staff adequately. Patient was noted to participate in self-care, engaged with staff and maintaining adequate hygiene. Patient reported feeling hopeful, future oriented and motivated to return back to her assisted living facility and to continue outpatient follow-up. Treatment team was able to set up outpatient follow-up appointments which patient can continue for continuity of care. Upon discharge patient stated feeling "good" reported feeling well with treatment, agreed to continue treatment and return back to her [facility]. Patient from a mental health perspective no longer met criteria for continued inpatient level of care. Patient denied any SI, HI, perceptual disturbances or delusions. Weighing the acute, chronic, and protective factors and based on the available evidence, I hop strainer to a reasonable degree of medical certainty that the patient is at low imminent risk of harm to self or others for mental illness as defined under the Rodriguez act and his level of function is adequate as observed on the unit for planned level of outpatient care. Patient was counseled regarding warning signs for need to return to the psychiatric emergency room as part of the general safety plan. Patient advised to call 911 or go to nearest ED in case of emergency. Patient agrees with plan. - Discharge Discharge Date: 12/20/17 Discharge Disposition: Home - Discharge Instructions Discharge Diet: Heart Healthy Diet Activities You Can Perform: Regular- No Restrictions - Discharge Time > 30 minutes Mental Status Examination Appearance: Appropriate Consciousness: Alert Orientation: Person Motor Activity: Other (No motor abnormalities noted) Speech: Unremarkable Language: Adequate Fund of Knowledge: Inadequate Attention and Concentration: Adequate Memory: Impaired Mood: Other ("good") Affect: Appropriate Thought Process & Associations: Linear Thought Content: Appropriate Hallucination Type: None Delusion Type: None Suicidal Ideation: No Suicidal Plan: No Suicidal Intention: No Homicidal Ideation: No Homicidal Plan: No Homicidal Intention: No Insight: Poor Judgment: Poor Discharge/Advance Care Plan - Results Vital Signs: Last Vital Signs Temp 97.9 F 12/20/17 05:55 Pulse 83 12/20/17 05:55 Resp 16 12/20/17 05:55 BP 129/60 12/20/17 05:55 Pulse Ox 95 12/20/17 05:55 Lab Results: Laboratory Results Urine Culture Comments Culture not ind 12/15/17 Unknown Summary of Procedures: none Imaging: ITS Impressions Chest X-Ray 12/14/17 00:00 CONCLUSION: New trace pleural effusion in the right lung base Stable left midlung airspace disease characteristic of atelectasis. Otherwise stable chest Pending Results: None - Medications Number of antipsychotic medications at discharge: 1 - Discharge Care Plan Goals to Promote Your Health: * To prevent worsening of your condition and complications * To maintain your health at the optimal level Directions to Meet Your Goals: Take your medications as prescribed Follow your dietary instruction Follow activity as directed Keep your appointments as scheduled Take your immunizations and boosters as scheduled If your symptoms worsen call your PCP, if no PCP go to Urgent Care Center or Emergency Room For 23/10 questions related to your inpatient stay or results of tests pending at discharge, please contact Dr. Lucio Garcia MD at Smoking is Dangerous to Your Health. Avoid second hand smoking (1) Schizoaffective disorder Qualifiers: Schizoaffective disorder type: unspecified Qualified Code(s): F25.9 - Schizoaffective disorder, unspecified
== END 2017-12-20 14:34 ==
LOC: H4EA 18:05
PROVIDERS: ADMIT Student in an Organized Health Care Education/Training Program; ATTEND Student in an Organized Health Care Education/Training Program